=== PATIENT | male | born 1945 | race Caucasian/White ===

== ENCOUNTER 2018-10-08 19:19 | Emergency (ER) | payer MEDICARE ==
--- NOTE | 2018-10-08 20:43 | EDM.PDOC ---
ED HPI GENERAL MEDICAL PROBLEM - General Chief Complaint: General Stated Complaint: SWELLING Time Seen by Provider: 10/08/18 19:25 Source of Information: Reports: Patient, Family - History of Present Illness INITIAL COMMENTS - FREE TEXT/NARRATIVE: c/o edema inc'd fluid x 4d, arms swell, dizzy, sob pt here with daughter h/o alcohol abuse, last alcohol 1w ago, has apt with Dr Ordaz tomorrow, Dr Ordaz did a recent EGD PMH: AAA, AR, CKD4, pacer, htn, renal mass PSH: jenni ledesma saw Alyse Roberts 09/25 and begun on furosemide 20 mg daily for 1w, then qod finishing 4w of prednisone, was 10 mg 4 tab/d x 1w and then taper 10 mg weekly, has 2-3 tabs left inc'd edema and mild inc'd BUN/creat c/w fluid retention from prednisone also with glu 199 today BUN/creat 52/2.27 on 08/26, 65/2.69 on 09/15, now 49/2.9 wt 183 in office on 09/29, today 186.5 trop inc'd on visit 2m ago, came to ED, sent to [facility], no AR per [facility] trop neg tonight, BNP 719 today, was 394 from 1m ago - Related Data Allergies Allergy/AdvReac Type Severity Reaction Status Date / Time No Known Allergies Allergy Verified 10/08/18 19:31 Home Meds: Home Meds Carvedilol 12.5 mg PO BID 08/02/18 [History] Allopurinol [Zyloprim] 100 mg PO DAILY #90 tablet 08/11/18 [Rx] Aspirin [Halfprin] 81 mg PO DAILY tab.ec 08/11/18 [Rx] Acetaminophen [Tylenol Extra Strength] 500 mg PO Q4H PRN 10/08/18 [History] Fluticasone Propionate 1 spray NS ASDIRECTED 10/08/18 [History] Furosemide 20 mg PO DAILY #30 tablet 10/08/18 [Rx] Furosemide [Lasix] 20 mg PO Q48H 10/08/18 [History] Thiamine [Vitamin B-1] 100 mg PO DAILY 10/08/18 [History] amLODIPine Besylate [Amlodipine Besylate] 5 mg PO BID 10/08/18 [History] traZODone 50 mg PO DAILY 10/08/18 [History] Past Medical History HEENT History: Reports: Cataract Other HEENT History: cataract both eyes and got sick before it was taken care of Cardiovascular History: Reports: Hypertension, AR, Pacemaker Respiratory History: Reports: COPD Gastrointestinal History: Reports: Other (See Below) Other Gastrointestinal History: hernia-- inguinal hernia X3 right and left Genitourinary History: Reports: Other (See Below) Other Genitourinary History: stage 4 renal failure. Musculoskeletal History: Reports: Other (See Below) Other Musculoskeletal History: right arm weakness from 2 years ago. States that he does not know what happened. Admits to shoulder weakness on right. 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 Psychiatric History: Reports: Other (See Below) Other Psychiatric History: patient is an alcoholic. Denies 08/08, a "beer or two a day" Oncologic (Cancer) History: Reports: Renal - Past Surgical History Cardiovascular Surgical History: Reports: Percutaneous Transluminal Angioplasty , Other (See Below) Other Cardiovascular Surgeries/Procedures: pacemaker. Respiratory Surgical History: Reports: None GI Surgical History: Reports: Appendectomy, Cholecystectomy, Other (See Below) Other GI Surgeries/Procedures: lap nelsy Male Surgical History: Reports: None Other Male Surgeries/Procedures: cyst on right kidney--bx appt scheduled for in 10/11 Musculoskeletal Surgical History: Reports: None Social & Family History - Family History Family Medical History: Noncontributory - Tobacco Use Smoking Status *Q: Former Smoker Used Tobacco, but Quit: Yes Month/Year Tobacco Last Used: 1 - Caffeine Use Caffeine Use: Reports: Coffee - Alcohol Use Days Per Week of Alcohol Use: 7 Number of Drinks Per Day: 3 Total Drinks Per Week: 21 - Recreational Drug Use Recreational Drug Use: No ED ROS GENERAL - Review of Systems Review Of Systems: See Below Constitutional: Reports: No Symptoms HEENT: Reports: No Symptoms Respiratory: Reports: No Symptoms Cardiovascular: Reports: Edema Endocrine: Reports: No Symptoms GI/Abdominal: Reports: No Symptoms : Reports: No Symptoms Musculoskeletal: Reports: No Symptoms Skin: Reports: No Symptoms Neurological: Reports: Dizziness Psychiatric: Reports: No Symptoms Hematologic/Lymphatic: Reports: No Symptoms Immunologic: Reports: No Symptoms ED EXAM, GENERAL - Physical Exam Exam: See Below Exam Limited By: No Limitations General Appearance: Alert, WD/WN, No Apparent Distress, Other (cooperative, good eye contact, normal speech pattern) Nose: Normal Inspection, Normal Mucosa Throat/Mouth: Normal Inspection, Normal Lips, Normal Teeth Head: Atraumatic, Normocephalic Neck: Normal Inspection, Supple, Non-Tender, Full Range of Motion Respiratory/Chest: No Respiratory Distress, Lungs Clear, Normal Breath Sounds, No Accessory Muscle Use Cardiovascular: Regular Rate, Rhythm, No JVD, Other (2/6 DEBBIE at LSB, no S3/S4, 3 + edema knees, 2+ edema groin b/l, 1+ presacral edema, no dull at flanks, no rales at bases). No: Gallop/S3 GI/Abdominal: Normal Bowel Sounds, Soft, Non-Tender, No Distention Back Exam: Normal Inspection, Full Range of Motion. No: CVA Tenderness (R), CVA Tenderness (L) Extremities: Normal Range of Motion, Non-Tender, Zabrina's Sign Neurological: Alert, Oriented, CN II-XII Intact, Normal Cognition, Normal Reflexes, No Motor/Sensory Deficits Psychiatric: Normal Affect, Normal Mood Skin Exam: Warm, Dry, Intact, Normal Color, No Rash Lymphatic: No Adenopathy Course - Vital Signs Last Recorded V/S: Last Vital Signs Temp 36.5 C 10/08/18 19:19 Pulse 76 10/08/18 19:19 Resp 18 10/08/18 19:19 BP 181/67 H 10/08/18 19:19 Pulse Ox 96 10/08/18 19:19 - Orders/Labs/Meds Orders: Active Orders 24 hr Category Date Time Status CBC WITH AUTO DIFF [HEME] Stat Lab 10/08/18 19:55 Results Labs: Laboratory Tests 10/08/18 10/08/18 10/08/18 Range/Units 19:55 19:55 19:55 WBC 11.7 (4.5-12.0) X10-3/uL RBC 3.44 L (4.30-5.75) x10(6)uL Hgb 12.4 (11.5-15.5) g/dL Hct 35.5 (30.0-51.3) % MCV 103.0 H (80-96) fL MCH 36.1 H (27.7-33.6) pg MCHC 35.0 (32.2-35.4) g/dL RDW 14.4 (11.5-15.5) % Plt Count 280 (125-369) X10(3)uL MPV 7.9 (7.4-10.4) fL Add Manual Diff Yes Sodium 137 (135-145) mmol/L Potassium 5.4 H D (3.5-5.3) mmol/L Chloride 103 D (100-110) mmol/L Carbon Dioxide 22 (21-32) mmol/L BUN 49 H (7-18) mg/dL Creatinine 2.9 H* (0.70-1.30) mg/dL Est Cr Clr Drug Dosing 21.95 mL/min Estimated GFR (MDRD) 21 L (>60) BUN/Creatinine Ratio 16.9 (9-20) Glucose 199 H D (80-116) mg/dL Calcium 8.8 (8.6-10.2) mg/dL Total Bilirubin 0.5 (0.1-1.3) mg/dL AST 20 D (5-25) IU/L ALT 29 (12-36) U/L Alkaline Phosphatase 68 (56-112) IU/L Troponin I < 0.017 L (<0.017-0.056) ng/mL NT-Pro-B Natriuret Pep 719 H (<=125) pg/mL Total Protein 7.3 (6.0-8.0) g/dL Albumin 3.5 (3.2-4.6) g/dL Globulin 3.8 g/dL Albumin/Globulin Ratio 0.9 Departure - Departure Time of Disposition: 20:46 Disposition: Home, Self-Care 01 Condition: Good Clinical Impression: Anasarca, Fluid retention, Elevated BUN, Acute on chronic renal failure - Discharge Information *PRESCRIPTION DRUG MONITORING PROGRAM REVIEWED*: No *COPY OF PRESCRIPTION DRUG MONITORING REPORT IN PATIENT SOTERO: No Prescriptions: Furosemide 20 mg PO DAILY #30 tablet Instructions: Edema Referrals: Trish Roberts NP [Primary Care Provider] - Additional Instructions: Increase the furosemide to 20 mg 2 tabs daily for 3 days, then 1 tab daily. Discuss your blood pressure and blood sugar with your doctor. See your doctor in 5 days. Call your Physician or Return to Emergency Department if: * Your condition worsens in any way. * You develop fever greater than 100.4. * You have vomitting that does not stop with medications. * You have pain that is not controlled with medications. - My Orders Last 24 Hours: My Active Orders 10/08/18 19:55 CBC WITH AUTO DIFF [HEME] Stat - Assessment/Plan Last 24 Hours: My Active Orders 10/08/18 19:55 CBC WITH AUTO DIFF [HEME] Stat
== END 2018-10-08 20:55 | disposition home or self-care (01) ==
LOC: FB.ED 19:19
DX: I12.9 Hypertensive chronic kidney disease with stage 1 through stage 4 chronic kidney disease, or unspecified chronic kidney disease (principal); N17.9 Acute kidney failure, unspecified; N18.9 Chronic kidney disease, unspecified; R60.1 Generalized edema; R79.89 Other specified abnormal findings of blood chemistry; I25.2 Old myocardial infarction; Z79.82 Long term (current) use of aspirin; Z79.899 Other long term (current) drug therapy; Z87.891 Personal history of nicotine dependence
CPT/HCPCS: 36415; 80053; 83880; 84484; 85025; 99284

== ENCOUNTER 2019-02-12 13:55 | Inpatient (IN) | payer MEDICARE ==
[2019-02-12] MEDS ORDERED: Acetaminophen 325 MG Tab PO PRN (14:11)
[2019-02-12] MEDS ORDERED: Thiamine 200 MG in Sodium Chloride 0.9% 100 ML IV ONE (14:17)
[2019-02-12] MEDS: LORazepam 1 MG Tab PO PRN (15:27)
[2019-02-12] MEDS: Acetaminophen 500 MG Tab PO PRN (15:27)
[2019-02-12] MEDS: Sodium Chloride 0.9% 10 ML Syringe FLUSH PRN ×2 (15:30→17:18)
[2019-02-12] MEDS: Carvedilol 12.5 MG Tab PO SCH (20:15)
[2019-02-12] MEDS: Gabapentin 100 MG Cap PO SCH (20:15)
[2019-02-12] MEDS ORDERED: traZODone 50 MG Tab PO SCH (21:00)
--- NOTE | 2019-02-13 08:05 | HP ---
ADMISSION DATE: 02/12/2019 CHIEF COMPLAINT: Tremor and weakness. HISTORY OF PRESENT ILLNESS: Mr. Kim is a 73-year-old man with many years of chronic alcoholism, history of coronary artery disease with 2 prior stent placements and a permanent pacemaker, history of iliac artery stent left to right, and osteoarthritis. The patient presented to the clinic to see Dr. Solano today because of weakness and tremor. This has been going on for the prior few days. He states he drinks 4 beers and one hard drink per day on the average and has kept this pattern up without stopping. He states he has had an episode of shaking like this at least once before, resulting in hospitalization. His ex-, who accompanies him today, states that they told him it was due to alcohol. Paul has not had any fever, chills, sweats, or symptoms of recent infection. He does report intermittent headaches and neck pain ever since he fell and sustained a relatively severe facial and forehead contusion and abrasion and strain of his neck. He did not have any x-rays of the neck done, but he has had neck pain ever since that. PAST MEDICAL HISTORY: Includes: 1. Appendectomy at age 40. 2. Cholecystectomy. 3. Head contusion with a neck strain approximately 2 months ago. 4. Chronic renal failure, stage 4. Paul is not sure what the cause of that is. 5. He had right knee surgery approximately 40 years ago, and he has been having pain in the right knee now for the past 1-2 years with walking. He has had tremor. 6. He has a history of bilateral inguinal hernias. 7. Diverticulosis. 8. Chronic anemia. 9. COPD. 10.Hypertension. 11.Right solid renal mass. 12.Abdominal aortic aneurysm, last measured at 4 cm in 2017. 13.Paul underwent CT of the abdomen and pelvis in October of 2018 for right upper abdominal pain, this showed emphysematous changes at the lungs, basilar infiltrates, and absent gallbladder. A solid 39 x 41 mm mass unchanged over a period of a year. 14.Degenerative disk disease and osteoarthritis of lumbar spine. 15.A 36-mm infrarenal aortic aneurysm and unremarkable gallbladder, spleen, liver, and adrenals. Inguinal hernias were noted as well. MEDICATIONS: 1. Trazodone 75 mg at bedtime. 2. Amlodipine 5 mg b.i.d. 3. Gabapentin 200 mg b.i.d. 4. Carvedilol 12.5 mg b.i.d. 5. Tylenol p.r.n. ALLERGIES: None known. HABITS: Long history of smoking, but he says he does not smoke at this time. Long heavy and continued use of alcohol. One cup of coffee per day. FAMILY HISTORY: The patient's parents, he reports, in their 80s of old age. One brother at age 33 of cirrhosis. Other siblings, he reports, are healthy. SOCIAL HISTORY: The patient is for 40 years. He lived in [facility] for many years and moved up here 2 years ago, and he is accompanied by his ex- , who remains good friends. He has had 2 children, one daughter who looks after his affairs. Paul [facility]. REVIEW OF SYSTEMS: GENERAL: No seizure, syncope, or recent significant weight change. SKIN: Negative for rash. HEENT: No recent changes in hearing or vision. He states that he needs cataracts fixed. No sore throat or URI. No cough or purulent sputum. No chest pain or palpitations. No abdominal pain, nausea, diarrhea. No joint inflammation. He does have chronic pain in the right knee. No swelling or skin rash. PHYSICAL EXAMINATION: GENERAL: He is alert and comfortable. He is a good historian. VITAL SIGNS: Blood pressure 94/56, pulse 60 and regular, respirations normal, temp 97.8, weight 178 pounds 12 ounces. SKIN: Anicteric. Warm and dry without sign of rash or trauma. HEENT: Cerumen impactions in both ears. Pupils are equal and reactive. Oropharynx is clear. He has no upper teeth and lower teeth are in poor condition. NECK: A slight kyphotic deviation with decreased range of motion. Thyroid is palpably normal. LUNGS: Clear to the bases. HEART: Regular without murmur or gallop. ABDOMEN: Normal bowel sounds. Soft. There is mild tenderness in the left lower quadrant. No guarding or rebound. There are inguinal hernias present bilaterally. EXTREMITIES: Warm and well perfused. He has palpable pedal pulses in both feet. No edema. Reflexes are present at the knee jerks and ankle jerks. He has a rather coarse tremor. NEUROLOGIC: Asterixis to be present in the upper extremities. LABORATORY DATA: Done at the office today, white count 9,100, hemoglobin 13.4, MCV 97. Glucose 67, sodium 141, potassium 5.5, BUN 42, creatinine 3.04. AST and ALT normal. An estimated clear glomerular filtration rate of 20. ASSESSMENT: 1. Tremor and weakness, likely alcohol related with asterixis present. 2. Headaches and neck pain post fall, resulting in significant forehead contusion and neck injury, neck strain. 3. Oxoze-db-tddukza alcoholism. 4. Coronary artery disease with history of myocardial infarction and two stents. 5. Peripheral vascular disease with left to right iliac artery stent. 6. Chronic kidney disease, stage 4. 7. Osteoarthritis, right knee. 8. Permanent pacemaker. 9. A 4 cm abdominal aortic aneurysm. 10.A 20 x 30 mm right upper pole renal mass, stable in size over 1 year's time. PLAN: Paul is admitted to the hospital. We will pursue further investigation. Watch closely for signs of acute alcohol withdrawal and medicate appropriately. We will also x-ray his neck because of the continued neck pain and headaches since his injury. /[id number] LUIZA/DAVID
[2019-02-13] MEDS: Thiamine 100 MG Tab PO SCH (08:48)
[2019-02-13] MEDS: Gabapentin 100 MG Cap PO SCH (08:48)
[2019-02-13] MEDS: amLODIPine 5 MG Tab PO SCH (08:48)
[2019-02-13] MEDS: Carvedilol 12.5 MG Tab PO SCH ×2 (08:48→20:20)
[2019-02-13] MEDS ORDERED: Furosemide 20 MG Tab PO SCH (09:00)
[2019-02-13] MEDS ORDERED: traZODone 100 MG Tab PO SCH (09:00)
[2019-02-13] MEDS ORDERED: Allopurinol 100 MG Tab PO SCH (09:00)
--- NOTE | 2019-02-13 10:14 | PCM.PN ---
- General Info Date of Service: 02/13/19 Subjective Update: Paul complains of tremors on movement. The tenderness so severe that is unable to hold a cup or drink anything. His complains of neck pain from a previous trauma and fall. Is not adequate for at least 2-3 days. According to physical therapy is very poor and judgment and movement even with a walker he still needs 1 or 2 people assisting and is a very high risk for a fall. He does not seem to remember many of the events that happened recently since disoriented at times. - Review of Systems HEENT: Reports: No Symptoms Cardiovascular: Reports: Dyspnea on Exertion Gastrointestinal: Reports: No Symptoms Genitourinary: Reports: No Symptoms Musculoskeletal: Reports: Neck Pain - Patient Data Vitals - Most Recent: Last Vital Signs Temp 98.1 F 02/13/19 00:00 Pulse 56 L 02/13/19 08:48 Resp 17 02/13/19 00:00 BP 113/64 02/13/19 08:48 Pulse Ox 95 02/13/19 00:00 Weight - Most Recent: 79.407 kg Lab Results Last 24 Hours: Laboratory Results - last 24 hr 02/13/19 02/13/19 02/13/19 Range/Units 07:55 07:55 07:55 WBC 7.8 (4.5-12.0) X10-3/uL RBC 3.61 L (4.30-5.75) x10(6)uL Hgb 12.3 L (13.5-17.8) g/dL Hct 35.2 (30.0-51.3) % MCV 97.4 H (80-96) fL MCH 34.0 H (27.7-33.6) pg MCHC 34.9 (32.2-35.4) g/dL RDW 14.0 (11.5-15.5) % Plt Count 211 (125-369) X10(3)uL MPV 7.7 (7.4-10.4) fL Neut % (Auto) 54.5 (46-82) % Lymph % (Auto) 26.3 (13-37) % [place] % (Auto) 13.1 H (4-12) % Eos % (Auto) 5 (1.0-5.0) % Baso % (Auto) 1 (0-2) % Neut # (Auto) 4.2 (1.6-8.3) # Lymph # (Auto) 2.1 (0.6-5.0) # [place] # (Auto) 1.0 (0.0-1.3) # Eos # (Auto) 0.4 (0.0-0.8) # Baso # (Auto) 0.1 (0.0-0.2) # PT 9.9 (8.7-11.1) INR 1.02 (0.89-1.13) Sodium 141 (135-145) mmol/L Potassium 5.3 (3.5-5.3) mmol/L Chloride 108 D (100-110) mmol/L Carbon Dioxide 24 (21-32) mmol/L BUN 42 H (7-18) mg/dL Creatinine 3.0 H* (0.70-1.30) mg/dL Est Cr Clr Drug Dosing 21.22 mL/min Estimated GFR (MDRD) 21 L (>60) BUN/Creatinine Ratio 14.0 (9-20) Glucose 86 D (80-116) mg/dL Uric Acid (2.6-6.0) mg/dL Calcium 8.1 L (8.6-10.2) mg/dL Magnesium 1.9 (1.8-2.5) mg/dL Total Bilirubin 0.3 (0.1-1.3) mg/dL AST 10 D (5-25) IU/L ALT 14 D (12-36) U/L Alkaline Phosphatase 69 (56-112) IU/L Total Protein 6.0 (6.0-8.0) g/dL Albumin 2.7 L (3.2-4.6) g/dL Globulin 3.3 g/dL Albumin/Globulin Ratio 0.8 02/13/19 Range/Units 07:55 WBC (4.5-12.0) X10-3/uL RBC (4.30-5.75) x10(6)uL Hgb (13.5-17.8) g/dL Hct (30.0-51.3) % MCV (80-96) fL MCH (27.7-33.6) pg MCHC (32.2-35.4) g/dL RDW (11.5-15.5) % Plt Count (125-369) X10(3)uL MPV (7.4-10.4) fL Neut % (Auto) (46-82) % Lymph % (Auto) (13-37) % [place] % (Auto) (4-12) % Eos % (Auto) (1.0-5.0) % Baso % (Auto) (0-2) % Neut # (Auto) (1.6-8.3) # Lymph # (Auto) (0.6-5.0) # [place] # (Auto) (0.0-1.3) # Eos # (Auto) (0.0-0.8) # Baso # (Auto) (0.0-0.2) # PT (8.7-11.1) INR (0.89-1.13) Sodium (135-145) mmol/L Potassium (3.5-5.3) mmol/L Chloride (100-110) mmol/L Carbon Dioxide (21-32) mmol/L BUN (7-18) mg/dL Creatinine (0.70-1.30) mg/dL Est Cr Clr Drug Dosing mL/min Estimated GFR (MDRD) (>60) BUN/Creatinine Ratio (9-20) Glucose (80-116) mg/dL Uric Acid 8.3 H (2.6-6.0) mg/dL Calcium (8.6-10.2) mg/dL Magnesium (1.8-2.5) mg/dL Total Bilirubin (0.1-1.3) mg/dL AST (5-25) IU/L ALT (12-36) U/L Alkaline Phosphatase (56-112) IU/L Total Protein (6.0-8.0) g/dL Albumin (3.2-4.6) g/dL Globulin g/dL Albumin/Globulin Ratio Med Orders - Current: Current Medications Acetaminophen (Tylenol Extra Strength) 500 mg PO Q4H PRN PRN Reason: Pain Last Admin: 02/12/19 15:27 Dose: 500 mg Amlodipine Besylate (Norvasc) 5 mg PO DAILY [facility] Last Admin: 02/13/19 08:48 Dose: 5 mg Carvedilol (Coreg) 12.5 mg PO BID [facility] Last Admin: 02/13/19 08:48 Dose: 12.5 mg Lactulose (Chronulac) 10 gm PO BID [facility] Lorazepam (Ativan) 1 mg PO Q6H PRN PRN Reason: tremulousness Last Admin: 02/12/19 15:27 Dose: 1 mg Sodium Chloride (Saline Flush) 10 ml FLUSH ASDIRECTED PRN PRN Reason: Keep Vein Open Last Admin: 02/12/19 17:18 Dose: 10 ml Thiamine HCl (Vitamin B-1) 100 mg PO DAILY [facility] Last Admin: 02/13/19 08:48 Dose: 100 mg Tramadol HCl (Ultram) 50 mg PO Q6H PRN PRN Reason: Pain Discontinued Medications Acetaminophen (Tylenol) 650 mg PO Q4H PRN PRN Reason: Pain (Mild 1-3)/fever Furosemide (Lasix) 20 mg PO DAILY [facility] Gabapentin (Neurontin) 200 mg PO BID [facility] Last Admin: 02/13/19 08:48 Dose: 200 mg Thiamine HCl 200 mg/ Sodium (Chloride) 102 mls @ 204 mls/hr IV ONETIME ONE Stop: 02/12/19 14:18 Last Admin: 02/12/19 15:30 Dose: 204 mls/hr Trazodone HCl (Trazodone) 50 mg PO DAILY [facility] Trazodone HCl (Trazodone) 75 mg PO BEDTIME [facility] Last Admin: 02/12/19 20:15 Dose: 75 mg - Exam General: Alert, Cooperative, Mild Distress. No: Oriented HEENT: Pupils Equal Neck: Supple Lungs: Clear to Auscultation Cardiovascular: Regular Rate GI/Abdominal Exam: Normal Bowel Sounds Back Exam: Normal Inspection, Vertebral Tenderness (nck) Extremities: Normal Inspection Skin: Warm Neurological: Normal Speech, Strength Equal Bilateral, Other (Pronator drift, asterexis noted) Psy/Mental Status: Alert - Problem List & Annotations (1) Encephalopathy SNOMED Code(s): 49877065 Code(s): G93.40 - ENCEPHALOPATHY, UNSPECIFIED Status: Acute Current Visit : Yes (2) CAD (coronary artery disease) SNOMED Code(s): 27865247 Code(s): I25.10 - ATHSCL HEART DISEASE OF [place] CORONARY ARTERY W/O ANG PCTRS Status: Acute Current Visit: Yes Qualifiers: Coronary Disease-Associated Artery/Lesion type: [place] artery (3) Pacemaker SNOMED Code(s): 601435643 Code(s): Z95.0 - PRESENCE OF CARDIAC PACEMAKER Status: Acute Current Visit: Yes (4) Neck pain SNOMED Code(s): 20468123 Code(s): M54.2 - CERVICALGIA Status: Acute Current Visit: Yes (5) Acute on chronic renal failure SNOMED Code(s): 000075887 Code(s): N17.9 - ACUTE KIDNEY FAILURE, UNSPECIFIED; N18.9 - CHRONIC KIDNEY DISEASE, UNSPECIFIED Status: Acute Current Visit: No Qualifiers: Chronic kidney disease stage: stage 4 (severe) (6) Alcohol intoxication SNOMED Code(s): 13008216 Code(s): F10.929 - ALCOHOL USE, UNSPECIFIED WITH INTOXICATION, UNSPECIFIED Status: Acute Current Visit: No Qualifiers: Complication of substance-induced condition: with unspecified complication Qualified Code(s): F10.929 - Alcohol use, unspecified with intoxication, unspecified (7) Tremor of both hands SNOMED Code(s): 460697930, 803595922 Code(s): R25.1 - TREMOR, UNSPECIFIED Status: Acute Current Visit: Yes - Problem List Review Problem List Initiated/Reviewed/Updated: Yes - My Orders Last 24 Hours: My Active Orders 02/13/19 10:04 Brain wo Cont [MR] Routine AMMONIA, PLASMA Stat MAGNESIUM [CHEM] Stat TROPONIN I [CHEM] Stat 02/13/19 10:06 traMADol [Ultram] 50 mg PO Q6H PRN 02/13/19 10:15 PRO B-TYPE NATRIUR PEPT,BNPPRO [CHEM] DAILY 02/13/19 11:00 Lactulose [Chronulac] 10 gm PO BID 02/14/19 05:11 CBC WITH AUTO DIFF [HEME] AM COMPREHENSIVE METABOLIC PN,CMP [CHEM] AM 02/14/19 10:15 PRO B-TYPE NATRIUR PEPT,BNPPRO [CHEM] DAILY - Plan Plan:: Paul is a very high risk for fall,especially sicne he lives alone. I would stop his gabapentin, place him on CIWA protocol, obtain repeat CT of the brain. Ammonia level BNP also ordered,and will continue with physical therapy. I'll start him on lactulose( as we await ammonia level) and continue thiamine.
[2019-02-13] MEDS: traMADol 50 MG Tab PO PRN ×2 (11:44→20:22)
--- NOTE | 2019-02-13 12:40 | CT ---
INDICATION: Falls, altered mental status. CT HEAD WITHOUT CONTRAST: Spiral examination of the brain axially was obtained 02/13/19 with sagittal and coronal reconstructions and compared with 08/02/18. Total exam DLP = 1,270.76 mGy-cm. There is mild thickening of the lining of the left maxillary antrum now visualized with some thickening of linings of multiple ethmoidal air cells also now seen. The mastoid air cells appear to be fairly well-aerated. No definite cranial fracture site was identified. There is suggestion of soft tissue injury in the right frontal bone area - minimal scalp contusion suggested. Calcification is noted in the right vertebral artery and at internal cerebral arteries. What appear to be lacunar infarcts are noted at the left thalamus, one previously visualized, one more inferiorly and anteriorly appearing new. There also appears to be a large lacunar infarct at the basal ganglia on the left, which was present previously. No shift of midline structures or ventricular abnormalities were seen. There is some periventricular white matter abnormality on the left, mostly in the parietal area, which may represent microvascular disease, although other cause of leukoencephalopathy cannot be excluded. There also appears to be some minimal decreased density in the posterior limb of the left internal capsule, raising question of tiny lacunar infarcts there. No evidence of a bleeding site or hematoma was identified. The orbits appear to be intact. IMPRESSION: 1. No definite acute intracranial abnormality. 2. Mild microvascular disease type changes suggested asymmetrically more prominent in left parietal area. Other cause of leukoencephalopathy cannot be excluded. 3. Cerebrovascular disease. 4. Multiple lacunar infarcts. 5. Thickening of linings of left maxillary antrum and ethmoidal air cells. [facility]
[2019-02-13] MEDS: Lactulose Soln 10 GM/15 ML 15 ML UD Cup PO SCH ×2 (12:41→20:18)
--- NOTE | 2019-02-13 12:50 | CR ---
INDICATION: Neck injury. CERVICAL SPINE: Three views of the cervical spine were obtained in lateral projection, also utilizing swimmers type view, including neutral flexion/ extension views, as well as an odontoid view. The odontoid appeared to be intact. Hypertrophic degenerative changes are noted at the atlas - axis, lateral masses to a mild degree, more prominently on the left, and to a more severe degree in the lateral masses throughout the more caudal cervical spine. Hypertrophic degenerative changes and disk disease is most notable at the C5-6, C6-7 levels but also present at C3-4 and C4-5 to a lesser degree. Reversal of the normal cervical lordosis is noted centered at the C5 level. Prevertebral space appeared to be normal. A definite acute fracture or dislocation was not identified. IMPRESSION: 1. No definite acute fracture or dislocation - correlate clinically - additional examination may be warranted, such as CT, depending upon clinical correlation. 2. Degenerative changes and disk disease, most severe at C5-6, C6-7. MTDD
--- NOTE | 2019-02-13 12:58 | CR ---
INDICATION: COPD. CHEST: AP and lateral views of the chest were obtained 02/12/19 and compared with 08/02/18. Allowing for the AP positioning, no significant interval change or definite acute process was seen. It is difficult to exclude some minimal patchy pneumonia and pleuritis at the left costophrenic angle, due to somewhat heavy markings in that area. The possibility of COPD is also suggested by somewhat flattened diaphragm leaves , prominent AP diameter, and hyperaeration. The heart did not appear enlarged, allowing for poor inspiration and AP positioning with bipolar pacemaker leads appearing unchanged in position. The aorta is tortuous to a moderate degree with calcifications in the arch. Compression fracture anteriorly of indeterminate age is noted at the midthoracic level. IMPRESSION: 1. No definite acute process. 2. Difficult to exclude minimal patchy bronchopneumonia and pleuritis at the left costophrenic angle. 3. Probable COPD - correlate clinically. 4. Degenerative changes midthoracic spine with a minimal compression fracture anteriorly at a midthoracic level of questionable age. MTDD
[2019-02-14] MEDS: traMADol 50 MG Tab PO PRN (06:39)
--- NOTE | 2019-02-14 09:25 | PCM.PN ---
- General Info Date of Service: 02/14/19 Subjective Update: Feels better.Tremors are better. Still has neck pain - Review of Systems General: Reports: No Symptoms HEENT: Reports: No Symptoms Pulmonary: Reports: No Symptoms Cardiovascular: Reports: No Symptoms Gastrointestinal: Reports: No Symptoms - Patient Data Vitals - Most Recent: Last Vital Signs Temp 98.5 F 02/14/19 00:00 Pulse 56 L 02/14/19 00:00 Resp 17 02/14/19 00:00 BP 115/54 L 02/14/19 00:00 Pulse Ox 93 L 02/14/19 00:00 Weight - Most Recent: 79.061 kg I&O - Last 24 Hours: Intake & Output 02/13/19 02/14/19 02/14/19 22:59 06:59 14:59 Intake Total 500 Output Total 900 Balance -400 Lab Results Last 24 Hours: Laboratory Results - last 24 hr 02/13/19 02/13/19 02/13/19 Range/Units 07:55 10:35 10:35 WBC (4.5-12.0) X10-3/uL RBC (4.30-5.75) x10(6)uL Hgb (13.5-17.8) g/dL Hct (30.0-51.3) % MCV (80-96) fL MCH (27.7-33.6) pg MCHC (32.2-35.4) g/dL RDW (11.5-15.5) % Plt Count (125-369) X10(3)uL MPV (7.4-10.4) fL Neut % (Auto) (46-82) % Lymph % (Auto) (13-37) % [place] % (Auto) (4-12) % Eos % (Auto) (1.0-5.0) % Baso % (Auto) (0-2) % Neut # (Auto) (1.6-8.3) # Lymph # (Auto) (0.6-5.0) # [place] # (Auto) (0.0-1.3) # Eos # (Auto) (0.0-0.8) # Baso # (Auto) (0.0-0.2) # Sodium (135-145) mmol/L Potassium (3.5-5.3) mmol/L Chloride (100-110) mmol/L Carbon Dioxide (21-32) mmol/L BUN (7-18) mg/dL Creatinine (0.70-1.30) mg/dL Est Cr Clr Drug Dosing mL/min Estimated GFR (MDRD) (>60) BUN/Creatinine Ratio (9-20) Glucose (80-116) mg/dL Calcium (8.6-10.2) mg/dL Magnesium 1.9 (1.8-2.5) mg/dL Total Bilirubin (0.1-1.3) mg/dL AST (5-25) IU/L ALT (12-36) U/L Alkaline Phosphatase (56-112) IU/L Troponin I < 0.017 L (<0.017-0.056) ng/mL NT-Pro-B Natriuret Pep (<=125) pg/mL Total Protein (6.0-8.0) g/dL Albumin (3.2-4.6) g/dL Globulin g/dL Albumin/Globulin Ratio Vitamin D 25-Hydroxy 25.4 L (30.0-100.0) ng/mL 02/13/19 02/14/19 02/14/19 Range/Units 10:35 06:35 06:35 WBC 7.7 (4.5-12.0) X10-3/uL RBC 3.58 L (4.30-5.75) x10(6)uL Hgb 12.2 L (13.5-17.8) g/dL Hct 35.0 (30.0-51.3) % MCV 97.7 H (80-96) fL MCH 34.1 H (27.7-33.6) pg MCHC 34.9 (32.2-35.4) g/dL RDW 14.0 (11.5-15.5) % Plt Count 212 (125-369) X10(3)uL MPV 7.9 (7.4-10.4) fL Neut % (Auto) 50.4 (46-82) % Lymph % (Auto) 29.2 (13-37) % [place] % (Auto) 13.2 H (4-12) % Eos % (Auto) 6 H (1.0-5.0) % Baso % (Auto) 2 (0-2) % Neut # (Auto) 4.0 (1.6-8.3) # Lymph # (Auto) 2.2 (0.6-5.0) # [place] # (Auto) 1.0 (0.0-1.3) # Eos # (Auto) 0.4 (0.0-0.8) # Baso # (Auto) 0.1 (0.0-0.2) # Sodium 142 (135-145) mmol/L Potassium 5.2 (3.5-5.3) mmol/L Chloride 108 (100-110) mmol/L Carbon Dioxide 26 (21-32) mmol/L BUN 36 H (7-18) mg/dL Creatinine 2.9 H* (0.70-1.30) mg/dL Est Cr Clr Drug Dosing 21.95 mL/min Estimated GFR (MDRD) 21 L (>60) BUN/Creatinine Ratio 12.4 (9-20) Glucose 84 (80-116) mg/dL Calcium 8.4 L (8.6-10.2) mg/dL Magnesium (1.8-2.5) mg/dL Total Bilirubin 0.4 (0.1-1.3) mg/dL AST 10 (5-25) IU/L ALT 14 (12-36) U/L Alkaline Phosphatase 64 (56-112) IU/L Troponin I (<0.017-0.056) ng/mL NT-Pro-B Natriuret Pep 852 H (<=125) pg/mL Total Protein 6.1 (6.0-8.0) g/dL Albumin 2.6 L (3.2-4.6) g/dL Globulin 3.5 g/dL Albumin/Globulin Ratio 0.7 Vitamin D 25-Hydroxy (30.0-100.0) ng/mL 02/14/19 Range/Units 06:35 WBC (4.5-12.0) X10-3/uL RBC (4.30-5.75) x10(6)uL Hgb (13.5-17.8) g/dL Hct (30.0-51.3) % MCV (80-96) fL MCH (27.7-33.6) pg MCHC (32.2-35.4) g/dL RDW (11.5-15.5) % Plt Count (125-369) X10(3)uL MPV (7.4-10.4) fL Neut % (Auto) (46-82) % Lymph % (Auto) (13-37) % [place] % (Auto) (4-12) % Eos % (Auto) (1.0-5.0) % Baso % (Auto) (0-2) % Neut # (Auto) (1.6-8.3) # Lymph # (Auto) (0.6-5.0) # [place] # (Auto) (0.0-1.3) # Eos # (Auto) (0.0-0.8) # Baso # (Auto) (0.0-0.2) # Sodium (135-145) mmol/L Potassium (3.5-5.3) mmol/L Chloride (100-110) mmol/L Carbon Dioxide (21-32) mmol/L BUN (7-18) mg/dL Creatinine (0.70-1.30) mg/dL Est Cr Clr Drug Dosing mL/min Estimated GFR (MDRD) (>60) BUN/Creatinine Ratio (9-20) Glucose (80-116) mg/dL Calcium (8.6-10.2) mg/dL Magnesium (1.8-2.5) mg/dL Total Bilirubin (0.1-1.3) mg/dL AST (5-25) IU/L ALT (12-36) U/L Alkaline Phosphatase (56-112) IU/L Troponin I (<0.017-0.056) ng/mL NT-Pro-B Natriuret Pep 946 H (<=125) pg/mL Total Protein (6.0-8.0) g/dL Albumin (3.2-4.6) g/dL Globulin g/dL Albumin/Globulin Ratio Vitamin D 25-Hydroxy (30.0-100.0) ng/mL Med Orders - Current: Current Medications Acetaminophen (Tylenol Extra Strength) 500 mg PO Q4H PRN PRN Reason: Pain Last Admin: 02/12/19 15:27 Dose: 500 mg Amlodipine Besylate (Norvasc) 5 mg PO DAILY [facility] Last Admin: 02/13/19 08:48 Dose: 5 mg Carvedilol (Coreg) 12.5 mg PO BID [facility] Last Admin: 02/13/19 20:20 Dose: 12.5 mg Lactulose (Chronulac) 10 gm PO BID [facility] Last Admin: 02/13/19 20:18 Dose: 10 gm Lorazepam (Ativan) 1 mg PO Q6H PRN PRN Reason: tremulousness Last Admin: 02/12/19 15:27 Dose: 1 mg Sodium Chloride (Saline Flush) 10 ml FLUSH ASDIRECTED PRN PRN Reason: Keep Vein Open Last Admin: 02/12/19 17:18 Dose: 10 ml Thiamine HCl (Vitamin B-1) 100 mg PO DAILY [facility] Last Admin: 02/13/19 08:48 Dose: 100 mg Tramadol HCl (Ultram) 50 mg PO Q6H PRN PRN Reason: Pain Last Admin: 02/14/19 06:39 Dose: 50 mg Discontinued Medications Acetaminophen (Tylenol) 650 mg PO Q4H PRN PRN Reason: Pain (Mild 1-3)/fever Furosemide (Lasix) 20 mg PO DAILY [facility] Gabapentin (Neurontin) 200 mg PO BID [facility] Last Admin: 02/13/19 08:48 Dose: 200 mg Thiamine HCl 200 mg/ Sodium (Chloride) 102 mls @ 204 mls/hr IV ONETIME ONE Stop: 02/12/19 14:18 Last Admin: 02/12/19 15:30 Dose: 204 mls/hr Trazodone HCl (Trazodone) 50 mg PO DAILY [facility] Trazodone HCl (Trazodone) 75 mg PO BEDTIME [facility] Last Admin: 02/12/19 20:15 Dose: 75 mg - Exam General: Alert, Oriented, Cooperative HEENT: Pupils Equal Neck: Supple Lungs: Clear to Auscultation Cardiovascular: Regular Rate GI/Abdominal Exam: Normal Bowel Sounds - Problem List & Annotations (1) Encephalopathy SNOMED Code(s): 30569439 Code(s): G93.40 - ENCEPHALOPATHY, UNSPECIFIED Status: Acute Current Visit : Yes (2) CAD (coronary artery disease) SNOMED Code(s): 98825176 Code(s): I25.10 - ATHSCL HEART DISEASE OF [place] CORONARY ARTERY W/O ANG PCTRS Status: Acute Current Visit: Yes Qualifiers: Coronary Disease-Associated Artery/Lesion type: [place] artery (3) Pacemaker SNOMED Code(s): 094310708 Code(s): Z95.0 - PRESENCE OF CARDIAC PACEMAKER Status: Acute Current Visit: Yes (4) Neck pain SNOMED Code(s): 75980032 Code(s): M54.2 - CERVICALGIA Status: Acute Current Visit: Yes (5) Acute on chronic renal failure SNOMED Code(s): 684167114 Code(s): N17.9 - ACUTE KIDNEY FAILURE, UNSPECIFIED; N18.9 - CHRONIC KIDNEY DISEASE, UNSPECIFIED Status: Acute Current Visit: No Qualifiers: Chronic kidney disease stage: stage 4 (severe) (6) Alcohol intoxication SNOMED Code(s): 23157034 Code(s): F10.929 - ALCOHOL USE, UNSPECIFIED WITH INTOXICATION, UNSPECIFIED Status: Acute Current Visit: No Qualifiers: Complication of substance-induced condition: with unspecified complication Qualified Code(s): F10.929 - Alcohol use, unspecified with intoxication, unspecified (7) Tremor of both hands SNOMED Code(s): 379902901, 916945946 Code(s): R25.1 - TREMOR, UNSPECIFIED Status: Acute Current Visit: Yes - Problem List Review Problem List Initiated/Reviewed/Updated: Yes - My Orders Last 24 Hours: My Active Orders 02/13/19 10:06 traMADol [Ultram] 50 mg PO Q6H PRN 02/13/19 10:35 AMMONIA, PLASMA Stat 02/13/19 11:00 Lactulose [Chronulac] 10 gm PO BID 02/13/19 12:36 CIWAA Assessment [RC] Q4H - Plan Plan:: CT head was normal.Lorazepam prn for tremors,shakes.Tramadol PRN for pain. Waiting for PT/OT input before DC
[2019-02-14] MEDS: Lactulose Soln 10 GM/15 ML 15 ML UD Cup PO SCH ×2 (09:41→21:05)
[2019-02-14] MEDS: Carvedilol 12.5 MG Tab PO SCH ×2 (09:41→21:05)
[2019-02-14] MEDS: Thiamine 100 MG Tab PO SCH (09:42)
[2019-02-14] MEDS: amLODIPine 5 MG Tab PO SCH (09:42)
[2019-02-14] MEDS: LORazepam 1 MG Tab PO PRN ×2 (13:36→21:05)
[2019-02-14] MEDS: Acetaminophen 500 MG Tab PO PRN (21:10)
[2019-02-14] MEDS: Sodium Chloride 0.9% 10 ML Syringe FLUSH PRN (21:10)
--- NOTE | 2019-02-15 10:27 | PCM.PN ---
- General Info Date of Service: 02/15/19 Subjective Update: Still has tremors,and can not hold anything. Worried about staying alone. Functional Status: Reports: Pain Controlled - Review of Systems HEENT: Reports: No Symptoms Pulmonary: Reports: No Symptoms Cardiovascular: Reports: No Symptoms Gastrointestinal: Reports: No Symptoms - Patient Data Vitals - Most Recent: Last Vital Signs Temp 99.1 F 02/14/19 19:15 Pulse 55 L 02/15/19 00:40 Resp 16 02/15/19 00:40 BP 108/57 L 02/15/19 00:40 Pulse Ox 94 L 02/15/19 00:40 Weight - Most Recent: 76.06 kg I&O - Last 24 Hours: Intake & Output 02/14/19 02/15/19 02/15/19 22:59 06:59 14:59 Output Total 200 Balance -200 Lab Results Last 24 Hours: Laboratory Results - last 24 hr 02/15/19 02/15/19 Range/Units 06:25 06:25 WBC 8.1 (4.5-12.0) X10-3/uL RBC 3.74 L (4.30-5.75) x10(6)uL Hgb 12.7 L (13.5-17.8) g/dL Hct 36.5 (30.0-51.3) % MCV 97.7 H (80-96) fL MCH 34.0 H (27.7-33.6) pg MCHC 34.8 (32.2-35.4) g/dL RDW 14.3 (11.5-15.5) % Plt Count 236 (125-369) X10(3)uL MPV 8.0 (7.4-10.4) fL Neut % (Auto) 58.9 (46-82) % Lymph % (Auto) 22.7 (13-37) % [place] % (Auto) 12.2 H (4-12) % Eos % (Auto) 6 H (1.0-5.0) % Baso % (Auto) 1 (0-2) % Neut # (Auto) 4.8 (1.6-8.3) # Lymph # (Auto) 1.8 (0.6-5.0) # [place] # (Auto) 1.0 (0.0-1.3) # Eos # (Auto) 0.5 (0.0-0.8) # Baso # (Auto) 0.0 (0.0-0.2) # Sodium 141 (135-145) mmol/L Potassium 5.0 (3.5-5.3) mmol/L Chloride 107 (100-110) mmol/L Carbon Dioxide 24 (21-32) mmol/L BUN 38 H (7-18) mg/dL Creatinine 3.1 H* (0.70-1.30) mg/dL Est Cr Clr Drug Dosing 20.53 mL/min Estimated GFR (MDRD) 20 L (>60) BUN/Creatinine Ratio 12.3 (9-20) Glucose 82 (80-116) mg/dL Calcium 8.8 (8.6-10.2) mg/dL Total Bilirubin 0.5 (0.1-1.3) mg/dL AST 13 D (5-25) IU/L ALT 16 D (12-36) U/L Alkaline Phosphatase 79 (56-112) IU/L Total Protein 6.6 (6.0-8.0) g/dL Albumin 3.0 L (3.2-4.6) g/dL Globulin 3.6 g/dL Albumin/Globulin Ratio 0.8 Med Orders - Current: Current Medications Acetaminophen (Tylenol Extra Strength) 500 mg PO Q4H PRN PRN Reason: Pain Last Admin: 02/14/19 21:10 Dose: 500 mg Amlodipine Besylate (Norvasc) 5 mg PO DAILY [facility] Last Admin: 02/14/19 09:42 Dose: 5 mg Carvedilol (Coreg) 12.5 mg PO BID [facility] Last Admin: 02/14/19 21:05 Dose: 12.5 mg Lactulose (Chronulac) 10 gm PO BID [facility] Last Admin: 02/14/19 21:05 Dose: 10 gm Lorazepam (Ativan) 1 mg PO Q6H PRN PRN Reason: tremulousness Last Admin: 02/14/19 21:05 Dose: 1 mg Sodium Chloride (Saline Flush) 10 ml FLUSH ASDIRECTED PRN PRN Reason: Keep Vein Open Last Admin: 02/14/19 21:10 Dose: 10 ml Thiamine HCl (Vitamin B-1) 100 mg PO DAILY [facility] Last Admin: 02/14/19 09:42 Dose: 100 mg Tramadol HCl (Ultram) 50 mg PO Q6H PRN PRN Reason: Pain Last Admin: 02/14/19 06:39 Dose: 50 mg Discontinued Medications Acetaminophen (Tylenol) 650 mg PO Q4H PRN PRN Reason: Pain (Mild 1-3)/fever Furosemide (Lasix) 20 mg PO DAILY [facility] Gabapentin (Neurontin) 200 mg PO BID [facility] Last Admin: 02/13/19 08:48 Dose: 200 mg Thiamine HCl 200 mg/ Sodium (Chloride) 102 mls @ 204 mls/hr IV ONETIME ONE Stop: 02/12/19 14:18 Last Admin: 02/12/19 15:30 Dose: 204 mls/hr Trazodone HCl (Trazodone) 50 mg PO DAILY [facility] Trazodone HCl (Trazodone) 75 mg PO BEDTIME [facility] Last Admin: 02/12/19 20:15 Dose: 75 mg - Exam General: Alert HEENT: Pupils Equal Lungs: Clear to Auscultation Cardiovascular: Regular Rate Psy/Mental Status: Alert, Normal Affect, Other (tremors) - Problem List & Annotations (1) Encephalopathy SNOMED Code(s): 50255482 Code(s): G93.40 - ENCEPHALOPATHY, UNSPECIFIED Status: Acute Current Visit : Yes (2) CAD (coronary artery disease) SNOMED Code(s): 30217095 Code(s): I25.10 - ATHSCL HEART DISEASE OF [place] CORONARY ARTERY W/O ANG PCTRS Status: Acute Current Visit: Yes Qualifiers: Coronary Disease-Associated Artery/Lesion type: [place] artery (3) Pacemaker SNOMED Code(s): 161635593 Code(s): Z95.0 - PRESENCE OF CARDIAC PACEMAKER Status: Acute Current Visit: Yes (4) Neck pain SNOMED Code(s): 18956425 Code(s): M54.2 - CERVICALGIA Status: Acute Current Visit: Yes (5) Acute on chronic renal failure SNOMED Code(s): 692771705 Code(s): N17.9 - ACUTE KIDNEY FAILURE, UNSPECIFIED; N18.9 - CHRONIC KIDNEY DISEASE, UNSPECIFIED Status: Acute Current Visit: No Qualifiers: Chronic kidney disease stage: stage 4 (severe) (6) Alcohol intoxication SNOMED Code(s): 43222330 Code(s): F10.929 - ALCOHOL USE, UNSPECIFIED WITH INTOXICATION, UNSPECIFIED Status: Acute Current Visit: No Qualifiers: Complication of substance-induced condition: with unspecified complication Qualified Code(s): F10.929 - Alcohol use, unspecified with intoxication, unspecified (7) Tremor of both hands SNOMED Code(s): 363275466, 106867914 Code(s): R25.1 - TREMOR, UNSPECIFIED Status: Acute Current Visit: Yes - Problem List Review Problem List Initiated/Reviewed/Updated: Yes - My Orders Last 24 Hours: My Active Orders 02/14/19 09:35 OT Evaluation and Treatment [CONS] Routine - Plan Plan:: I will keep him until tomorrow,discuss disposition eg assisted living
[2019-02-15] MEDS: Lactulose Soln 10 GM/15 ML 15 ML UD Cup PO SCH ×2 (13:11→20:46)
[2019-02-15] MEDS: Thiamine 100 MG Tab PO SCH (13:12)
[2019-02-15] MEDS: Carvedilol 12.5 MG Tab PO SCH ×2 (13:13→20:46)
[2019-02-15] MEDS: amLODIPine 5 MG Tab PO SCH (13:13)
[2019-02-15] MEDS: Acetaminophen 500 MG Tab PO PRN (19:44)
[2019-02-15] MEDS: LORazepam 1 MG Tab PO PRN (20:45)
--- NOTE | 2019-02-16 08:39 | PCM.PN ---
- General Info Date of Service: 02/16/19 Subjective Update: Paul feels ready to go home, he is walking better and is tremors have improved. He slept well. Functional Status: Reports: Pain Controlled - Review of Systems General: Reports: No Symptoms Pulmonary: Reports: No Symptoms Cardiovascular: Reports: No Symptoms Gastrointestinal: Reports: No Symptoms - Patient Data Vitals - Most Recent: Last Vital Signs Temp 98.8 F 02/15/19 20:00 Pulse 55 L 02/16/19 00:39 Resp 16 02/16/19 00:39 BP 98/56 L 02/16/19 00:39 Pulse Ox 94 L 02/16/19 00:39 Weight - Most Recent: 78.8 kg Med Orders - Current: Current Medications Acetaminophen (Tylenol Extra Strength) 500 mg PO Q4H PRN PRN Reason: Pain Last Admin: 02/15/19 19:44 Dose: 500 mg Amlodipine Besylate (Norvasc) 5 mg PO DAILY [facility] Last Admin: 02/15/19 13:13 Dose: 5 mg Carvedilol (Coreg) 12.5 mg PO BID [facility] Last Admin: 02/15/19 20:46 Dose: 12.5 mg Lactulose (Chronulac) 10 gm PO BID [facility] Last Admin: 02/15/19 20:46 Dose: 10 gm Lorazepam (Ativan) 1 mg PO Q6H PRN PRN Reason: tremulousness Last Admin: 02/15/19 20:45 Dose: 1 mg Sodium Chloride (Saline Flush) 10 ml FLUSH ASDIRECTED PRN PRN Reason: Keep Vein Open Last Admin: 02/14/19 21:10 Dose: 10 ml Thiamine HCl (Vitamin B-1) 100 mg PO DAILY [facility] Last Admin: 02/15/19 13:12 Dose: 100 mg Tramadol HCl (Ultram) 50 mg PO Q6H PRN PRN Reason: Pain Last Admin: 02/14/19 06:39 Dose: 50 mg Discontinued Medications Acetaminophen (Tylenol) 650 mg PO Q4H PRN PRN Reason: Pain (Mild 1-3)/fever Furosemide (Lasix) 20 mg PO DAILY [facility] Gabapentin (Neurontin) 200 mg PO BID [facility] Last Admin: 02/13/19 08:48 Dose: 200 mg Thiamine HCl 200 mg/ Sodium (Chloride) 102 mls @ 204 mls/hr IV ONETIME ONE Stop: 02/12/19 14:18 Last Admin: 02/12/19 15:30 Dose: 204 mls/hr Trazodone HCl (Trazodone) 50 mg PO DAILY [facility] Trazodone HCl (Trazodone) 75 mg PO BEDTIME [facility] Last Admin: 02/12/19 20:15 Dose: 75 mg - Exam General: Alert HEENT: Pupils Equal Neck: Supple Lungs: Clear to Auscultation Cardiovascular: Regular Rate Psy/Mental Status: Alert, Normal Affect - Problem List & Annotations (1) Encephalopathy SNOMED Code(s): 54602322 Code(s): G93.40 - ENCEPHALOPATHY, UNSPECIFIED Status: Acute Current Visit : Yes (2) CAD (coronary artery disease) SNOMED Code(s): 13335135 Code(s): I25.10 - ATHSCL HEART DISEASE OF [place] CORONARY ARTERY W/O ANG PCTRS Status: Acute Current Visit: Yes Qualifiers: Coronary Disease-Associated Artery/Lesion type: [place] artery (3) Pacemaker SNOMED Code(s): 462891249 Code(s): Z95.0 - PRESENCE OF CARDIAC PACEMAKER Status: Acute Current Visit: Yes (4) Neck pain SNOMED Code(s): 87153717 Code(s): M54.2 - CERVICALGIA Status: Acute Current Visit: Yes (5) Acute on chronic renal failure SNOMED Code(s): 927500677 Code(s): N17.9 - ACUTE KIDNEY FAILURE, UNSPECIFIED; N18.9 - CHRONIC KIDNEY DISEASE, UNSPECIFIED Status: Acute Current Visit: No Qualifiers: Chronic kidney disease stage: stage 4 (severe) (6) Alcohol intoxication SNOMED Code(s): 55734690 Code(s): F10.929 - ALCOHOL USE, UNSPECIFIED WITH INTOXICATION, UNSPECIFIED Status: Acute Current Visit: No Qualifiers: Complication of substance-induced condition: with unspecified complication Qualified Code(s): F10.929 - Alcohol use, unspecified with intoxication, unspecified (7) Tremor of both hands SNOMED Code(s): 249663089, 079325018 Code(s): R25.1 - TREMOR, UNSPECIFIED Status: Acute Current Visit: Yes - Problem List Review Problem List Initiated/Reviewed/Updated: Yes - Plan Plan:: DC home today. Out patient follow up.
[2019-02-16] MEDS: amLODIPine 5 MG Tab PO SCH (09:02)
[2019-02-16] MEDS: Thiamine 100 MG Tab PO SCH (09:03)
[2019-02-16] MEDS: Lactulose Soln 10 GM/15 ML 15 ML UD Cup PO SCH (09:03)
[2019-02-16] MEDS: Carvedilol 12.5 MG Tab PO SCH (09:03)
--- NOTE | 2019-02-16 13:24 | DISCH ---
DISCHARGE DATE: 02/16/2019 REASON FOR ADMISSION: 1. Tremors. 2. Chronic kidney disease. 3. Type 2 diabetes. 4. Alcohol abuse. 5. History of COPD. 6. Peripheral vascular disease. 7. History of coronary artery disease. 8. Pacemaker, permanent. 9. History of traumatic brain injury. CONSULTATIONS: Physical and Occupational Therapy. BRIEF HISTORY AND HOSPITAL COURSE: A 73-year-old male who was brought in with 2 days of flapping arms and tremors, weakness, unable to walk and was admitted for treatment. He had a fall in November, had head and neck injury, but no fracture. The family states that he drinks daily. He also has a history of chronic kidney disease, but his creatinine has been stable. Admission revealed he had asterixis and was slightly confused at times. He was having difficulty with ambulation. Over the next few days, his symptoms improved. I did discontinue his gabapentin because of his ataxia and we will send him home on tramadol p.r.n. for pain and thiamine and follow up with his PCP next week. OTHER HOME MEDICATIONS: 1. Carvedilol 12.5 mg b.i.d. 2. Amlodipine 5 mg a day. 3. Acetaminophen 5 mg p.o. p.r.n. DISCHARGE INSTRUCTIONS: He will go home on regular diet. I feel that because of his staying alone, he needs help with the Home Health Services to follow up with medications and physical and occupational therapy. Chemical dependency treatment can be discussed on an ambulatory basis. Please note that I spent more than 35 minutes in the discharge of the patient. /[id number] LILIANA/DAVID
== END 2019-02-16 12:50 | disposition home health service (06) | DRG 92 ==
LOC: FB.MS 13:55
PROVIDERS: ADMIT Family Medicine; ATTEND Family Medicine
DX: R25.1 Tremor, unspecified (principal); N18.4 Chronic kidney disease, stage 4 (severe); N17.9 Acute kidney failure, unspecified; R27.8 Other lack of coordination; I12.9 Hypertensive chronic kidney disease with stage 1 through stage 4 chronic kidney disease, or unspecified chronic kidney disease; Z87.891 Personal history of nicotine dependence; F10.10 Alcohol abuse, uncomplicated; M54.2 Cervicalgia; I25.10 Atherosclerotic heart disease of native coronary artery without angina pectoris; Z95.5 Presence of coronary angioplasty implant and graft; M17.11 Unilateral primary osteoarthritis, right knee; Z91.81 History of falling; Z95.0 Presence of cardiac pacemaker; K57.90 Diverticulosis of intestine, part unspecified, without perforation or abscess without bleeding; D64.89 Other specified anemias; I71.4 Abdominal aortic aneurysm, without rupture; M51.36 Other intervertebral disc degeneration, lumbar region; I73.9 Peripheral vascular disease, unspecified; N28.9 Disorder of kidney and ureter, unspecified; R51 Headache; R27.0 Ataxia, unspecified; W19.XXXD Unspecified fall, subsequent encounter; Z87.820 Personal history of traumatic brain injury
CPT/HCPCS: 36415; 70450; 71046; 72040; 80053; 82140; 82306; 83735; 83880; 84484; 84550; 85025; 85610; 93005; 97161-GP; 97166-GO; A9270-GY; J3411; J7030

== ENCOUNTER 2019-06-28 22:48 | Emergency (ER) | payer MEDICAID, MEDICARE ==
[2019-06-29] MEDS ORDERED: Acetaminophen 500 MG Tab PO ONE (00:04)
[2019-06-29] MEDS ORDERED: Acetaminophen/HYDROcodone 325-5 MG Tab PO ONE (00:48)
--- NOTE | 2019-06-29 00:51 | EDM.PDOC ---
ED HPI GENERAL MEDICAL PROBLEM - General Chief Complaint: Headache Stated Complaint: SICK Time Seen by Provider: 06/28/19 22:50 Source of Information: Reports: Patient History Limitations: Reports: No Limitations - History of Present Illness INITIAL COMMENTS - FREE TEXT/NARRATIVE: Patient is a 74 YO WM who presented to the ED because of headache over the frontal area,throbbing,03/02. He apparently tripped and fell and hit his head on the floor. There was no LOC after the fall. head Pain Score (Numeric/FACES): 8 - Related Data Allergies Allergy/AdvReac Type Severity Reaction Status Date / Time No Known Allergies Allergy Verified 10/08/18 19:31 Home Meds: Home Meds Carvedilol 12.5 mg PO BID 08/02/18 [History] Acetaminophen [Tylenol Extra Strength] 500 mg PO Q4H PRN 10/08/18 [History] amLODIPine Besylate [Amlodipine Besylate] 5 mg PO BID 10/08/18 [History] traZODone HCl [Trazodone HCl] 75 mg PO BEDTIME 02/12/19 [History] Thiamine [Vitamin B-1] 100 mg PO DAILY #30 tablet 02/16/19 [Rx] traMADol [Ultram] 50 mg PO Q6H PRN #30 tablet 02/16/19 [Rx] Acetaminophen/HYDROcodone [Surry 325-5 MG] 1 tab PO Q4H PRN #10 tab 06/29/19 [Rx ] Past Medical History HEENT History: Reports: Cataract Other HEENT History: cataract both eyes and got sick before it was taken care of Cardiovascular History: Reports: Hypertension, [place], Pacemaker Respiratory History: Reports: COPD Gastrointestinal History: Reports: Other (See Below) Other Gastrointestinal History: hernia-- inguinal hernia X3 right and left Genitourinary History: Reports: Other (See Below) Other Genitourinary History: stage 4 renal failure. Musculoskeletal History: Reports: Arthritis, Other (See Below) Other Musculoskeletal History: right arm weakness from 2 years ago. States that he does not know what happened. Admits to shoulder weakness on right. 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 states he fell in [place] one month ago and his neck is been out of wack since Psychiatric History: Reports: Other (See Below) Other Psychiatric History: patient is an alcoholic. Denies 08/08, a "beer or two a day" on 02/12/19 pt admits to one glass of rolan a day and 2 beers Oncologic (Cancer) History: Reports: Renal - Past Surgical History Cardiovascular Surgical History: Reports: Percutaneous Transluminal Angioplasty , Other (See Below) Other Cardiovascular Surgeries/Procedures: pacemaker. Respiratory Surgical History: Reports: None GI Surgical History: Reports: Appendectomy, Cholecystectomy, Other (See Below) Other GI Surgeries/Procedures: lap nelsy Male Surgical History: Reports: None Other Male Surgeries/Procedures: cyst on right kidney--bx appt scheduled for in 10/11 Neurological Surgical History: Reports: None Musculoskeletal Surgical History: Reports: None Social & Family History - Family History Family Medical History: Noncontributory - Caffeine Use Caffeine Use: Reports: Coffee ED ROS GENERAL - Review of Systems Review Of Systems: See Below Constitutional: Reports: No Symptoms HEENT: Reports: No Symptoms Respiratory: Reports: No Symptoms Cardiovascular: Reports: No Symptoms Endocrine: Reports: No Symptoms GI/Abdominal: Reports: No Symptoms : Reports: No Symptoms Musculoskeletal: Reports: No Symptoms Skin: Reports: No Symptoms Neurological: Reports: Headache Psychiatric: Reports: No Symptoms ED EXAM, HEAD INJURY - Physical Exam Exam: See Below Exam Limited By: No Limitations General Appearance: Alert, WD/WN, No Apparent Distress Head: Atraumatic, Normocephalic Nexus Criteria: Posterior, Midline Cervical Tenderness Ears: Normal External Exam, Normal Canal, Hearing Grossly Normal, Normal TMs Nose: Normal Inspection, Normal Mucousa, No Blood Throat/Mouth: Normal Inspection, Normal Lips, Normal Teeth Neck: Non-Tender, Full Range of Motion, Normal Alignment Respiratory: No Respiratory Distress, Lungs Clear, Normal Breath Sounds, No Accessory Muscle Use Cardiovascular: Normal Peripheral Pulses, Regular Rate, Rhythm, No Edema, No Gallop, No JVD, No Murmur GI/Abdominal Exam: Normal Bowel Sounds, Soft, Non-Tender, No Organomegaly Back Exam: Normal Inspection, Full Range of Motion Extremities: Normal Inspection, Normal Range of Motion Neurologic: internal recruiter II-XII nml As Tested, No Motor/Sensory Deficits, Alert, Normal Mood/Affect, Oriented x 3, Abnormal Cerebellar Tests, Abnormal internal recruiter II-XII. No: Abnormal Gait, Aphasia Skin: Normal Color, Warm/Dry Course - Vital Signs Text/Narrative:: Head CT-negative,see result tylenol 1000 mg po x1 without significant relief of his headache norco 5 mg po x1 Last Recorded V/S: Last Vital Signs Temp 36.7 C 06/29/19 00:50 Pulse 55 L 06/29/19 00:50 Resp 17 06/29/19 00:50 BP 104/59 L 06/29/19 00:50 Pulse Ox 100 06/29/19 00:50 - Orders/Labs/Meds Orders: Active Orders 24 hr Category Date Time Status Head wo Cont [CT] Stat Exams 06/28/19 22:51 Taken Meds: Medications Discontinued Medications Generic Name Dose Route Start Last Admin Trade Name Freq PRN Reason Stop Dose Admin Acetaminophen 1,000 mg 06/29/19 00:04 06/29/19 00:08 Tylenol Extra Strength PO 06/29/19 00:05 1,000 mg ONETIME ONE Administration Hydrocodone Bitart/Acetaminophen 1 tab 06/29/19 00:48 06/29/19 00:54 Surry 325-5 Mg PO 06/29/19 00:49 1 tab ONETIME ONE Administration Departure - Departure Time of Disposition: 00:50 Disposition: Home, Self-Care 01 Condition: Good Clinical Impression: Closed head injury - Discharge Information *PRESCRIPTION DRUG MONITORING PROGRAM REVIEWED*: No *COPY OF PRESCRIPTION DRUG MONITORING REPORT IN PATIENT SOTERO: No Prescriptions: Acetaminophen/HYDROcodone [Surry 325-5 MG] 1 tab PO Q4H PRN #10 tab PRN Reason: Pain Instructions: Head Injury, Adult Referrals: PCP,None [Primary Care Provider] - Forms: ED Department Discharge Additional Instructions: please read discharge instructions on closed head injury take ibuprofen 600 mg with tylenol 650 mg every 4-6 hours as needed for headache follow up as needed - My Orders Last 24 Hours: My Active Orders 06/28/19 22:51 Head wo Cont [CT] Stat - Assessment/Plan Last 24 Hours: My Active Orders 06/28/19 22:51 Head wo Cont [CT] Stat
== END 2019-06-29 01:05 | disposition home or self-care (01) ==
LOC: FB.ED 22:48
DX: S09.90XA Unspecified injury of head, initial encounter (principal); I10 Essential (primary) hypertension; J44.9 Chronic obstructive pulmonary disease, unspecified; I25.2 Old myocardial infarction; Z95.0 Presence of cardiac pacemaker; Z79.899 Other long term (current) drug therapy; W01.0XXA Fall on same level from slipping, tripping and stumbling without subsequent striking against object, initial encounter
CPT/HCPCS: 70450; 99284; A9270

== ENCOUNTER 2019-10-01 17:35 | Emergency (ER) | payer MEDICARE ==
[2019-10-01] MEDS ORDERED: Acetaminophen 500 MG Tab PO ONE (19:27)
[2019-10-01] MEDS ORDERED: Cyclobenzaprine 10 MG Tab PO ONE (19:27)
--- NOTE | 2019-10-01 19:32 | EDM.PDOC ---
ED HPI GENERAL MEDICAL PROBLEM - General Chief Complaint: General Stated Complaint: headache,right hip pain Time Seen by Provider: 10/01/19 17:50 Source of Information: Reports: Patient, Family History Limitations: Reports: No Limitations - History of Present Illness INITIAL COMMENTS - FREE TEXT/NARRATIVE: Patient presented to the ED because of a head and right hip injury. He was drinking this afternoon went home, tripped over and hit his head into the wooden cabinet. He c/o headache,5/10. There is no associated N/V. He also c/o right hip pain but is able to ambulate after falling. There was no LOC noted. Bilateral hip Pain Score (Numeric/FACES): 6 - Related Data Allergies Allergy/AdvReac Type Severity Reaction Status Date / Time No Known Allergies Allergy Verified 10/01/19 17:40 Home Meds: Home Meds traZODone HCl [Trazodone HCl] 75 mg PO 02/12/19 [History] Albuterol Sulfate [Albuterol Sulfate Hfa] 2 puff INH Q4H PRN 10/01/19 [History] Albuterol/Ipratropium [DuoNeb 3.0-0.5 MG/3 ML] 3 ml INH Q4H PRN 10/01/19 [ History] Aspirin [Halfprin] 81 mg PO 10/01/19 [History] Cyclobenzaprine [Flexeril] 10 mg PO Q8H PRN 10/01/19 [History] Cyclobenzaprine [Flexeril] 10 mg PO Q8H PRN #15 tab 10/01/19 [Rx] Gabapentin [Neurontin] 100 mg PO 08,,20 10/01/19 [History] Lisinopril [Zestril] 10 mg PO 08 10/01/19 [History] Past Medical History HEENT History: Reports: Cataract Other HEENT History: cataract both eyes and got sick before it was taken care of Cardiovascular History: Reports: Hypertension, [place], Pacemaker Respiratory History: Reports: COPD Gastrointestinal History: Reports: Other (See Below) Other Gastrointestinal History: hernia-- inguinal hernia X3 right and left Genitourinary History: Reports: Other (See Below) Other Genitourinary History: stage 4 renal failure. Musculoskeletal History: Reports: Arthritis, Other (See Below) Other Musculoskeletal History: right arm weakness from 2 years ago. States that he does not know what happened. Admits to shoulder weakness on right. 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 states he fell in [place] one month ago and his neck is been out of wack since Psychiatric History: Reports: Other (See Below) Other Psychiatric History: patient is an alcoholic. Denies 08/08, a "beer or two a day" on 02/12/19 pt admits to one glass of rolan a day and 2 beers Oncologic (Cancer) History: Reports: Renal - Past Surgical History Cardiovascular Surgical History: Reports: Percutaneous Transluminal Angioplasty , Other (See Below) Other Cardiovascular Surgeries/Procedures: pacemaker. Respiratory Surgical History: Reports: None GI Surgical History: Reports: Appendectomy, Cholecystectomy, Other (See Below) Other GI Surgeries/Procedures: lap nelsy Male Surgical History: Reports: None Other Male Surgeries/Procedures: cyst on right kidney--bx appt scheduled for in 10/11 Neurological Surgical History: Reports: None Musculoskeletal Surgical History: Reports: None Social & Family History - Family History Family Medical History: Noncontributory - Tobacco Use Smoking Status *Q: Former Smoker Used Tobacco, but Quit: Yes Month/Year Tobacco Last Used: 2017 - Caffeine Use Caffeine Use: Reports: Coffee - Recreational Drug Use Recreational Drug Use: No ED ROS GENERAL - Review of Systems Review Of Systems: See Below Constitutional: Reports: No Symptoms HEENT: Reports: No Symptoms Respiratory: Reports: No Symptoms Cardiovascular: Reports: No Symptoms Endocrine: Reports: No Symptoms GI/Abdominal: Reports: No Symptoms : Reports: No Symptoms Musculoskeletal: Reports: No Symptoms Skin: Reports: No Symptoms Neurological: Reports: No Symptoms, Headache. Denies: Dizziness Psychiatric: Reports: No Symptoms Hematologic/Lymphatic: Reports: No Symptoms Immunologic: Reports: No Symptoms ED EXAM, GENERAL - Physical Exam Exam: See Below Exam Limited By: No Limitations General Appearance: Alert, No Apparent Distress Eye Exam: Bilateral Eye: PERRL Ears: Normal External Exam, Normal Canal Nose: Normal Inspection, Normal Mucosa, No Blood Throat/Mouth: Normal Inspection, Normal Lips, Normal Teeth, Normal Gums, Normal Oropharynx, Normal Voice Head: Atraumatic, Normocephalic Neck: Normal Inspection, Supple, Non-Tender, Full Range of Motion Respiratory/Chest: No Respiratory Distress, Lungs Clear, Normal Breath Sounds Cardiovascular: Normal Peripheral Pulses, Regular Rate, Rhythm, No Edema, No Gallop, No JVD, No Murmur, No Rub GI/Abdominal: Normal Bowel Sounds, Soft, Non-Tender, No Organomegaly, No Distention, No Abnormal Bruit, No Mass, Pelvis Stable Back Exam: Normal Inspection, Full Range of Motion, CVA Tenderness (R) Extremities: Normal Inspection, Normal Range of Motion, Non-Tender, No Pedal Edema, Normal Capillary Refill, Other (tenderness right hip) Neurological: Alert Psychiatric: Normal Affect Course - Vital Signs Text/Narrative:: labs/EKG/Head CT,right hip xray result was discussed with patient and his daughter and verbalized full understanding ETOH-0.[address]-neg Rt hip/pelvis xray-neg Last Recorded V/S: Last Vital Signs Temp 36.4 C 10/01/19 17:45 Pulse 56 L 10/01/19 17:45 Resp 16 10/01/19 17:45 BP 156/61 H 10/01/19 17:45 Pulse Ox 98 10/01/19 17:45 - Orders/Labs/Meds Labs: Laboratory Tests 10/01/19 10/01/19 10/01/19 Range/Units 18:25 18:25 18:25 WBC 8.2 (4.5-12.0) X10-3/uL RBC 3.89 L (4.30-5.75) x10(6)uL Hgb 13.0 L (13.5-17.8) g/dL Hct 38.6 (30.0-51.3) % MCV 99.3 H (80-96) fL MCH 33.5 (27.7-33.6) pg MCHC 33.8 (32.2-35.4) g/dL RDW 13.7 (11.5-15.5) % Plt Count 306 (125-369) X10(3)uL MPV 6.8 L (7.4-10.4) fL Neut % (Auto) 54.1 (46-82) % Lymph % (Auto) 27.7 (13-37) % Lyman % (Auto) 11.4 (4-12) % Eos % (Auto) 6 H (1.0-5.0) % Baso % (Auto) 1 (0-2) % Neut # (Auto) 4.4 (1.6-8.3) # Lymph # (Auto) 2.3 (0.6-5.0) # Lyman # (Auto) 0.9 (0.0-1.3) # Eos # (Auto) 0.5 (0.0-0.8) # Baso # (Auto) 0.1 (0.0-0.2) # Sodium 138 (135-145) mmol/L Potassium 4.8 (3.5-5.3) mmol/L Chloride 106 (100-110) mmol/L Carbon Dioxide 19 L (21-32) mmol/L BUN 35 H (7-18) mg/dL Creatinine 2.7 H* (0.70-1.30) mg/dL Est Cr Clr Drug Dosing 23.22 mL/min Estimated GFR (MDRD) 23 L (>60) BUN/Creatinine Ratio 13.0 (9-20) Glucose 89 (80-116) mg/dL Calcium 8.2 L (8.6-10.2) mg/dL Total Bilirubin 0.4 (0.1-1.3) mg/dL AST 26 H D (5-25) IU/L ALT 19 D (12-36) U/L Alkaline Phosphatase 71 (56-112) IU/L Troponin I < 0.017 L (<0.017-0.056) ng/mL Total Protein 6.8 (6.0-8.0) g/dL Albumin 3.3 (3.2-4.6) g/dL Globulin 3.5 g/dL Albumin/Globulin Ratio 0.9 Amylase 54 (25-115) U/L Lipase 132 (73-393) U/L Ethyl Alcohol (<0.03) % 10/01/19 Range/Units 18:25 WBC (4.5-12.0) X10-3/uL RBC (4.30-5.75) x10(6)uL Hgb (13.5-17.8) g/dL Hct (30.0-51.3) % MCV (80-96) fL MCH (27.7-33.6) pg MCHC (32.2-35.4) g/dL RDW (11.5-15.5) % Plt Count (125-369) X10(3)uL MPV (7.4-10.4) fL Neut % (Auto) (46-82) % Lymph % (Auto) (13-37) % Lyman % (Auto) (4-12) % Eos % (Auto) (1.0-5.0) % Baso % (Auto) (0-2) % Neut # (Auto) (1.6-8.3) # Lymph # (Auto) (0.6-5.0) # Lyman # (Auto) (0.0-1.3) # Eos # (Auto) (0.0-0.8) # Baso # (Auto) (0.0-0.2) # Sodium (135-145) mmol/L Potassium (3.5-5.3) mmol/L Chloride (100-110) mmol/L Carbon Dioxide (21-32) mmol/L BUN (7-18) mg/dL Creatinine (0.70-1.30) mg/dL Est Cr Clr Drug Dosing mL/min Estimated GFR (MDRD) (>60) BUN/Creatinine Ratio (9-20) Glucose (80-116) mg/dL Calcium (8.6-10.2) mg/dL Total Bilirubin (0.1-1.3) mg/dL AST (5-25) IU/L ALT (12-36) U/L Alkaline Phosphatase (56-112) IU/L Troponin I (<0.017-0.056) ng/mL Total Protein (6.0-8.0) g/dL Albumin (3.2-4.6) g/dL Globulin g/dL Albumin/Globulin Ratio Amylase (25-115) U/L Lipase (73-393) U/L Ethyl Alcohol 0.17 H* (<0.03) % Meds: Medications Discontinued Medications Generic Name Dose Route Start Last Admin Trade Name Freq PRN Reason Stop Dose Admin Acetaminophen 1,000 mg 10/01/19 19:27 10/01/19 19:44 Tylenol Extra Strength PO 10/01/19 19:28 1,000 mg ONETIME ONE Administration Cyclobenzaprine HCl 10 mg 10/01/19 19:27 10/01/19 19:44 Flexeril PO 10/01/19 19:28 10 mg ONETIME ONE Administration Departure - Departure Time of Disposition: 19:30 Disposition: Home, Self-Care 01 Condition: Good Clinical Impression: Alcohol intoxication, Musculoskeletal pain - Discharge Information Prescriptions: Cyclobenzaprine [Flexeril] 10 mg PO Q8H PRN #15 tab PRN Reason: Spasms Instructions: Muscle Strain, [id number], Alcohol Intoxication, [id number] Referrals: Trish Roberts [employer]IST[employer] MANAGER [Primary Care Provider] - Forms: ED Department Discharge Additional Instructions: please read discharge instructions on alcohol intoxication and musculoskeletal pain related to fall drink in moderation take tylenol 1000 mg with flexeril 10 mg every 8 hours as needed for pain and muscle spasm keep your appointment to see your doctor tomorrow Sepsis Event Note - Evaluation Sepsis Screening Result: No Definite Risk - Focused Exam Vital Signs: Vital Signs Temp Pulse Resp BP Pulse Ox 10/01/19 17:45 36.4 C 56 L 16 156/61 H 98 Date Exam was Performed: 10/01/19 Time Exam was Performed: 21:18
--- NOTE | 2019-10-01 19:59 | CT ---
INDICATION: Fall. Pain on top of head. Hit on TV stand. CT HEAD WITHOUT CONTRAST: Spiral 3.75 mm axial sections were obtained through the brain with sagittal and coronal reconstructions 10/01/19 and compared with 06/28/19. Total exam DLP was 1425.39 mGy-cm. Calcifications are noted in the left vertebral artery and the internal carotid arteries as previously. The orbits appear to be intact. Lacunar infarct is again noted at the left basal ganglia posteriorly. No shift of midline structures or ventricular abnormalities were identified. There is again noted periventricular white matter disease which may be on the basis of mild microvascular disease, especially in the posterior parietal area on the left, but also on the right in the parietal area. No bleeding site or hematoma was identified. The odontoatlantian joints with evidence of mild degenerative change. The mastoid air cells appear to be similarly aerated to the previous examination with a few of the air cells appearing fluid-filled inferiorly on the right, which could be on the basis of mastoiditis or chronic change. The paranasal sinuses were unremarkable. No evidence of a cranial fracture site was identified. An incidental lipoma of tiny size is noted sagittally, unchanged from the previous examination of 06/28/19 and also an additional CT from 08/02/18 as well as 02/13/19. A lacunar infarct is again noted in the left thalamus. IMPRESSION: 1. No acute intracranial abnormality. 2. Evidence of mild microvascular disease is noted. 3. Cerebrovascular disease with arterial calcifications are noted. 4. 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 5. Moderate cortical atrophy is noted in the parietal area for the most part, but also extending into the occipital and frontal areas. Report was called to Dr. Laurent at 1918 hours. [facility]
--- NOTE | 2019-10-01 20:02 | CR ---
INDICATION: Cough. CHEST: AP upright view of the chest was obtained on a stretcher 10/01/19 and compared with 02/12/19 revealing the heart to be most likely normal in size with this AP positioning. Bipolar pacemaker leads are unchanged in position from the right subclavian. Healed clavicular fracture on the right is again noted. Aorta is tortuous with calcification in the arch. Somewhat increased density is noted at the left costophrenic angle, raising question of a minimal infiltrate in that area possibly with pleuritis. No gross consolidating pneumonia was clearly delineated. IMPRESSION: 1. Possible minimal pneumonia and pleuritis at the left costophrenic angle. 2. ASHD with bipolar pacemaker leads. 3. Degenerative changes at the left and to much lesser extent, right glenohumeral joints. Report was called to Dr. Laurent at 1918 hours. [facility]
--- NOTE | 2019-10-01 20:06 | CR ---
INDICATION: Fall. Right hip pain. RIGHT HIP AND PELVIS: Two frontal views of the pelvis with frontal and lateral views of the right hip were obtained 10/01/19 - no comparisons. Minimal degenerative changes are noted at the hip joints with the joint spaces well-maintained. An iliofemoral stent is noted in place on the right. Arterial calcifications are noted in the iliofemoral arteries. Bone density may be slightly diminished raising question of osteomalacia or osteoporosis and should be correlated clinically. An acute fracture or dislocation was not identified. Sacroiliac joints appear to be grossly intact. IMPRESSION: 1. No acute fracture or dislocation. 2. Suggestion of demineralization - correlate clinically. 3. ASD. Report was called to Dr. Laurent at 1918 hours. [facility]
== END 2019-10-01 19:50 | disposition home or self-care (01) ==
LOC: FB.ED 17:35
DX: F10.120 Alcohol abuse with intoxication, uncomplicated (principal); M25.551 Pain in right hip; I25.2 Old myocardial infarction; J44.9 Chronic obstructive pulmonary disease, unspecified; I12.9 Hypertensive chronic kidney disease with stage 1 through stage 4 chronic kidney disease, or unspecified chronic kidney disease; N18.4 Chronic kidney disease, stage 4 (severe); Z87.891 Personal history of nicotine dependence; Z79.82 Long term (current) use of aspirin; Z79.899 Other long term (current) drug therapy
CPT/HCPCS: 36415; 70450; 71045; 73502; 80053; 82150; 83690; 84484; 85025; 99283; 99284; A9270; G0480

== ENCOUNTER 2020-01-26 17:37 | Inpatient (IN) | payer MEDICARE ==
[2020-01-26] MEDS ORDERED: Morphine 2 MG/ML Syringe IVPUSH ONE ×2 (18:04→20:08)
[2020-01-26] MEDS ORDERED: Lidocaine 2% HCl 6 ML JEL.PF.APP ONE ×2 (18:45→19:00)
[2020-01-26] MEDS: Sodium Chloride 0.9% 10 ML Syringe FLUSH PRN ×2 (18:57→22:00)
[2020-01-26] MEDS ORDERED: Tamsulosin 0.4 MG Cap.ER PO ONE (19:40)
--- NOTE | 2020-01-26 20:06 | EDM.PDOC ---
ED HPI GENERAL MEDICAL PROBLEM - General Chief Complaint: Abdominal Pain Stated Complaint: ABD PAIN Time Seen by Provider: 01/26/20 20:00 Source of Information: Reports: Patient, Family History Limitations: Reports: No Limitations - History of Present Illness INITIAL COMMENTS - FREE TEXT/NARRATIVE: Patient presented to the ED because of abdominal pain which started this morning at about 0700 and gradually got worse throughout the day. The pain is mostly on the LLQ/RLQ and suprapubic area. It's sharp,10/10 with associated nausea but no vomiting. There is no associated fever or chills, but had difficulty in voiding since yesterday. His last BM was a couple of days ago which was normal. Right Lower Anterior Groin Pain Score (Numeric/FACES): 10 - Related Data Allergies Allergy/AdvReac Type Severity Reaction Status Date / Time No Known Allergies Allergy Verified 10/01/19 17:40 Home Meds: Home Meds traZODone HCl [Trazodone HCl] 75 mg PO 02/12/19 [History] Albuterol Sulfate [Albuterol Sulfate Hfa] 2 puff INH Q4H PRN 10/01/19 [History] Albuterol/Ipratropium [DuoNeb 3.0-0.5 MG/3 ML] 3 ml INH Q4H PRN 10/01/19 [ History] Aspirin [Halfprin] 81 mg PO 10/01/19 [History] Cyclobenzaprine [Flexeril] 10 mg PO Q8H PRN #15 tab 10/01/19 [Rx] Gabapentin [Neurontin] 100 mg PO 08,14,20 10/01/19 [History] lisinopriL [Zestril] 10 mg PO 10/01/19 [History] amLODIPine [Norvasc] 5 mg PO DAILY 01/26/20 [History] Past Medical History HEENT History: Reports: Cataract Other HEENT History: cataract both eyes and got sick before it was taken care of Cardiovascular History: Reports: Hypertension, [place], Pacemaker Respiratory History: Reports: COPD Gastrointestinal History: Reports: Other (See Below) Other Gastrointestinal History: hernia-- inguinal hernia X3 right and left Genitourinary History: Reports: Other (See Below) Other Genitourinary History: stage 4 renal failure. Musculoskeletal History: Reports: Arthritis, Other (See Below) Other Musculoskeletal History: right arm weakness from 2 years ago. States that he does not know what happened. Admits to shoulder weakness on right. 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 states he fell in [place] one month ago and his neck is been out of wack since Psychiatric History: Reports: Other (See Below) Other Psychiatric History: patient is an alcoholic. Denies 08/08, a "beer or two a day" on 02/12/19 pt admits to one glass of rolan a day and 2 beers Oncologic (Cancer) History: Reports: Renal - Past Surgical History Cardiovascular Surgical History: Reports: Percutaneous Transluminal Angioplasty , Other (See Below) Other Cardiovascular Surgeries/Procedures: pacemaker. Respiratory Surgical History: Reports: None GI Surgical History: Reports: Appendectomy, Cholecystectomy, Other (See Below) Other GI Surgeries/Procedures: lap nelsy Male Surgical History: Reports: None Other Male Surgeries/Procedures: cyst on right kidney--bx appt scheduled for in 10/11 Neurological Surgical History: Reports: None Musculoskeletal Surgical History: Reports: None Social & Family History - Family History Family Medical History: Noncontributory - Tobacco Use Smoking Status *Q: Current Every Day Smoker Years of Tobacco use: 0 Packs/Tins Daily: 0 - Caffeine Use Caffeine Use: Reports: Coffee ED ROS GENERAL - Review of Systems Review Of Systems: See Below Constitutional: Reports: No Symptoms HEENT: Reports: No Symptoms Respiratory: Reports: No Symptoms Cardiovascular: Reports: No Symptoms Endocrine: Reports: No Symptoms GI/Abdominal: Reports: Abdominal Pain, Nausea Musculoskeletal: Reports: No Symptoms, Neck Pain Skin: Reports: No Symptoms ED EXAM, GI/ABD - Physical Exam Exam: See Below Exam Limited By: Intoxication General Appearance: Alert, No Apparent Distress Ears: Normal External Exam, Normal Canal Nose: Normal Inspection, Normal Mucosa Throat/Mouth: Normal Inspection Head: Atraumatic Neck: Normal Inspection Respiratory/Chest: No Respiratory Distress, Lungs Clear, Normal Breath Sounds Cardiovascular: Normal Peripheral Pulses GI/Abdominal Exam: Normal Bowel Sounds, Soft, Non-Tender, Other (bladder distention) Back Exam: Normal Inspection, Full Range of Motion Extremities: Normal Inspection, Normal Range of Motion Course - Vital Signs Text/Narrative:: Labs/CT abd pelvis was discussed with patient and his daughter and verbalized full understanding straight cath which drained 900 ml of urine out NS @ 100 ml/hour Last Recorded V/S: Last Vital Signs Temp 35.8 C L 01/26/20 17:43 Pulse 99 01/26/20 17:43 Resp 20 01/26/20 17:43 BP 176/84 H 01/26/20 17:43 Pulse Ox 97 01/26/20 17:43 - Orders/Labs/Meds Orders: Active Orders 24 hr Category Date Time Status Bladder Scan [RC] ASDIRECTED Care 01/26/20 19:54 Active Jones Catheter Insertion [Insert Urinary Catheter] [OM. Care 01/26/20 18:15 Ordered PC] Q24H Urinary Catheter Assessment [RC] QSHIFT Care 01/26/20 18:15 Active Abdomen Pelvis wo Cont [CT] Stat Exams 01/26/20 19:15 Taken Sodium Chloride 0.9% [Saline Flush] Med 01/26/20 17:58 Active 10 ml FLUSH ASDIRECTED PRN Saline Lock Insert [OM.PC] Routine Oth 01/26/20 17:58 Ordered Medication Orders Sodium Chloride (Saline Flush) 10 ml FLUSH ASDIRECTED PRN PRN Reason: Keep Vein Open Last Admin: 01/26/20 18:57 Dose: 10 ml Labs: Laboratory Tests 01/26/20 01/26/20 01/26/20 Range/Units 18:11 18:11 18:11 WBC 11.2 (4.5-12.0) X10-3/uL RBC 4.49 (4.30-5.75) x10(6)uL Hgb 15.1 (13.5-17.8) g/dL Hct 44.5 (30.0-51.3) % MCV 99.1 H (80-96) fL MCH 33.7 H (27.7-33.6) pg MCHC 34.0 (32.2-35.4) g/dL RDW 13.0 (11.5-15.5) % Plt Count 350 (125-369) X10(3)uL MPV 7.6 (7.4-10.4) fL Neut % (Auto) 78.2 (46-82) % Lymph % (Auto) 13.2 (13-37) % Parker % (Auto) 5.9 (4-12) % Eos % (Auto) 2 (1.0-5.0) % Baso % (Auto) 1 (0-2) % Neut # (Auto) 8.7 H (1.6-8.3) # Lymph # (Auto) 1.5 (0.6-5.0) # Parker # (Auto) 0.7 (0.0-1.3) # Eos # (Auto) 0.2 (0.0-0.8) # Baso # (Auto) 0.1 (0.0-0.2) # Sodium 137 (135-145) mmol/L Potassium 5.7 H (3.5-5.3) mmol/L Chloride 105 (100-110) mmol/L Carbon Dioxide 20 L (21-32) mmol/L BUN 58 H D (7-18) mg/dL Creatinine 3.6 H* (0.70-1.30) mg/dL Est Cr Clr Drug Dosing TNP Estimated GFR (MDRD) 17 L (>60) BUN/Creatinine Ratio 16.1 (9-20) Glucose 102 (80-116) mg/dL Calcium 8.9 (8.6-10.2) mg/dL Total Bilirubin 0.4 (0.1-1.3) mg/dL AST 13 D (5-25) IU/L ALT 22 D (12-36) U/L Alkaline Phosphatase 82 (56-112) IU/L Total Protein 8.3 H (6.0-8.0) g/dL Albumin 3.8 (3.2-4.6) g/dL Globulin 4.5 g/dL Albumin/Globulin Ratio 0.8 Amylase 67 (25-115) U/L Lipase 168 (73-393) U/L Urine Color (YELLOW) Urine Appearance (CLEAR) Urine pH (5.0-6.5) Ur Specific [place] (1.010-1.025) Urine Protein (NEGATIVE) mg/dL Urine Glucose (UA) (NORMAL) mg/dL Urine Ketones (NEGATIVE) mg/dL Urine Occult Blood (NEGATIVE) Urine Nitrite (NEGATIVE) Urine Bilirubin (NEGATIVE) Urine Urobilinogen (NEGATIVE) mg/dL Ur Leukocyte Esterase (NEGATIVE) Urine RBC (0-5) Urine WBC (0-5) Ur Squamous Epith Cells (NS,R,O) Urine Bacteria (NS) Ethyl Alcohol (<0.03) % 05/05/20 05/05/20 Range/Units 18:11 19:18 WBC (4.5-12.0) X10-3/uL RBC (4.30-5.75) x10(6)uL Hgb (13.5-17.8) g/dL Hct (30.0-51.3) % MCV (80-96) fL MCH (27.7-33.6) pg MCHC (32.2-35.4) g/dL RDW (11.5-15.5) % Plt Count (125-369) X10(3)uL MPV (7.4-10.4) fL Neut % (Auto) (46-82) % Lymph % (Auto) (13-37) % Parker % (Auto) (4-12) % Eos % (Auto) (1.0-5.0) % Baso % (Auto) (0-2) % Neut # (Auto) (1.6-8.3) # Lymph # (Auto) (0.6-5.0) # Parker # (Auto) (0.0-1.3) # Eos # (Auto) (0.0-0.8) # Baso # (Auto) (0.0-0.2) # Sodium (135-145) mmol/L Potassium (3.5-5.3) mmol/L Chloride (100-110) mmol/L Carbon Dioxide (21-32) mmol/L BUN (7-18) mg/dL Creatinine (0.70-1.30) mg/dL Est Cr Clr Drug Dosing Estimated GFR (MDRD) (>60) BUN/Creatinine Ratio (9-20) Glucose (80-116) mg/dL Calcium (8.6-10.2) mg/dL Total Bilirubin (0.1-1.3) mg/dL AST (5-25) IU/L ALT (12-36) U/L Alkaline Phosphatase (56-112) IU/L Total Protein (6.0-8.0) g/dL Albumin (3.2-4.6) g/dL Globulin g/dL Albumin/Globulin Ratio Amylase (25-115) U/L Lipase (73-393) U/L Urine Color Yellow (YELLOW) Urine Appearance Clear (CLEAR) Urine pH 5.0 (5.0-6.5) Ur Specific [place] 1.015 (1.010-1.025) Urine Protein 30 H (NEGATIVE) mg/dL Urine Glucose (UA) Normal (NORMAL) mg/dL Urine Ketones Negative (NEGATIVE) mg/dL Urine Occult Blood Negative (NEGATIVE) Urine Nitrite Negative (NEGATIVE) Urine Bilirubin Negative (NEGATIVE) Urine Urobilinogen Normal (NEGATIVE) mg/dL Ur Leukocyte Esterase Negative (NEGATIVE) Urine RBC 0-5 (0-5) Urine WBC 0-5 (0-5) Ur Squamous Epith Cells Few H (NS,R,O) Urine Bacteria Few H (NS) Ethyl Alcohol < 0.03 (<0.03) % Meds: Medications Generic Name Dose Route Start Last Admin Trade Name Freq PRN Reason Stop Dose Admin Sodium Chloride 10 ml 01/26/20 17:58 01/26/20 18:57 Saline Flush FLUSH 10 ml ASDIRECTED PRN Administration Keep Vein Open Discontinued Medications Generic Name Dose Route Start Last Admin Trade Name Freq PRN Reason Stop Dose Admin Lidocaine HCl Confirm 01/26/20 18:45 01/26/20 19:00 Glydo Administered 01/26/20 18:46 6 ml Dose Administration 6 ml .ROUTE .STK-MED ONE Morphine Sulfate 2 mg 01/26/20 18:04 01/26/20 18:30 Morphine IVPUSH 01/26/20 18:05 2 mg ONETIME ONE Administration Tamsulosin HCl 0.4 mg 01/26/20 19:40 Flomax PO 01/26/20 19:41 ONETIME ONE Departure - Departure Time of Disposition: 20:10 Disposition: Refer to Observation Condition: Good Clinical Impression: Dehydration, KENDRA (acute kidney injury), Urinary retention, Obstructive uropathy - Discharge Information Referrals: Trish Roberts NP [Primary Care Provider] - Sepsis Event Note - Evaluation Sepsis Screening Result: No Definite Risk - Focused Exam Vital Signs: Vital Signs Temp Pulse Resp BP Pulse Ox 01/26/20 17:43 35.8 C L 99 20 176/84 H 97 Date Exam was Performed: 01/26/20 Time Exam was Performed: 20:01 - My Orders Last 24 Hours: My Active Orders 01/26/20 17:58 Sodium Chloride 0.9% [Saline Flush] 10 ml FLUSH ASDIRECTED PRN Saline Lock Insert [OM.PC] Routine 01/26/20 18:15 Jones Catheter Insertion [Insert Urinary Catheter] [OM.PC] Q24H Urinary Catheter Assessment [RC] QSHIFT 01/26/20 19:15 Abdomen Pelvis wo Cont [CT] Stat 01/26/20 19:54 Bladder Scan [RC] ASDIRECTED - Assessment/Plan Last 24 Hours: My Active Orders 01/26/20 17:58 Sodium Chloride 0.9% [Saline Flush] 10 ml FLUSH ASDIRECTED PRN Saline Lock Insert [OM.PC] Routine 01/26/20 18:15 Jones Catheter Insertion [Insert Urinary Catheter] [OM.PC] Q24H Urinary Catheter Assessment [RC] QSHIFT 01/26/20 19:15 Abdomen Pelvis wo Cont [CT] Stat 01/26/20 19:54 Bladder Scan [RC] ASDIRECTED
[2020-01-26] MEDS ORDERED: Ondansetron 4 MG/2 ML SDV IV PRN (20:14)
[2020-01-26] MEDS ORDERED: Albuterol 8 GM Inhaler INH PRN (20:23)
[2020-01-26] MEDS ORDERED: Albuterol/Ipratropium 3.0-0.5 MG/3 ML Neb Soln INH PRN (20:23)
[2020-01-26] MEDS ORDERED: traZODone 50 MG Tab *PTOM PO SCH (21:00)
[2020-01-26] MEDS ORDERED: traZODone 50 MG Tab PO ONE ×2 (21:15)
[2020-01-26] MEDS ORDERED: amLODIPine 5 MG Tab PO ONE (21:15)
[2020-01-26] MEDS ORDERED: Gabapentin 100 MG Cap PO ONE (21:15)
[2020-01-26] MEDS: Enoxaparin 30 MG/0.3 ML Syringe SUBCUT SCH (21:48)
[2020-01-26] MEDS: Bisacodyl 5 MG Tab PO PRN (21:49)
[2020-01-26] MEDS: Docusate Sodium 100 MG Cap PO SCH (21:50)
[2020-01-26] MEDS: Sodium Chloride 0.9% 1,000 ML IV SCH (21:51)
[2020-01-26] MEDS: Morphine 2 MG/ML Syringe IVPUSH PRN (22:13)
[2020-01-27] MEDS: Sodium Chloride 0.9% 1,000 ML IV SCH (07:32)
[2020-01-27] MEDS: Morphine 2 MG/ML Syringe IVPUSH PRN ×3 (08:43→17:29)
--- NOTE | 2020-01-27 09:21 | PCM.HP.2 ---
H&P History of Present Illness - General Date of Service: 01/27/20 Admit Problem/Dx: Admission Diagnosis/Problem Admission Diagnosis/Problem Acute kidney injury Source of Information: Patient History Limitations: Reports: No Limitations - History of Present Illness Initial Comments - Free Text/Narative: Bertram is a 74-year-old male from [facility]. He came into the ER yesterday with abdominal pain,duration 12 hours or so. Located on the right lower quadrant ,right flank and around the suprapubic area as well. He was found to have urinary retention and more than 1000 mL of urine was drained. He also was found to have a stool burden. He was given some stool softners and passed stool. This morning,he still endorses pain on the right flank, with no vomiting fever or chills. He denies any chest pain or cough. He has a history of chronic kidney disease, renal mass, and a 4 cm aneurysm abdominal ,which have all been stable the last 2 years. Right Lower Anterior Groin Pain Score (Numeric/FACES): 10 - Related Data Allergies/Adverse Reactions: Allergies Allergy/AdvReac Type Severity Reaction Status Date / Time No Known Allergies Allergy Verified 10/01/19 17:40 Home Medications: Home Meds traZODone HCl [Trazodone HCl] 75 mg PO 02/12/19 [History] Albuterol Sulfate [Albuterol Sulfate Hfa] 2 puff INH Q4H PRN 10/01/19 [History] Albuterol/Ipratropium [DuoNeb 3.0-0.5 MG/3 ML] 3 ml INH Q4H PRN 10/01/19 [ History] Aspirin [Halfprin] 81 mg PO 10/01/19 [History] Cyclobenzaprine [Flexeril] 10 mg PO Q8H PRN #15 tab 10/01/19 [Rx] Gabapentin [Neurontin] 100 mg PO 08,,10/01/19 [History] lisinopriL [Zestril] 10 mg PO 10/01/19 [History] amLODIPine [Norvasc] 5 mg PO BEDTIME 01/26/20 [History] Past Medical History HEENT History: Reports: Cataract Other HEENT History: cataract both eyes and got sick before it was taken care of Cardiovascular History: Reports: Hypertension, [place], Pacemaker Respiratory History: Reports: COPD Gastrointestinal History: Reports: Other (See Below) Other Gastrointestinal History: hernia-- inguinal hernia X3 right and left Genitourinary History: Reports: Other (See Below) Other Genitourinary History: stage 4 renal failure. Musculoskeletal History: Reports: Arthritis, Other (See Below) Other Musculoskeletal History: right arm weakness from 2 years ago. States that he does not know what happened. Admits to shoulder weakness on right. 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 states he fell in [place] one month ago and his neck is been out of wack since Psychiatric History: Reports: Other (See Below) Other Psychiatric History: patient is an alcoholic. Denies 08/08, a "beer or two a day" on 02/12/19 pt admits to one glass of rolan a day and 2 beers Oncologic (Cancer) History: Reports: Renal - Past Surgical History Cardiovascular Surgical History: Reports: Percutaneous Transluminal Angioplasty , Other (See Below) Other Cardiovascular Surgeries/Procedures: pacemaker. Respiratory Surgical History: Reports: None GI Surgical History: Reports: Appendectomy, Cholecystectomy, Other (See Below) Other GI Surgeries/Procedures: lap nelsy Male Surgical History: Reports: None Other Male Surgeries/Procedures: cyst on right kidney--bx appt scheduled for in 10/11 Neurological Surgical History: Reports: None Musculoskeletal Surgical History: Reports: None Social & Family History - Family History Family Medical History: Noncontributory - Tobacco Use Smoking Status *Q: Former Smoker Years of Tobacco use: 0 Packs/Tins Daily: 0 Used Tobacco, but Quit: Yes Month/Year Tobacco Last Used: 2017 Second Hand Smoke Exposure: No - Caffeine Use Caffeine Use: Reports: Coffee Other Caffeine Use: 3 cups coffee/day - Alcohol Use Days Per Week of Alcohol Use: 7 Number of Drinks Per Day: 2 Total Drinks Per Week: 14 Date of Last Drink: 01/26/20 Time of Last Drink: 12:00 - Recreational Drug Use Recreational Drug Use: No H&P Review of Systems - Review of Systems: Review Of Systems: Comprehensive ROS is negative, except as noted in HPI. Exam - Exam Exam: See Below - Vital Signs Vital Signs: Last Vital Signs Temp 97.5 F 01/27/20 07:38 Pulse 56 L 01/27/20 07:38 Resp 2 L 01/27/20 07:38 BP 112/50 L 01/27/20 07:38 Pulse Ox 93 L 01/27/20 07:38 Weight: 84.453 kg - Exam General: Alert, Oriented, 4 HEENT: PERRLA, Hearing Intact, Mucosa Moist & [place], Nares Patent, Normal Nasal Septum, Posterior Pharynx Clear, Conjunctiva Clear, EOMI, EACs Clear, TMs Clear Neck: Supple, Trachea Midline, 2 Lungs: Clear to Auscultation, Normal Respiratory Effort Cardiovascular: Regular Rate, Regular Rhythm GI/Abdominal Exam: Normal Bowel Sounds, No Mass, Distended, Tender (RLQ) (Male) Exam: Deferred Rectal (Males) Exam: Deferred Back Exam: Normal Inspection, Full Range of Motion, NT Extremities: Normal Inspection, Normal Range of Motion, Non-Tender, No Pedal Edema, Normal Capillary Refill Skin: Warm, Dry, Intact Neurological: Cranial Nerves Intact, Reflexes Equal Bilateral Neuro Extensive - Mental Status: Alert, Oriented x3, Normal Mood/Affect, Normal Cognition Neuro Extensive - Motor, Sensory, Reflexes: CN II-XII Intact, Normal Gait, Normal Reflexes Psychiatric: Alert, Normal Affect, Normal Mood - Patient Data Lab Results Last 24 hrs: Laboratory Results - last 24 hr 01/26/20 01/26/20 01/26/20 Range/Units 18:11 18:11 18:11 WBC 11.2 (4.5-12.0) X10-3/uL RBC 4.49 (4.30-5.75) x10(6)uL Hgb 15.1 (13.5-17.8) g/dL Hct 44.5 (30.0-51.3) % MCV 99.1 H (80-96) fL MCH 33.7 H (27.7-33.6) pg MCHC 34.0 (32.2-35.4) g/dL RDW 13.0 (11.5-15.5) % Plt Count 350 (125-369) X10(3)uL MPV 7.6 (7.4-10.4) fL Neut % (Auto) 78.2 (46-82) % Lymph % (Auto) 13.2 (13-37) % Clark % (Auto) 5.9 (4-12) % Eos % (Auto) 2 (1.0-5.0) % Baso % (Auto) 1 (0-2) % Neut # (Auto) 8.7 H (1.6-8.3) # Lymph # (Auto) 1.5 (0.6-5.0) # Clark # (Auto) 0.7 (0.0-1.3) # Eos # (Auto) 0.2 (0.0-0.8) # Baso # (Auto) 0.1 (0.0-0.2) # Sodium 137 (135-145) mmol/L Potassium 5.7 H (3.5-5.3) mmol/L Chloride 105 (100-110) mmol/L Carbon Dioxide 20 L (21-32) mmol/L BUN 58 H D (7-18) mg/dL Creatinine 3.6 H* (0.70-1.30) mg/dL Est Cr Clr Drug Dosing TNP Estimated GFR (MDRD) 17 L (>60) BUN/Creatinine Ratio 16.1 (9-20) Glucose 102 (80-116) mg/dL Calcium 8.9 (8.6-10.2) mg/dL Total Bilirubin 0.4 (0.1-1.3) mg/dL AST 13 D (5-25) IU/L ALT 22 D (12-36) U/L Alkaline Phosphatase 82 (56-112) IU/L Total Protein 8.3 H (6.0-8.0) g/dL Albumin 3.8 (3.2-4.6) g/dL Globulin 4.5 g/dL Albumin/Globulin Ratio 0.8 Amylase 67 (25-115) U/L Lipase 168 (73-393) U/L Urine Color (YELLOW) Urine Appearance (CLEAR) Urine pH (5.0-6.5) Ur Specific [place] (1.010-1.025) Urine Protein (NEGATIVE) mg/dL Urine Glucose (UA) (NORMAL) mg/dL Urine Ketones (NEGATIVE) mg/dL Urine Occult Blood (NEGATIVE) Urine Nitrite (NEGATIVE) Urine Bilirubin (NEGATIVE) Urine Urobilinogen (NEGATIVE) mg/dL Ur Leukocyte Esterase (NEGATIVE) Urine RBC (0-5) Urine WBC (0-5) Ur Squamous Epith Cells (NS,R,O) Urine Bacteria (NS) Ethyl Alcohol (<0.03) % 01/26/20 01/26/20 01/27/20 Range/Units 18:11 19:18 06:30 WBC 9.1 (4.5-12.0) X10-3/uL RBC 3.72 L (4.30-5.75) x10(6)uL Hgb 12.5 L (13.5-17.8) g/dL Hct 37.3 (30.0-51.3) % MCV 100.2 H (80-96) fL MCH 33.6 (27.7-33.6) pg MCHC 33.6 (32.2-35.4) g/dL RDW 13.1 (11.5-15.5) % Plt Count 280 (125-369) X10(3)uL MPV 7.7 (7.4-10.4) fL Neut % (Auto) 69.6 (46-82) % Lymph % (Auto) 15.5 (13-37) % Clark % (Auto) 11.7 (4-12) % Eos % (Auto) 2 (1.0-5.0) % Baso % (Auto) 1 (0-2) % Neut # (Auto) 6.3 (1.6-8.3) # Lymph # (Auto) 1.4 (0.6-5.0) # Clark # (Auto) 1.1 (0.0-1.3) # Eos # (Auto) 0.2 (0.0-0.8) # Baso # (Auto) 0.1 (0.0-0.2) # Sodium (135-145) mmol/L Potassium (3.5-5.3) mmol/L Chloride (100-110) mmol/L Carbon Dioxide (21-32) mmol/L BUN (7-18) mg/dL Creatinine (0.70-1.30) mg/dL Est Cr Clr Drug Dosing Estimated GFR (MDRD) (>60) BUN/Creatinine Ratio (9-20) Glucose (80-116) mg/dL Calcium (8.6-10.2) mg/dL Total Bilirubin (0.1-1.3) mg/dL AST (5-25) IU/L ALT (12-36) U/L Alkaline Phosphatase (56-112) IU/L Total Protein (6.0-8.0) g/dL Albumin (3.2-4.6) g/dL Globulin g/dL Albumin/Globulin Ratio Amylase (25-115) U/L Lipase (73-393) U/L Urine Color Yellow (YELLOW) Urine Appearance Clear (CLEAR) Urine pH 5.0 (5.0-6.5) Ur Specific [place] 1.015 (1.010-1.025) Urine Protein 30 H (NEGATIVE) mg/dL Urine Glucose (UA) Normal (NORMAL) mg/dL Urine Ketones Negative (NEGATIVE) mg/dL Urine Occult Blood Negative (NEGATIVE) Urine Nitrite Negative (NEGATIVE) Urine Bilirubin Negative (NEGATIVE) Urine Urobilinogen Normal (NEGATIVE) mg/dL Ur Leukocyte Esterase Negative (NEGATIVE) Urine RBC 0-5 (0-5) Urine WBC 0-5 (0-5) Ur Squamous Epith Cells Few H (NS,R,O) Urine Bacteria Few H (NS) Ethyl Alcohol < 0.03 (<0.03) % /03/12 Range/Units 06:30 WBC (4.5-12.0) X10-3/uL RBC (4.30-5.75) x10(6)uL Hgb (13.5-17.8) g/dL Hct (30.0-51.3) % MCV (80-96) fL MCH (27.7-33.6) pg MCHC (32.2-35.4) g/dL RDW (11.5-15.5) % Plt Count (125-369) X10(3)uL MPV (7.4-10.4) fL Neut % (Auto) (46-82) % Lymph % (Auto) (13-37) % Clark % (Auto) (4-12) % Eos % (Auto) (1.0-5.0) % Baso % (Auto) (0-2) % Neut # (Auto) (1.6-8.3) # Lymph # (Auto) (0.6-5.0) # Clark # (Auto) (0.0-1.3) # Eos # (Auto) (0.0-0.8) # Baso # (Auto) (0.0-0.2) # Sodium 137 (135-145) mmol/L Potassium 5.6 H (3.5-5.3) mmol/L Chloride 107 (100-110) mmol/L Carbon Dioxide 21 (21-32) mmol/L BUN 53 H (7-18) mg/dL Creatinine 3.5 H* (0.70-1.30) mg/dL Est Cr Clr Drug Dosing 17.91 Estimated GFR (MDRD) 17 L (>60) BUN/Creatinine Ratio 15.1 (9-20) Glucose 100 (80-116) mg/dL Calcium 8.0 L (8.6-10.2) mg/dL Total Bilirubin (0.1-1.3) mg/dL AST (5-25) IU/L ALT (12-36) U/L Alkaline Phosphatase (56-112) IU/L Total Protein (6.0-8.0) g/dL Albumin (3.2-4.6) g/dL Globulin g/dL Albumin/Globulin Ratio Amylase (25-115) U/L Lipase (73-393) U/L Urine Color (YELLOW) Urine Appearance (CLEAR) Urine pH (5.0-6.5) Ur Specific [place] (1.010-1.025) Urine Protein (NEGATIVE) mg/dL Urine Glucose (UA) (NORMAL) mg/dL Urine Ketones (NEGATIVE) mg/dL Urine Occult Blood (NEGATIVE) Urine Nitrite (NEGATIVE) Urine Bilirubin (NEGATIVE) Urine Urobilinogen (NEGATIVE) mg/dL Ur Leukocyte Esterase (NEGATIVE) Urine RBC (0-5) Urine WBC (0-5) Ur Squamous Epith Cells (NS,R,O) Urine Bacteria (NS) Ethyl Alcohol (<0.03) % Result Diagrams: 01/27/20 06:30 01/27/20 06:30 Sepsis Event Note - Evaluation Sepsis Screening Result: No Definite Risk - Focused Exam Vital Signs: Vital Signs Temp Temp Pulse Resp BP BP Pulse Ox 01/27/20 07:38 97.5 F 56 L 2 L 112/50 L 93 L 01/27/20 04:00 97.8 F 93 18 127/59 L 94 L 01/27/20 01:00 97.6 F 66 16 140/61 94 L 01/26/20 21:50 139/88 Date Exam was Performed: 01/27/20 Time Exam was Performed: 09:16 - Problem List (1) Abdominal pain SNOMED Code(s): 49084278 ICD Code: R10.9 - UNSPECIFIED ABDOMINAL PAIN Status: Acute Current Visit : Yes Qualifiers: Abdominal location: right lower quadrant Qualified Code(s): R10.31 - Right lower quadrant pain (2) AAA (abdominal aortic aneurysm) SNOMED Code(s): 611908353 ICD Code: I71.4 - ABDOMINAL AORTIC ANEURYSM, WITHOUT RUPTURE Status: Chronic Current Visit: Yes Qualifiers: Presence of rupture: without rupture Qualified Code(s): I71.4 - Abdominal aortic aneurysm, without rupture (3) Obstructive uropathy SNOMED Code(s): 9813681 ICD Code: N13.9 - OBSTRUCTIVE AND REFLUX UROPATHY, UNSPECIFIED Status: Acute Current Visit: Yes (4) Urinary retention SNOMED Code(s): 658091095 ICD Code: R33.9 - RETENTION OF URINE, UNSPECIFIED Status: Acute Current Visit: Yes (5) Acute on chronic renal failure SNOMED Code(s): 175992538 ICD Code: N17.9 - ACUTE KIDNEY FAILURE, UNSPECIFIED; N18.9 - CHRONIC KIDNEY DISEASE, UNSPECIFIED Status: Acute Current Visit: No Qualifiers: Chronic kidney disease stage: stage 4 (severe) (6) HTN (hypertension) SNOMED Code(s): 01907094 ICD Code: I10 - ESSENTIAL (PRIMARY) HYPERTENSION Status: Acute Current Visit: Yes Qualifiers: Hypertension type: essential hypertension Qualified Code(s): I10 - Essential (primary) hypertension (7) Cardiac pacemaker in situ SNOMED Code(s): 193931114 ICD Code: Z95.0 - PRESENCE OF CARDIAC PACEMAKER Status: Chronic Current Visit: Yes (8) Cervicalgia SNOMED Code(s): 09209228 ICD Code: M54.2 - CERVICALGIA Status: Acute Current Visit: Yes Problem List Initiated/Reviewed/Updated: Yes Orders Last 24hrs: Active Orders 24 hr Category Date Time Status Patient Status [ADT] Routine ADT 01/26/20 20:14 Active Bladder Scan [RC] ASDIRECTED Care 01/26/20 19:54 Active Jones Catheter Insertion [Insert Urinary Catheter] [OM. Care 01/26/20 18:15 Ordered PC] Q24H Intake and Output [RC] 06,14,22 Care 01/26/20 20:17 Active Oxygen Therapy [RC] PRN Care 01/26/20 20:14 Active Pulse Oximetry [RC] PRN Care 01/26/20 20:17 Active Up With Assistance [RC] ASDIRECTED Care 01/26/20 20:14 Active Urinary Catheter Assessment [RC] QSHIFT Care 01/26/20 18:15 Active VTE/DVT Education [RC] Per Unit Routine Care 01/26/20 20:14 Active Vital Signs [RC] 08,12,16,20,00,04 Care 01/26/20 20:14 Active Abdomen Pelvis wo Cont [CT] Stat Exams 01/26/20 19:15 Taken Albuterol [Ventolin HFA] Med 01/26/20 20:23 Active 0 gm INH Q4H PRN Albuterol/Ipratropium [DuoNeb 3.0-0.5 MG/3 ML] Med 01/26/20 20:23 Active 3 ml INH Q4H PRN Cyclobenzaprine [Flexeril] Med 01/26/20 20:23 Active 10 mg PO Q8H PRN Docusate Sodium [Colace] Med 01/26/20 21:00 Active 100 mg PO BID Enoxaparin [Lovenox] Med 01/26/20 20:15 Active 30 mg SUBCUT Q24H Gabapentin [Neurontin] Med 01/27/20 08:00 Pending 100 mg PO 08,14,20 Morphine Med 01/26/20 20:22 Active 2 mg IVPUSH Q4H PRN Ondansetron [Zofran] Med 01/26/20 20:14 Active 4 mg IV Q4H PRN Sodium Chloride 0.9% [Saline Flush] Med 01/26/20 17:58 Active 10 ml FLUSH ASDIRECTED PRN amLODIPine [Norvasc] Med 01/27/20 21:00 Active 5 mg PO BEDTIME bisacodyL [Dulcolax] Med 01/26/20 20:14 Active 10 mg PO DAILY PRN traZODone Med 01/27/20 21:00 Active 75 mg PO 21 Saline Lock Insert [OM.PC] Routine Oth 01/26/20 17:58 Ordered Resuscitation Status Routine Resus Stat 01/26/20 20:14 Ordered Medication Orders Albuterol (Ventolin Hfa) 0 gm INH Q4H PRN PRN Reason: Shortness of Breath Albuterol/Ipratropium (Duoneb 3.0-0.5 Mg/3 Ml) 3 ml INH Q4H PRN PRN Reason: Shortness of Breath Amlodipine Besylate (Norvasc) 5 mg PO BEDTIME [facility] Bisacodyl (Dulcolax) 10 mg PO DAILY PRN PRN Reason: Constipation Last Admin: 01/26/20 21:49 Dose: 10 mg Cyclobenzaprine HCl (Flexeril) 10 mg PO Q8H PRN PRN Reason: Spasms Docusate Sodium (Colace) 100 mg PO BID [facility] Last Admin: 01/26/20 21:50 Dose: 100 mg Enoxaparin Sodium (Lovenox) 30 mg SUBCUT Q24H [facility] Last Admin: 01/26/20 21:48 Dose: 30 mg Gabapentin (Neurontin) 100 mg PO 08,14,20 [facility] Morphine Sulfate (Morphine) 2 mg IVPUSH Q4H PRN PRN Reason: Pain Last Admin: 01/27/20 08:43 Dose: 2 mg Admin: 01/26/20 22:13 Dose: 2 mg Ondansetron HCl (Zofran) 4 mg IV Q4H PRN PRN Reason: Nausea/Vomiting Sodium Chloride (Saline Flush) 10 ml FLUSH ASDIRECTED PRN PRN Reason: Keep Vein Open Last Admin: 01/26/20 22:00 Dose: 10 ml Admin: 01/26/20 18:57 Dose: 10 ml Trazodone HCl (Trazodone) 75 mg PO 21 [facility] Assessment/Plan Comment:: I reviewed his labs, his creatinine was up to 3.6 now to 3.[address] showed obstructive uropathy. He has now a catheter in place.He's got some fluids this morning. I will give morphine for pain control. Repeat labs tomorrow but I expect he should go home tomorrow. Encourage ambulation and oral fluid intake.
[2020-01-27] MEDS: Gabapentin 100 MG Cap PO SCH ×3 (09:33→20:22)
[2020-01-27] MEDS: Docusate Sodium 100 MG Cap PO SCH (10:34)
[2020-01-27] MEDS: Sodium Chloride 0.9% 10 ML Syringe FLUSH PRN ×3 (10:35→17:32)
[2020-01-27] MEDS: Enoxaparin 30 MG/0.3 ML Syringe SUBCUT SCH (20:21)
[2020-01-27] MEDS: Tamsulosin 0.4 MG Cap.ER PO SCH (20:22)
[2020-01-27] MEDS: traZODone 50 MG Tab PO SCH (20:23)
[2020-01-27] MEDS: amLODIPine 5 MG Tab PO SCH (20:24)
[2020-01-27] MEDS: Cyclobenzaprine 10 MG Tab PO PRN (20:28)
[2020-01-28] MEDS: Morphine 2 MG/ML Syringe IVPUSH PRN ×2 (00:49→08:05)
[2020-01-28] MEDS: Sodium Chloride 0.9% 10 ML Syringe FLUSH PRN (00:50)
[2020-01-28] MEDS: Gabapentin 100 MG Cap PO SCH ×3 (07:56→20:05)
--- NOTE | 2020-01-28 08:43 | PCM.PN ---
- General Info Date of Service: 01/28/20 Subjective Update: Complains of right inguinal pain that moderate sharp with no improvement since yesterday. He has no more constipation and denies any symptoms. Functional Status: Reports: Tolerating Diet. Denies: Pain Controlled - Review of Systems General: Reports: No Symptoms HEENT: Reports: No Symptoms Pulmonary: Reports: No Symptoms Cardiovascular: Reports: No Symptoms - Patient Data Vitals - Most Recent: Last Vital Signs Temp 98.8 F 01/28/20 07:56 Pulse 57 L 01/28/20 07:56 Resp 14 01/28/20 07:56 BP 109/56 L 01/28/20 07:56 Pulse Ox 96 01/28/20 07:56 Weight - Most Recent: 84.453 kg I&O - Last 24 Hours: Intake & Output 01/27/20 01/28/20 01/28/20 22:59 06:59 14:59 Intake Total 540 Output Total 400 450 Balance 140 -450 Med Orders - Current: Current Medications Hydrocodone Bitart/Acetaminophen ([place] 325-5 Mg) 1 tab PO Q6H PRN PRN Reason: Breakthrough Pain Albuterol (Ventolin Hfa) 0 gm INH Q4H PRN PRN Reason: Shortness of Breath Albuterol/Ipratropium (Duoneb 3.0-0.5 Mg/3 Ml) 3 ml INH Q4H PRN PRN Reason: Shortness of Breath Amlodipine Besylate (Norvasc) 5 mg PO BEDTIME [facility] Last Admin: 01/27/20 20:24 Dose: 5 mg Bisacodyl (Dulcolax) 10 mg PO DAILY PRN PRN Reason: Constipation Last Admin: 01/26/20 21:49 Dose: 10 mg Cyclobenzaprine HCl (Flexeril) 10 mg PO Q8H PRN PRN Reason: Spasms Last Admin: 01/27/20 20:28 Dose: 10 mg Enoxaparin Sodium (Lovenox) 30 mg SUBCUT Q24H [facility] Last Admin: 01/27/20 20:21 Dose: 30 mg Gabapentin (Neurontin) 100 mg PO 08,14,20 [facility] Last Admin: 01/28/20 07:56 Dose: 100 mg Ondansetron HCl (Zofran) 4 mg IV Q4H PRN PRN Reason: Nausea/Vomiting Sodium Chloride (Saline Flush) 10 ml FLUSH ASDIRECTED PRN PRN Reason: Keep Vein Open Last Admin: 01/28/20 00:50 Dose: 10 ml Tamsulosin HCl (Flomax) 0.4 mg PO DAILY@2100 [facility] Last Admin: 01/27/20 20:22 Dose: 0.4 mg Trazodone HCl (Trazodone) 75 mg PO 21 [facility] Last Admin: 01/27/20 20:23 Dose: 75 mg Discontinued Medications Amlodipine Besylate (Norvasc) 5 mg PO NOW ONE Stop: 01/26/20 21:16 Last Admin: 01/26/20 21:50 Dose: 5 mg Docusate Sodium (Colace) 100 mg PO BID [facility] Last Admin: 01/27/20 10:34 Dose: 100 mg Gabapentin (Neurontin) 100 mg PO NOW ONE Stop: 01/26/20 21:16 Last Admin: 01/26/20 21:50 Dose: 100 mg Sodium Chloride (Normal Saline) 1,000 mls @ 100 mls/hr IV ASDIRECTED [facility] Last Admin: 01/27/20 07:32 Dose: 100 mls/hr Lidocaine HCl (Glydo) Confirm Administered Dose 6 ml .ROUTE .STK-MED ONE Stop: 01/26/20 18:46 Last Admin: 01/26/20 19:00 Dose: 6 ml Lidocaine HCl (Glydo) 6 ml .XX ONETIME ONE Stop: 01/26/20 19:01 Last Admin: 01/26/20 20:51 Dose: Not Given Morphine Sulfate (Morphine) 2 mg IVPUSH ONETIME ONE Stop: 01/26/20 18:05 Last Admin: 01/26/20 18:30 Dose: 2 mg Morphine Sulfate (Morphine) 2 mg IVPUSH ONETIME ONE Stop: 01/26/20 20:09 Last Admin: 01/26/20 20:16 Dose: 2 mg Morphine Sulfate (Morphine) 2 mg IVPUSH Q4H PRN PRN Reason: Pain Last Admin: 01/28/20 08:05 Dose: 2 mg Tamsulosin HCl (Flomax) 0.4 mg PO ONETIME ONE Stop: 01/26/20 19:41 Last Admin: 01/26/20 20:16 Dose: 0.4 mg Trazodone HCl (Trazodone) 50 mg PO NOW ONE Stop: 01/26/20 21:16 Trazodone HCl (Trazodone) 75 mg PO NOW ONE Stop: 01/26/20 21:16 Last Admin: 01/26/20 21:49 Dose: 75 mg - Exam General: Alert, Oriented HEENT: Pupils Equal Neck: Supple Lungs: Clear to Auscultation GI/Abdominal Exam: Soft, No Mass, Tender (Right ingunal area) (Male) Exam: Suprapubic Fullness. No: Circumcised, Testicular Mass Back Exam: Normal Inspection, CVA Tenderness (L) Sepsis Event Note - Evaluation Sepsis Screening Result: No Definite Risk - Focused Exam Vital Signs: Vital Signs Temp Pulse Resp BP BP Pulse Ox 01/28/20 07:56 98.8 F 57 L 14 109/56 L 96 01/28/20 04:30 58 L 18 123/54 L 01/28/20 00:45 56 L 20 98/44 L 93 L Date Exam was Performed: 01/28/20 Time Exam was Performed: 08:40 - Problem List & Annotations (1) Abdominal pain SNOMED Code(s): 02677294 Code(s): R10.9 - UNSPECIFIED ABDOMINAL PAIN Status: Acute Current Visit: Yes Qualifiers: Abdominal location: right lower quadrant Qualified Code(s): R10.31 - Right lower quadrant pain (2) AAA (abdominal aortic aneurysm) SNOMED Code(s): 506842870 Code(s): I71.4 - ABDOMINAL AORTIC ANEURYSM, WITHOUT RUPTURE Status: Chronic Current Visit: Yes Qualifiers: Presence of rupture: without rupture Qualified Code(s): I71.4 - Abdominal aortic aneurysm, without rupture (3) Obstructive uropathy SNOMED Code(s): 3111586 Code(s): N13.9 - OBSTRUCTIVE AND REFLUX UROPATHY, UNSPECIFIED Status: Acute Current Visit: Yes (4) Urinary retention SNOMED Code(s): 034339169 Code(s): R33.9 - RETENTION OF URINE, UNSPECIFIED Status: Acute Current Visit: Yes (5) Acute on chronic renal failure SNOMED Code(s): 308116111 Code(s): N17.9 - ACUTE KIDNEY FAILURE, UNSPECIFIED; N18.9 - CHRONIC KIDNEY DISEASE, UNSPECIFIED Status: Acute Current Visit: No Qualifiers: Chronic kidney disease stage: stage 4 (severe) (6) HTN (hypertension) SNOMED Code(s): 65372331 Code(s): I10 - ESSENTIAL (PRIMARY) HYPERTENSION Status: Acute Current Visit: Yes Qualifiers: Hypertension type: essential hypertension Qualified Code(s): I10 - Essential (primary) hypertension (7) Cardiac pacemaker in situ SNOMED Code(s): 776301683 Code(s): Z95.0 - PRESENCE OF CARDIAC PACEMAKER Status: Chronic Current Visit: Yes (8) Cervicalgia SNOMED Code(s): 30506018 Code(s): M54.2 - CERVICALGIA Status: Acute Current Visit: Yes - Problem List Review Problem List Initiated/Reviewed/Updated: Yes - My Orders Last 24 Hours: My Active Orders 01/27/20 21:00 Tamsulosin [Flomax] 0.4 mg PO DAILY@2100 01/28/20 08:38 Acetaminophen/HYDROcodone [[place] 325-5 MG] 1 tab PO Q6H PRN 01/28/20 08:39 Patient Status Manage Transfer [TRANSFER] Routine OT Evaluation and Treatment [CONS] Routine PT Evaluation and Treatment [CONS] Routine 01/28/20 Breakfast Regular Diet [DIET] 01/29/20 05:11 BASIC METABOLIC PANEL,BMP [CHEM] AM CBC WITH AUTO DIFF [HEME] AM - Plan Plan:: I will DC morphine in favor of oral narcotics. I will order consultation . Physical therapy for ambulation. Possible discharge tomorrow but I feel he needs to stay him 1 more day, as such I will make him an inpatient.
--- NOTE | 2020-01-28 11:07 | PCM.CONS ---
H&P History of Present Illness - General Date of Service: 01/28/20 Admit Problem/Dx: Admission Diagnosis/Problem Admission Diagnosis/Problem Acute kidney injury - History of Present Illness Initial Comments - Free Text/Narative: Pt was admitted several days ago with lower abd pain. Has had persistent pain in the right groin. No real exacerbating or relieving factors or fever. Has a hx of appendectomy as well as hernia repair. CT was essentially unremarkable in this area except for some stool. Did have some urinary retention noted and had a ferguson placed. No abd wall defect noted. Right Lower Anterior Groin Pain Score (Numeric/FACES): 7 - Related Data Allergies/Adverse Reactions: Allergies Allergy/AdvReac Type Severity Reaction Status Date / Time No Known Allergies Allergy Verified 10/01/19 17:40 Home Medications: Home Meds traZODone HCl [Trazodone HCl] 75 mg PO 02/12/19 [History] Albuterol Sulfate [Albuterol Sulfate Hfa] 2 puff INH Q4H PRN 10/01/19 [History] Albuterol/Ipratropium [DuoNeb 3.0-0.5 MG/3 ML] 3 ml INH Q4H PRN 10/01/19 [ History] Aspirin [Halfprin] 81 mg PO 08 10/01/19 [History] Cyclobenzaprine [Flexeril] 10 mg PO Q8H PRN #15 tab 10/01/19 [Rx] Gabapentin [Neurontin] 100 mg PO 08,14,20 10/01/19 [History] lisinopriL [Zestril] 10 mg PO 08 10/01/19 [History] amLODIPine [Norvasc] 5 mg PO BEDTIME 01/26/20 [History] Past Medical History HEENT History: Reports: Cataract Other HEENT History: cataract both eyes and got sick before it was taken care of Cardiovascular History: Reports: Hypertension, MD, Pacemaker Respiratory History: Reports: COPD Gastrointestinal History: Reports: Other (See Below) Other Gastrointestinal History: hernia-- inguinal hernia X3 right and left Genitourinary History: Reports: Other (See Below) Other Genitourinary History: stage 4 renal failure. Musculoskeletal History: Reports: Arthritis, Other (See Below) Other Musculoskeletal History: right arm weakness from 2 years ago. States that he does not know what happened. Admits to shoulder weakness on right. 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 states he fell in [place] one month ago and his neck is been out of wack since Psychiatric History: Reports: Other (See Below) Other Psychiatric History: patient is an alcoholic. Denies 08/08, a "beer or two a day" on 02/12/19 pt admits to one glass of rolan a day and 2 beers Oncologic (Cancer) History: Reports: Renal - Past Surgical History Cardiovascular Surgical History: Reports: Percutaneous Transluminal Angioplasty , Other (See Below) Other Cardiovascular Surgeries/Procedures: pacemaker. Respiratory Surgical History: Reports: None GI Surgical History: Reports: Appendectomy, Cholecystectomy, Other (See Below) Other GI Surgeries/Procedures: lap nelsy Male Surgical History: Reports: None Other Male Surgeries/Procedures: cyst on right kidney--bx appt scheduled for in 10/11 Neurological Surgical History: Reports: None Musculoskeletal Surgical History: Reports: None Social & Family History - Family History Family Medical History: Noncontributory - Tobacco Use Smoking Status *Q: Former Smoker Years of Tobacco use: 0 Packs/Tins Daily: 0 Used Tobacco, but Quit: Yes Month/Year Tobacco Last Used: 2017 Second Hand Smoke Exposure: No - Caffeine Use Caffeine Use: Reports: Coffee Other Caffeine Use: 3 cups coffee/day - Alcohol Use Days Per Week of Alcohol Use: 7 Number of Drinks Per Day: 2 Total Drinks Per Week: 14 Date of Last Drink: 01/26/20 Time of Last Drink: 12:00 - Recreational Drug Use Recreational Drug Use: No H&P Review of Systems - Review of Systems: Review Of Systems: See Below General: Reports: No Symptoms Pulmonary: Reports: No Symptoms Cardiovascular: Reports: No Symptoms Gastrointestinal: Reports: Abdominal Pain, Nausea Genitourinary: Reports: Flank Pain Exam - Exam Exam: See Below - Vital Signs Vital Signs: Last Vital Signs Temp 98.8 F 01/28/20 07:56 Pulse 57 L 01/28/20 07:56 Resp 14 01/28/20 07:56 BP 109/56 L 01/28/20 07:56 Pulse Ox 96 01/28/20 07:56 Weight: 84.453 kg - Exam General: Alert, Oriented Lungs: Clear to Auscultation, Normal Respiratory Effort Cardiovascular: Regular Rate, Regular Rhythm GI/Abdominal Exam: Normal Bowel Sounds, Soft, Non-Tender. No: Hernia (Male) Exam: Normal Inspection, Scrotum Tenderness (R) (along the spermatic cord from testes to external ring. ). No: Inguinal Lymphadenopathy, Penile Lesions, Testicular Mass - Patient Data Result Diagrams: 01/27/20 06:30 01/27/20 06:30 Sepsis Event Note - Evaluation Sepsis Screening Result: No Definite Risk - Focused Exam Vital Signs: Vital Signs Temp Pulse Resp BP BP Pulse Ox 01/28/20 07:56 98.8 F 57 L 14 109/56 L 96 01/28/20 04:30 58 L 18 123/54 L 01/28/20 00:45 56 L 20 98/44 L 93 L Date Exam was Performed: 01/28/20 Time Exam was Performed: 11:02 Consult PN Assessment/Plan Procedures: Procedures ASSAY OF AMMONIA (02/12/19) ASSAY OF AMYLASE (10/01/19) ASSAY OF BLOOD/URIC ACID (02/12/19) ASSAY OF CK (CPK) (08/02/18) ASSAY OF LIPASE (10/01/19) ASSAY OF MAGNESIUM (02/12/19) ASSAY OF NATRIURETIC PEPTIDE (02/12/19) ASSAY OF TROPONIN QUANT (10/01/19) ASSAY THYROID STIM HORMONE (08/02/18) COMPLETE CBC W/AUTO DIFF WBC (10/01/19) COMPREHEN METABOLIC PANEL (10/01/19) CT ABD & PELVIS W/O CONTRAST (11/04/18) CT HEAD/BRAIN W/O DYE (10/01/19) CT NECK SPINE W/O DYE (07/24/19) ELECTROCARDIOGRAM TRACING (02/12/19) EMERGENCY DEPT VISIT (10/01/19) EMERGENCY DEPT VISIT (10/01/19) EMERGENCY DEPT VISIT (08/02/18) OT EVAL MOD COMPLEX 45 MIN (02/12/19) PROTHROMBIN TIME (02/12/19) PT EVAL LOW COMPLEX 20 MIN (02/12/19) ROUTINE VENIPUNCTURE (10/01/19) THROMBOPLASTIN TIME PARTIAL (08/02/18) US EXAM ABDO BACK WALL COMP (05/01/19) VITAMIN D 25 HYDROXY (02/12/19) X-RAY EXAM CHEST 1 VIEW (10/01/19) X-RAY EXAM CHEST 2 VIEWS (02/12/19) X-RAY EXAM HIP UNI 2-3 VIEWS (10/01/19) X-RAY EXAM NECK SPINE 2-3 VW (02/12/19) X-RAY EXAM OF FOOT (01/05/19) X-RAY EXAM UNILAT RIBS/CHEST (08/02/18) X-RAY XM ESOPHAGUS 1CNTRST (10/06/18) (1) Epididymitis, right SNOMED Code(s): 17756799 Code(s): N45.1 - EPIDIDYMITIS Current Visit: Yes (2) Constipation SNOMED Code(s): 81626598 Code(s): K59.00 - CONSTIPATION, UNSPECIFIED Current Visit: Yes Qualifiers: Constipation type: unspecified constipation type Qualified Code(s): K59.00 - Constipation, unspecified Problem List Initiated/Reviewed/Updated: Yes Plan: Does not have a hernia on exam or via CT. clinically appears to have epididymitis. would recommend treatment. \\ consider Miralax for his constipation.
[2020-01-28] MEDS: Ciprofloxacin 250 MG Tab PO SCH ×2 (12:27→20:06)
[2020-01-28] MEDS: Acetaminophen/HYDROcodone 325-5 MG Tab PO PRN (15:28)
[2020-01-28] MEDS: traZODone 50 MG Tab PO SCH (20:05)
[2020-01-28] MEDS: amLODIPine 5 MG Tab PO SCH (20:06)
[2020-01-28] MEDS: Tamsulosin 0.4 MG Cap.ER PO SCH (20:06)
[2020-01-28] MEDS: Enoxaparin 30 MG/0.3 ML Syringe SUBCUT SCH (20:06)
[2020-01-29] MEDS: Acetaminophen/HYDROcodone 325-5 MG Tab PO PRN ×3 (05:04→19:50)
[2020-01-29] MEDS: Gabapentin 100 MG Cap PO SCH ×3 (07:43→19:51)
[2020-01-29] MEDS: Bisacodyl 5 MG Tab PO PRN (07:48)
[2020-01-29] MEDS: Ciprofloxacin 250 MG Tab PO SCH (09:46)
[2020-01-29] MEDS ORDERED: Ciprofloxacin in D5W 200 ML IV SCH (10:15)
[2020-01-29] MEDS: Sodium Polystyrene Sulfonate 15 GM/60 ML Susp 60 ML Bot PO SCH ×2 (11:36→19:02)
--- NOTE | 2020-01-29 12:16 | PCM.PN ---
- General Info Date of Service: 01/29/20 Admission Dx/Problem (Free Text): Paul is still having right scrotal & right inguinal pain with some redness of scrotum, Creatinine 3.7 today, up from admission of 3.5, baseline is 2.9. He has not seen nephrology since November 2018 or his oncology for right renal mass since Oct 2018. Nephrology had discussed dialysis at his last visit and patient refused at that time, oncology is following renal mass with CT, has refused treatment, they felt he would require dialysis if they did nephrectomy. He states he only drinks maybe 2-3 glasses of water a day. Nephrology advised him drink more water, eat renal diet. Nursing stated that they had a difficult time inserting the Jones, had obstructive uropathy on CT with atrophic kidneys, right renal mass is smaller. Was started on Flomax during this admission. Functional Status: Reports: Pain Controlled, Tolerating Diet - Patient Data Vitals - Most Recent: Last Vital Signs Temp 97.7 F 01/29/20 08:00 Pulse 55 L 01/29/20 08:00 Resp 14 01/29/20 08:00 BP 105/55 L 01/29/20 08:00 Pulse Ox 95 01/29/20 08:00 Weight - Most Recent: 186 lb 3 oz I&O - Last 24 Hours: Intake & Output 01/28/20 01/29/20 01/29/20 22:59 06:59 14:59 Intake Total 200 Output Total 550 500 Balance -350 -500 Lab Results Last 24 Hours: Laboratory Results - last 24 hr 01/29/20 01/29/20 Range/Units 06:30 06:30 WBC 7.8 (4.5-12.0) X10-3/uL RBC 3.69 L (4.30-5.75) x10(6)uL Hgb 11.7 L (13.5-17.8) g/dL Hct 36.8 (30.0-51.3) % MCV 99.9 H (80-96) fL MCH 31.7 (27.7-33.6) pg MCHC 31.8 L (32.2-35.4) g/dL RDW 12.7 (11.5-15.5) % Plt Count 274 (125-369) X10(3)uL MPV 7.5 (7.4-10.4) fL Neut % (Auto) 58.8 (46-82) % Lymph % (Auto) 22.4 (13-37) % Webb % (Auto) 11.5 (4-12) % Eos % (Auto) 6 H (1.0-5.0) % Baso % (Auto) 1 (0-2) % Neut # (Auto) 4.6 (1.6-8.3) # Lymph # (Auto) 1.7 (0.6-5.0) # Webb # (Auto) 0.9 (0.0-1.3) # Eos # (Auto) 0.5 (0.0-0.8) # Baso # (Auto) 0.1 (0.0-0.2) # Sodium 138 (135-145) mmol/L Potassium 5.6 H (3.5-5.3) mmol/L Chloride 109 (100-110) mmol/L Carbon Dioxide 20 L (21-32) mmol/L BUN 47 H (7-18) mg/dL Creatinine 3.7 H* (0.70-1.30) mg/dL Est Cr Clr Drug Dosing 16.95 mL/min Estimated GFR (MDRD) 16 L (>60) BUN/Creatinine Ratio 12.7 (9-20) Glucose 88 (80-116) mg/dL Calcium 8.0 L (8.6-10.2) mg/dL Med Orders - Current: Current Medications Hydrocodone Bitart/Acetaminophen ([place] 325-5 Mg) 1 tab PO Q6H PRN PRN Reason: Breakthrough Pain Last Admin: 01/29/20 11:36 Dose: 1 tab Albuterol (Ventolin Hfa) 0 gm INH Q4H PRN PRN Reason: Shortness of Breath Albuterol/Ipratropium (Duoneb 3.0-0.5 Mg/3 Ml) 3 ml INH Q4H PRN PRN Reason: Shortness of Breath Amlodipine Besylate (Norvasc) 5 mg PO BEDTIME [facility] Last Admin: 01/28/20 20:06 Dose: 5 mg Bisacodyl (Dulcolax) 10 mg PO DAILY PRN PRN Reason: Constipation Last Admin: 01/29/20 07:48 Dose: 10 mg Cyclobenzaprine HCl (Flexeril) 10 mg PO Q8H PRN PRN Reason: Spasms Last Admin: 01/27/20 20:28 Dose: 10 mg Enoxaparin Sodium (Lovenox) 30 mg SUBCUT Q24H [facility] Last Admin: 01/28/20 20:06 Dose: 30 mg Gabapentin (Neurontin) 100 mg PO 08,14,20 [facility] Last Admin: 01/29/20 07:43 Dose: 100 mg Ciprofloxacin/Dextrose (Cipro In D5w 400 Mg/200 Ml) 200 mls @ 200 mls/hr IV Q24H [facility] Sodium Chloride (Saline Flush) 10 ml FLUSH ASDIRECTED PRN PRN Reason: Keep Vein Open Last Admin: 01/28/20 00:50 Dose: 10 ml Sodium Polystyrene Sulfonate (Kayexalate) 15 gm PO Q8H [facility] Stop: 01/30/20 03:31 Last Admin: 01/29/20 11:36 Dose: 15 gm Tamsulosin HCl (Flomax) 0.4 mg PO DAILY@2100 [facility] Last Admin: 01/28/20 20:06 Dose: 0.4 mg Trazodone HCl (Trazodone) 75 mg PO 21 [facility] Last Admin: 01/28/20 20:05 Dose: 75 mg Discontinued Medications Amlodipine Besylate (Norvasc) 5 mg PO NOW ONE Stop: 01/26/20 21:16 Last Admin: 01/26/20 21:50 Dose: 5 mg Ciprofloxacin (Ciprofloxacin Hcl) 250 mg PO BID [facility] Last Admin: 01/29/20 09:46 Dose: 250 mg Docusate Sodium (Colace) 100 mg PO BID [facility] Last Admin: 01/27/20 10:34 Dose: 100 mg Gabapentin (Neurontin) 100 mg PO NOW ONE Stop: 01/26/20 21:16 Last Admin: 01/26/20 21:50 Dose: 100 mg Sodium Chloride (Normal Saline) 1,000 mls @ 100 mls/hr IV ASDIRECTED [facility] Last Admin: 01/27/20 07:32 Dose: 100 mls/hr Lidocaine HCl (Glydo) Confirm Administered Dose 6 ml .ROUTE .STK-MED ONE Stop: 01/26/20 18:46 Last Admin: 01/26/20 19:00 Dose: 6 ml Lidocaine HCl (Glydo) 6 ml .XX ONETIME ONE Stop: 01/26/20 19:01 Last Admin: 01/26/20 20:51 Dose: Not Given Morphine Sulfate (Morphine) 2 mg IVPUSH ONETIME ONE Stop: 01/26/20 18:05 Last Admin: 01/26/20 18:30 Dose: 2 mg Morphine Sulfate (Morphine) 2 mg IVPUSH ONETIME ONE Stop: 01/26/20 20:09 Last Admin: 01/26/20 20:16 Dose: 2 mg Morphine Sulfate (Morphine) 2 mg IVPUSH Q4H PRN PRN Reason: Pain Last Admin: 01/28/20 08:05 Dose: 2 mg Ondansetron HCl (Zofran) 4 mg IV Q4H PRN PRN Reason: Nausea/Vomiting Tamsulosin HCl (Flomax) 0.4 mg PO ONETIME ONE Stop: 01/26/20 19:41 Last Admin: 01/26/20 20:16 Dose: 0.4 mg Trazodone HCl (Trazodone) 50 mg PO NOW ONE Stop: 01/26/20 21:16 Trazodone HCl (Trazodone) 75 mg PO NOW ONE Stop: 01/26/20 21:16 Last Admin: 01/26/20 21:49 Dose: 75 mg - Exam Quality Assessment: Urine Catheter General: Alert, Oriented, Cooperative, No Acute Distress Lungs: Clear to Auscultation, Normal Respiratory Effort Cardiovascular: Regular Rate, Regular Rhythm GI/Abdominal Exam: Normal Bowel Sounds, Soft, Non-Tender, No Distention (Male) Exam: Circumcised, Scrotum Tenderness (R) (epididymis tender, right inguinal lymphadenopathy(LN) with tenderness. No left inguinal LN.) Extremities: No Pedal Edema Peripheral Pulses: 2+: Radial (L), Radial (R) Sepsis Event Note - Evaluation Sepsis Screening Result: No Definite Risk - Focused Exam Vital Signs: Vital Signs Temp Pulse Resp BP Pulse Ox 01/29/20 08:00 97.7 F 55 L 14 105/55 L 95 01/29/20 05:00 97.8 F 58 L 18 96/63 95 Date Exam was Performed: 01/29/20 Time Exam was Performed: 12:11 - Problem List & Annotations (1) Epididymitis, right SNOMED Code(s): 37819951 Code(s): N45.1 - EPIDIDYMITIS Status: Acute Current Visit: Yes (2) Obstructive uropathy SNOMED Code(s): 0009187 Code(s): N13.9 - OBSTRUCTIVE AND REFLUX UROPATHY, UNSPECIFIED Status: Acute Current Visit: Yes (3) Urinary retention SNOMED Code(s): 890469811 Code(s): R33.9 - RETENTION OF URINE, UNSPECIFIED Status: Acute Current Visit: Yes (4) Acute on chronic renal failure SNOMED Code(s): 845861619 Code(s): N17.9 - ACUTE KIDNEY FAILURE, UNSPECIFIED; N18.9 - CHRONIC KIDNEY DISEASE, UNSPECIFIED Status: Acute Current Visit: No Qualifiers: Chronic kidney disease stage: stage 4 (severe) Annotation/Comment:: Baseline 2.9, worsening. (5) CAD (coronary artery disease) SNOMED Code(s): 62564158 Code(s): I25.10 - ATHSCL HEART DISEASE OF [place] CORONARY ARTERY W/O ANG PCTRS Status: Chronic Current Visit: No Qualifiers: Coronary Disease-Associated Artery/Lesion type: [place] artery (6) HTN (hypertension) SNOMED Code(s): 80472095 Code(s): I10 - ESSENTIAL (PRIMARY) HYPERTENSION Status: Chronic Current Visit: Yes Qualifiers: Hypertension type: essential hypertension Qualified Code(s): I10 - Essential (primary) hypertension (7) Cardiac pacemaker in situ SNOMED Code(s): 156279686 Code(s): Z95.0 - PRESENCE OF CARDIAC PACEMAKER Status: Chronic Current Visit: Yes (8) AAA (abdominal aortic aneurysm) SNOMED Code(s): 567794087 Code(s): I71.4 - ABDOMINAL AORTIC ANEURYSM, WITHOUT RUPTURE Status: Chronic Current Visit: Yes Qualifiers: Presence of rupture: without rupture Qualified Code(s): I71.4 - Abdominal aortic aneurysm, without rupture - Problem List Review Problem List Initiated/Reviewed/Updated: Yes - My Orders Last 24 Hours: My Active Orders 01/29/20 11:30 Sodium Polystyrene Sulfonate [Kayexalate] 15 gm PO Q8H 01/29/20 12:15 polyethylene glycoL 3350 [MiraLAX] 17 gm PO DAILY 01/29/20 21:00 Ciprofloxacin in D5W [Cipro in D5W 400 MG/200 ML] 200 ml IV Q24H 01/29/20 Dinner Renal Non-Dialysis Diet [DIET] 01/30/20 05:11 BASIC METABOLIC PANEL,BMP [CHEM] Routine - Plan Plan:: 1. Ciprofloxacin 400 mg IV q24h, adjusted for renal function. Will discharge with Jones and has not followed up with Urology, Nephrology or Oncology for over a year. Would need to see Urology and Nephrology at discharge. 2. Encouraged patient to drink 1-2 liters today, baseline Cr 2.9, up to 3.7 recheck his labs tomorrow, if not improved, will restart IV fluids. 3. Kayexalate 15 gm q8h x 3 doses, recheck potassium tomorrow. 4. Anticipate discharge on Saturday back to [facility].
[2020-01-29] MEDS: Polyethylene Glycol 3350 Powder 17 GM Packet PO SCH (13:45)
[2020-01-29] MEDS: Enoxaparin 30 MG/0.3 ML Syringe SUBCUT SCH (19:52)
[2020-01-29] MEDS: amLODIPine 5 MG Tab PO SCH (20:04)
[2020-01-29] MEDS: Tamsulosin 0.4 MG Cap.ER PO SCH (20:04)
[2020-01-29] MEDS: traZODone 50 MG Tab PO SCH (20:04)
[2020-01-29] MEDS: Ciprofloxacin in D5W 200 ML IV SCH (20:13)
[2020-01-29] MEDS: Sodium Chloride 0.9% 10 ML Syringe FLUSH PRN (21:52)
[2020-01-30] MEDS: Sodium Polystyrene Sulfonate 15 GM/60 ML Susp 60 ML Bot PO SCH (03:21)
[2020-01-30] MEDS: Acetaminophen/HYDROcodone 325-5 MG Tab PO PRN ×3 (03:23→22:04)
[2020-01-30] MEDS: Cyclobenzaprine 10 MG Tab PO PRN (03:23)
[2020-01-30] MEDS: Gabapentin 100 MG Cap PO SCH ×3 (07:52→20:10)
[2020-01-30] MEDS ORDERED: Ofloxacin 0.3% Ophth Soln 5 ML Bottle EYEBOTH SCH (09:00)
--- NOTE | 2020-01-30 09:24 | PCM.PN ---
- General Info Date of Service: 01/30/20 Admission Dx/Problem (Free Text): Paul is complaining of mattery eyes this morning, states that he has yellow discharge from his eyes. Scrotal pain same as yesterday. No shortness of breath , cough, nausea or vomiting. Had stool this morning and passing gas. drank about 1 liter yesterday, Cr improved only slightly at 3.6. - Patient Data Vitals - Most Recent: Last Vital Signs Temp 97.6 F 01/30/20 08:00 Pulse 60 01/30/20 08:00 Resp 14 01/30/20 08:00 BP 107/71 01/30/20 08:00 Pulse Ox 92 L 01/30/20 08:00 Weight - Most Recent: 186 lb 3 oz I&O - Last 24 Hours: Intake & Output 01/29/20 01/30/20 01/30/20 22:59 06:59 14:59 Intake Total 200 Output Total 700 550 Balance -500 -550 Lab Results Last 24 Hours: Laboratory Results - last 24 hr 01/30/20 Range/Units 06:20 Sodium 139 (135-145) mmol/L Potassium 4.5 D (3.5-5.3) mmol/L Chloride 106 (100-110) mmol/L Carbon Dioxide 22 (21-32) mmol/L BUN 39 H (7-18) mg/dL Creatinine 3.6 H* (0.70-1.30) mg/dL Est Cr Clr Drug Dosing 17.42 mL/min Estimated GFR (MDRD) 17 L (>60) BUN/Creatinine Ratio 10.8 (9-20) Glucose 92 (80-116) mg/dL Calcium 8.4 L (8.6-10.2) mg/dL Med Orders - Current: Current Medications Acetaminophen (Tylenol Extra Strength) 500 mg PO Q6H [facility] Hydrocodone Bitart/Acetaminophen ([place] 325-5 Mg) 1 tab PO Q6H PRN PRN Reason: Breakthrough Pain Last Admin: 01/30/20 03:23 Dose: 1 tab Albuterol (Ventolin Hfa) 0 gm INH Q4H PRN PRN Reason: Shortness of Breath Albuterol/Ipratropium (Duoneb 3.0-0.5 Mg/3 Ml) 3 ml INH Q4H PRN PRN Reason: Shortness of Breath Amlodipine Besylate (Norvasc) 5 mg PO BEDTIME [facility] Last Admin: 01/29/20 20:04 Dose: 5 mg Bisacodyl (Dulcolax) 10 mg PO DAILY PRN PRN Reason: Constipation Last Admin: 01/29/20 07:48 Dose: 10 mg Cyclobenzaprine HCl (Flexeril) 10 mg PO Q8H PRN PRN Reason: Spasms Last Admin: 01/30/20 03:23 Dose: 10 mg Enoxaparin Sodium (Lovenox) 30 mg SUBCUT Q24H [facility] Last Admin: 01/29/20 19:52 Dose: 30 mg Gabapentin (Neurontin) 100 mg PO [facility] Last Admin: 01/30/20 07:52 Dose: 100 mg Ciprofloxacin/Dextrose (Cipro In D5w 400 Mg/200 Ml) 200 mls @ 200 mls/hr IV Q24H [facility] Last Admin: 01/29/20 20:13 Dose: 200 mls/hr Sodium Chloride (Normal Saline) 1,000 mls @ 100 mls/hr IV ASDIRECTED [facility] Ibuprofen (Motrin) 200 mg PO Q6H [facility] Stop: 02/01/20 09:31 Ofloxacin (Ocuflox 0.3% Ophth Soln) 0 ml EYEBOTH QID [facility] Polyethylene Glycol (Miralax) 17 gm PO DAILY [facility] Last Admin: 01/29/20 13:45 Dose: 17 gm Sodium Chloride (Saline Flush) 10 ml FLUSH ASDIRECTED PRN PRN Reason: Keep Vein Open Last Admin: 01/29/20 21:52 Dose: 10 ml Tamsulosin HCl (Flomax) 0.4 mg PO DAILY@2100 [facility] Last Admin: 01/29/20 20:04 Dose: 0.4 mg Trazodone HCl (Trazodone) 75 mg PO 21 [facility] Last Admin: 01/29/20 20:04 Dose: 75 mg Discontinued Medications Amlodipine Besylate (Norvasc) 5 mg PO NOW ONE Stop: 01/26/20 21:16 Last Admin: 01/26/20 21:50 Dose: 5 mg Ciprofloxacin (Ciprofloxacin Hcl) 250 mg PO BID [facility] Last Admin: 01/29/20 09:46 Dose: 250 mg Docusate Sodium (Colace) 100 mg PO BID [facility] Last Admin: 01/27/20 10:34 Dose: 100 mg Gabapentin (Neurontin) 100 mg PO NOW ONE Stop: 01/26/20 21:16 Last Admin: 01/26/20 21:50 Dose: 100 mg Sodium Chloride (Normal Saline) 1,000 mls @ 100 mls/hr IV ASDIRECTED [facility] Last Admin: 01/27/20 07:32 Dose: 100 mls/hr Lidocaine HCl (Glydo) Confirm Administered Dose 6 ml .ROUTE .STK-MED ONE Stop: 01/26/20 18:46 Last Admin: 01/26/20 19:00 Dose: 6 ml Lidocaine HCl (Glydo) 6 ml .XX ONETIME ONE Stop: 01/26/20 19:01 Last Admin: 01/26/20 20:51 Dose: Not Given Morphine Sulfate (Morphine) 2 mg IVPUSH ONETIME ONE Stop: 01/26/20 18:05 Last Admin: 01/26/20 18:30 Dose: 2 mg Morphine Sulfate (Morphine) 2 mg IVPUSH ONETIME ONE Stop: 01/26/20 20:09 Last Admin: 01/26/20 20:16 Dose: 2 mg Morphine Sulfate (Morphine) 2 mg IVPUSH Q4H PRN PRN Reason: Pain Last Admin: 01/28/20 08:05 Dose: 2 mg Ondansetron HCl (Zofran) 4 mg IV Q4H PRN PRN Reason: Nausea/Vomiting Sodium Polystyrene Sulfonate (Kayexalate) 15 gm PO Q8H [facility] Stop: 01/30/20 03:31 Last Admin: 01/30/20 03:21 Dose: 15 gm Tamsulosin HCl (Flomax) 0.4 mg PO ONETIME ONE Stop: 01/26/20 19:41 Last Admin: 01/26/20 20:16 Dose: 0.4 mg Trazodone HCl (Trazodone) 50 mg PO NOW ONE Stop: 01/26/20 21:16 Trazodone HCl (Trazodone) 75 mg PO NOW ONE Stop: 01/26/20 21:16 Last Admin: 01/26/20 21:49 Dose: 75 mg - Exam Quality Assessment: Urine Catheter General: Alert, Oriented, Cooperative, No Acute Distress HEENT: Pupils Equal, Pupils Reactive, Other (conjunctival erythema with yellow discharge, bilateral) Lungs: Clear to Auscultation, Normal Respiratory Effort Cardiovascular: Regular Rate, Regular Rhythm GI/Abdominal Exam: Normal Bowel Sounds, Soft, Non-Tender, No Distention Extremities: No Pedal Edema Peripheral Pulses: 2+: Radial (L), Radial (R) Sepsis Event Note - Evaluation Sepsis Screening Result: No Definite Risk - Focused Exam Vital Signs: Vital Signs Temp Pulse Resp BP Pulse Ox 01/30/20 08:00 97.6 F 60 14 107/71 92 L 01/30/20 00:00 97.5 F 61 18 128/67 95 Date Exam was Performed: 01/30/20 Time Exam was Performed: : - Problem List & Annotations (1) Epididymitis, right SNOMED Code(s): 42866255 Code(s): N45.1 - EPIDIDYMITIS Status: Acute Current Visit: Yes (2) Obstructive uropathy SNOMED Code(s): 5581168 Code(s): N13.9 - OBSTRUCTIVE AND REFLUX UROPATHY, UNSPECIFIED Status: Acute Current Visit: Yes (3) Urinary retention SNOMED Code(s): 514799293 Code(s): R33.9 - RETENTION OF URINE, UNSPECIFIED Status: Acute Current Visit: Yes (4) Acute on chronic renal failure SNOMED Code(s): 710739204 Code(s): N17.9 - ACUTE KIDNEY FAILURE, UNSPECIFIED; N18.9 - CHRONIC KIDNEY DISEASE, UNSPECIFIED Status: Acute Current Visit: No Qualifiers: Chronic kidney disease stage: stage 4 (severe) Annotation/Comment:: Baseline 2.9, today is 3.6, will restart IVF at 100 ml/hr and recheck renal panel tomorrow. (5) CAD (coronary artery disease) SNOMED Code(s): 66333973 Code(s): I25.10 - ATHSCL HEART DISEASE OF [place] CORONARY ARTERY W/O ANG PCTRS Status: Chronic Current Visit: No Qualifiers: Coronary Disease-Associated Artery/Lesion type: [place] artery (6) HTN (hypertension) SNOMED Code(s): 13419884 Code(s): I10 - ESSENTIAL (PRIMARY) HYPERTENSION Status: Chronic Current Visit: Yes Qualifiers: Hypertension type: essential hypertension Qualified Code(s): I10 - Essential (primary) hypertension (7) Cardiac pacemaker in situ SNOMED Code(s): 153269738 Code(s): Z95.0 - PRESENCE OF CARDIAC PACEMAKER Status: Chronic Current Visit: Yes (8) AAA (abdominal aortic aneurysm) SNOMED Code(s): 924705638 Code(s): I71.4 - ABDOMINAL AORTIC ANEURYSM, WITHOUT RUPTURE Status: Chronic Current Visit: Yes Qualifiers: Presence of rupture: without rupture Qualified Code(s): I71.4 - Abdominal aortic aneurysm, without rupture (9) Conjunctivitis SNOMED Code(s): 3449557 Code(s): H10.9 - UNSPECIFIED CONJUNCTIVITIS Status: Acute Current Visit: Yes Qualifiers: Conjunctivitis type: acute Acute conjunctivitis type: bacterial Laterality: bilateral Qualified Code(s): H10.33 - Unspecified acute conjunctivitis, bilateral - Problem List Review Problem List Initiated/Reviewed/Updated: Yes - My Orders Last 24 Hours: My Active Orders 01/29/20 12:15 polyethylene glycoL 3350 [MiraLAX] 17 gm PO DAILY 01/29/20 14:10 Vital Signs [RC] QSHIFT 01/29/20 21:00 Ciprofloxacin in D5W [Cipro in D5W 400 MG/200 ML] 200 ml IV Q24H 01/29/20 Dinner Renal Non-Dialysis Diet [DIET] 01/30/20 08:45 Sodium Chloride 0.9% [Normal Saline] 1,000 ml IV ASDIRECTED 01/30/20 09:00 Ofloxacin [Ocuflox 0.3% Ophth Soln] 0 ml EYEBOTH QID 01/30/20 09:30 Acetaminophen [Tylenol Extra Strength] 500 mg PO Q6H Ibuprofen [Motrin] 200 mg PO Q6H 01/31/20 06:00 RENAL FUNCTION PANEL,RFP [CHEM] Routine - Plan Plan:: 1. Ciprofloxacin 400 mg IV q24h, adjusted for renal function. Will discharge with [facility] and has not followed up with Urology, Nephrology or Oncology for over a year. Would need to see Urology and Nephrology at discharge. 2. Baseline Cr 2.9, today 3.6 recheck his labs tomorrow, will restart IV fluids at 100 ml/hr. 3. Ofloxacin 2 gtts in both eyes qid for 7 days. 4. Potassium corrected, will continue to monitor 5. Anticipate discharge on Saturday back to [facility].
[2020-01-30] MEDS: Ofloxacin 0.3% Ophth Soln 5 ML Bottle EYEBOTH SCH ×4 (10:26→20:19)
[2020-01-30] MEDS: Polyethylene Glycol 3350 Powder 17 GM Packet PO SCH (10:26)
[2020-01-30] MEDS: Acetaminophen 500 MG Tab PO SCH ×3 (10:30→20:30)
[2020-01-30] MEDS: Ibuprofen 200 MG Tab PO SCH ×3 (10:30→20:30)
[2020-01-30] MEDS: Sodium Chloride 0.9% 1,000 ML IV SCH ×2 (10:36→20:16)
[2020-01-30] MEDS: Tamsulosin 0.4 MG Cap.ER PO SCH (20:09)
[2020-01-30] MEDS: traZODone 50 MG Tab PO SCH (20:09)
[2020-01-30] MEDS: Enoxaparin 30 MG/0.3 ML Syringe SUBCUT SCH (20:10)
[2020-01-30] MEDS: amLODIPine 5 MG Tab PO SCH (20:10)
[2020-01-30] MEDS: Ciprofloxacin in D5W 200 ML IV SCH (20:14)
[2020-01-30] MEDS: Sodium Chloride 0.9% 10 ML Syringe FLUSH PRN (21:53)
[2020-01-31] MEDS: Ibuprofen 200 MG Tab PO SCH ×4 (03:06→20:49)
[2020-01-31] MEDS: Acetaminophen 500 MG Tab PO SCH ×4 (03:08→20:43)
[2020-01-31] MEDS: Acetaminophen/HYDROcodone 325-5 MG Tab PO PRN ×3 (07:40→23:00)
[2020-01-31] MEDS: Gabapentin 100 MG Cap PO SCH ×3 (07:41→20:29)
[2020-01-31] MEDS: Sodium Chloride 0.9% 1,000 ML IV SCH ×2 (08:33→18:40)
[2020-01-31] MEDS: Ofloxacin 0.3% Ophth Soln 5 ML Bottle EYEBOTH SCH ×4 (08:57→20:30)
[2020-01-31] MEDS: Polyethylene Glycol 3350 Powder 17 GM Packet PO SCH (08:59)
--- NOTE | 2020-01-31 10:14 | PCM.PN ---
- General Info Date of Service: 01/31/20 Admission Dx/Problem (Free Text): Paul states he had a sharp pain in right groin this morning but gone now. His eyes feel a little better with antibiotic drops but still mattery. Cr improved today, had about 1000 ml orally in addition to IV fluids. No shortness of breath or coughing. No diarrhea. - Patient Data Vitals - Most Recent: Last Vital Signs Temp 98.7 F 01/31/20 08:00 Pulse 55 L 01/31/20 08:00 Resp 14 01/31/20 08:00 BP 103/48 L 01/31/20 08:00 Pulse Ox 95 01/31/20 08:00 Weight - Most Recent: 186 lb 3 oz I&O - Last 24 Hours: Intake & Output 01/30/20 01/31/20 01/31/20 22:59 06:59 14:59 Intake Total 1014 793 Output Total 800 450 Balance 214 343 Lab Results Last 24 Hours: Laboratory Results - last 24 hr 01/30/20 01/31/20 Range/Units 13:49 06:20 Sodium 139 (135-145) mmol/L Potassium 4.5 (3.5-5.3) mmol/L Chloride 108 (100-110) mmol/L Carbon Dioxide 21 (21-32) mmol/L BUN 34 H (7-18) mg/dL Creatinine 3.2 H* (0.70-1.30) mg/dL Est Cr Clr Drug Dosing 19.59 mL/min Estimated GFR (MDRD) 19 L (>60) BUN/Creatinine Ratio 10.6 (9-20) Glucose 84 (80-116) mg/dL Calcium 7.3 L (8.6-10.2) mg/dL Phosphorus 4.3 (2.6-4.6) mg/dL Albumin 2.5 L (3.2-4.6) g/dL SARS Virus RNA (PCR) Negative (NEGATIVE) Med Orders - Current: Current Medications Acetaminophen (Tylenol Extra Strength) 500 mg PO Q6H [facility] Last Admin: 01/31/20 08:57 Dose: 500 mg Hydrocodone Bitart/Acetaminophen ([place] 325-5 Mg) 1 tab PO Q6H PRN PRN Reason: Breakthrough Pain Last Admin: 01/31/20 07:40 Dose: 1 tab Albuterol (Ventolin Hfa) 0 gm INH Q4H PRN PRN Reason: Shortness of Breath Albuterol/Ipratropium (Duoneb 3.0-0.5 Mg/3 Ml) 3 ml INH Q4H PRN PRN Reason: Shortness of Breath Amlodipine Besylate (Norvasc) 5 mg PO BEDTIME [facility] Last Admin: 01/30/20 20:10 Dose: 5 mg Bisacodyl (Dulcolax) 10 mg PO DAILY PRN PRN Reason: Constipation Last Admin: 01/29/20 07:48 Dose: 10 mg Cyclobenzaprine HCl (Flexeril) 10 mg PO Q8H PRN PRN Reason: Spasms Last Admin: 01/30/20 03:23 Dose: 10 mg Enoxaparin Sodium (Lovenox) 30 mg SUBCUT Q24H [facility] Last Admin: 01/30/20 20:10 Dose: 30 mg Gabapentin (Neurontin) 100 mg PO 08,,20 [facility] Last Admin: 01/31/20 07:41 Dose: 100 mg Ciprofloxacin/Dextrose (Cipro In D5w 400 Mg/200 Ml) 200 mls @ 200 mls/hr IV Q24H [facility] Last Admin: 01/30/20 20:14 Dose: 200 mls/hr Sodium Chloride (Normal Saline) 1,000 mls @ 75 mls/hr IV ASDIRECTED [facility] Last Admin: 01/31/20 08:33 Dose: 100 mls/hr Ibuprofen (Motrin) 200 mg PO Q6H [facility] Stop: 02/01/20 09:31 Last Admin: 01/31/20 08:57 Dose: 200 mg Ofloxacin (Ocuflox 0.3% Ophth Soln) 0 ml EYEBOTH QID [facility] Stop: 02/06/20 09:31 Last Admin: 01/31/20 08:57 Dose: 1 drop Polyethylene Glycol (Miralax) 17 gm PO DAILY [facility] Last Admin: 01/31/20 08:59 Dose: 17 gm Sodium Chloride (Saline Flush) 10 ml FLUSH ASDIRECTED PRN PRN Reason: Keep Vein Open Last Admin: 01/30/20 21:53 Dose: 10 ml Tamsulosin HCl (Flomax) 0.4 mg PO DAILY@2100 [facility] Last Admin: 01/30/20 20:09 Dose: 0.4 mg Trazodone HCl (Trazodone) 75 mg PO 21 [facility] Last Admin: 01/30/20 20:09 Dose: 75 mg Discontinued Medications Amlodipine Besylate (Norvasc) 5 mg PO NOW ONE Stop: 01/26/20 21:16 Last Admin: 01/26/20 21:50 Dose: 5 mg Ciprofloxacin (Ciprofloxacin Hcl) 250 mg PO BID [facility] Last Admin: 01/29/20 09:46 Dose: 250 mg Docusate Sodium (Colace) 100 mg PO BID [facility] Last Admin: 01/27/20 10:34 Dose: 100 mg Gabapentin (Neurontin) 100 mg PO NOW ONE Stop: 01/26/20 21:16 Last Admin: 01/26/20 21:50 Dose: 100 mg Sodium Chloride (Normal Saline) 1,000 mls @ 100 mls/hr IV ASDIRECTED [facility] Last Admin: 01/27/20 07:32 Dose: 100 mls/hr Lidocaine HCl (Glydo) Confirm Administered Dose 6 ml .ROUTE .STK-MED ONE Stop: 01/26/20 18:46 Last Admin: 01/26/20 19:00 Dose: 6 ml Lidocaine HCl (Glydo) 6 ml .XX ONETIME ONE Stop: 01/26/20 19:01 Last Admin: 01/26/20 20:51 Dose: Not Given Morphine Sulfate (Morphine) 2 mg IVPUSH ONETIME ONE Stop: 01/26/20 18:05 Last Admin: 01/26/20 18:30 Dose: 2 mg Morphine Sulfate (Morphine) 2 mg IVPUSH ONETIME ONE Stop: 01/26/20 20:09 Last Admin: 01/26/20 20:16 Dose: 2 mg Morphine Sulfate (Morphine) 2 mg IVPUSH Q4H PRN PRN Reason: Pain Last Admin: 01/28/20 08:05 Dose: 2 mg Ofloxacin (Ocuflox 0.3% Ophth Soln) 0 ml EYEBOTH QID [facility] Last Admin: 01/30/20 10:31 Dose: Not Given Ondansetron HCl (Zofran) 4 mg IV Q4H PRN PRN Reason: Nausea/Vomiting Sodium Polystyrene Sulfonate (Kayexalate) 15 gm PO Q8H [facility] Stop: 01/30/20 03:31 Last Admin: 01/30/20 03:21 Dose: 15 gm Tamsulosin HCl (Flomax) 0.4 mg PO ONETIME ONE Stop: 01/26/20 19:41 Last Admin: 01/26/20 20:16 Dose: 0.4 mg Trazodone HCl (Trazodone) 50 mg PO NOW ONE Stop: 01/26/20 21:16 Trazodone HCl (Trazodone) 75 mg PO NOW ONE Stop: 01/26/20 21:16 Last Admin: 01/26/20 21:49 Dose: 75 mg - Exam Quality Assessment: Urine Catheter General: Alert, Oriented, Cooperative, No Acute Distress Lungs: Clear to Auscultation, Normal Respiratory Effort Cardiovascular: Regular Rate, Regular Rhythm GI/Abdominal Exam: Normal Bowel Sounds, Soft, Non-Tender, No Distention Extremities: No Pedal Edema Sepsis Event Note - Evaluation Sepsis Screening Result: No Definite Risk - Focused Exam Vital Signs: Vital Signs Temp Temp Pulse Resp BP BP Pulse Ox 01/31/20 08:00 98.7 F 55 L 14 103/48 L 95 01/31/20 03:06 97.0 F 01/31/20 03:00 97.0 F 55 L 16 100/50 L 96 Date Exam was Performed: 01/31/20 Time Exam was Performed: 10:09 - Problem List & Annotations (1) Epididymitis, right SNOMED Code(s): 74849653 Code(s): N45.1 - EPIDIDYMITIS Status: Acute Current Visit: Yes (2) Conjunctivitis SNOMED Code(s): 1655540 Code(s): H10.9 - UNSPECIFIED CONJUNCTIVITIS Status: Acute Current Visit: Yes Qualifiers: Conjunctivitis type: acute Acute conjunctivitis type: bacterial Laterality: bilateral Qualified Code(s): H10.33 - Unspecified acute conjunctivitis, bilateral (3) Obstructive uropathy SNOMED Code(s): 2940612 Code(s): N13.9 - OBSTRUCTIVE AND REFLUX UROPATHY, UNSPECIFIED Status: Acute Current Visit: Yes (4) Urinary retention SNOMED Code(s): 387001739 Code(s): R33.9 - RETENTION OF URINE, UNSPECIFIED Status: Acute Current Visit: Yes (5) Acute on chronic renal failure SNOMED Code(s): 282920927 Code(s): N17.9 - ACUTE KIDNEY FAILURE, UNSPECIFIED; N18.9 - CHRONIC KIDNEY DISEASE, UNSPECIFIED Status: Acute Current Visit: No Qualifiers: Chronic kidney disease stage: stage 4 (severe) Annotation/Comment:: Baseline 2.9, today is 3.2, decrease IVF at 75 ml/hr and recheck renal panel tomorrow. (6) CAD (coronary artery disease) SNOMED Code(s): 62124851 Code(s): I25.10 - ATHSCL HEART DISEASE OF [place] CORONARY ARTERY W/O ANG PCTRS Status: Chronic Current Visit: No Qualifiers: Coronary Disease-Associated Artery/Lesion type: [place] artery (7) HTN (hypertension) SNOMED Code(s): 37663522 Code(s): I10 - ESSENTIAL (PRIMARY) HYPERTENSION Status: Chronic Current Visit: Yes Qualifiers: Hypertension type: essential hypertension Qualified Code(s): I10 - Essential (primary) hypertension (8) Cardiac pacemaker in situ SNOMED Code(s): 472288407 Code(s): Z95.0 - PRESENCE OF CARDIAC PACEMAKER Status: Chronic Current Visit: Yes (9) AAA (abdominal aortic aneurysm) SNOMED Code(s): 761872789 Code(s): I71.4 - ABDOMINAL AORTIC ANEURYSM, WITHOUT RUPTURE Status: Chronic Current Visit: Yes Qualifiers: Presence of rupture: without rupture Qualified Code(s): I71.4 - Abdominal aortic aneurysm, without rupture - Problem List Review Problem List Initiated/Reviewed/Updated: Yes - My Orders Last 24 Hours: My Active Orders 01/30/20 09:30 Acetaminophen [Tylenol Extra Strength] 500 mg PO Q6H Ibuprofen [Motrin] 200 mg PO Q6H Ofloxacin [Ocuflox 0.3% Ophth Soln] 0 ml EYEBOTH QID 02/01/20 06:00 RENAL FUNCTION PANEL,RFP [CHEM] Routine - Plan Plan:: 1. Ciprofloxacin 400 mg IV q24h day 3, adjusted for renal function. Will discharge with Jones, would need to see Urology and Nephrology at discharge. 2. Baseline Cr 2.9, today 3.2 recheck his labs tomorrow, decreased IV fluids at 75 ml/hr. 3. Ofloxacin 2 gtts in both eyes qid for 7 days. 4. Potassium stable. Covid negative. 5. Anticipate discharge on Saturday back to [facility].
[2020-01-31] MEDS: Enoxaparin 30 MG/0.3 ML Syringe SUBCUT SCH (20:29)
[2020-01-31] MEDS: amLODIPine 5 MG Tab PO SCH (20:30)
[2020-01-31] MEDS: Tamsulosin 0.4 MG Cap.ER PO SCH (20:30)
[2020-01-31] MEDS: traZODone 50 MG Tab PO SCH (20:30)
[2020-01-31] MEDS: Ciprofloxacin in D5W 200 ML IV SCH (20:32)
[2020-02-01] MEDS: Acetaminophen 500 MG Tab PO SCH ×2 (03:56→08:48)
[2020-02-01] MEDS: Ibuprofen 200 MG Tab PO SCH ×2 (03:56→08:48)
[2020-02-01] MEDS: Gabapentin 100 MG Cap PO SCH (08:48)
[2020-02-01] MEDS: Polyethylene Glycol 3350 Powder 17 GM Packet PO SCH (08:49)
[2020-02-01] MEDS: Ofloxacin 0.3% Ophth Soln 5 ML Bottle EYEBOTH SCH ×2 (08:51→12:49)
--- NOTE | 2020-02-01 11:42 | PCM.DCSUM1 ---
Discharge Summary - Hospital Course HPI Initial Comments: Bertram is a 74-year-old male from [facility]. He came into the ER yesterday with abdominal pain, duration about 12 hours. Located on the right lower quadrant, right flank and around the suprapubic area as well. He was found to have urinary retention and more than 1000 mL of urine was drained. They did have a hard time getting the Ferguson placed. He also was found to have a stool burden. He was given some stool softeners and passed stool. This morning, he still endorses pain on the right flank, with no vomiting fever or chills. He denies any chest pain or cough. He has a history of chronic kidney disease, renal mass, and a 4 cm aneurysm abdominal, which have all been stable the last 2 years. Diagnosis: Stroke: No - Discharge Data Discharge Date: 02/01/20 Discharge Disposition: Home, W Home Health Agency 06 Condition: Fair - Referral to Home Health Date of Face to Face Encounter: 02/01/20 Reason for Homebound Status: Assisted living Primary Care Physician: Trish Roberts NP Skilled Need: Ferguson catheter cares - Discharge Diagnosis/Problem(s) (1) Epididymitis, right SNOMED Code(s): 10603821 ICD Code: N45.1 - EPIDIDYMITIS Status: Acute Current Visit: Yes (2) Conjunctivitis SNOMED Code(s): 4488219 ICD Code: H10.9 - UNSPECIFIED CONJUNCTIVITIS Status: Acute Current Visit : Yes Qualifiers: Conjunctivitis type: acute Acute conjunctivitis type: bacterial Laterality: bilateral Qualified Code(s): H10.33 - Unspecified acute conjunctivitis, bilateral (3) Obstructive uropathy SNOMED Code(s): 0965329 ICD Code: N13.9 - OBSTRUCTIVE AND REFLUX UROPATHY, UNSPECIFIED Status: Acute Current Visit: Yes Problem Details: Ferguson placed January 25 (4) Urinary retention SNOMED Code(s): 028598858 ICD Code: R33.9 - RETENTION OF URINE, UNSPECIFIED Status: Acute Current Visit: Yes (5) Acute on chronic renal failure SNOMED Code(s): 584436385 ICD Code: N17.9 - ACUTE KIDNEY FAILURE, UNSPECIFIED; N18.9 - CHRONIC KIDNEY DISEASE, UNSPECIFIED Status: Acute Current Visit: No Problem Details: Baseline 2.9, today is 2.8. Qualifiers: Chronic kidney disease stage: stage 4 (severe) (6) CAD (coronary artery disease) SNOMED Code(s): 59738889 ICD Code: I25.10 - ATHSCL HEART DISEASE OF [place] CORONARY ARTERY W/O ANG PCTRS Status: Chronic Current Visit: No Qualifiers: Coronary Disease-Associated Artery/Lesion type: [place] artery (7) HTN (hypertension) SNOMED Code(s): 97755849 ICD Code: I10 - ESSENTIAL (PRIMARY) HYPERTENSION Status: Chronic Current Visit: Yes Qualifiers: Hypertension type: essential hypertension Qualified Code(s): I10 - Essential (primary) hypertension (8) Cardiac pacemaker in situ SNOMED Code(s): 198335488 ICD Code: Z95.0 - PRESENCE OF CARDIAC PACEMAKER Status: Chronic Current Visit: Yes (9) AAA (abdominal aortic aneurysm) SNOMED Code(s): 035559780 ICD Code: I71.4 - ABDOMINAL AORTIC ANEURYSM, WITHOUT RUPTURE Status: Chronic Current Visit: Yes Qualifiers: Presence of rupture: without rupture Qualified Code(s): I71.4 - Abdominal aortic aneurysm, without rupture - Patient Summary/Data Consults: Consultations 01/28/20 08:39 OT Evaluation and Treatment [CONS] Routine Please Evaluate and Treat. OT Reason for Consult: ADL's This query below is only for informational purposes and is not editable. Admission Diagnosis/Problem: Acute kidney injury PT Evaluation and Treatment [CONS] Routine Please Evaluate and Treat. PT Reason for Consult: Ambulation This query below is only for informational purposes and is not editable. Admission Diagnosis/Problem: Acute kidney injury Hospital Course: Paul was admitted for abdominal pain, acute urinary retention due to obstructive uropathy, difficult Ferguson placement, started on Flomax daily. Had CT abdomen/pelvis showed urinary retention, atrophic kidneys with right renal mass, decreased in size from previous CT. Has not seen Nephrology since Nov 2018 or Oncology since Oct 2018. He has not received treatment for renal mass per [facility] note from Oct 2018. His constipation resolved during hospital stay. Dr Ordaz was consulted for suspected inguinal hernia, none evident on CT, Dr Ordaz felt more Epididymitis. Started on Ciprofloxacin renal dosing and MiraLax daily. His Creatinine continued to climb with oral intake, baseline per [facility] chart was 2.9, started IV fluids at 100 ml/hr, then decreased to 75 ml/hr, Creatinine down to 2.8 today. Had bilateral conjunctivitis on Saturday, treated with Ofloxacin 2 gtts qid x 7 days, completed 2 day course, will continue as outpatient for 5 more days. Pain control with low dose Tylenol 500 mg and Ibuprofen 200 mg qid with Dixon for breakthrough pain, patient declined last few doses of Tylenol/Ibuprofen felt they weren't helping. Will be discharged with 7 day supply of Dixon electronically sent, [place] PDMP reviewed. - Patient Instructions Diet: Renal Diet Activity: As Tolerated Notify Provider of: Fever, Increased Pain, Swelling and Redness Other/Special Instructions: Follow up with Trish Roberts end of this week. Follow up with Urology tomorrow at [facility] at 950AM in regards to obstructive uropathy requiring indwelling ferguson catheter. Follow up with Nephrology in 1 week in regards to chronic renal failure, renal mass. - Discharge Plan *PRESCRIPTION DRUG MONITORING PROGRAM REVIEWED*: Yes *COPY OF PRESCRIPTION DRUG MONITORING REPORT IN PATIENT SOTERO: No Prescriptions/Med Rec: Acetaminophen/HYDROcodone [[place] 325-5 MG] 1 tab PO Q6H PRN 7 Days #28 tablet PRN Reason: Breakthrough Pain Ciprofloxacin HCl [Cipro] 500 mg PO DAILY 7 Days #7 tablet Tamsulosin [Flomax] 0.4 mg PO DAILY@2100 30 Days #30 cap.er Home Medications: Home Meds traZODone HCl [Trazodone HCl] 75 mg PO 02/12/19 [History] Albuterol Sulfate [Albuterol Sulfate Hfa] 2 puff INH Q4H PRN 10/01/19 [History] Albuterol/Ipratropium [DuoNeb 3.0-0.5 MG/3 ML] 3 ml INH Q4H PRN 10/01/19 [ History] Aspirin [Halfprin] 81 mg PO 10/01/19 [History] Cyclobenzaprine [Flexeril] 10 mg PO Q8H PRN #15 tab 10/01/19 [Rx] Gabapentin [Neurontin] 100 mg PO 08,14,20 10/01/19 [History] lisinopriL [Zestril] 10 mg PO 08 10/01/19 [History] amLODIPine [Norvasc] 5 mg PO BEDTIME 01/26/20 [History] Acetaminophen/HYDROcodone [[place] 325-5 MG] 1 tab PO Q6H PRN 7 Days #28 tablet [Rx] Ciprofloxacin HCl [Cipro] 500 mg PO DAILY 7 Days #7 tablet 02/01/20 [Rx] Ofloxacin [Ocuflox 0.3% Ophth Soln] 0 ml EYEBOTH QID 5 Days bottle 02/01/20 [Rx ] Tamsulosin [Flomax] 0.4 mg PO DAILY@2100 30 Days #30 cap.er 02/01/20 [Rx] polyethylene glycoL 3350 [MiraLAX] 17 gm PO DAILY packet 02/01/20 [Rx] Forms: ED Department Discharge Referrals: Trish Roberts NP [Primary Care Provider] - Henrique Abdul MD [Ordering Only Provider] - Jolanta Driscoll MD [Ordering Only Provider] - - Discharge Summary/Plan Comment DC Time >30 min.: Yes - General Info Date of Service: 02/01/20 Admission Dx/Problem (Free Text: aPul states his eyes are feeling better, IV infiltrated, left hand is a little puffy. No complaints of constipation or diarrhea. [place] his left groin was more swollen, pain is controlled. Functional Status: Reports: Pain Controlled, Tolerating Diet - Patient Data Vitals - Most Recent: Last Vital Signs Temp 97.4 F 02/01/20 08:00 Pulse 55 L 02/01/20 08:00 Resp 17 02/01/20 08:00 BP 150/76 H 02/01/20 08:00 Pulse Ox 97 02/01/20 08:00 Weight - Most Recent: 186 lb 3 oz I&O - Last 24 hours: Intake & Output 01/31/20 02/01/20 02/01/20 22:59 06:59 14:59 Intake Total 1006 794 Output Total 1700 750 Balance -694 44 Lab Results - Last 24 hrs: Laboratory Results - last 24 hr 02/01/20 Range/Units 06:30 Sodium 138 (135-145) mmol/L Potassium 4.8 (3.5-5.3) mmol/L Chloride 108 (100-110) mmol/L Carbon Dioxide 21 (21-32) mmol/L BUN 28 H (7-18) mg/dL Creatinine 2.8 H* (0.70-1.30) mg/dL Est Cr Clr Drug Dosing 22.39 mL/min Estimated GFR (MDRD) 22 L (>60) BUN/Creatinine Ratio 10.0 (9-20) Glucose 84 (80-116) mg/dL Calcium 7.3 L (8.6-10.2) mg/dL Phosphorus 3.4 (2.6-4.6) mg/dL Albumin 2.7 L (3.2-4.6) g/dL Med Orders - Current: Current Medications Acetaminophen (Tylenol Extra Strength) 500 mg PO Q6H [facility] Last Admin: 02/01/20 08:48 Dose: 500 mg Hydrocodone Bitart/Acetaminophen ([place] 325-5 Mg) 1 tab PO Q6H PRN PRN Reason: Breakthrough Pain Last Admin: 01/31/20 23:00 Dose: 1 tab Albuterol (Ventolin Hfa) 0 gm INH Q4H PRN PRN Reason: Shortness of Breath Albuterol/Ipratropium (Duoneb 3.0-0.5 Mg/3 Ml) 3 ml INH Q4H PRN PRN Reason: Shortness of Breath Amlodipine Besylate (Norvasc) 5 mg PO BEDTIME [facility] Last Admin: 01/31/20 20:30 Dose: 5 mg Bisacodyl (Dulcolax) 10 mg PO DAILY PRN PRN Reason: Constipation Last Admin: 01/29/20 07:48 Dose: 10 mg Cyclobenzaprine HCl (Flexeril) 10 mg PO Q8H PRN PRN Reason: Spasms Last Admin: 01/30/20 03:23 Dose: 10 mg Enoxaparin Sodium (Lovenox) 30 mg SUBCUT Q24H [facility] Last Admin: 01/31/20 20:29 Dose: 30 mg Gabapentin (Neurontin) 100 mg PO 08,14,20 [facility] Last Admin: 02/01/20 08:48 Dose: 100 mg Ciprofloxacin/Dextrose (Cipro In D5w 400 Mg/200 Ml) 200 mls @ 200 mls/hr IV Q24H [facility] Last Admin: 01/31/20 20:32 Dose: 200 mls/hr Ofloxacin (Ocuflox 0.3% Ophth Soln) 0 ml EYEBOTH QID [facility] Stop: 02/06/20 09:31 Last Admin: 02/01/20 08:51 Dose: 1 drop Polyethylene Glycol (Miralax) 17 gm PO DAILY [facility] Last Admin: 02/01/20 08:49 Dose: Not Given Sodium Chloride (Saline Flush) 10 ml FLUSH ASDIRECTED PRN PRN Reason: Keep Vein Open Last Admin: 01/30/20 21:53 Dose: 10 ml Tamsulosin HCl (Flomax) 0.4 mg PO DAILY@2100 [facility] Last Admin: 01/31/20 20:30 Dose: 0.4 mg Trazodone HCl (Trazodone) 75 mg PO 21 [facility] Last Admin: 01/31/20 20:30 Dose: 75 mg Discontinued Medications Amlodipine Besylate (Norvasc) 5 mg PO NOW ONE Stop: 01/26/20 21:16 Last Admin: 01/26/20 21:50 Dose: 5 mg Ciprofloxacin (Ciprofloxacin Hcl) 250 mg PO BID [facility] Last Admin: 01/29/20 09:46 Dose: 250 mg Docusate Sodium (Colace) 100 mg PO BID [facility] Last Admin: 01/27/20 10:34 Dose: 100 mg Gabapentin (Neurontin) 100 mg PO NOW ONE Stop: 01/26/20 21:16 Last Admin: 01/26/20 21:50 Dose: 100 mg Sodium Chloride (Normal Saline) 1,000 mls @ 100 mls/hr IV ASDIRECTED [facility] Last Admin: 01/27/20 07:32 Dose: 100 mls/hr Sodium Chloride (Normal Saline) 1,000 mls @ 75 mls/hr IV ASDIRECTED [facility] Last Admin: 01/31/20 18:40 Dose: 100 mls/hr Ibuprofen (Motrin) 200 mg PO Q6H [facility] Stop: 02/01/20 09:31 Last Admin: 02/01/20 08:48 Dose: 200 mg Lidocaine HCl (Glydo) Confirm Administered Dose 6 ml .ROUTE .STK-MED ONE Stop: 01/26/20 18:46 Last Admin: 01/26/20 19:00 Dose: 6 ml Lidocaine HCl (Glydo) 6 ml .XX ONETIME ONE Stop: 01/26/20 19:01 Last Admin: 01/26/20 20:51 Dose: Not Given Morphine Sulfate (Morphine) 2 mg IVPUSH ONETIME ONE Stop: 01/26/20 18:05 Last Admin: 01/26/20 18:30 Dose: 2 mg Morphine Sulfate (Morphine) 2 mg IVPUSH ONETIME ONE Stop: 01/26/20 20:09 Last Admin: 01/26/20 20:16 Dose: 2 mg Morphine Sulfate (Morphine) 2 mg IVPUSH Q4H PRN PRN Reason: Pain Last Admin: 01/28/20 08:05 Dose: 2 mg Ofloxacin (Ocuflox 0.3% Ophth Soln) 0 ml EYEBOTH QID [facility] Last Admin: 01/30/20 10:31 Dose: Not Given Ondansetron HCl (Zofran) 4 mg IV Q4H PRN PRN Reason: Nausea/Vomiting Sodium Polystyrene Sulfonate (Kayexalate) 15 gm PO Q8H [facility] Stop: 01/30/20 03:31 Last Admin: 01/30/20 03:21 Dose: 15 gm Tamsulosin HCl (Flomax) 0.4 mg PO ONETIME ONE Stop: 01/26/20 19:41 Last Admin: 01/26/20 20:16 Dose: 0.4 mg Trazodone HCl (Trazodone) 50 mg PO NOW ONE Stop: 01/26/20 21:16 Trazodone HCl (Trazodone) 75 mg PO NOW ONE Stop: 01/26/20 21:16 Last Admin: 01/26/20 21:49 Dose: 75 mg - Exam Quality Assessment: Reports: Urine Catheter General: Reports: Alert, Oriented, Cooperative, No Acute Distress Lungs: Reports: Clear to Auscultation, Normal Respiratory Effort Cardiovascular: Reports: Regular Rate, Regular Rhythm GI/Abdominal Exam: Normal Bowel Sounds, Soft, Non-Tender, No Distention (Male) Exam: Scrotum Tenderness (R), Other (No inguinal swelling bilateral. TTP along right spermatic cord, no overlying erythema.). No: Hernia, Inguinal Lymphadenopathy Extremities: No Pedal Edema
== END 2020-02-01 12:55 | disposition home health service (06) | DRG 728 ==
LOC: FB.ED 17:37 → FB.MS 20:25 → OBSVTOIN 01-28 08:39
PROVIDERS: ADMIT Emergency Medicine; ATTEND Family Medicine
DX: N45.1 Epididymitis (principal); E86.0 Dehydration; N17.9 Acute kidney failure, unspecified; N18.4 Chronic kidney disease, stage 4 (severe); I10 Essential (primary) hypertension; H10.33 Unspecified acute conjunctivitis, bilateral; N13.9 Obstructive and reflux uropathy, unspecified; R33.9 Retention of urine, unspecified; J44.9 Chronic obstructive pulmonary disease, unspecified; M19.90 Unspecified osteoarthritis, unspecified site; K40.20 Bilateral inguinal hernia, without obstruction or gangrene, not specified as recurrent; F10.20 Alcohol dependence, uncomplicated; Y90.9 Presence of alcohol in blood, level not specified; M54.2 Cervicalgia; I12.9 Hypertensive chronic kidney disease with stage 1 through stage 4 chronic kidney disease, or unspecified chronic kidney disease; Z98.61 Coronary angioplasty status; H26.9 Unspecified cataract; M10.9 Gout, unspecified; I25.10 Atherosclerotic heart disease of native coronary artery without angina pectoris; I71.4 Abdominal aortic aneurysm, without rupture; K59.00 Constipation, unspecified; Z79.899 Other long term (current) drug therapy; Z79.82 Long term (current) use of aspirin; I25.2 Old myocardial infarction; Z95.0 Presence of cardiac pacemaker; Z90.49 Acquired absence of other specified parts of digestive tract; Z87.891 Personal history of nicotine dependence; Z85.528 Personal history of other malignant neoplasm of kidney
CPT/HCPCS: 36415 ×2; 51702 ×2; 51798; 74176; 80048; 80053; 80307; 81001; 82150; 83690; 85025 ×2; 96374; 96376; 99285; A9270 ×19; J1650 ×2; J2270 ×8; J7030 ×2; 80069; 97116-GP; 97161-GP; 97165-GO; J0744; U0002

== ENCOUNTER 2020-03-24 19:57 | Observation (INO) | payer MEDICARE ==
[2020-03-24] MEDS: Sodium Chloride 0.9% 10 ML Syringe FLUSH PRN (20:50)
[2020-03-24] MEDS ORDERED: Sodium Bicarbonate 8.4% 50 MEQ/50 ML Syringe IVPUSH ONE (21:09)
[2020-03-24] MEDS ORDERED: Albuterol 8 GM Inhaler INH ONE (21:09)
[2020-03-24] MEDS ORDERED: Albuterol 0.083% 2.5 MG/3 ML Neb Soln NEB ONE (21:09)
[2020-03-24] MEDS ORDERED: Sodium Chloride 0.9% 1,000 ML IV SCH (21:15)
[2020-03-24] MEDS ORDERED: 50% Dextrose in Water 50 ML Syringe IVPUSH ONE (21:17)
[2020-03-24] MEDS ORDERED: Insulin Lispro 100 Unit/ML 3 ML KwikPen SUBCUT STA (21:17)
[2020-03-24] MEDS ORDERED: Insulin Lispro 100 Unit/ML 3 ML KwikPen SUBCUT ONE (21:28)
[2020-03-24] MEDS ORDERED: traMADol 50 MG Tab PO ONE (22:56)
[2020-03-24] MEDS ORDERED: Docusate Sodium 100 MG Cap PO PRN (23:08)
[2020-03-24] MEDS ORDERED: Ondansetron 4 MG/2 ML SDV IV PRN (23:08)
[2020-03-24] MEDS ORDERED: Albuterol/Ipratropium 3.0-0.5 MG/3 ML Neb Soln INH PRN (23:15)
[2020-03-24] MEDS ORDERED: Albuterol 8 GM Inhaler INH PRN (23:15)
[2020-03-24] MEDS ORDERED: Cyclobenzaprine 10 MG Tab PO PRN (23:15)
[2020-03-24] MEDS: Enoxaparin 30 MG/0.3 ML Syringe SUBCUT SCH (23:51)
[2020-03-25] MEDS: Sodium Chloride 0.9% 1,000 ML IV SCH ×2 (00:19→10:49)
[2020-03-25] MEDS: Acetaminophen/HYDROcodone 325-5 MG Tab PO PRN ×3 (00:53→18:49)
--- NOTE | 2020-03-25 01:22 | EDM.PDOC ---
ED HPI GENERAL MEDICAL PROBLEM - General Chief Complaint: General Time Seen by Provider: 03/24/20 20:00 Source of Information: Reports: Patient History Limitations: Reports: No Limitations - History of Present Illness INITIAL COMMENTS - FREE TEXT/NARRATIVE: Patient presented to the ED because of palpitations and weakness. He started feeling weak 1 week ago and is progressively getting worse and that's why he fell tonight and landed on his right hip and knee. He was able to get up but c/o of rt hip and knee pain. He also had some palpitations and according to him his heart is fluttering. There is no associated chest pain or dyspnea. No recent cough or cold, no N/V/D. right hip and right knee Pain Score (Numeric/FACES): 5 - Related Data Allergies Allergy/AdvReac Type Severity Reaction Status Date / Time No Known Allergies Allergy Verified 10/01/19 17:40 Home Meds: Home Meds traZODone HCl [Trazodone HCl] 50 mg PO 02/12/19 [History] Albuterol Sulfate [Albuterol Sulfate Hfa] 2 puff INH Q4H PRN 10/01/19 [History] Albuterol/Ipratropium [DuoNeb 3.0-0.5 MG/3 ML] 3 ml INH Q4H PRN 10/01/19 [History] Aspirin [Halfprin] 81 mg PO 10/01/19 [History] Cyclobenzaprine [Flexeril] 10 mg PO Q8H PRN #15 tab 10/01/19 [Rx] Gabapentin [Neurontin] 100 mg PO 08,14,20 10/01/19 [History] lisinopriL [Zestril] 10 mg PO 08 10/01/19 [History] amLODIPine [Norvasc] 5 mg PO BEDTIME 01/26/20 [History] Acetaminophen/HYDROcodone [Foreman 325-5 MG] 1 tab PO Q6H PRN 7 Days #28 tablet 02/01/20 [Rx] Tamsulosin [Flomax] 0.4 mg PO DAILY@2100 30 Days #30 cap.er 02/01/20 [Rx] polyethylene glycoL 3350 [MiraLAX] 17 gm PO DAILY packet 02/01/20 [Rx] Past Medical History HEENT History: Reports: Cataract Other HEENT History: cataract both eyes and got sick before it was taken care of Cardiovascular History: Reports: Hypertension, [place], Pacemaker Respiratory History: Reports: COPD Gastrointestinal History: Reports: Other (See Below) Other Gastrointestinal History: hernia-- inguinal hernia X3 right and left Genitourinary History: Reports: Other (See Below) Other Genitourinary History: stage 4 renal failure. Musculoskeletal History: Reports: Arthritis, Other (See Below) Other Musculoskeletal History: right arm weakness from 2 years ago. States that he does not know what happened. Admits to shoulder weakness on right. 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 states he fell in [place] one month ago and his neck is been out of wack since Psychiatric History: Reports: Other (See Below) Other Psychiatric History: patient is an alcoholic. Denies 08/08, a "beer or two a day" on 02/12/19 pt admits to one glass of rolan a day and 2 beers Oncologic (Cancer) History: Reports: Renal - Past Surgical History Cardiovascular Surgical History: Reports: Percutaneous Transluminal Angioplasty, Other (See Below) Other Cardiovascular Surgeries/Procedures: pacemaker. Respiratory Surgical History: Reports: None GI Surgical History: Reports: Appendectomy, Cholecystectomy, Other (See Below) Other GI Surgeries/Procedures: lap nelsy Male Surgical History: Reports: None Other Male Surgeries/Procedures: cyst on right kidney--bx appt scheduled for in 10/11 Neurological Surgical History: Reports: None Musculoskeletal Surgical History: Reports: None Social & Family History - Family History Family Medical History: Noncontributory - Tobacco Use Smoking Status *Q: Former Smoker Used Tobacco, but Quit: Yes Month/Year Tobacco Last Used: 2018 - Caffeine Use Caffeine Use: Reports: Coffee Other Caffeine Use: 3 cups coffee/day - Alcohol Use Days Per Week of Alcohol Use: 1 Number of Drinks Per Day: 4 Total Drinks Per Week: 4 - Recreational Drug Use Recreational Drug Use: No ED ROS GENERAL - Review of Systems Review Of Systems: See Below Constitutional: Reports: No Symptoms HEENT: Reports: No Symptoms Respiratory: Reports: No Symptoms Cardiovascular: Reports: Palpitations Endocrine: Reports: No Symptoms GI/Abdominal: Reports: No Symptoms : Reports: No Symptoms Musculoskeletal: Reports: Other (rt hip/knee pain) Skin: Reports: No Symptoms Neurological: Reports: No Symptoms Psychiatric: Reports: No Symptoms ED EXAM, GENERAL - Physical Exam Exam: See Below Exam Limited By: No Limitations General Appearance: Alert, No Apparent Distress Eye Exam: Bilateral Eye: PERRL Ears: Normal External Exam Nose: Normal Inspection, Normal Mucosa Throat/Mouth: Normal Inspection, Normal Lips, Normal Teeth Head: Atraumatic, Normocephalic Neck: Normal Inspection, Supple, Non-Tender, Full Range of Motion Respiratory/Chest: No Respiratory Distress, Lungs Clear, Normal Breath Sounds Cardiovascular: Normal Peripheral Pulses, Regular Rate, Rhythm, No Edema, No Gallop, No JVD, No Murmur GI/Abdominal: Normal Bowel Sounds, Soft, Non-Tender, No Organomegaly Extremities: Normal Inspection, Normal Range of Motion, Non-Tender, Other (tenderness over the rt hip/knee) Course - Vital Signs Text/Narrative:: Labs/EKG/ Xray Rt hip/knee was discussed with patient and verbalized full understanding NS 1 L in 2 hours Albuterol 2.5 mg neb x1 Sodium HCO3-8.4%-50ml D50 Humalog 20 U SC Last Recorded V/S: Last Vital Signs Temp 36.4 C 03/24/20 23:30 Pulse 93 03/24/20 23:30 Resp 14 03/24/20 23:30 BP 160/57 H 03/24/20 23:30 Pulse Ox 98 03/24/20 23:30 - Orders/Labs/Meds Orders: Active Orders 24 hr Category Date Time Status Patient Status [ADT] Routine ADT 03/24/20 23:08 Active Cardiac Monitoring [RC] CONTINUOUS Care 03/24/20 23:11 Active EKG Documentation Completion [RC] ASDIRECTED Care 03/24/20 20:16 Active Height and Weight [RC] DAILY Care 03/24/20 23:08 Active Intake and Output [RC] QSHIFT Care 03/24/20 23:11 Active Oxygen Therapy [RC] PRN Care 03/24/20 23:08 Active RT Aerosol Therapy [RC] ASDIRECTED Care 03/24/20 21:12 Active Up With Assistance [RC] ASDIRECTED Care 03/24/20 23:08 Active VTE/DVT Education [RC] Per Unit Routine Care 03/24/20 23:08 Active Vital Signs [RC] Q4H Care 03/24/20 23:08 Active Heart Healthy Diet [DIET] Diet 03/25/20 Breakfast Active Chest 1V Frontal [CR] Stat Exams 03/24/20 20:15 Taken Hip Min 2V or 3V w Pelvis Rt [CR] Stat Exams 03/24/20 20:59 Ordered Knee 3V Rt [CR] Stat Exams 03/24/20 20:59 Ordered CBC WITH AUTO DIFF [HEME] AM Lab 03/25/20 05:11 Ordered Docusate Sodium [Colace] Med 03/24/20 23:08 Active 100 mg PO BID PRN Enoxaparin [Lovenox] Med 03/24/20 23:15 Active 30 mg SUBCUT Q24H Ondansetron [Zofran] Med 03/24/20 23:08 Active 4 mg IV Q4H PRN Sodium Chloride 0.9% [Normal Saline] 1,000 ml Med 03/24/20 21:15 Active IV ASDIRECTED Sodium Chloride 0.9% [Saline Flush] Med 03/24/20 20:15 Active 10 ml FLUSH ASDIRECTED PRN Saline Lock Insert [OM.PC] Routine Oth 03/24/20 20:15 Ordered Sequential Compression Device [OM.PC] Per Unit Routine Oth 03/24/20 23:12 Ordered Resuscitation Status Routine Resus Stat 03/24/20 23:08 Ordered EKG 12 Lead [EK] Routine Ther 03/24/20 20:15 Ordered Medication Orders Hydrocodone Bitart/Acetaminophen (Foreman 325-5 Mg) 1 tab PO Q6H PRN PRN Reason: Breakthrough Pain Last Admin: 03/25/20 00:53 Dose: 1 tab Documented by: JUNIE Albuterol (Ventolin Hfa) gm INH Q4H PRN PRN Reason: Shortness of Breath Albuterol/Ipratropium (Duoneb 3.0-0.5 Mg/3 Ml) 3 ml INH Q4H PRN PRN Reason: Shortness of Breath Amlodipine Besylate (Norvasc) 5 mg PO BEDTIME GENO Cyclobenzaprine HCl (Flexeril) 10 mg PO Q8H PRN PRN Reason: Spasms Last Admin: 03/25/20 00:54 Dose: 10 mg Documented by: JUNIE Docusate Sodium (Colace) 100 mg PO BID PRN PRN Reason: Constipation Enoxaparin Sodium (Lovenox) 30 mg SUBCUT Q24H GENO Last Admin: 03/24/20 23:51 Dose: 30 mg Documented by: JUNIE Gabapentin (Neurontin) 100 mg PO 08,,20 [facility] Sodium Chloride (Normal Saline) 1,000 mls @ 500 mls/hr IV ASDIRECTED [facility] Last Admin: 03/24/20 21:32 Dose: 500 mls/hr Documented by: WALE Sodium Chloride (Normal Saline) 1,000 mls @ 100 mls/hr IV ASDIRECTED [facility] Last Admin: 03/25/20 00:19 Dose: 100 mls/hr Documented by: JUNIE Ondansetron HCl (Zofran) 4 mg IV Q4H PRN PRN Reason: Nausea/Vomiting Polyethylene Glycol (Miralax) 17 gm PO DAILY [facility] Sodium Chloride (Saline Flush) 10 ml FLUSH ASDIRECTED PRN PRN Reason: Keep Vein Open Last Admin: 03/24/20 20:50 Dose: 10 ml Documented by: WALE Tamsulosin HCl (Flomax) 0.4 mg PO DAILY@2100 [facility] Trazodone HCl (Trazodone) 50 mg PO 21 [facility] Labs: Laboratory Tests 03/24/20 03/24/20 03/24/20 Range/Units 20:25 20:25 20:25 WBC 6.4 (4.5-12.0) X10-3/uL RBC 3.93 L (4.30-5.75) x10(6)uL Hgb 12.2 L (13.5-17.8) g/dL Hct 38.3 (30.0-51.3) % MCV 97.2 H (80-96) fL MCH 31.1 (27.7-33.6) pg MCHC 32.0 L (32.2-35.4) g/dL RDW 13.3 (11.5-15.5) % Plt Count 289 (125-369) X10(3)uL MPV 7.3 L (7.4-10.4) fL Neut % (Auto) 55.2 (46-82) % Lymph % (Auto) 26.5 (13-37) % [place] % (Auto) 10.8 (4-12) % Eos % (Auto) 7 H (1.0-5.0) % Baso % (Auto) 1 (0-2) % Neut # (Auto) 3.5 (1.6-8.3) # Lymph # (Auto) 1.7 (0.6-5.0) # [place] # (Auto) 0.7 (0.0-1.3) # Eos # (Auto) 0.4 (0.0-0.8) # Baso # (Auto) 0.1 (0.0-0.2) # Sodium 138 (135-145) mmol/L Potassium 5.5 H (3.5-5.3) mmol/L Chloride 107 (100-110) mmol/L Carbon Dioxide 18 L (21-32) mmol/L BUN 56 H D (7-18) mg/dL Creatinine 3.8 H* (0.70-1.30) mg/dL Est Cr Clr Drug Dosing TNP Estimated GFR (MDRD) 16 L (>60) BUN/Creatinine Ratio 14.7 (9-20) Glucose 89 (80-116) mg/dL Calcium 8.6 (8.6-10.2) mg/dL Total Bilirubin 0.4 (0.1-1.3) mg/dL AST 22 D (5-25) IU/L ALT 17 D (12-36) U/L Alkaline Phosphatase 71 (56-112) IU/L Troponin I 16.8 (4.0-60.3) pg/mL NT-Pro-B Natriuret Pep 698 H (<=450) pg/mL Total Protein 7.2 (6.0-8.0) g/dL Albumin 3.4 (3.2-4.6) g/dL Globulin 3.8 g/dL Albumin/Globulin Ratio 0.9 //20 Range/Units 22:18 WBC (4.5-12.0) X10-3/uL RBC (4.30-5.75) x10(6)uL Hgb (13.5-17.8) g/dL Hct (30.0-51.3) % MCV (80-96) fL MCH (27.7-33.6) pg MCHC (32.2-35.4) g/dL RDW (11.5-15.5) % Plt Count (125-369) X10(3)uL MPV (7.4-10.4) fL Neut % (Auto) (46-82) % Lymph % (Auto) (13-37) % [place] % (Auto) (4-12) % Eos % (Auto) (1.0-5.0) % Baso % (Auto) (0-2) % Neut # (Auto) (1.6-8.3) # Lymph # (Auto) (0.6-5.0) # [place] # (Auto) (0.0-1.3) # Eos # (Auto) (0.0-0.8) # Baso # (Auto) (0.0-0.2) # Sodium 139 (135-145) mmol/L Potassium 4.9 (3.5-5.3) mmol/L Chloride 107 (100-110) mmol/L Carbon Dioxide 18 L (21-32) mmol/L BUN 56 H (7-18) mg/dL Creatinine 3.7 H* (0.70-1.30) mg/dL Est Cr Clr Drug Dosing 16.69 Estimated GFR (MDRD) 16 L (>60) BUN/Creatinine Ratio 15.1 (9-20) Glucose 214 H D (80-116) mg/dL Calcium 8.5 L (8.6-10.2) mg/dL Total Bilirubin (0.1-1.3) mg/dL AST (5-25) IU/L ALT (12-36) U/L Alkaline Phosphatase (56-112) IU/L Troponin I (4.0-60.3) pg/mL NT-Pro-B Natriuret Pep (<=450) pg/mL Total Protein (6.0-8.0) g/dL Albumin (3.2-4.6) g/dL Globulin g/dL Albumin/Globulin Ratio Meds: Medications Generic Name Dose Route Start Last Admin Trade Name Freq PRN Reason Stop Dose Admin Hydrocodone Bitart/Acetaminophen 1 tab 03/24/20 23:15 03/25/20 00:53 Foreman 325-5 Mg PO 1 tab Q6H PRN Administration Breakthrough Pain Albuterol gm 03/24/20 23:15 Ventolin Hfa INH Q4H PRN Shortness of Breath Albuterol/Ipratropium 3 ml 03/24/20 23:15 Duoneb 3.0-0.5 Mg/3 Ml INH Q4H PRN Shortness of Breath Amlodipine Besylate 5 mg 03/25/20 21:00 Norvasc PO BEDTIME GENO Cyclobenzaprine HCl 10 mg 03/24/20 23:15 03/25/20 00:54 Flexeril PO 10 mg Q8H PRN Administration Spasms Docusate Sodium 100 mg 03/24/20 23:08 Colace PO BID PRN Constipation Enoxaparin Sodium 30 mg 03/24/20 23:15 03/24/20 23:51 Lovenox SUBCUT 30 mg Q24H GENO Administration Gabapentin 100 mg 03/25/20 08:00 Neurontin PO 08,14,20 GENO Sodium Chloride 1,000 mls @ 500 mls/hr 03/24/20 21:15 03/24/20 21:32 Normal Saline IV 500 mls/hr ASDIRECTED GENO Administration Sodium Chloride 1,000 mls @ 100 mls/hr 03/24/20 23:30 03/25/20 00:19 Normal Saline IV 100 mls/hr ASDIRECTED GENO Administration Ondansetron HCl 4 mg 03/24/20 23:08 Zofran IV Q4H PRN Nausea/Vomiting Polyethylene Glycol 17 gm 03/25/20 09:00 Miralax PO DAILY [facility]ENO Sodium Chloride 10 ml 03/24/20 20:15 03/24/20 20:50 Saline Flush FLUSH 10 ml ASDIRECTED PRN Administration Keep Vein Open Tamsulosin HCl 0.4 mg 03/25/20 21:00 Flomax PO DAILY@2100 [facility] Trazodone HCl 50 mg 03/25/20 21:00 Trazodone PO 21 GENO Discontinued Medications Generic Name Dose Route Start Last Admin Trade Name Freq PRN Reason Stop Dose Admin Albuterol 2.5 mg 03/24/20 21:09 03/24/20 21:40 Proventil Neb Soln NEB 03/24/20 21:10 2.5 mg ONETIME ONE Administration Albuterol 2.5 gm 03/24/20 21:09 03/24/20 21:56 Ventolin Hfa INH 03/24/20 21:10 Not Given ONETIME ONE Dextrose/Water 50 ml 03/24/20 21:17 03/24/20 21:43 Dextrose 50% In Water IVPUSH 03/24/20 21:18 50 ml ONETIME ONE Administration Insulin Human Lispro 20 unit 03/24/20 21:17 03/24/20 21:48 Humalog SUBCUT 03/24/20 21:18 20 unit NOW STA Administration Sodium Bicarbonate 50 meq 03/24/20 21:09 03/24/20 21:33 Sodium Bicarbonate 8.4% IVPUSH 03/24/20 21:10 50 meq ONETIME ONE Administration Tramadol HCl 100 mg 03/24/20 22:56 03/24/20 23:26 Ultram PO 03/24/20 22:57 Not Given ONETIME ONE Departure - Departure Time of Disposition: 23:00 Disposition: Refer to Observation Condition: Good Clinical Impression: Dehydration, KENDRA (acute kidney injury), Hyperkalemia, Contusion - Discharge Information Sepsis Event Note (ED) - Evaluation Sepsis Screening Result: No Definite Risk - Focused Exam Vital Signs: Vital Signs Temp Pulse Resp BP Pulse Ox 03/24/20 19:57 36.4 C 86 15 116/59 L 95 - My Orders Last 24 Hours: My Active Orders 03/24/20 20:15 Chest 1V Frontal [CR] Stat Sodium Chloride 0.9% [Saline Flush] 10 ml FLUSH ASDIRECTED PRN Saline Lock Insert [OM.PC] Routine EKG 12 Lead [EK] Routine 03/24/20 20:16 EKG Documentation Completion [RC] ASDIRECTED 03/24/20 20:59 Hip Min 2V or 3V w Pelvis Rt [CR] Stat Knee 3V Rt [CR] Stat 03/24/20 21:12 RT Aerosol Therapy [RC] ASDIRECTED 03/24/20 21:15 Sodium Chloride 0.9% [Normal Saline] 1,000 ml IV ASDIRECTED 03/24/20 23:08 Patient Status [ADT] Routine Height and Weight [RC] DAILY Oxygen Therapy [RC] PRN Up With Assistance [RC] ASDIRECTED VTE/DVT Education [RC] Per Unit Routine Vital Signs [RC] Q4H Docusate Sodium [Colace] 100 mg PO BID PRN Ondansetron [Zofran] 4 mg IV Q4H PRN Resuscitation Status Routine 03/24/20 23:11 Cardiac Monitoring [RC] CONTINUOUS Intake and Output [RC] QSHIFT 03/24/20 23:12 Sequential Compression Device [OM.PC] Per Unit Routine 03/24/20 23:15 Enoxaparin [Lovenox] 30 mg SUBCUT Q24H 03/25/20 05:11 CBC WITH AUTO DIFF [HEME] AM 03/25/20 Breakfast Heart Healthy Diet [DIET] - Assessment/Plan Last 24 Hours: My Active Orders 03/24/20 20:15 Chest 1V Frontal [CR] Stat Sodium Chloride 0.9% [Saline Flush] 10 ml FLUSH ASDIRECTED PRN Saline Lock Insert [OM.PC] Routine EKG 12 Lead [EK] Routine 03/24/20 20:16 EKG Documentation Completion [RC] ASDIRECTED 03/24/20 20:59 Hip Min 2V or 3V w Pelvis Rt [CR] Stat Knee 3V Rt [CR] Stat 03/24/20 21:12 RT Aerosol Therapy [RC] ASDIRECTED 03/24/20 21:15 Sodium Chloride 0.9% [Normal Saline] 1,000 ml IV ASDIRECTED 03/24/20 23:08 Patient Status [ADT] Routine Height and Weight [RC] DAILY Oxygen Therapy [RC] PRN Up With Assistance [RC] ASDIRECTED VTE/DVT Education [RC] Per Unit Routine Vital Signs [RC] Q4H Docusate Sodium [Colace] 100 mg PO BID PRN Ondansetron [Zofran] 4 mg IV Q4H PRN Resuscitation Status Routine 03/24/20 23:11 Cardiac Monitoring [RC] CONTINUOUS Intake and Output [RC] QSHIFT 03/24/20 23:12 Sequential Compression Device [OM.PC] Per Unit Routine 03/24/20 23:15 Enoxaparin [Lovenox] 30 mg SUBCUT Q24H 03/25/20 05:11 CBC WITH AUTO DIFF [HEME] AM 03/25/20 Breakfast Heart Healthy Diet [DIET]
[2020-03-25] MEDS ORDERED: Sodium Bicarbonate 8.4% 50 MEQ/50 ML Syringe IVPUSH ONE (06:31)
[2020-03-25] MEDS ORDERED: 50% Dextrose in Water 50 ML Syringe IVPUSH ONE (06:33)
[2020-03-25] MEDS ORDERED: Insulin Lispro 100 Unit/ML 3 ML KwikPen SUBCUT STA (06:35)
[2020-03-25] MEDS ORDERED: Gabapentin 100 MG Cap PO SCH (08:00)
[2020-03-25] MEDS ORDERED: Insulin Regular, Human 100 Units/ML 3 ML Vial IV ONE (09:14)
[2020-03-25] MEDS ORDERED: Calcium Gluconate 10% 1 GM/10 ML SDV IVPUSH ONE (09:14)
[2020-03-25] MEDS ORDERED: Sodium Polystyrene Sulfonate 15 GM/60 ML Susp 60 ML Bot PO SCH (09:15)
--- NOTE | 2020-03-25 09:49 | PCM.HP.2 ---
H&P History of Present Illness - General Date of Service: 03/25/20 Admit Problem/Dx: Admission Diagnosis/Problem Admission Diagnosis/Problem Palpitations Source of Information: Patient History Limitations: Reports: No Limitations - History of Present Illness Initial Comments - Free Text/Narative: 75 yo male from [facility],who complains of a fall at the home.He bruised his knee.But upon arrival,he was found tpo have a high potassium. Mr Kim has a h/o CKD,for which he does not want dialysis. He did endorse palpitations that are on and off. No chest pain. right hip and right knee Pain Score (Numeric/FACES): 5 - Related Data Allergies/Adverse Reactions: Allergies Allergy/AdvReac Type Severity Reaction Status Date / Time No Known Allergies Allergy Verified 10/01/19 17:40 Home Medications: Home Meds traZODone HCl [Trazodone HCl] 75 mg PO 02/12/19 [History] Albuterol Sulfate [Albuterol Sulfate Hfa] 2 puff INH Q4H PRN 10/01/19 [History] Albuterol/Ipratropium [DuoNeb 3.0-0.5 MG/3 ML] 3 ml INH Q4H PRN 10/01/19 [History] Aspirin [Halfprin] 81 mg PO 10/01/19 [History] Cyclobenzaprine [Flexeril] 10 mg PO Q8H PRN #15 tab 10/01/19 [Rx] Gabapentin [Neurontin] 100 mg PO 08,14,20 10/01/19 [History] lisinopriL [Zestril] 10 mg PO 10/01/19 [History] amLODIPine [Norvasc] 5 mg PO DAILY@199901/26/20 [History] Acetaminophen/HYDROcodone [[place] 325-5 MG] 1 tab PO Q6H PRN 7 Days #28 tablet 02/01/20 [Rx] Tamsulosin HCl [Flomax] 0.4 mg PO DAILY@199903/25/20 [History] polyethylene glycoL 3350 [Miralax] 17 g PO Q48H 03/25/20 [History] Past Medical History HEENT History: Reports: Cataract Other HEENT History: cataract both eyes and got sick before it was taken care of Cardiovascular History: Reports: Hypertension, [place], Pacemaker Respiratory History: Reports: COPD Gastrointestinal History: Reports: Other (See Below) Other Gastrointestinal History: hernia-- inguinal hernia X3 right and left Genitourinary History: Reports: Other (See Below) Other Genitourinary History: stage 4 renal failure. Musculoskeletal History: Reports: Arthritis, Other (See Below) Other Musculoskeletal History: right arm weakness from 2 years ago. States that he does not know what happened. Admits to shoulder weakness on right. 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 states he fell in [place] one month ago and his neck is been out of wack since Psychiatric History: Reports: Other (See Below) Other Psychiatric History: patient is an alcoholic. Denies 08/08, a "beer or two a day" on 02/12/19 pt admits to one glass of rolan a day and 2 beers Oncologic (Cancer) History: Reports: Renal - Past Surgical History Cardiovascular Surgical History: Reports: Percutaneous Transluminal Angioplasty, Other (See Below) Other Cardiovascular Surgeries/Procedures: pacemaker. Respiratory Surgical History: Reports: None GI Surgical History: Reports: Appendectomy, Cholecystectomy, Other (See Below) Other GI Surgeries/Procedures: lap nelsy Male Surgical History: Reports: None Other Male Surgeries/Procedures: cyst on right kidney--bx appt scheduled for in 10/11 Neurological Surgical History: Reports: None Musculoskeletal Surgical History: Reports: None Social & Family History - Family History Family Medical History: Noncontributory - Tobacco Use Smoking Status *Q: Former Smoker Used Tobacco, but Quit: Yes Month/Year Tobacco Last Used: 2018 - Caffeine Use Caffeine Use: Reports: Coffee Other Caffeine Use: 3 cups coffee/day - Alcohol Use Days Per Week of Alcohol Use: 1 Number of Drinks Per Day: 4 Total Drinks Per Week: 4 - Recreational Drug Use Recreational Drug Use: No H&P Review of Systems - Review of Systems: Review Of Systems: Comprehensive ROS is negative, except as noted in HPI. Exam - Exam Exam: See Below - Vital Signs Vital Signs: Last Vital Signs Temp 97.9 F 03/25/20 06:51 Pulse 65 03/25/20 06:51 Resp 16 03/25/20 06:51 BP 120/51 L 03/25/20 06:51 Pulse Ox 93 L 03/25/20 06:51 Weight: 84.912 kg - Exam General: Alert, Oriented, 4 HEENT: PERRLA, Hearing Intact, Mucosa Moist & [place], Nares Patent, Normal Nasal Septum, Posterior Pharynx Clear, Conjunctiva Clear, EOMI, EACs Clear, TMs Clear Neck: Supple, Trachea Midline, 2 Lungs: Clear to Auscultation, Normal Respiratory Effort Cardiovascular: Regular Rate, Regular Rhythm GI/Abdominal Exam: Normal Bowel Sounds, Soft, Non-Tender, No Organomegaly, No Distention, No Abnormal Bruit, No Mass, Pelvis Stable (Male) Exam: Deferred Rectal (Males) Exam: Deferred Back Exam: Normal Inspection, Full Range of Motion, NT Extremities: Normal Inspection, Normal Range of Motion, Non-Tender, No Pedal Edema, Normal Capillary Refill Skin: Warm, Dry, Intact Neurological: Cranial Nerves Intact, Reflexes Equal Bilateral Neuro Extensive - Mental Status: Alert, Oriented x3, Normal Mood/Affect, Normal Cognition Neuro Extensive - Motor, Sensory, Reflexes: CN II-XII Intact, Normal Gait, Normal Reflexes Psychiatric: Alert, Normal Affect, Normal Mood - Patient Data Lab Results Last 24 hrs: Laboratory Results - last 24 hr 03/24/20 03/24/20 03/24/20 Range/Units 20:25 20:25 20:25 WBC 6.4 (4.5-12.0) X10-3/uL RBC 3.93 L (4.30-5.75) x10(6)uL Hgb 12.2 L (13.5-17.8) g/dL Hct 38.3 (30.0-51.3) % MCV 97.2 H (80-96) fL MCH 31.1 (27.7-33.6) pg MCHC 32.0 L (32.2-35.4) g/dL RDW 13.3 (11.5-15.5) % Plt Count 289 (125-369) X10(3)uL MPV 7.3 L (7.4-10.4) fL Neut % (Auto) 55.2 (46-82) % Lymph % (Auto) 26.5 (13-37) % [place] % (Auto) 10.8 (4-12) % Eos % (Auto) 7 H (1.0-5.0) % Baso % (Auto) 1 (0-2) % Neut # (Auto) 3.5 (1.6-8.3) # Lymph # (Auto) 1.7 (0.6-5.0) # [place] # (Auto) 0.7 (0.0-1.3) # Eos # (Auto) 0.4 (0.0-0.8) # Baso # (Auto) 0.1 (0.0-0.2) # Sodium 138 (135-145) mmol/L Potassium 5.5 H (3.5-5.3) mmol/L Chloride 107 (100-110) mmol/L Carbon Dioxide 18 L (21-32) mmol/L BUN 56 H D (7-18) mg/dL Creatinine 3.8 H* (0.70-1.30) mg/dL Est Cr Clr Drug Dosing TNP Estimated GFR (MDRD) 16 L (>60) BUN/Creatinine Ratio 14.7 (9-20) Glucose 89 (80-116) mg/dL Calcium 8.6 (8.6-10.2) mg/dL Total Bilirubin 0.4 (0.1-1.3) mg/dL AST 22 D (5-25) IU/L ALT 17 D (12-36) U/L Alkaline Phosphatase 71 (56-112) IU/L Troponin I 16.8 (4.0-60.3) pg/mL NT-Pro-B Natriuret Pep 698 H (<=450) pg/mL Total Protein 7.2 (6.0-8.0) g/dL Albumin 3.4 (3.2-4.6) g/dL Globulin 3.8 g/dL Albumin/Globulin Ratio 0.9 03/24/20 03/25/20 03/25/20 Range/Units 22:18 06:05 06:05 WBC 9.8 (4.5-12.0) X10-3/uL RBC 3.38 L (4.30-5.75) x10(6)uL Hgb 10.9 L (13.5-17.8) g/dL Hct 32.8 (30.0-51.3) % MCV 97.2 H (80-96) fL MCH 32.2 (27.7-33.6) pg MCHC 33.1 (32.2-35.4) g/dL RDW 13.6 (11.5-15.5) % Plt Count 231 (125-369) X10(3)uL MPV 7.3 L (7.4-10.4) fL Neut % (Auto) 86.9 H (46-82) % Lymph % (Auto) 5.6 L (13-37) % [place] % (Auto) 6.7 (4-12) % Eos % (Auto) 0 L (1.0-5.0) % Baso % (Auto) 1 (0-2) % Neut # (Auto) 8.5 H (1.6-8.3) # Lymph # (Auto) 0.5 L (0.6-5.0) # [place] # (Auto) 0.7 (0.0-1.3) # Eos # (Auto) 0.0 (0.0-0.8) # Baso # (Auto) 0.1 (0.0-0.2) # Sodium 139 139 (135-145) mmol/L Potassium 4.9 6.7 H* D (3.5-5.3) mmol/L Chloride 107 110 (100-110) mmol/L Carbon Dioxide 18 L 21 (21-32) mmol/L BUN 56 H 55 H (7-18) mg/dL Creatinine 3.7 H* 3.5 H* (0.70-1.30) mg/dL Est Cr Clr Drug Dosing 16.69 18.24 Estimated GFR (MDRD) 16 L 17 L (>60) BUN/Creatinine Ratio 15.1 15.7 (9-20) Glucose 214 H D 76 L D (80-116) mg/dL Calcium 8.5 L 7.8 L (8.6-10.2) mg/dL Total Bilirubin (0.1-1.3) mg/dL AST (5-25) IU/L ALT (12-36) U/L Alkaline Phosphatase (56-112) IU/L Troponin I (4.0-60.3) pg/mL NT-Pro-B Natriuret Pep (<=450) pg/mL Total Protein (6.0-8.0) g/dL Albumin (3.2-4.6) g/dL Globulin g/dL Albumin/Globulin Ratio 03/25/20 Range/Units 07:45 WBC (4.5-12.0) X10-3/uL RBC (4.30-5.75) x10(6)uL Hgb (13.5-17.8) g/dL Hct (30.0-51.3) % MCV (80-96) fL MCH (27.7-33.6) pg MCHC (32.2-35.4) g/dL RDW (11.5-15.5) % Plt Count (125-369) X10(3)uL MPV (7.4-10.4) fL Neut % (Auto) (46-82) % Lymph % (Auto) (13-37) % [place] % (Auto) (4-12) % Eos % (Auto) (1.0-5.0) % Baso % (Auto) (0-2) % Neut # (Auto) (1.6-8.3) # Lymph # (Auto) (0.6-5.0) # [place] # (Auto) (0.0-1.3) # Eos # (Auto) (0.0-0.8) # Baso # (Auto) (0.0-0.2) # Sodium (135-145) mmol/L Potassium 6.0 H (3.5-5.3) mmol/L Chloride (100-110) mmol/L Carbon Dioxide (21-32) mmol/L BUN (7-18) mg/dL Creatinine (0.70-1.30) mg/dL Est Cr Clr Drug Dosing Estimated GFR (MDRD) (>60) BUN/Creatinine Ratio (9-20) Glucose (80-116) mg/dL Calcium (8.6-10.2) mg/dL Total Bilirubin (0.1-1.3) mg/dL AST (5-25) IU/L ALT (12-36) U/L Alkaline Phosphatase (56-112) IU/L Troponin I (4.0-60.3) pg/mL NT-Pro-B Natriuret Pep (<=450) pg/mL Total Protein (6.0-8.0) g/dL Albumin (3.2-4.6) g/dL Globulin g/dL Albumin/Globulin Ratio Result Diagrams: 03/25/20 13:05 03/25/20 13:05 EKG INTERPRETATION Rhythm: NSR Sepsis Event Note - Evaluation Sepsis Screening Result: No Definite Risk - Focused Exam Vital Signs: Vital Signs Temp Pulse Resp BP Pulse Ox 03/25/20 06:51 97.9 F 65 16 120/51 L 93 L 03/25/20 04:16 97.2 F 88 16 119/72 99 03/24/20 23:40 97.4 F 89 16 146/72 H 99 03/24/20 23:30 97.5 F 93 14 160/57 H 98 Date Exam was Performed: 03/25/20 Time Exam was Performed: 18:09 - Problem List (1) Hyperkalemia SNOMED Code(s): 40759887 ICD Code: E87.5 - HYPERKALEMIA Status: Acute Current Visit: Yes (2) Acute on chronic renal failure SNOMED Code(s): 330600188 ICD Code: N17.9 - ACUTE KIDNEY FAILURE, UNSPECIFIED; N18.9 - CHRONIC KIDNEY DISEASE, UNSPECIFIED Status: Acute Current Visit: No Problem Details: Baseline 2.9, today is 2.8. Qualifiers: Chronic kidney disease stage: stage 4 (severe) (3) Alcohol abuse SNOMED Code(s): 55843693 ICD Code: F10.10 - ALCOHOL ABUSE, UNCOMPLICATED Status: Acute Current Visit: No (4) Musculoskeletal pain SNOMED Code(s): 292245962 ICD Code: M79.18 - MYALGIA, OTHER SITE Status: Acute Current Visit: No (5) Cardiac pacemaker in situ SNOMED Code(s): 016116111 ICD Code: Z95.0 - PRESENCE OF CARDIAC PACEMAKER Status: Chronic Current Visit: No (6) HTN (hypertension) SNOMED Code(s): 74619636 ICD Code: I10 - ESSENTIAL (PRIMARY) HYPERTENSION Status: Chronic Current Visit: No Qualifiers: Hypertension type: essential hypertension Qualified Code(s): I10 - Essential (primary) hypertension Problem List Initiated/Reviewed/Updated: Yes Orders Last 24hrs: Active Orders 24 hr Category Date Time Status Patient Status [ADT] Routine ADT 03/24/20 23:08 Active Cardiac Monitoring [RC] CONTINUOUS Care 03/24/20 23:11 Active EKG Documentation Completion [RC] ASDIRECTED Care 03/24/20 20:16 Active Height and Weight [RC] DAILY Care 03/24/20 23:08 Active Intake and Output [RC] QSHIFT Care 03/24/20 23:11 Active Oxygen Therapy [RC] PRN Care 03/24/20 23:08 Active RT Aerosol Therapy [RC] ASDIRECTED Care 03/24/20 21:12 Active Up With Assistance [RC] ASDIRECTED Care 03/24/20 23:08 Active VTE/DVT Education [RC] Per Unit Routine Care 03/24/20 23:08 Active Vital Signs [RC] Q4H Care 03/24/20 23:08 Active Heart Healthy Diet [DIET] Diet 03/25/20 Breakfast Active Chest 1V Frontal [CR] Stat Exams 03/24/20 20:15 Taken Hip Min 2V or 3V w Pelvis Rt [CR] Stat Exams 03/24/20 20:59 Taken Knee 3V Rt [CR] Stat Exams 03/24/20 20:59 Taken BASIC METABOLIC PANEL,BMP [CHEM] AM Lab 03/26/20 05:11 Ordered BASIC METABOLIC PANEL,BMP [CHEM] Urgent Lab 03/25/20 13:00 Ordered CBC WITH AUTO DIFF [HEME] Routine Lab 03/25/20 13:00 Ordered Acetaminophen/HYDROcodone [[place] 325-5 MG] Med 03/24/20 23:15 Active 1 tab PO Q6H PRN Albuterol [Ventolin HFA] Med 03/24/20 23:15 Active 0 gm INH Q4H PRN Albuterol/Ipratropium [DuoNeb 3.0-0.5 MG/3 ML] Med 03/24/20 23:15 Active 3 ml INH Q4H PRN Calcium Gluconate Med 03/25/20 09:14 Once 1 gm IVPUSH ONETIME ONE Cyclobenzaprine [Flexeril] Med 03/24/20 23:15 Active 10 mg PO Q8H PRN Docusate Sodium [Colace] Med 03/24/20 23:08 Active 100 mg PO BID PRN Enoxaparin [Lovenox] Med 03/24/20 23:15 Active 30 mg SUBCUT Q24H Gabapentin [Neurontin] Med 03/25/20 08:00 Active 100 mg PO 08,14,20 Insulin Regular, Human [HumuLIN R] Med 03/25/20 09:14 Once 10 unit IV ONETIME ONE Ondansetron [Zofran] Med 03/24/20 23:08 Active 4 mg IV Q4H PRN Sodium Chloride 0.9% [Normal Saline] 1,000 ml Med 03/24/20 21:15 Active IV ASDIRECTED Sodium Chloride 0.9% [Normal Saline] 1,000 ml Med 03/24/20 23:30 Active IV ASDIRECTED Sodium Chloride 0.9% [Saline Flush] Med 03/24/20 20:15 Active 10 ml FLUSH ASDIRECTED PRN Sodium Polystyrene Sulfonate [Kayexalate] Med 03/25/20 09:15 Ordered 15 gm PO Q8H Tamsulosin [Flomax] Med 03/25/20 21:00 Active 0.4 mg PO DAILY@2100 amLODIPine [Norvasc] Med 03/25/20 21:00 Active 5 mg PO BEDTIME polyethylene glycoL 3350 [MiraLAX] Med 03/25/20 09:00 Active 17 gm PO DAILY traZODone Med 03/25/20 21:00 Active 50 mg PO BEDTIME Saline Lock Insert [OM.PC] Routine Oth 03/24/20 20:15 Ordered Sequential Compression Device [OM.PC] Per Unit Routine Oth 03/24/20 23:12 Ordered Resuscitation Status Routine Resus Stat 03/24/20 23:08 Ordered EKG 12 Lead [EK] Routine Ther 03/24/20 20:15 Ordered Medication Orders Hydrocodone Bitart/Acetaminophen ([place] 325-5 Mg) 1 tab PO Q6H PRN PRN Reason: Breakthrough Pain Last Admin: 03/25/20 00:53 Dose: 1 tab Documented by: JUNIE Albuterol (Ventolin Hfa) 0 gm INH Q4H PRN PRN Reason: Shortness of Breath Albuterol/Ipratropium (Duoneb 3.0-0.5 Mg/3 Ml) 3 ml INH Q4H PRN PRN Reason: Shortness of Breath Amlodipine Besylate (Norvasc) 5 mg PO BEDTIME [facility] Calcium Gluconate (Calcium Gluconate) 1 gm IVPUSH ONETIME ONE Stop: 03/25/20 09:15 Cyclobenzaprine HCl (Flexeril) 10 mg PO Q8H PRN PRN Reason: Spasms Last Admin: 03/25/20 00:54 Dose: 10 mg Documented by: JUNIE Docusate Sodium (Colace) 100 mg PO BID PRN PRN Reason: Constipation Enoxaparin Sodium (Lovenox) 30 mg SUBCUT Q24H [facility] Last Admin: 03/24/20 23:51 Dose: 30 mg Documented by: JUNIE Gabapentin (Neurontin) 100 mg PO 08,,20 [facility] Last Admin: 03/25/20 09:29 Dose: 100 mg Documented by: DANAE Sodium Chloride (Normal Saline) 1,000 mls @ 500 mls/hr IV ASDIRECTED [facility] Last Admin: 03/24/20 21:32 Dose: 500 mls/hr Documented by: WALE Sodium Chloride (Normal Saline) 1,000 mls @ 100 mls/hr IV ASDIRECTED [facility] Last Admin: 03/25/20 00:19 Dose: 100 mls/hr Documented by: JUNIE Insulin Human Regular (Humulin R) 10 unit IV ONETIME ONE Stop: 03/25/20 09:15 Ondansetron HCl (Zofran) 4 mg IV Q4H PRN PRN Reason: Nausea/Vomiting Polyethylene Glycol (Miralax) 17 gm PO DAILY [facility] Sodium Chloride (Saline Flush) 10 ml FLUSH ASDIRECTED PRN PRN Reason: Keep Vein Open Last Admin: 03/24/20 20:50 Dose: 10 ml Documented by: WALE Sodium Polystyrene Sulfonate (Kayexalate) 15 gm PO Q8H [facility] Tamsulosin HCl (Flomax) 0.4 mg PO DAILY@2100 [facility] Trazodone HCl (Trazodone) 50 mg PO BEDTIME [facility] Assessment/Plan Comment:: Will correct Potassium,and keep him on fluids. Possible DC tomorrow
[2020-03-25] MEDS ORDERED: 50% Dextrose in Water 50 ML Syringe IV ONE (10:00)
[2020-03-25] MEDS: Polyethylene Glycol 3350 Powder 17 GM Packet PO SCH (10:14)
[2020-03-25] MEDS ORDERED: Gabapentin 100 MG Cap PO ONE (14:34)
[2020-03-25] MEDS: Gabapentin 100 MG Cap *PTOM PO SCH ×2 (14:37→20:55)
[2020-03-25] MEDS: Sodium Chloride 0.9% 10 ML Syringe FLUSH PRN (18:46)
[2020-03-25] MEDS: traZODone 50 MG Tab *PTOM PO SCH (20:52)
[2020-03-25] MEDS: amLODIPine 5 MG Tab *PTOM PO SCH (20:52)
[2020-03-25] MEDS: Tamsulosin 0.4 MG Cap.ER *PTOM PO SCH (20:55)
[2020-03-25] MEDS: Enoxaparin 30 MG/0.3 ML Syringe SUBCUT SCH (22:24)
[2020-03-26] MEDS: Acetaminophen/HYDROcodone 325-5 MG Tab PO PRN ×3 (01:01→20:59)
--- NOTE | 2020-03-26 07:02 | PCM.PN ---
- General Info Date of Service: 03/26/20 Subjective Update: Plan still complains of pain in the right knee. He denies any chest pain or shortness of breath.Slept well. Functional Status: Reports: Pain Controlled - Review of Systems General: Reports: No Symptoms HEENT: Reports: No Symptoms Pulmonary: Reports: No Symptoms Cardiovascular: Reports: No Symptoms Gastrointestinal: Reports: No Symptoms Genitourinary: Reports: No Symptoms Musculoskeletal: Reports: No Symptoms - Patient Data Vitals - Most Recent: Last Vital Signs Temp 97.5 F 03/26/20 04:00 Pulse 55 L 03/26/20 04:00 Resp 16 03/26/20 04:00 BP 110/46 L 03/26/20 04:00 Pulse Ox 96 03/26/20 04:00 Weight - Most Recent: 81.737 kg I&O - Last 24 Hours: Intake & Output 03/25/20 03/25/20 03/26/20 14:59 22:59 06:59 Intake Total 2234 1340 240 Output Total 800 225 350 Balance 1434 1115 -110 Lab Results Last 24 Hours: Laboratory Results - last 24 hr 03/25/20 03/25/20 03/25/20 Range/Units 07:45 13:05 13:05 WBC 8.1 (4.5-12.0) X10-3/uL RBC 3.46 L (4.30-5.75) x10(6)uL Hgb 10.9 L (13.5-17.8) g/dL Hct 33.9 (30.0-51.3) % MCV 98.0 H (80-96) fL MCH 31.4 (27.7-33.6) pg MCHC 32.0 L (32.2-35.4) g/dL RDW 13.4 (11.5-15.5) % Plt Count 232 (125-369) X10(3)uL MPV 7.2 L (7.4-10.4) fL Neut % (Auto) 69.3 (46-82) % Lymph % (Auto) 16.2 (13-37) % [place] % (Auto) 12.5 H (4-12) % Eos % (Auto) 1 (1.0-5.0) % Baso % (Auto) 1 (0-2) % Neut # (Auto) 5.6 (1.6-8.3) # Lymph # (Auto) 1.3 (0.6-5.0) # [place] # (Auto) 1.0 (0.0-1.3) # Eos # (Auto) 0.1 (0.0-0.8) # Baso # (Auto) 0.1 (0.0-0.2) # Sodium 142 (135-145) mmol/L Potassium 6.0 H 4.9 D (3.5-5.3) mmol/L Chloride 110 (100-110) mmol/L Carbon Dioxide 22 (21-32) mmol/L BUN 52 H (7-18) mg/dL Creatinine 3.3 H* (0.70-1.30) mg/dL Est Cr Clr Drug Dosing 19.34 mL/min Estimated GFR (MDRD) 18 L (>60) BUN/Creatinine Ratio 15.8 (9-20) Glucose 92 (80-116) mg/dL Calcium 8.2 L (8.6-10.2) mg/dL Med Orders - Current: Current Medications Hydrocodone Bitart/Acetaminophen ([place] 325-5 Mg) 1 tab PO Q6H PRN PRN Reason: Breakthrough Pain Last Admin: 03/26/20 01:01 Dose: 1 tab Documented by: Albuterol (Ventolin Hfa) 0 gm INH Q4H PRN PRN Reason: Shortness of Breath Albuterol/Ipratropium (Duoneb 3.0-0.5 Mg/3 Ml) 3 ml INH Q4H PRN PRN Reason: Shortness of Breath Amlodipine Besylate (Norvasc) 5 mg PO BEDTIME [facility] Last Admin: 03/25/20 20:52 Dose: 5 mg Documented by: Cyclobenzaprine HCl (Flexeril) 10 mg PO Q8H PRN PRN Reason: Spasms Last Admin: 03/25/20 00:54 Dose: 10 mg Documented by: Docusate Sodium (Colace) 100 mg PO BID PRN PRN Reason: Constipation Enoxaparin Sodium (Lovenox) 30 mg SUBCUT Q24H [facility] Last Admin: 03/25/20 22:24 Dose: 30 mg Documented by: Gabapentin (Neurontin) 100 mg PO 08,14,20 [facility] Last Admin: 03/25/20 20:55 Dose: 100 mg Documented by: Ondansetron HCl (Zofran) 4 mg IV Q4H PRN PRN Reason: Nausea/Vomiting Polyethylene Glycol (Miralax) 17 gm PO DAILY [facility] Last Admin: 03/25/20 10:14 Dose: Not Given Documented by: Sodium Chloride (Saline Flush) 10 ml FLUSH ASDIRECTED PRN PRN Reason: Keep Vein Open Last Admin: 03/25/20 18:46 Dose: 10 ml Documented by: Tamsulosin HCl (Flomax) 0.4 mg PO DAILY@2100 [facility] Last Admin: 03/25/20 20:55 Dose: 0.4 mg Documented by: Trazodone HCl (Trazodone) 75 mg PO BEDTIME [facility] Last Admin: 03/25/20 20:52 Dose: 75 mg Documented by: Discontinued Medications Albuterol (Proventil Neb Soln) 2.5 mg NEB ONETIME ONE Stop: 03/24/20 21:10 Last Admin: 03/24/20 21:40 Dose: 2.5 mg Documented by: Albuterol (Ventolin Hfa) 2.5 gm INH ONETIME ONE Stop: 03/24/20 21:10 Last Admin: 03/24/20 21:56 Dose: Not Given Documented by: Calcium Gluconate (Calcium Gluconate) 1 gm IVPUSH ONETIME ONE Stop: 03/25/20 09:15 Last Admin: 03/25/20 10:14 Dose: 1 gm Documented by: Dextrose/Water (Dextrose 50% In Water) 50 ml IVPUSH ONETIME ONE Stop: 03/24/20 21:18 Last Admin: 03/24/20 21:43 Dose: 50 ml Documented by: Dextrose/Water (Dextrose 50% In Water) 50 ml IVPUSH ONETIME ONE Stop: 03/25/20 06:34 Last Admin: 03/25/20 06:45 Dose: 50 ml Documented by: Dextrose/Water (Dextrose 50% In Water) 50 ml IV ONETIME ONE Stop: 03/25/20 10:01 Last Admin: 03/25/20 10:44 Dose: 50 ml Documented by: Gabapentin (Neurontin) 100 mg PO 08,14,20 [facility] Last Admin: 03/25/20 09:29 Dose: 100 mg Documented by: Sodium Chloride (Normal Saline) 1,000 mls @ 500 mls/hr IV ASDIRECTED [facility] Last Admin: 03/24/20 21:32 Dose: 500 mls/hr Documented by: Sodium Chloride (Normal Saline) 1,000 mls @ 100 mls/hr IV ASDIRECTED [facility] Last Admin: 03/25/20 10:49 Dose: 100 mls/hr Documented by: Insulin Human Lispro (Humalog) 20 unit SUBCUT NOW STA Stop: 03/24/20 21:18 Last Admin: 03/24/20 21:48 Dose: 20 unit Documented by: Insulin Human Lispro (Humalog) 20 unit SUBCUT STAT STA Stop: 03/25/20 06:36 Last Admin: 03/25/20 06:55 Dose: 20 units Documented by: Insulin Human Regular (Humulin R) 10 unit IV ONETIME ONE Stop: 03/25/20 09:15 Last Admin: 03/25/20 10:38 Dose: 10 units Documented by: Sodium Bicarbonate (Sodium Bicarbonate 8.4%) 50 meq IVPUSH ONETIME ONE Stop: 03/24/20 21:10 Last Admin: 03/24/20 21:33 Dose: 50 meq Documented by: Sodium Bicarbonate (Sodium Bicarbonate 8.4%) 50 meq IVPUSH ONETIME ONE Stop: 03/25/20 06:32 Last Admin: 03/25/20 06:45 Dose: 50 meq Documented by: Sodium Polystyrene Sulfonate (Kayexalate) 15 gm PO Q8H [facility] Last Admin: 03/25/20 10:12 Dose: 15 gm Documented by: Tramadol HCl (Ultram) 100 mg PO ONETIME ONE Stop: 03/24/20 22:57 Last Admin: 03/24/20 23:26 Dose: Not Given Documented by: - Exam General: Alert HEENT: Pupils Equal Neck: Supple Lungs: Clear to Auscultation Extremities: Normal Inspection, Joint Swelling, Leg Pain Skin: Warm Wound/Incisions: Healing Well Sepsis Event Note - Evaluation Sepsis Screening Result: No Definite Risk - Focused Exam Vital Signs: Vital Signs Temp Pulse Resp BP BP Pulse Ox 03/26/20 04:00 97.5 F 55 L 16 110/46 L 96 03/26/20 00:00 98.2 F 62 16 128/68 96 03/25/20 20:52 128/66 03/25/20 20:00 98.0 F 61 16 128/66 96 Date Exam was Performed: 03/26/20 Time Exam was Performed: 06:59 - Problem List & Annotations (1) Hyperkalemia SNOMED Code(s): 38738149 Code(s): E87.5 - HYPERKALEMIA Status: Acute Current Visit: Yes (2) Acute on chronic renal failure SNOMED Code(s): 339574558 Code(s): N17.9 - ACUTE KIDNEY FAILURE, UNSPECIFIED; N18.9 - CHRONIC KIDNEY DISEASE, UNSPECIFIED Status: Acute Current Visit: No Qualifiers: Chronic kidney disease stage: stage 4 (severe) Annotation/Comment:: Baseline 2.9, today is 2.8. (3) Alcohol abuse SNOMED Code(s): 87106735 Code(s): F10.10 - ALCOHOL ABUSE, UNCOMPLICATED Status: Acute Current Visit: No (4) Musculoskeletal pain SNOMED Code(s): 141348934 Code(s): M79.18 - MYALGIA, OTHER SITE Status: Acute Current Visit: No (5) Cardiac pacemaker in situ SNOMED Code(s): 541917596 Code(s): Z95.0 - PRESENCE OF CARDIAC PACEMAKER Status: Chronic Current Visit: No (6) HTN (hypertension) SNOMED Code(s): 28868246 Code(s): I10 - ESSENTIAL (PRIMARY) HYPERTENSION Status: Chronic Current Visit: No Qualifiers: Hypertension type: essential hypertension Qualified Code(s): I10 - Essential (primary) hypertension (7) Chronic knee pain SNOMED Code(s): 51409994 Code(s): M25.569 - PAIN IN UNSPECIFIED KNEE; G89.29 - OTHER CHRONIC PAIN Status: Acute Current Visit: Yes Qualifiers: Laterality: right Qualified Code(s): M25.561 - Pain in right knee; G89.29 - Other chronic pain - Problem List Review Problem List Initiated/Reviewed/Updated: Yes - My Orders Last 24 Hours: My Active Orders 03/26/20 06:57 Cardiac Monitoring Discontinue [RC] Click to Edit - Plan Plan:: Potassium is improved. Will treat his knee pain with anti-inflammatories and narcotics. A left physical therapy see him today. We discharge him back to [facility] tomorrow
[2020-03-26] MEDS: Polyethylene Glycol 3350 Powder 17 GM Packet PO SCH (09:00)
[2020-03-26] MEDS ORDERED: Gabapentin 100 MG Cap PO ONE ×2 (09:06→15:21)
[2020-03-26] MEDS: Gabapentin 100 MG Cap *PTOM PO SCH ×3 (09:07→20:55)
[2020-03-26] MEDS: Sodium Chloride 0.9% 10 ML Syringe FLUSH PRN (09:10)
[2020-03-26] MEDS ORDERED: Tamsulosin 0.4 MG Cap.ER PO SCH (20:00)
[2020-03-26] MEDS: amLODIPine 5 MG Tab *PTOM PO SCH (20:55)
[2020-03-26] MEDS: Tamsulosin 0.4 MG Cap.ER *PTOM PO SCH (20:55)
[2020-03-26] MEDS: traZODone 50 MG Tab *PTOM PO SCH (20:58)
[2020-03-26] MEDS: Enoxaparin 30 MG/0.3 ML Syringe SUBCUT SCH (23:14)
[2020-03-27] MEDS: Polyethylene Glycol 3350 Powder 17 GM Packet PO SCH (08:53)
[2020-03-27] MEDS: Gabapentin 100 MG Cap *PTOM PO SCH (08:59)
--- NOTE | 2020-03-27 09:35 | DISCH ---
DISCHARGE DATE: 03/27/2020 REASON FOR ADMISSION: 1. Fall number. 2. Hyperkalemia. 3. Chronic kidney disease. DISCHARGE DIAGNOSES: 1. Fall number. 2. Hyperkalemia. 3. Chronic kidney disease. 4. Right knee pain. 5. History of alcohol abuse. BRIEF HISTORY AND HOSPITAL COURSE: A 75-year-old who was admitted with weakness and a fall. Also complained of chronic pain in the right knee. His potassium was 6.7 initially. This has normalized with insulin and D50. He is ready to go home today. He will go home on his regular medications with no changes, and follow up with PCP next week. He does have home health. Will continue to follow up with physical therapy, medication, and nursing care. /[id number] LILIANA/DAVID
== END 2020-03-27 12:30 | disposition home health service (06) ==
LOC: FB.ED 19:57 → FB.MS 23:13
PROVIDERS: ADMIT Emergency Medicine; ATTEND Family Medicine
DX: E87.5 Hyperkalemia (principal); I12.9 Hypertensive chronic kidney disease with stage 1 through stage 4 chronic kidney disease, or unspecified chronic kidney disease; N17.9 Acute kidney failure, unspecified; N18.4 Chronic kidney disease, stage 4 (severe); I25.2 Old myocardial infarction; F10.10 Alcohol abuse, uncomplicated; E86.0 Dehydration; S80.01XA Contusion of right knee, initial encounter; M79.10 Myalgia, unspecified site; M25.561 Pain in right knee; G89.29 Other chronic pain; J44.9 Chronic obstructive pulmonary disease, unspecified; M19.90 Unspecified osteoarthritis, unspecified site; Z90.89 Acquired absence of other organs; Z90.49 Acquired absence of other specified parts of digestive tract; Z79.899 Other long term (current) drug therapy; Z79.51 Long term (current) use of inhaled steroids; Z87.891 Personal history of nicotine dependence; Z79.82 Long term (current) use of aspirin; Z95.0 Presence of cardiac pacemaker; W19.XXXA Unspecified fall, initial encounter; Y92.009 Unspecified place in unspecified non-institutional (private) residence as the place of occurrence of the external cause
CPT/HCPCS: 36415; 71045; 73502-RT; 73562-RT; 80048; 80053; 83880; 84132; 84484; 85025; 93005; 93010; 94640; 96361; 96372; 96374; 96375; 96376; 99284; 99285-25; A9270-GY; G0378; J0610; J1650; J1815; J1815-GY; J7030

== ENCOUNTER 2020-10-06 11:27 | Emergency (ER) | payer MEDICARE, MEDICAID ==
[2020-10-06] MEDS ORDERED: traMADol 50 MG Tab PO ONE (11:47)
[2020-10-06] MEDS ORDERED: Lidocaine 4% 1 each Patch TOP PRN (13:05)
[2020-10-06] MEDS ORDERED: Azithromycin 500 MG Tab PO ONE (13:06)
[2020-10-06] MEDS ORDERED: Aspirin 325 MG Tab.EC PO ONE (13:06)
--- NOTE | 2020-10-06 14:08 | EDM.PDOC ---
ED HPI GENERAL MEDICAL PROBLEM - General Chief Complaint: Chest Pain Stated Complaint: chest wall pain Time Seen by Provider: 10/06/20 11:55 Source of Information: Reports: Patient History Limitations: Reports: No Limitations - History of Present Illness INITIAL COMMENTS - FREE TEXT/NARRATIVE: came in from home complaining of waking up with pain in the right side of the chest wall States he had no trauma , no fall , no cough , no fever or chills Localized pain in the chest wall on the right that keeps moving all over Was sen in the clinic by PCP yesterday for same complaints so I discussed same with his provider Onset: Gradual Duration: Day(s): (2), Intermittent Location: Reports: Chest Quality: Reports: Ache, Dull Severity: Moderate Improves with: Reports: Rest Worsens with: Reports: Movement (states pain moves around the right side of the chest wall) Context: Reports: Activity Associated Symptoms: Denies: Cough, Headaches, Shortness of Breath, Weakness Treatments SERVICE LEARNING COORDINATOR: Denies: Acetaminophen RIGHT CHEST Pain Score (Numeric/FACES): 8 - Related Data Allergies Allergy/AdvReac Type Severity Reaction Status Date / Time No Known Allergies Allergy Verified 10/06/20 12:35 Home Meds: Home Meds traZODone HCl [Trazodone HCl] 50 mg PO 02/12/19 [History] Albuterol Sulfate [Albuterol Sulfate Hfa] 2 puff INH Q4H PRN 10/01/19 [History] Albuterol/Ipratropium [DuoNeb 3.0-0.5 MG/3 ML] 3 ml INH Q4H PRN 10/01/19 [History] Aspirin [Halfprin] 81 mg PO 10/01/19 [History] Cyclobenzaprine [Flexeril] 10 mg PO Q8H PRN #15 tab 10/01/19 [Rx] Gabapentin [Neurontin] 100 mg PO ,,10/01/19 [History] lisinopriL [Zestril] 10 mg PO 10/01/19 [History] amLODIPine [Norvasc] 5 mg PO DAILY@199901/26/20 [History] Tamsulosin HCl [Flomax] 0.4 mg PO DAILY@199903/25/20 [History] polyethylene glycoL 3350 [Miralax] 17 g PO Q48H 03/25/20 [History] Acetaminophen 1,000 mg PO TID 10/06/20 [History] Furosemide [Lasix] 20 mg PO DAILY 10/06/20 [History] Omeprazole 10 mg PO DAILY 10/06/20 [History] Past Medical History HEENT History: Reports: Cataract Other HEENT History: cataract both eyes and got sick before it was taken care of Cardiovascular History: Reports: Hypertension, [place], Pacemaker Respiratory History: Reports: COPD Gastrointestinal History: Reports: Other (See Below) Other Gastrointestinal History: hernia-- inguinal hernia X3 right and left Genitourinary History: Reports: Other (See Below) Other Genitourinary History: stage 4 renal failure. Musculoskeletal History: Reports: Arthritis, Other (See Below) Other Musculoskeletal History: right arm weakness from 2 years ago. States that he does not know what happened. Admits to shoulder weakness on right. 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 states he fell in [place] one month ago and his neck is been out of wack since Psychiatric History: Reports: Other (See Below) Other Psychiatric History: patient is an alcoholic. Denies 08/08, a "beer or two a day" on 02/12/19 pt admits to one glass of rolan a day and 2 beers Oncologic (Cancer) History: Reports: Renal - Past Surgical History Cardiovascular Surgical History: Reports: Percutaneous Transluminal Angioplasty, Other (See Below) Other Cardiovascular Surgeries/Procedures: pacemaker. Respiratory Surgical History: Reports: None GI Surgical History: Reports: Appendectomy, Cholecystectomy, Other (See Below) Other GI Surgeries/Procedures: lap nelsy Male Surgical History: Reports: None Other Male Surgeries/Procedures: cyst on right kidney--bx appt scheduled for in 10/11 Neurological Surgical History: Reports: None Musculoskeletal Surgical History: Reports: None Social & Family History - Family History Family Medical History: No Pertinent Family History - Tobacco Use Tobacco Use Status *Q: Former Tobacco User Used Tobacco, but Quit: Yes Month/Year Tobacco Last Used: 2017 - Caffeine Use Caffeine Use: Reports: Coffee Other Caffeine Use: 3 cups coffee/day - Alcohol Use Days Per Week of Alcohol Use: 7 Number of Drinks Per Day: 2 Total Drinks Per Week: 14 - Recreational Drug Use Recreational Drug Use: No ED ROS GENERAL - Review of Systems Review Of Systems: Comprehensive ROS is negative, except as noted in HPI. Constitutional: Reports: Weakness, Fatigue. Denies: Malaise, Decreased Appetite HEENT: Reports: No Symptoms Respiratory: Reports: No Symptoms. Denies: Shortness of Breath, Cough, Sputum Cardiovascular: Denies: Dyspnea on Exertion, Edema, Palpitations Endocrine: Reports: No Symptoms GI/Abdominal: Reports: Decreased Appetite Musculoskeletal: Reports: Muscle Pain Skin: Reports: No Symptoms Neurological: Reports: Difficulty Walking. Denies: Headache, Tingling, Tremors, Change in Speech Psychiatric: Reports: No Symptoms Hematologic/Lymphatic: Reports: No Symptoms Immunologic: Reports: No Symptoms ED EXAM, GENERAL - Physical Exam Exam: See Below Exam Limited By: No Limitations General Appearance: Alert, WD/WN, No Apparent Distress Eye Exam: Bilateral Eye: EOMI Ears: Normal External Exam Ear Exam: Bilateral Ear: Canal Normal Nose: Normal Inspection Throat/Mouth: Normal Oropharynx Head: Atraumatic, Normocephalic Neck: Supple, Non-Tender Respiratory/Chest: Lungs Clear, No Accessory Muscle Use Cardiovascular: Regular Rate, Rhythm Back Exam: Decreased Range of Motion. No: Paraspinal Tenderness, Vertebral Tenderness Extremities: Limited Range of Motion Neurological: Alert, Oriented, Normal Cognition Psychiatric: Normal Affect Skin Exam: Warm, Dry, Intact Course - Vital Signs Last Recorded V/S: Last Vital Signs Temp 36.6 C 10/06/20 11:30 Pulse 62 10/06/20 11:30 Resp 18 10/06/20 11:30 BP 117/78 10/06/20 11:30 Pulse Ox 97 10/06/20 11:30 - Orders/Labs/Meds Orders: Active Orders 24 hr Category Date Time Status EKG Documentation Completion [RC] ASDIRECTED Care 10/06/20 11:44 Active Oxygen Therapy Adult [Oxygen Therapy, ED] [RC] Care 10/06/20 11:30 Active ASDIRECTED CREATININE W/GFR [CHEM] Stat Lab 10/06/20 15:30 Ordered Lidocaine 4% [Aspercreme 4%] Med 10/06/20 13:05 Active 1 each TOP DAILY PRN Sodium Chloride 0.9% [Normal Saline] 1,000 ml Med 10/06/20 14:15 Active IV ASDIRECTED EKG 12 Lead [EK] Routine Ther 10/06/20 11:44 Ordered Medication Orders Sodium Chloride (Normal Saline) 1,000 mls @ 999 mls/hr IV ASDIRECTED GENO Last Admin: 10/06/20 14:15 Dose: 999 mls/hr Documented by: TAISHA Lidocaine (Aspercreme 4%) 1 each TOP DAILY PRN PRN Reason: Pain Last Admin: 10/06/20 13:10 Dose: 1 each Documented by: TAISHA Labs: Laboratory Tests 10/06/20 10/06/20 10/06/20 Range/Units 11:59 11:59 11:59 WBC 9.2 (3.2-10.1) x10-3/uL RBC 3.71 L (3.90-5.90) x10(6)uL Hgb 12.6 L (12.9-17.7) g/dL Hct 38.6 (38.3-50.1) % MCV 104.0 H (80.8-98.7) fL MCH 34.0 H (27.0-33.3) pg MCHC 32.7 (28.7-35.3) g/dL RDW 14.3 (12.4-15.0) % Plt Count 282 (117-477) x10(3)uL MPV 7.7 (6.7-11.0) fL Neut % (Auto) 68.6 (40.3-71.8) % Lymph % (Auto) 13.8 L (15.8-45.3) % [place] % (Auto) 12.6 (5.5-15.2) % Eos % (Auto) 4.2 (0.1-6.8) % Baso % (Auto) 0.8 (0.3-3.8) % Neut # (Auto) 6.3 (1.7-6.9) x10-3/uL Lymph # (Auto) 1.3 (0.5-4.5) x10-3/uL [place] # (Auto) 1.2 (0.0-1.2) x10-3/uL Eos # (Auto) 0.4 (0.0-0.6) x10-3/uL Baso # (Auto) 0.1 (0.0-0.3) x10-3/uL D-Dimer, Quantitative (0.0-0.59) mg/LFEU Sodium 137 (135-145) mmol/L Potassium 5.1 (3.5-5.3) mmol/L Chloride 103 D (100-110) mmol/L Carbon Dioxide 19 L (21-32) mmol/L BUN 72 H D (7-18) mg/dL Creatinine 4.0 H* (0.70-1.30) mg/dL Est Cr Clr Drug Dosing TNP Estimated GFR (MDRD) 15 L (>60) BUN/Creatinine Ratio 18.0 (9-20) Glucose 80 (80-116) mg/dL Calcium 8.7 (8.6-10.2) mg/dL Total Bilirubin 0.5 (0.1-1.3) mg/dL AST 14 D (5-25) IU/L ALT 16 (12-36) U/L Alkaline Phosphatase 72 (56-112) IU/L Troponin I 11.7 (4.0-60.3) pg/mL NT-Pro-B Natriuret Pep 603 H (<=450) pg/mL Total Protein 7.9 (6.0-8.0) g/dL Albumin 3.9 (3.2-4.6) g/dL Globulin 4.0 g/dL Albumin/Globulin Ratio 1.0 SARS-CoV-2 RNA (DARA) (NEGATIVE) 10/06/20 10/06/20 Range/Units 11:59 13:40 WBC (3.2-10.1) x10-3/uL RBC (3.90-5.90) x10(6)uL Hgb (12.9-17.7) g/dL Hct (38.3-50.1) % MCV (80.8-98.7) fL MCH (27.0-33.3) pg MCHC (28.7-35.3) g/dL RDW (12.4-15.0) % Plt Count (117-477) x10(3)uL MPV (6.7-11.0) fL Neut % (Auto) (40.3-71.8) % Lymph % (Auto) (15.8-45.3) % [place] % (Auto) (5.5-15.2) % Eos % (Auto) (0.1-6.8) % Baso % (Auto) (0.3-3.8) % Neut # (Auto) (1.7-6.9) x10-3/uL Lymph # (Auto) (0.5-4.5) x10-3/uL [place] # (Auto) (0.0-1.2) x10-3/uL Eos # (Auto) (0.0-0.6) x10-3/uL Baso # (Auto) (0.0-0.3) x10-3/uL D-Dimer, Quantitative 19.92 H (0.0-0.59) mg/LFEU Sodium (135-145) mmol/L Potassium (3.5-5.3) mmol/L Chloride (100-110) mmol/L Carbon Dioxide (21-32) mmol/L BUN (7-18) mg/dL Creatinine (0.70-1.30) mg/dL Est Cr Clr Drug Dosing Estimated GFR (MDRD) (>60) BUN/Creatinine Ratio (9-20) Glucose (80-116) mg/dL Calcium (8.6-10.2) mg/dL Total Bilirubin (0.1-1.3) mg/dL AST (5-25) IU/L ALT (12-36) U/L Alkaline Phosphatase (56-112) IU/L Troponin I (4.0-60.3) pg/mL NT-Pro-B Natriuret Pep (<=450) pg/mL Total Protein (6.0-8.0) g/dL Albumin (3.2-4.6) g/dL Globulin g/dL Albumin/Globulin Ratio SARS-CoV-2 RNA (DARA) Negative (NEGATIVE) Meds: Medications Generic Name Dose Route Start Last Admin Trade Name Freq PRN Reason Stop Dose Admin Sodium Chloride 1,000 mls @ 999 mls/hr 10/06/20 14:15 10/06/20 14:15 Normal Saline IV 999 mls/hr ASDIRECTED GENO Administration Lidocaine 1 each 10/06/20 13:05 10/06/20 13:10 Aspercreme 4% TOP 1 each DAILY PRN Administration Pain Discontinued Medications Generic Name Dose Route Start Last Admin Trade Name Freq PRN Reason Stop Dose Admin Aspirin 325 mg 10/06/20 13:06 10/06/20 13:37 Ecotrin PO 10/06/20 13:07 325 mg ONETIME ONE Administration Azithromycin 500 mg 10/06/20 13:06 10/06/20 13:37 Zithromax PO 10/06/20 13:07 500 mg ONETIME ONE Administration Cyclobenzaprine HCl 10 mg 10/06/20 15:11 10/06/20 15:46 Flexeril PO 10/06/20 15:12 10 mg ONETIME ONE Administration Tramadol HCl 50 mg 10/06/20 11:47 10/06/20 11:50 Ultram PO 10/06/20 11:48 50 mg ONETIME ONE Administration - Re-Assessments/Exams Free Text/Narrative Re-Assessment/Exam: 10/06/20 16:00 had labs and chest Ct done : negative for PE?? : not able to get with contrast since pt has renal failure has was not sob or have any desaturation was given tramodol and then flexeril CT not suggestive of rib fracture Departure - Departure Time of Disposition: 16:15 Disposition: Home, Self-Care 01 Condition: Fair Clinical Impression: Contusion of rib on right side, Right-sided chest wall pain, Costochondritis, acute Instructions: Costochondritis, [id number], Nonspecific Chest Pain, Adult, Contusion, [id number] Referrals: Trish Roberts NP [Primary Care Provider] - Forms: ED Department Discharge Additional Instructions: 1) WARM COMPRESS TO THE AFFECTED AREA OF THE RIB RECOMMENDED 2) Continue with Flexeril ( muscle relaxant ) as prescribed by your doctor 3) If pain persists you will need to see your doctor Sepsis Event Note (ED) - Evaluation Sepsis Screening Result: No Definite Risk - Focused Exam Vital Signs: Vital Signs Temp Pulse Resp BP Pulse Ox Pulse Ox 10/06/20 11:30 36.6 C 62 18 117/78 88 L 97 - My Orders Last 24 Hours: My Active Orders 10/06/20 11:30 Oxygen Therapy Adult [Oxygen Therapy, ED] [RC] ASDIRECTED 10/06/20 11:44 EKG Documentation Completion [RC] ASDIRECTED EKG 12 Lead [EK] Routine 10/06/20 13:05 Lidocaine 4% [Aspercreme 4%] 1 each TOP DAILY PRN 10/06/20 14:15 Sodium Chloride 0.9% [Normal Saline] 1,000 ml IV ASDIRECTED 10/06/20 15:30 CREATININE W/GFR [CHEM] Stat - Assessment/Plan Last 24 Hours: My Active Orders 10/06/20 11:30 Oxygen Therapy Adult [Oxygen Therapy, ED] [RC] ASDIRECTED 10/06/20 11:44 EKG Documentation Completion [RC] ASDIRECTED EKG 12 Lead [EK] Routine 10/06/20 13:05 Lidocaine 4% [Aspercreme 4%] 1 each TOP DAILY PRN 10/06/20 14:15 Sodium Chloride 0.9% [Normal Saline] 1,000 ml IV ASDIRECTED 10/06/20 15:30 CREATININE W/GFR [CHEM] Stat
[2020-10-06] MEDS ORDERED: Sodium Chloride 0.9% 1,000 ML IV SCH (14:15)
[2020-10-06] MEDS ORDERED: Cyclobenzaprine 10 MG Tab PO ONE (15:11)
--- NOTE | 2020-10-06 15:53 | CT ---
INDICATION: Left chest wall pain, no history of trauma, pain when coughing. CT CHEST WITHOUT CONTRAST: Spiral 3.75 mm axial sections were obtained through the chest without contrast with sagittal, coronal and axial reconstructions and 3-D volume rendering. Total exam DLP was 666.96.mGy-cm. Calcifications are noted in the brachiocephalic vessels and the arch of the aorta, minimally in the descending thoracic aorta and in coronary arteries. The heart did not appear enlarged. No pericardial effusion was seen. Bipolar pacemaker leads are noted in place. There are some calcifications noted in the spleen along the surface which may be on the basis of previous trauma or infection. The gallbladder is absent compatible with history of its removal. Stable renal mass is noted at the upper pole of the right kidney which measures approximately 34 mm currently and measured approximately 42 mm on the previous study of 11/04/18, compatible with renal cyst that is perhaps slightly involuting. Renal cortical scarring is also noted bilaterally. Superior mesenteric artery and splenic artery, as well as renal artery calcifications are noted. Fibrotic appearing changes are noted in the lungs with a small area of spiculation centered around an abnormal airspace which could represent an abscess or possibly previous site of granulomatous disease with necrosis. No old studies were available for comparison. Multiple subpleural ground-glass areas of infiltrate are noted scattered about the lungs and compared with a previous CT of the abdomen including the lower lung dan, these appear to be significantly increased or completely new compared with that previous study suggesting either progressive pulmonary fibrosis and chronic inflammatory disease or possibly pneumonia superimposed on fibrosis. Additional abnormal airspaces are noted at the left lung base - laterally - at the diaphragm and also at both posterior lower lungs - lower lobes bilaterally. Centrilobular emphysematous changes are suggested. No gross consolidating pneumonia or effusion was seen. IMPRESSION: 1. Areas of parenchymal change which likely are on the basis of combination of fibrosis and possibly active areas of inflammatory disease - pneumonia with abnormal airspaces and peripheral appearance for the most part raising question of process such as COVID-19 - correlate clinically. 2. ASHD with bipolar pacemaker leads. 3. ASD. 4. Post cholecystectomy. 5. Probable involuting right upper pole renal cyst. 6. Renal cortical scarring bilaterally. 7. Without IV contrast, it is impossible to exclude pulmonary emboli. 8. Centrilobular emphysema. Report was called to Dr. Howard at approximately 1300 hours, 10/06/20 [facility]
== END 2020-10-06 16:45 | disposition home or self-care (01) ==
LOC: FB.ED 11:27
DX: S20.211A Contusion of right front wall of thorax, initial encounter (principal); M94.0 Chondrocostal junction syndrome [Tietze]; I10 Essential (primary) hypertension; I25.2 Old myocardial infarction; J44.9 Chronic obstructive pulmonary disease, unspecified; M19.90 Unspecified osteoarthritis, unspecified site; Z79.82 Long term (current) use of aspirin; Z79.899 Other long term (current) drug therapy; Z87.891 Personal history of nicotine dependence; Z20.822 Contact with and (suspected) exposure to COVID-19; X58.XXXA Exposure to other specified factors, initial encounter
CPT/HCPCS: 36415; 71250; 80053; 82565; 83880; 84484; 85025; 85379; 93005; 99285-25; A9270-GY; J7030; U0002

== ENCOUNTER 2021-01-24 20:02 | Inpatient (IN) | payer MEDICARE ==
[2021-01-24] MEDS ORDERED: Thiamine 100 MG in Sodium Chloride 0.9% 100 ML IV STA (20:39)
[2021-01-24] MEDS ORDERED: Ondansetron 4 MG/2 ML SDV IVPUSH STA (20:39)
[2021-01-24] MEDS ORDERED: Morphine 2 MG/ML SYRINGE IVPUSH STA (20:39)
[2021-01-24] MEDS ORDERED: Sodium Chloride 0.9% 1,000 ML IV SCH (20:45)
--- NOTE | 2021-01-24 21:27 | EDM.PDOC ---
ED HPI GENERAL MEDICAL PROBLEM - General Stated Complaint: ABD PAIN,frequent falls Time Seen by Provider: 01/24/21 21:35 Source of Information: Reports: Patient, Family History Limitations: Reports: No Limitations - History of Present Illness INITIAL COMMENTS - FREE TEXT/NARRATIVE: Patient is a 75 YO WM who presented to the ED because of weakness which started 2 weeks ago and is progressively getting worse. He fell 4 times today because his legs gave out. He c/o bilateral hip pain, and low back pain. There is no LOC after the fall and is able to ambulate. Today he went to the bar and had 4 tap beers, he c/o RLQ pain and nausea but no vomiting. He has a history of CKD stage 4 but he refused to have dialysis. - Related Data Allergies Allergy/AdvReac Type Severity Reaction Status Date / Time No Known Allergies Allergy Verified 10/06/20 12:35 Home Meds: Home Meds traZODone HCl [Trazodone HCl] 50 mg PO 02/12/19 [History] Albuterol Sulfate [Albuterol Sulfate Hfa] 2 puff INH Q4H PRN 10/01/19 [History] Albuterol/Ipratropium [DuoNeb 3.0-0.5 MG/3 ML] 3 ml INH Q4H PRN 10/01/19 [History] Aspirin [Halfprin] 81 mg PO 10/01/19 [History] Cyclobenzaprine [Flexeril] 10 mg PO Q8H PRN #15 tab 10/01/19 [Rx] Gabapentin [Neurontin] 100 mg PO ,,10/01/19 [History] lisinopriL [Zestril] 10 mg PO 10/01/19 [History] amLODIPine [Norvasc] 5 mg PO DAILY@199901/26/20 [History] Tamsulosin HCl [Flomax] 0.4 mg PO DAILY@199903/25/20 [History] polyethylene glycoL 3350 [Miralax] 17 g PO Q48H 03/25/20 [History] Acetaminophen 1,000 mg PO TID 10/06/20 [History] Furosemide [Lasix] 20 mg PO DAILY 10/06/20 [History] Omeprazole 10 mg PO DAILY 10/06/20 [History] Past Medical History HEENT History: Reports: Cataract Other HEENT History: cataract both eyes and got sick before it was taken care of Cardiovascular History: Reports: Hypertension, [place], Pacemaker Respiratory History: Reports: COPD Gastrointestinal History: Reports: Other (See Below) Other Gastrointestinal History: hernia-- inguinal hernia X3 right and left Genitourinary History: Reports: Other (See Below) Other Genitourinary History: stage 4 renal failure. Musculoskeletal History: Reports: Arthritis, Other (See Below) Other Musculoskeletal History: right arm weakness from 2 years ago. States that he does not know what happened. Admits to shoulder weakness on right. 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 states he fell in [place] one month ago and his neck is been out of wack since Psychiatric History: Reports: Other (See Below) Other Psychiatric History: patient is an alcoholic. Denies 08/08, a "beer or two a day" on 02/12/19 pt admits to one glass of rolan a day and 2 beers Oncologic (Cancer) History: Reports: Renal - Past Surgical History Cardiovascular Surgical History: Reports: Percutaneous Transluminal Angioplasty, Other (See Below) Other Cardiovascular Surgeries/Procedures: pacemaker. Respiratory Surgical History: Reports: None GI Surgical History: Reports: Appendectomy, Cholecystectomy, Other (See Below) Other GI Surgeries/Procedures: lap nelsy Male Surgical History: Reports: None Other Male Surgeries/Procedures: cyst on right kidney--bx appt scheduled for in 10/11 Neurological Surgical History: Reports: None Musculoskeletal Surgical History: Reports: None Social & Family History - Family History Family Medical History: No Pertinent Family History - Caffeine Use Caffeine Use: Reports: Coffee Other Caffeine Use: 3 cups coffee/day ED ROS GENERAL - Review of Systems Review Of Systems: See Below Constitutional: Reports: Weakness HEENT: Reports: No Symptoms Respiratory: Reports: No Symptoms Cardiovascular: Reports: No Symptoms Endocrine: Reports: No Symptoms GI/Abdominal: Reports: Abdominal Pain, Nausea : Reports: No Symptoms Musculoskeletal: Reports: Back Pain, Other (bilateral hip pain) Skin: Reports: No Symptoms Neurological: Reports: No Symptoms Psychiatric: Reports: No Symptoms Hematologic/Lymphatic: Reports: No Symptoms Immunologic: Reports: No Symptoms ED EXAM, GENERAL - Physical Exam Exam: See Below Exam Limited By: No Limitations General Appearance: Alert, No Apparent Distress Eye Exam: Bilateral Eye: PERRL Ears: Normal External Exam, Normal Canal Nose: Normal Inspection, Normal Mucosa, No Blood Throat/Mouth: Normal Inspection, Normal Lips Head: Atraumatic, Normocephalic Neck: Normal Inspection, Supple, Non-Tender, Full Range of Motion Respiratory/Chest: No Respiratory Distress, Lungs Clear, Normal Breath Sounds, No Accessory Muscle Use Cardiovascular: Normal Peripheral Pulses, Regular Rate, Rhythm, No Edema, No Gallop, No JVD, No Murmur, No Rub GI/Abdominal: Normal Bowel Sounds, Soft, No Organomegaly, No Distention, No Abnormal Bruit, No Mass, Other (tenderness over the RLQ) Back Exam: Normal Inspection, Muscle Spasm Extremities: Normal Inspection, Other (tenderness over the hips bilateral) Neurological: Alert, Oriented, CN II-XII Intact, Normal Cognition Psychiatric: Normal Affect Skin Exam: Warm #1 Interpretation EKG Date: 01/24/21 Time: 20:48 Rhythm: NSR Rate (Beats/Min): 67 [place]: Normal P-Wave: Present QRS: RBBB ST-T: Depressed QT: Normal Comparison: No Change EKG Interpretation Comments: NSR RBBB Old Infarct Course - Vital Signs Text/Narrative:: Lab/ekg/cxr/ CT abd-pelvis result was reviewed with patient and his daughter NS@ 125 ml/hr Thiamine 100 mg IV x1 Morphine 2 mg IV x1 Zofran 4 mg IV x1 Covid test-negative Code Status:DNR/DNI - Orders/Labs/Meds Orders: Active Orders 24 hr Category Date Time Status EKG Documentation Completion [RC] ASDIRECTED Care 01/24/21 20:37 Active Abdomen Pelvis wo Cont [CT] Stat Exams 01/24/21 20:37 Taken Chest 1V Frontal [CR] Stat Exams 01/24/21 20:35 Taken Lumbar Spine wo Cont [CT] Stat Exams 01/24/21 20:37 Taken UA W/MICROSCOPIC [URIN] Stat Lab 01/24/21 20:35 Ordered Sodium Chloride 0.9% [Normal Saline] 1,000 ml Med 01/24/21 20:45 Active IV ASDIRECTED Sodium Chloride 0.9% [Saline Flush] Med 01/24/21 20:35 Active 10 ml FLUSH ASDIRECTED PRN Saline Lock Insert [OM.PC] Routine Oth 01/24/21 20:35 Ordered EKG 12 Lead [EK] Routine Ther 01/24/21 20:35 Ordered Medication Orders Sodium Chloride (Normal Saline) 1,000 mls @ 125 mls/hr IV ASDIRECTED GENO Last Admin: 01/24/21 21:35 Dose: 125 mls/hr Documented by: TESSA Sodium Chloride (Sodium Chloride 0.9% 10 Ml Syringe) 10 ml FLUSH ASDIRECTED PRN PRN Reason: Keep Vein Open Labs: Laboratory Tests 01/24/21 01/24/21 01/24/21 Range/Units 20:40 20:40 20:40 WBC 7.3 (3.2-10.1) x10-3/uL RBC 3.43 L (3.90-5.90) x10(6)uL Hgb 12.1 L (12.9-17.7) g/dL Hct 36.9 L (38.3-50.1) % MCV 107.6 H (80.8-98.7) fL MCH 35.2 H (27.0-33.3) pg MCHC 32.7 (28.7-35.3) g/dL RDW 14.9 (12.4-15.0) % Plt Count 228 (117-477) x10(3)uL MPV 7.6 (6.7-11.0) fL Neut % (Auto) 75.0 H (40.3-71.8) % Lymph % (Auto) 11.7 L (15.8-45.3) % [place] % (Auto) 11.2 (5.5-15.2) % Eos % (Auto) 1.3 (0.1-6.8) % Baso % (Auto) 0.8 (0.3-3.8) % Neut # (Auto) 5.5 (1.7-6.9) x10-3/uL Lymph # (Auto) 0.9 (0.5-4.5) x10-3/uL [place]ade # (Auto) 0.8 (0.0-1.2) x10-3/uL Eos # (Auto) 0.1 (0.0-0.6) x10-3/uL Baso # (Auto) 0.1 (0.0-0.3) x10-3/uL PT 10.8 (9.0-11.1) sec INR 1.00 (1.00-1.24) Sodium 130 L (135-145) mmol/L Potassium 5.0 (3.5-5.3) mmol/L Chloride 97 L D (100-110) mmol/L Carbon Dioxide 15 L (21-32) mmol/L BUN 66 H (7-18) mg/dL Creatinine 4.6 H* (0.70-1.30) mg/dL Est Cr Clr Drug Dosing TNP Estimated GFR (MDRD) 13 L (>60) BUN/Creatinine Ratio 14.3 (9-20) Glucose 107 (80-116) mg/dL Calcium 7.8 L (8.6-10.2) mg/dL Total Bilirubin 0.3 (0.1-1.3) mg/dL AST 34 H D (5-25) IU/L ALT 26 D (12-36) U/L Alkaline Phosphatase 64 (56-112) IU/L Total Protein 7.1 (6.0-8.0) g/dL Albumin 3.3 (3.2-4.6) g/dL Globulin 3.8 g/dL Albumin/Globulin Ratio 0.9 Amylase 74 (25-115) U/L Lipase (73-393) U/L Ethyl Alcohol (<0.03) % SARS-CoV-2 RNA (DARA) (NEGATIVE) 01/24/21 01/24/21 Range/Units 20:40 21:55 WBC (3.2-10.1) x10-3/uL RBC (3.90-5.90) x10(6)uL Hgb (12.9-17.7) g/dL Hct (38.3-50.1) % MCV (80.8-98.7) fL MCH (27.0-33.3) pg MCHC (28.7-35.3) g/dL RDW (12.4-15.0) % Plt Count (117-477) x10(3)uL MPV (6.7-11.0) fL Neut % (Auto) (40.3-71.8) % Lymph % (Auto) (15.8-45.3) % [place] % (Auto) (5.5-15.2) % Eos % (Auto) (0.1-6.8) % Baso % (Auto) (0.3-3.8) % Neut # (Auto) (1.7-6.9) x10-3/uL Lymph # (Auto) (0.5-4.5) x10-3/uL [place] # (Auto) (0.0-1.2) x10-3/uL Eos # (Auto) (0.0-0.6) x10-3/uL Baso # (Auto) (0.0-0.3) x10-3/uL PT (9.0-11.1) sec INR (1.00-1.24) Sodium (135-145) mmol/L Potassium (3.5-5.3) mmol/L Chloride (100-110) mmol/L Carbon Dioxide (21-32) mmol/L BUN (7-18) mg/dL Creatinine (0.70-1.30) mg/dL Est Cr Clr Drug Dosing Estimated GFR (MDRD) (>60) BUN/Creatinine Ratio (9-20) Glucose (80-116) mg/dL Calcium (8.6-10.2) mg/dL Total Bilirubin (0.1-1.3) mg/dL AST (5-25) IU/L ALT (12-36) U/L Alkaline Phosphatase (56-112) IU/L Total Protein (6.0-8.0) g/dL Albumin (3.2-4.6) g/dL Globulin g/dL Albumin/Globulin Ratio Amylase (25-115) U/L Lipase 467 H (73-393) U/L Ethyl Alcohol 0.15 H* (<0.03) % SARS-CoV-2 RNA (DARA) Negative (NEGATIVE) Meds: Medications Generic Name Dose Route Start Last Admin Trade Name Freq PRN Reason Stop Dose Admin Sodium Chloride 1,000 mls @ 125 mls/hr 01/24/21 20:45 01/24/21 21:35 Normal Saline IV 125 mls/hr ASDIRECTED GENO Administration Sodium Chloride 10 ml 01/24/21 20:35 Sodium Chloride 0.9% 10 Ml Syringe FLUSH ASDIRECTED PRN Keep Vein Open Discontinued Medications Generic Name Dose Route Start Last Admin Trade Name Freq PRN Reason Stop Dose Admin Thiamine HCl 100 mg/ Sodium 101 mls @ 202 mls/hr 01/24/21 20:39 01/24/21 21:46 Chloride IV 01/24/21 20:40 202 mls/hr NOW STA Administration Morphine Sulfate 2 mg 01/24/21 20:39 01/24/21 21:41 Morphine 2 Mg/Ml Syringe IVPUSH 01/24/21 20:40 2 mg NOW STA Administration Ondansetron HCl 4 mg 01/24/21 20:39 01/24/21 21:39 Ondansetron 4 Mg/2 Ml Sdv IVPUSH 01/24/21 20:40 4 mg NOW STA Administration Departure - Departure Time of Disposition: 23:00 Disposition: Admitted As Inpatient 66 Condition: Good Clinical Impression: Alcohol intoxication, Dehydration, CKD (chronic kidney disease) stage 5, GFR less than 15 ml/min, Frequent falls, Contusion Abdominal pain Qualifiers: Abdominal location: right lower quadrant Qualified Code(s): R10.31 - Right lower quadrant pain - Discharge Information Referrals: Trish Roberts NP [Primary Care Provider] - - My Orders Last 24 Hours: My Active Orders 01/24/21 20:35 Chest 1V Frontal [CR] Stat UA W/MICROSCOPIC [URIN] Stat Sodium Chloride 0.9% [Saline Flush] 10 ml FLUSH ASDIRECTED PRN Saline Lock Insert [OM.PC] Routine EKG 12 Lead [EK] Routine 01/24/21 20:37 EKG Documentation Completion [RC] ASDIRECTED Abdomen Pelvis wo Cont [CT] Stat Lumbar Spine wo Cont [CT] Stat 01/24/21 20:45 Sodium Chloride 0.9% [Normal Saline] 1,000 ml IV ASDIRECTED - Assessment/Plan Last 24 Hours: My Active Orders 01/24/21 20:35 Chest 1V Frontal [CR] Stat UA W/MICROSCOPIC [URIN] Stat Sodium Chloride 0.9% [Saline Flush] 10 ml FLUSH ASDIRECTED PRN Saline Lock Insert [OM.PC] Routine EKG 12 Lead [EK] Routine 01/24/21 20:37 EKG Documentation Completion [RC] ASDIRECTED Abdomen Pelvis wo Cont [CT] Stat Lumbar Spine wo Cont [CT] Stat 01/24/21 20:45 Sodium Chloride 0.9% [Normal Saline] 1,000 ml IV ASDIRECTED
[2021-01-24] MEDS ORDERED: Ondansetron 4 MG/2 ML SDV IV PRN (23:02)
[2021-01-24] MEDS ORDERED: Enoxaparin 30 MG/0.3 ML Syringe SUBCUT ONE (23:30)
[2021-01-25] MEDS: Acetaminophen/HYDROcodone 325-5 MG Tab PO PRN ×3 (00:13→18:32)
[2021-01-25] MEDS: Sodium Chloride 0.9% 1,000 ML IV SCH ×2 (04:51→11:30)
[2021-01-25] MEDS: Sodium Chloride 0.9% 10 ML Syringe FLUSH PRN ×2 (08:20→21:34)
--- NOTE | 2021-01-25 11:12 | CR ---
INDICATION: Cough, weakness. CHEST ONE VIEW: Portable AP upright view of the chest was obtained 01/24/2021 and compared with 03/24/2020 and 10/01/2019. Bipolar pacemaker leads are unchanged in position. The heart did not appear grossly enlarged allowing for poor inspiration and AP positioning. The aorta is tortuous with calcification of the arch. The poor inspiration emphasizes markings which are somewhat heavy making it difficult to exclude areas of patchy bronchopneumonia. With the poor inspiration and the portable technique, it is difficult to entirely exclude minimal areas of pleural fluid. However, no gross consolidating pneumonia or definite effusion was identified. There is again a healed fracture of the mid shaft of the right clavicle. IMPRESSION: 1. No definite acute process, but difficult to exclude areas of patchy bronchopneumonia due to the poor inspiration and portable technique. 2. 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 MTDD
--- NOTE | 2021-01-25 12:57 | HP ---
ADMISSION DATE: 01/24/2021 REASON FOR ADMISSION: Recurrent fall, weakness, disability, elevated blood alcohol. HISTORY OF PRESENT ILLNESS: Paul Kim is a 75-year-old male, lives at [facility] in [place], [place], was seen and evaluated by the ER physician. He presented with repetitive weakness, complicated falls, progressive decline, fell 4 days. On the day of admission, 01/24/2021, complained of bilateral hip pain and low back pain. No loss of consciousness. Has had consumed a moderate amount of beer, some mild nausea and vomiting, and an elevated blood alcohol. Blood alcohol returned 0.15, normal 0 to 0.03. When seen in the emergency room, laboratory studies were performed, CBC was unremarkable. Hemoglobin slightly low at 12.1, mildly macrocytic indices, mild neutrophilia. Sodium was 130, chloride 97, creatinine 4.6, GFR of 13. CT lumbar spine, CT abdomen performed appears nondiagnostic, results are pending. Admitted to hospital for treatment and care. MEDICATIONS: Daily medications include: 1. Albuterol 2 puffs q.4 hours p.r.n. breathing. 2. DuoNeb q.i.d. dose p.r.n. breathing. 3. Amlodipine 5 mg 1 p.o. at bedtime, blood pressure. 4. Baby aspirin 81 mg 1 p.o. daily, CAD prevention. 5. Flexeril 10 mg p.o. q.8 hours, muscle relaxant. 6. Neurontin 100 mg t.i.d. 7. Lisinopril 10 mg 1 p.o. daily, blood pressure. 8. Omeprazole 10 mg 1 p.o. daily, GERD. 9. P.r.n. loratadine. 10.MiraLAX 17 g one daily. 11.Tamsulosin 0.4 mg at bedtime, BPH. 12.Trazodone 75 mg at bedtime, sleep enhancement. 13.Furosemide 20 mg daily. ALLERGIES: No allergies. PAST MEDICAL HISTORY: Significant for previous appendectomy, cholecystectomy, angioplasty, and pacemaker. Chronic illnesses include hypertension, hyperlipidemia, BPH, and complicated back pain. No other operative procedures, hospitalizations, unusual childhood diseases, major injuries, or fractures. SOCIAL HISTORY: Lives at [facility]. . Retired. Had worked in [email or web address] in [place]. Two children, son and daughter, 6 grandchildren. Quit smoking 2 years ago, 4-[id number]-day. Alcohol moderate daily use. No illicit drug use. FAMILY HISTORY: Negative for early heart disease, diabetes mellitus, or inheritable cancer. REVIEW OF SYSTEMS: CONSTITUTIONAL: Feeling generally poorly. EYES: Sees well. EARS: Decreased hearing. OROPHARYNX: Poor dentition. GI: Regular predictable stools. MiraLAX on board. : Nocturia x1, decreased stream. CV: Denies chest pain, palpitations, syncope. RESPIRATORY: Mild chronic cough, COPD. SKIN: No lesions, eruptions, or moles. ENDOCRINE: No excessive thirst or urination, allergies noted. PHYSICAL EXAMINATION: VITAL SIGNS: 1.73 m, 81.36 kg, 36.8, 84, 100/53, 18, 100% room air. GENERAL: Appears comfortable, soft spoken, a bit disheveled. HEENT: Funduscopic benign. Conjunctivae clear. Decreased hearing. Bright tympanic membranes. Mouth and oropharynx clear. Poor dentition. NECK: Benign. Thyroid small. CHEST: On auscultation, clear in all lung dan. HEART: Distant heart sounds. Occasional ectopy. Soft murmur. It should be noted pacemaker in right upper chest wall. ABDOMEN: Benign. Surgical scar is present in right upper quadrant. : Normal male genitalia. Hernias absent. RECTAL: Declined, deferred. EXTREMITIES: Well perfused. Mild venous stasis changes. Good peripheral pulses. LABORATORY STUDIES: Performed today; hemoglobin 11.0, white count 7600, sodium increased from 130 to 133, BUN 66 to 67, creatinine 4.6 to 4.2, GFR from 13 to 14. 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 PLAN: Medications, care, and treatment appropriate. IV fluids, PT/OT consultation. Medications reviewed and appropriate. /[id number] /DAVID
[2021-01-25] MEDS: Albuterol/Ipratropium 3.0-0.5 MG/3 ML Neb Soln INH SCH ×2 (13:44→21:14)
[2021-01-25] MEDS: Gabapentin 100 MG Cap PO SCH ×2 (13:49→21:14)
--- NOTE | 2021-01-25 19:19 | US ---
INDICATION: Elevated liver enzymes. ULTRASOUND OF THE ABDOMEN, COMPLETE: Multiple ultrasonic images were obtained with 2-D realtime and color flow imaging. They were extremely limited due to patient body habitus and intestinal gas. At the upper pole of the right kidney, there appears to be a solid mass measuring 3.07 x 3.20 cm in longitudinal projection. The possibility of a neoplasm cannot be excluded with this appearance. There may be some renal cortical scarring of mild degree with some thinning of the cortex. The left kidney also had some irregularity and thinning of the cortex. It was not well seen. It appears to be smaller than the right kidney to a significant degree measuring 8.6 x 6.4 x 5.3 cm for the left kidney versus 13.3 x 6.3 x 6.4 cm for the right kidney. The remainder of the abdominal organs were poorly visualized. Very minimal visualization of the liver suggests somewhat echogenic appearance and coarseness which could be due to fatty liver. This should be correlated clinically. CT examination may be warranted depending upon clinical correlation without and with IV contrast to evaluate the right kidney upper pole mass as well as the liver and the remainder of the abdominal organs not well seen. IMPRESSION: 1. Limited study - right upper pole renal mass is solid and could represent neoplasia. 2. Somewhat fatty liver, but poorly visualized with the remainder of the abdominal organs poorly seen. Depending upon clinical necessity, CT examination possibly without and with IV contrast may be helpful for further evaluation. MTDD
[2021-01-25] MEDS ORDERED: amLODIPine 5 MG Tab PO SCH (21:00)
[2021-01-25] MEDS ORDERED: OMEPRAZOLE 10 MG PO SCH (21:00)
[2021-01-25] MEDS: traZODone 50 MG Tab PO SCH (21:15)
[2021-01-25] MEDS: Enoxaparin 30 MG/0.3 ML Syringe SUBCUT SCH (21:15)
[2021-01-25] MEDS: Tamsulosin 0.4 MG Cap.ER PO SCH (21:15)
[2021-01-26] MEDS: Pantoprazole 40 MG Tab.CR PO SCH (05:27)
[2021-01-26] MEDS: Lisinopril 10 MG Tab PO SCH (09:09)
[2021-01-26] MEDS: Aspirin 81 MG Tab.EC PO SCH (09:09)
[2021-01-26] MEDS: Albuterol/Ipratropium 3.0-0.5 MG/3 ML Neb Soln INH SCH ×3 (09:10→21:12)
[2021-01-26] MEDS: Gabapentin 100 MG Cap PO SCH ×3 (09:14→21:11)
[2021-01-26] MEDS: Sodium Chloride 0.9% 10 ML Syringe FLUSH PRN (09:23)
--- NOTE | 2021-01-26 11:57 | PN ---
DATE SEEN: 01/26/2021 SUBJECTIVE: Paul Kim is a 75-year-old male, lives at [facility], was admitted with recurrent fall. Radiographs revealed no abnormal findings of consequence. Abdomen and pelvis CT, plain films, x-ray, and EKG were stable. Of great concern was blood alcohol of 0.15. Speaking with daughter, alcohol is a major issue. Inability to stop the alcohol. Ultrasound performed yesterday due to some vague abdominal pain revealed right renal mass. Speaking with daughter, this has been stable, has been seen by his previous providers, felt not to be of surgical importance. LABORATORY STUDIES: CBC stable, 01/25/2021; white count 7600, hemoglobin 11.0, slightly macrocytic indices. Creatinine 4.6 and 4.2, GFR 13 and 14 longstanding. PT, OT involved. Saline lock in place. OBJECTIVE: VITAL SIGNS: 36.6, 68, 100/51, 67, O2 saturation 92% on 2 L. GENERAL: Appears comfortable. Soft spoken. Bit disheveled. HEENT: Mouth and oropharynx clear. CHEST: Decreased breath sounds. HEART: Regular. Pacemaker in place, upper chest wall. ABDOMEN: Benign. SKIN: Without rash. ASSESSMENT: Weakness and fall recurrent, likely alcohol-induced issues, implication, concerns. PLAN: Medications, care, and treatment appropriate. PT, OT involved. Short- term stay expected. /[id number] AUDREY/DAVID
[2021-01-26] MEDS: Acetaminophen/HYDROcodone 325-5 MG Tab PO PRN (18:37)
[2021-01-26] MEDS: traZODone 50 MG Tab PO SCH (21:11)
[2021-01-26] MEDS: Enoxaparin 30 MG/0.3 ML Syringe SUBCUT SCH (21:12)
[2021-01-26] MEDS: Tamsulosin 0.4 MG Cap.ER PO SCH (21:12)
[2021-01-27] MEDS: Acetaminophen/HYDROcodone 325-5 MG Tab PO PRN ×2 (03:04→23:22)
[2021-01-27] MEDS: Pantoprazole 40 MG Tab.CR PO SCH (05:04)
[2021-01-27] MEDS: Aspirin 81 MG Tab.EC PO SCH (08:07)
[2021-01-27] MEDS: Albuterol/Ipratropium 3.0-0.5 MG/3 ML Neb Soln INH SCH ×3 (08:07→21:07)
[2021-01-27] MEDS: Lisinopril 10 MG Tab PO SCH (08:07)
[2021-01-27] MEDS: Gabapentin 100 MG Cap PO SCH ×3 (08:11→21:00)
--- NOTE | 2021-01-27 08:35 | PCM.PN ---
- General Info Date of Service: 01/27/21 Subjective Update: Paul is still confused somewhat,has tremors,and unsteady gait. Has RUQ painn chronic knee pain. Functional Status: Reports: Pain Controlled, Tolerating Diet, Incentive Spirometry. Denies: Ambulating - Review of Systems Cardiovascular: Reports: No Symptoms Gastrointestinal: Reports: No Symptoms - Patient Data Vitals - Most Recent: Last Vital Signs Temp 97.0 F 01/27/21 08:00 Pulse 55 L 01/27/21 08:00 Resp 20 01/27/21 08:00 BP 121/67 01/27/21 08:07 Pulse Ox 97 01/27/21 08:00 Weight - Most Recent: 82.554 kg I&O - Last 24 Hours: Intake & Output 01/26/21 01/27/21 01/27/21 22:59 06:59 14:59 Intake Total 100 200 Output Total 280 550 Balance -180 -350 Med Orders - Current: Current Medications Hydrocodone Bitart/Acetaminophen (Acetaminophen/Hydrocodone 325-5 Mg Tab) 1 tab PO Q4H PRN PRN Reason: Pain Last Admin: 01/27/21 03:04 Dose: 1 tab Documented by: Albuterol/Ipratropium (Albuterol/Ipratropium 3.0-0.5 Mg/3 Ml Neb Soln) 3 ml INH TID [facility] Last Admin: 01/27/21 08:07 Dose: 3 ml Documented by: Aspirin (Aspirin 81 Mg Tab.Ec) 81 mg PO DAILY [facility] Last Admin: 01/27/21 08:07 Dose: 81 mg Documented by: Enoxaparin Sodium (Enoxaparin 30 Mg/0.3 Ml Syringe) 30 mg SUBCUT BEDTIME [facility] Last Admin: 01/26/21 21:12 Dose: 30 mg Documented by: Gabapentin (Gabapentin 100 Mg Cap) 100 mg PO ,,20 [facility] Last Admin: 01/27/21 08:11 Dose: 100 mg Documented by: Lisinopril (Lisinopril 10 Mg Tab) 10 mg PO DAILY [facility] Last Admin: 01/27/21 08:07 Dose: 10 mg Documented by: Ondansetron HCl (Ondansetron 4 Mg/2 Ml Sdv) 4 mg IV Q4H PRN PRN Reason: Nausea/Vomiting Pantoprazole Sodium (Pantoprazole 40 Mg Tab.Cr) 40 mg PO 0600 [facility] Last Admin: 01/27/21 05:04 Dose: 40 mg Documented by: Senna/Docusate Sodium (Docusate Sodium/Sennosides 50-8.6 Mg Tab) 1 tab PO BID PRN PRN Reason: Constipation Sodium Chloride (Sodium Chloride 0.9% 10 Ml Syringe) 10 ml FLUSH ASDIRECTED PRN PRN Reason: Keep Vein Open Last Admin: 01/26/21 09:23 Dose: 10 ml Documented by: Tamsulosin HCl (Tamsulosin 0.4 Mg Cap.Er) 0.4 mg PO BEDTIME [facility] Last Admin: 01/26/21 21:12 Dose: 0.4 mg Documented by: Trazodone HCl (Trazodone 50 Mg Tab) 75 mg PO BEDTIME [facility] Last Admin: 01/26/21 21:11 Dose: 75 mg Documented by: Discontinued Medications Amlodipine Besylate (Amlodipine 5 Mg Tab) 5 mg PO BEDTIME [facility] Enoxaparin Sodium (Enoxaparin 30 Mg/0.3 Ml Syringe) 30 mg SUBCUT ONETIME ONE Stop: 01/24/21 23:31 Last Admin: 01/25/21 00:13 Dose: 30 mg Documented by: Sodium Chloride (Normal Saline) 1,000 mls @ 125 mls/hr IV ASDIRECTED [facility] Last Admin: 01/24/21 21:35 Dose: 125 mls/hr Documented by: Thiamine HCl 100 mg/ Sodium (Chloride) 101 mls @ 202 mls/hr IV NOW STA Stop: 01/24/21 20:40 Last Admin: 01/24/21 21:46 Dose: 202 mls/hr Documented by: Sodium Chloride (Normal Saline) 1,000 mls @ 125 mls/hr IV ASDIRECTED [facility] Last Admin: 01/25/21 11:30 Dose: 125 mls/hr Documented by: Morphine Sulfate (Morphine 2 Mg/Ml Syringe) 2 mg IVPUSH NOW STA Stop: 01/24/21 20:40 Last Admin: 01/24/21 21:41 Dose: 2 mg Documented by: Non-Formulary Medication (Omeprazole [Omeprazole]) 10 mg PO BEDTIME [facility] Ondansetron HCl (Ondansetron 4 Mg/2 Ml Sdv) 4 mg IVPUSH NOW STA Stop: 01/24/21 20:40 Last Admin: 01/24/21 21:39 Dose: 4 mg Documented by: - Exam Quality Assessment: Supplemental Oxygen General: Alert, Cooperative. No: Oriented Neck: Supple Lungs: Rales, Wheezing Cardiovascular: Regular Rate GI/Abdominal Exam: Normal Bowel Sounds, Soft, Tender (RUQ) - Patient Data Result Diagrams: 01/25/21 06:12 01/25/21 06:12 Sepsis Event Note - Evaluation Sepsis Screening Result: No Definite Risk - Focused Exam Vital Signs: Vital Signs Temp Temp Pulse Resp BP BP Pulse Ox 01/27/21 08:07 121/67 01/27/21 08:00 97.0 F 55 L 20 121/67 97 01/27/21 03:05 97.7 F 59 L 18 127/72 99 01/27/21 01:00 01/27/21 00:00 97.8 F 55 L 18 126/55 L 98 01/26/21 21:00 56 L Pulse Ox 01/27/21 08:07 01/27/21 08:00 01/27/21 03:05 01/27/21 01:00 98 01/27/21 00:00 01/26/21 21:00 93 L - Problem List & Annotations (1) COPD (chronic obstructive pulmonary disease) SNOMED Code(s): 40912947 Code(s): J44.9 - CHRONIC OBSTRUCTIVE PULMONARY DISEASE, UNSPECIFIED Status: Acute Current Visit: Yes (2) Abdominal pain SNOMED Code(s): 96390896 Code(s): R10.9 - UNSPECIFIED ABDOMINAL PAIN Status: Acute Current Visit: Yes Qualifiers: Abdominal location: right lower quadrant Qualified Code(s): R10.31 - Right lower quadrant pain (3) CKD (chronic kidney disease) stage 5, GFR less than 15 ml/min SNOMED Code(s): 734058851 Code(s): N18.5 - CHRONIC KIDNEY DISEASE, STAGE 5 Status: Acute Current Visit: Yes (4) Frequent falls SNOMED Code(s): 043467969 Code(s): R29.6 - REPEATED FALLS Status: Acute Current Visit: Yes (5) Alcohol abuse SNOMED Code(s): 86757758 Code(s): F10.10 - ALCOHOL ABUSE, UNCOMPLICATED Status: Acute Current Visit: No (6) Chronic knee pain SNOMED Code(s): 2840638671 Code(s): M25.569 - PAIN IN UNSPECIFIED KNEE; G89.29 - OTHER CHRONIC PAIN Status: Acute Current Visit: No Qualifiers: Laterality: right Qualified Code(s): M25.561 - Pain in right knee; G89.29 - Other chronic pain (7) Encephalopathy SNOMED Code(s): 84918302 Code(s): G93.40 - ENCEPHALOPATHY, UNSPECIFIED Status: Acute Current Visit: No (8) HTN (hypertension) SNOMED Code(s): 46050105 Code(s): I10 - ESSENTIAL (PRIMARY) HYPERTENSION Status: Chronic Current Visit: No Qualifiers: Hypertension type: essential hypertension Qualified Code(s): I10 - Essen tial (primary) hypertension (9) 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 Repeat labs in AM. DC Saturday
[2021-01-27] MEDS: Sodium Chloride 0.9% 10 ML Syringe FLUSH PRN (14:22)
[2021-01-27] MEDS: Enoxaparin 30 MG/0.3 ML Syringe SUBCUT SCH (21:06)
[2021-01-27] MEDS: Tamsulosin 0.4 MG Cap.ER PO SCH (21:06)
[2021-01-27] MEDS: traZODone 50 MG Tab PO SCH (21:06)
[2021-01-28] MEDS: Pantoprazole 40 MG Tab.CR PO SCH (06:53)
[2021-01-28] MEDS: Gabapentin 100 MG Cap PO SCH ×3 (07:57→20:13)
[2021-01-28] MEDS: Albuterol/Ipratropium 3.0-0.5 MG/3 ML Neb Soln INH SCH ×3 (08:00→20:14)
[2021-01-28] MEDS: Aspirin 81 MG Tab.EC PO SCH (08:00)
[2021-01-28] MEDS: Lisinopril 10 MG Tab PO SCH (08:00)
--- NOTE | 2021-01-28 08:39 | PCM.PN ---
- General Info Date of Service: 01/28/21 Subjective Update: Paul is still confused somewhat,has tremors,and unsteady gait. Has RUQ pain chronic knee pain,but overall improved today.. Functional Status: Reports: Pain Controlled - Review of Systems General: Reports: No Symptoms HEENT: Reports: No Symptoms Pulmonary: Reports: No Symptoms Cardiovascular: Reports: No Symptoms Gastrointestinal: Reports: No Symptoms Genitourinary: Reports: No Symptoms - Patient Data Vitals - Most Recent: Last Vital Signs Temp 97.1 F 01/28/21 08:00 Pulse 54 L 01/28/21 08:00 Resp 18 01/28/21 08:00 BP 116/65 01/28/21 08:00 Pulse Ox 97 01/28/21 08:00 Weight - Most Recent: 81.306 kg I&O - Last 24 Hours: Intake & Output 01/27/21 01/28/21 01/28/21 22:59 06:59 14:59 Intake Total 50 100 Output Total 200 500 Balance -150 -400 Lab Results Last 24 Hours: Laboratory Results - last 24 hr 01/27/21 01/28/21 01/28/21 Range/Units 09:00 06:35 06:35 WBC 5.6 (3.2-10.1) x10-3/uL RBC 2.94 L (3.90-5.90) x10(6)uL Hgb 10.4 L (12.9-17.7) g/dL Hct 32.7 L (38.3-50.1) % MCV 110.9 H (80.8-98.7) fL MCH 35.3 H (27.0-33.3) pg MCHC 31.8 (28.7-35.3) g/dL RDW 15.4 H (12.4-15.0) % Plt Count 200 (117-477) x10(3)uL MPV 8.1 (6.7-11.0) fL Neut % (Auto) 50.8 (40.3-71.8) % Lymph % (Auto) 20.4 (15.8-45.3) % Jerome % (Auto) 17.7 H (5.5-15.2) % Eos % (Auto) 10.0 H (0.1-6.8) % Baso % (Auto) 1.1 (0.3-3.8) % Neut # (Auto) 2.9 (1.7-6.9) x10-3/uL Lymph # (Auto) 1.1 (0.5-4.5) x10-3/uL Jerome # (Auto) 1.0 (0.0-1.2) x10-3/uL Eos # (Auto) 0.6 (0.0-0.6) x10-3/uL Baso # (Auto) 0.1 (0.0-0.3) x10-3/uL Sodium 139 (135-145) mmol/L Potassium 5.7 H (3.5-5.3) mmol/L Chloride 110 D (100-110) mmol/L Carbon Dioxide 17 L (21-32) mmol/L BUN 53 H D (7-18) mg/dL Creatinine 3.0 H* (0.70-1.30) mg/dL Est Cr Clr Drug Dosing 20.58 mL/min Estimated GFR (MDRD) 21 L (>60) BUN/Creatinine Ratio 17.7 (9-20) Glucose 92 (80-116) mg/dL Calcium 7.8 L (8.6-10.2) mg/dL Total Bilirubin 0.4 (0.1-1.3) mg/dL AST 22 D (5-25) IU/L ALT 18 D (12-36) U/L Alkaline Phosphatase 66 (56-112) IU/L Ammonia <9 NT-Pro-B Natriuret Pep (<=450) pg/mL Total Protein 6.2 (6.0-8.0) g/dL Albumin 2.7 L (3.2-4.6) g/dL Globulin 3.5 g/dL Albumin/Globulin Ratio 0.8 Lipase (73-393) U/L 01/28/21 Range/Units 06:35 WBC (3.2-10.1) x10-3/uL RBC (3.90-5.90) x10(6)uL Hgb (12.9-17.7) g/dL Hct (38.3-50.1) % MCV (80.8-98.7) fL MCH (27.0-33.3) pg MCHC (28.7-35.3) g/dL RDW (12.4-15.0) % Plt Count (117-477) x10(3)uL MPV (6.7-11.0) fL Neut % (Auto) (40.3-71.8) % Lymph % (Auto) (15.8-45.3) % Jerome % (Auto) (5.5-15.2) % Eos % (Auto) (0.1-6.8) % Baso % (Auto) (0.3-3.8) % Neut # (Auto) (1.7-6.9) x10-3/uL Lymph # (Auto) (0.5-4.5) x10-3/uL Jerome # (Auto) (0.0-1.2) x10-3/uL Eos # (Auto) (0.0-0.6) x10-3/uL Baso # (Auto) (0.0-0.3) x10-3/uL Sodium (135-145) mmol/L Potassium (3.5-5.3) mmol/L Chloride (100-110) mmol/L Carbon Dioxide (21-32) mmol/L BUN (7-18) mg/dL Creatinine (0.70-1.30) mg/dL Est Cr Clr Drug Dosing mL/min Estimated GFR (MDRD) (>60) BUN/Creatinine Ratio (9-20) Glucose (80-116) mg/dL Calcium (8.6-10.2) mg/dL Total Bilirubin (0.1-1.3) mg/dL AST (5-25) IU/L ALT (12-36) U/L Alkaline Phosphatase (56-112) IU/L Ammonia NT-Pro-B Natriuret Pep 4757 H* (<=450) pg/mL Total Protein (6.0-8.0) g/dL Albumin (3.2-4.6) g/dL Globulin g/dL Albumin/Globulin Ratio Lipase 217 (73-393) U/L Med Orders - Current: Current Medications Hydrocodone Bitart/Acetaminophen (Acetaminophen/Hydrocodone 325-5 Mg Tab) 1 tab PO Q4H PRN PRN Reason: Pain Last Admin: 01/27/21 23:22 Dose: 1 tab Documented by: Albuterol/Ipratropium (Albuterol/Ipratropium 3.0-0.5 Mg/3 Ml Neb Soln) [address] [facility] Last Admin: 01/28/21 08:00 Dose: 3 ml Documented by: Aspirin (Aspirin 81 Mg Tab.Ec) [address] [facility] Last Admin: 01/28/21 08:00 Dose: 81 mg Documented by: Enoxaparin Sodium (Enoxaparin 30 Mg/0.3 Ml Syringe) [address] [facility] Last Admin: 01/27/21 21:06 Dose: 30 mg Documented by: Gabapentin (Gabapentin 100 Mg Cap) 100 mg PO 08,14,20 [facility] Last Admin: 01/28/21 07:57 Dose: 100 mg Documented by: Lisinopril (Lisinopril 10 Mg Tab) [address] [facility] Last Admin: 01/28/21 08:00 Dose: 10 mg Documented by: Ondansetron HCl (Ondansetron 4 Mg/2 Ml Sdv) 4 mg IV Q4H PRN PRN Reason: Nausea/Vomiting Pantoprazole Sodium (Pantoprazole 40 Mg Tab.Cr) [address] [facility] Last Admin: 01/28/21 06:53 Dose: 40 mg Documented by: Senna/Docusate Sodium (Docusate Sodium/Sennosides 50-8.6 Mg Tab) 1 tab PO BID PRN PRN Reason: Constipation Sodium Chloride (Sodium Chloride 0.9% 10 Ml Syringe) 10 ml FLUSH ASDIRECTED PRN PRN Reason: Keep Vein Open Last Admin: 01/27/21 14:22 Dose: 10 ml Documented by: Tamsulosin HCl (Tamsulosin 0.4 Mg Cap.Er) 0.[address] [facility] Last Admin: 01/27/21 21:06 Dose: 0.4 mg Documented by: Trazodone HCl (Trazodone 50 Mg Tab) [address] [facility] Last Admin: 01/27/21 21:06 Dose: 75 mg Documented by: Discontinued Medications Amlodipine Besylate (Amlodipine 5 Mg Tab) [address] [facility] Enoxaparin Sodium (Enoxaparin 30 Mg/0.3 Ml Syringe) 30 mg SUBCUT ONETIME ONE Stop: 01/24/21 23:31 Last Admin: 01/25/21 00:13 Dose: 30 mg Documented by: Sodium Chloride (Normal Saline) 1,000 mls @ 125 mls/hr IV ASDIRECTED [facility] Last Admin: 01/24/21 21:35 Dose: 125 mls/hr Documented by: Thiamine HCl 100 mg/ Sodium (Chloride) 101 mls @ 202 mls/hr IV NOW STA Stop: 01/24/21 20:40 Last Admin: 01/24/21 21:46 Dose: 202 mls/hr Documented by: Sodium Chloride (Normal Saline) 1,000 mls @ 125 mls/hr IV ASDIRECTED [facility] Last Admin: 01/25/21 11:30 Dose: 125 mls/hr Documented by: Morphine Sulfate (Morphine 2 Mg/Ml Syringe) 2 mg IVPUSH NOW STA Stop: 01/24/21 20:40 Last Admin: 01/24/21 21:41 Dose: 2 mg Documented by: Non-Formulary Medication (Omeprazole [Omeprazole]) 10 mg PO BEDTIME [facility] Ondansetron HCl (Ondansetron 4 Mg/2 Ml Sdv) 4 mg IVPUSH NOW STA Stop: 01/24/21 20:40 Last Admin: 01/24/21 21:39 Dose: 4 mg Documented by: - Exam General: Alert, Oriented HEENT: Pupils Equal Neck: Supple Lungs: Clear to Auscultation, Crackles - Patient Data Lab Results Last 24 hrs: Laboratory Results - last 24 hr 01/27/21 01/28/21 01/28/21 Range/Units 09:00 06:35 06:35 WBC 5.6 (3.2-10.1) x10-3/uL RBC 2.94 L (3.90-5.90) x10(6)uL Hgb 10.4 L (12.9-17.7) g/dL Hct 32.7 L (38.3-50.1) % MCV 110.9 H (80.8-98.7) fL MCH 35.3 H (27.0-33.3) pg MCHC 31.8 (28.7-35.3) g/dL RDW 15.4 H (12.4-15.0) % Plt Count 200 (117-477) x10(3)uL MPV 8.1 (6.7-11.0) fL Neut % (Auto) 50.8 (40.3-71.8) % Lymph % (Auto) 20.4 (15.8-45.3) % Jerome % (Auto) 17.7 H (5.5-15.2) % Eos % (Auto) 10.0 H (0.1-6.8) % Baso % (Auto) 1.1 (0.3-3.8) % Neut # (Auto) 2.9 (1.7-6.9) x10-3/uL Lymph # (Auto) 1.1 (0.5-4.5) x10-3/uL Jerome # (Auto) 1.0 (0.0-1.2) x10-3/uL Eos # (Auto) 0.6 (0.0-0.6) x10-3/uL Baso # (Auto) 0.1 (0.0-0.3) x10-3/uL Sodium 139 (135-145) mmol/L Potassium 5.7 H (3.5-5.3) mmol/L Chloride 110 D (100-110) mmol/L Carbon Dioxide 17 L (21-32) mmol/L BUN 53 H D (7-18) mg/dL Creatinine 3.0 H* (0.70-1.30) mg/dL Est Cr Clr Drug Dosing 20.58 mL/min Estimated GFR (MDRD) 21 L (>60) BUN/Creatinine Ratio 17.7 (9-20) Glucose 92 (80-116) mg/dL Calcium 7.8 L (8.6-10.2) mg/dL Total Bilirubin 0.4 (0.1-1.3) mg/dL AST 22 D (5-25) IU/L ALT 18 D (12-36) U/L Alkaline Phosphatase 66 (56-112) IU/L Ammonia <9 NT-Pro-B Natriuret Pep (<=450) pg/mL Total Protein 6.2 (6.0-8.0) g/dL Albumin 2.7 L (3.2-4.6) g/dL Globulin 3.5 g/dL Albumin/Globulin Ratio 0.8 Lipase (73-393) U/L 01/28/21 Range/Units 06:35 WBC (3.2-10.1) x10-3/uL RBC (3.90-5.90) x10(6)uL Hgb (12.9-17.7) g/dL Hct (38.3-50.1) % MCV (80.8-98.7) fL MCH (27.0-33.3) pg MCHC (28.7-35.3) g/dL RDW (12.4-15.0) % Plt Count (117-477) x10(3)uL MPV (6.7-11.0) fL Neut % (Auto) (40.3-71.8) % Lymph % (Auto) (15.8-45.3) % Jerome % (Auto) (5.5-15.2) % Eos % (Auto) (0.1-6.8) % Baso % (Auto) (0.3-3.8) % Neut # (Auto) (1.7-6.9) x10-3/uL Lymph # (Auto) (0.5-4.5) x10-3/uL Jerome # (Auto) (0.0-1.2) x10-3/uL Eos # (Auto) (0.0-0.6) x10-3/uL Baso # (Auto) (0.0-0.3) x10-3/uL Sodium (135-145) mmol/L Potassium (3.5-5.3) mmol/L Chloride (100-110) mmol/L Carbon Dioxide (21-32) mmol/L BUN (7-18) mg/dL Creatinine (0.70-1.30) mg/dL Est Cr Clr Drug Dosing mL/min Estimated GFR (MDRD) (>60) BUN/Creatinine Ratio (9-20) Glucose (80-116) mg/dL Calcium (8.6-10.2) mg/dL Total Bilirubin (0.1-1.3) mg/dL AST (5-25) IU/L ALT (12-36) U/L Alkaline Phosphatase (56-112) IU/L Ammonia NT-Pro-B Natriuret Pep 4757 H* (<=450) pg/mL Total Protein (6.0-8.0) g/dL Albumin (3.2-4.6) g/dL Globulin g/dL Albumin/Globulin Ratio Lipase 217 (73-393) U/L Result Diagrams: 01/28/21 06:35 01/28/21 06:35 Sepsis Event Note - Evaluation Sepsis Screening Result: No Definite Risk - Focused Exam Vital Signs: Vital Signs Temp Pulse Resp BP BP Pulse Ox Pulse Ox 01/28/21 08:00 97.1 F 54 L 18 116/65 116/65 97 01/28/21 02:00 97 F 55 L 18 130/45 L 99 01/28/21 01:00 99 01/28/21 00:00 18 01/27/21 21:07 55 L 97 - Problem List & Annotations (1) Alcohol abuse SNOMED Code(s): 47463470 Code(s): F10.10 - ALCOHOL ABUSE, UNCOMPLICATED Status: Acute Current Visit: No (2) Frequent falls SNOMED Code(s): 682713723 Code(s): R29.6 - REPEATED FALLS Status: Acute Current Visit: Yes (3) COPD (chronic obstructive pulmonary disease) SNOMED Code(s): 60247911 Code(s): J44.9 - CHRONIC OBSTRUCTIVE PULMONARY DISEASE, UNSPECIFIED Status: Acute Current Visit: Yes Qualifiers: COPD type: chronic bronchitis (4) Abdominal pain SNOMED Code(s): 40011557 Code(s): R10.9 - UNSPECIFIED ABDOMINAL PAIN Status: Acute Current Visit: Yes Qualifiers: Abdominal location: upper abdomen, unspecified Qualified Code(s): R10.10 - Upper abdominal pain, unspecified (5) CKD (chronic kidney disease) stage 5, GFR less than 15 ml/min SNOMED Code(s): 848654691 Code(s): N18.5 - CHRONIC KIDNEY DISEASE, STAGE 5 Status: Acute Current Visit: Yes (6) Chronic knee pain SNOMED Code(s): 6275772378 Code(s): M25.569 - PAIN IN UNSPECIFIED KNEE; G89.29 - OTHER CHRONIC PAIN Status: Acute Current Visit: No Qualifiers: Laterality: right Qualified Code(s): M25.561 - Pain in right knee; G89.29 - Other chronic pain (7) Encephalopathy SNOMED Code(s): 52667551 Code(s): G93.40 - ENCEPHALOPATHY, UNSPECIFIED Status: Acute Current Visit: No (8) HTN (hypertension) SNOMED Code(s): 62162501 Code(s): I10 - ESSENTIAL (PRIMARY) HYPERTENSION Status: Chronic Current Visit: No Qualifiers: Hypertension type: essential hypertension Qualified Code(s): I10 - Essential (primary) hypertension (9) 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 Repeat labs in AM. DC Saturday
[2021-01-28] MEDS: traZODone 50 MG Tab PO SCH (20:13)
[2021-01-28] MEDS: Tamsulosin 0.4 MG Cap.ER PO SCH (20:13)
[2021-01-28] MEDS: Enoxaparin 30 MG/0.3 ML Syringe SUBCUT SCH (20:14)
[2021-01-29] MEDS: Pantoprazole 40 MG Tab.CR PO SCH (06:30)
[2021-01-29] MEDS: Gabapentin 100 MG Cap PO SCH ×3 (08:36→20:18)
[2021-01-29] MEDS: Albuterol/Ipratropium 3.0-0.5 MG/3 ML Neb Soln INH SCH ×3 (08:36→20:18)
[2021-01-29] MEDS: Lisinopril 10 MG Tab PO SCH (08:37)
[2021-01-29] MEDS: Aspirin 81 MG Tab.EC PO SCH (08:37)
[2021-01-29] MEDS ORDERED: Thiamine 100 MG in Sodium Chloride 0.9% 100 ML IV SCH (12:00)
--- NOTE | 2021-01-29 12:01 | PCM.PN ---
- General Info Date of Service: 01/29/21 Admission Dx/Problem (Free Text): Alcohol intoxication with falls Subjective Update: Patient states that he is feeling better today. He does complain of pain in his right second DIP Functional Status: Reports: Pain Controlled, Tolerating Diet, Ambulating, Urinating - Review of Systems General: Reports: Weakness HEENT: Reports: No Symptoms Pulmonary: Reports: No Symptoms Cardiovascular: Reports: No Symptoms Gastrointestinal: Reports: No Symptoms Genitourinary: Reports: No Symptoms Musculoskeletal: Reports: Hand Pain, Leg Pain Skin: Reports: Other (Drainage from right hand second DIP) Neurological: Reports: Weakness Psychiatric: Reports: No Symptoms - Patient Data Vitals - Most Recent: Last Vital Signs Temp 36.1 C 01/29/21 08:00 Pulse 90 01/29/21 08:00 Resp 18 01/29/21 08:00 BP 125/75 01/29/21 08:37 Pulse Ox 95 01/29/21 08:00 Weight - Most Recent: 80.824 kg I&O - Last 24 Hours: Intake & Output 01/28/21 01/29/21 01/29/21 22:59 06:59 14:59 Output Total 1000 Balance -1000 Med Orders - Current: Current Medications Hydrocodone Bitart/Acetaminophen (Acetaminophen/Hydrocodone 325-5 Mg Tab) 1 tab PO Q4H PRN PRN Reason: Pain Last Admin: 01/27/21 23:22 Dose: 1 tab Documented by: Albuterol/Ipratropium (Albuterol/Ipratropium 3.0-0.5 Mg/3 Ml Neb Soln) 3 ml INH TID [facility] Last Admin: 01/29/21 08:36 Dose: 3 ml Documented by: Aspirin (Aspirin 81 Mg Tab.Ec) 81 mg PO DAILY [facility] Last Admin: 01/29/21 08:37 Dose: 81 mg Documented by: Enoxaparin Sodium (Enoxaparin 30 Mg/0.3 Ml Syringe) 30 mg SUBCUT BEDTIME [facility] Last Admin: 01/28/21 20:14 Dose: 30 mg Documented by: Febuxostat (Febuxostat 40 Mg Tab) 20 mg PO DAILY [facility] Gabapentin (Gabapentin 100 Mg Cap) 100 mg PO 08,,20 [facility] Last Admin: 01/29/21 08:36 Dose: 100 mg Documented by: Thiamine HCl 100 mg/ Sodium (Chloride) 101 mls @ 202 mls/hr IV DAILY [facility] Lisinopril (Lisinopril 10 Mg Tab) 10 mg PO DAILY [facility] Last Admin: 01/29/21 08:37 Dose: 10 mg Documented by: Multivit/Ca Carb/B Cmplx/FA/Prenat (Folic Acid/Vitamin B Complex With C Cap) 1 cap PO DAILY [facility] Ondansetron HCl (Ondansetron 4 Mg/2 Ml Sdv) 4 mg IV Q4H PRN PRN Reason: Nausea/Vomiting Pantoprazole Sodium (Pantoprazole 40 Mg Tab.Cr) 40 mg PO 0600 [facility] Last Admin: 01/29/21 06:30 Dose: 40 mg Documented by: Prednisone (Prednisone 20 Mg Tab) 20 mg PO WITHBREAKFAST [facility] Stop: 02/02/21 23:00 Senna/Docusate Sodium (Docusate Sodium/Sennosides 50-8.6 Mg Tab) 1 tab PO BID PRN PRN Reason: Constipation Sodium Chloride (Sodium Chloride 0.9% 10 Ml Syringe) 10 ml FLUSH ASDIRECTED PRN PRN Reason: Keep Vein Open Last Admin: 01/27/21 14:22 Dose: 10 ml Documented by: Tamsulosin HCl (Tamsulosin 0.4 Mg Cap.Er) 0.4 mg PO BEDTIME [facility] Last Admin: 01/28/21 20:13 Dose: 0.4 mg Documented by: Trazodone HCl (Trazodone 50 Mg Tab) 75 mg PO BEDTIME [facility] Last Admin: 01/28/21 20:13 Dose: 75 mg Documented by: Discontinued Medications Amlodipine Besylate (Amlodipine 5 Mg Tab) 5 mg PO BEDTIME [facility] Enoxaparin Sodium (Enoxaparin 30 Mg/0.3 Ml Syringe) 30 mg SUBCUT ONETIME ONE Stop: 01/24/21 23:31 Last Admin: 01/25/21 00:13 Dose: 30 mg Documented by: Sodium Chloride (Normal Saline) 1,000 mls @ 125 mls/hr IV ASDIRECTED [facility] Last Admin: 01/24/21 21:35 Dose: 125 mls/hr Documented by: Thiamine HCl 100 mg/ Sodium (Chloride) 101 mls @ 202 mls/hr IV NOW STA Stop: 01/24/21 20:40 Last Admin: 01/24/21 21:46 Dose: 202 mls/hr Documented by: Sodium Chloride (Normal Saline) 1,000 mls @ 125 mls/hr IV ASDIRECTED [facility] Last Admin: 01/25/21 11:30 Dose: 125 mls/hr Documented by: Morphine Sulfate (Morphine 2 Mg/Ml Syringe) 2 mg IVPUSH NOW STA Stop: 01/24/21 20:40 Last Admin: 01/24/21 21:41 Dose: 2 mg Documented by: Non-Formulary Medication (Omeprazole [Omeprazole]) 10 mg PO BEDTIME [facility] Ondansetron HCl (Ondansetron 4 Mg/2 Ml Sdv) 4 mg IVPUSH NOW STA Stop: 01/24/21 20:40 Last Admin: 01/24/21 21:39 Dose: 4 mg Documented by: - Exam Quality Assessment: Supplemental Oxygen, DVT Prophylaxis, Skin Breakdown General: Alert, Oriented, Cooperative, No Acute Distress HEENT: EOMI Lungs: Decreased Breath Sounds, Crackles, Rales Cardiovascular: Regular Rate, Regular Rhythm Extremities: Other (Arthritis bilateral hands, 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) Peripheral Pulses: 2+: Radial (L), Radial (R) Skin: Warm, Dry Neurological: No New Focal Deficit Psy/Mental Status: Alert, Normal Affect, Normal Mood - Patient Data Result Diagrams: 01/28/21 06:35 01/28/21 06:35 Sepsis Event Note - Evaluation Sepsis Screening Result: No Definite Risk - Focused Exam Vital Signs: Vital Signs Temp Pulse Resp BP BP Pulse Ox 01/29/21 08:37 125/75 01/29/21 08:00 36.1 C 90 18 125/75 95 01/29/21 00:00 36.9 C 56 L 18 146/61 H 98 - Problem List & Annotations (1) Alcohol intoxication SNOMED Code(s): 09800843 Code(s): F10.929 - ALCOHOL USE, UNSPECIFIED WITH INTOXICATION, UNSPECIFIED Status: Acute Current Visit: Yes Qualifiers: (2) CKD (chronic kidney disease) stage 5, GFR less than 15 ml/min SNOMED Code(s): 220962746 Code(s): N18.5 - CHRONIC KIDNEY DISEASE, STAGE 5 Status: Chronic Current Visit: Yes (3) COPD (chronic obstructive pulmonary disease) SNOMED Code(s): 38186201 Code(s): J44.9 - CHRONIC OBSTRUCTIVE PULMONARY DISEASE, UNSPECIFIED Status: Chronic Current Visit: Yes Qualifiers: COPD type: chronic bronchitis (4) 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 (7) Alcohol abuse SNOMED Code(s): 78174956 Code(s): F10.10 - ALCOHOL ABUSE, UNCOMPLICATED Status: Acute Current Visit: No (8) Chronic knee pain SNOMED Code(s): 3512342991 Code(s): M25.569 - PAIN IN UNSPECIFIED KNEE; G89.29 - OTHER CHRONIC PAIN Status: Chronic Current Visit: No Qualifiers: Laterality: right Qualified Code(s): M25.561 - Pain in right knee; G89.29 - Other chronic pain (9) Elevated BUN SNOMED Code(s): 359789817 Code(s): R79.9 - ABNORMAL FINDING OF BLOOD CHEMISTRY, UNSPECIFIED Status: Acute Current Visit: No (10) Encephalopathy SNOMED Code(s): 72274015 Code(s): G93.40 - ENCEPHALOPATHY, UNSPECIFIED Status: Acute Current Visit: No (11) Hyperkalemia SNOMED Code(s): 90387791 Code(s): E87.5 - HYPERKALEMIA Status: Acute Current Visit: No (12) Musculoskeletal pain SNOMED Code(s): 930350954 Code(s): M79.18 - MYALGIA, OTHER SITE Status: Acute Current Visit: No (13) HTN (hypertension) SNOMED Code(s): 85227422 Code(s): I10 - ESSENTIAL (PRIMARY) HYPERTENSION Status: Chronic Current Visit: No Qualifiers: Hypertension type: essential hypertension Qualified Code(s): I10 - Essential (primary) hypertension (14) Gout SNOMED Code(s): 33387777 Code(s): M10.9 - GOUT, UNSPECIFIED Status: Chronic Current Visit: Yes (15) Gout attack SNOMED Code(s): 637017792 Code(s): M10.9 - GOUT, UNSPECIFIED Status: Acute Current Visit: Yes - Problem List Review Problem List Initiated/Reviewed/Updated: Yes - My Orders Last 24 Hours: My Active Orders 01/29/21 10:48 OCCULT BLOOD SCREEN [OP] Routine 01/29/21 11:09 Consult to Physician [CONS] Routine 01/29/21 11:12 Notify Provider Consults [RC] ASDIRECTED 01/29/21 11:21 Hand Comp Min 3V Rt [CR] Routine 01/29/21 12:00 Febuxostat [Uloric] 20 mg PO DAILY Folic Acid/Vitamin B Comp W-C [Renal Caps Softgel] 1 cap PO DAILY Thiamine [Vitamin B-1] 100 mg Sodium Chloride 0.9% [Normal Saline] 100 ml IV DAILY predniSONE 20 mg PO WITHBREAKFAST 01/30/21 BASIC METABOLIC PANEL,BMP [CHEM] Routine CBC WITH AUTO DIFF [HEME] Routine - Plan Plan:: Continue PT/OT. Creatinine improved. 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 Start febuxostat at 20 mg daily due to renal failure. Uric acid today was 11.3. Appreciate consultation from Dr. Reyez. DVT prophylaxis with enoxaparin at renal dosing, 30 mg daily subcu Start daily vitamins including thiamine, folic acid, B vitamins Stool occult blood due to decreasing hemoglobin, monitor labs
--- NOTE | 2021-01-29 12:03 | CONS ---
DATE OF CONSULTATION: 01/29/2021 HISTORY: This 75-year-old gentleman was seen in consultation from Dr. Chu Clayton for evaluation of right index finger DIP joint pain, swelling, and recent drainage. He was admitted to the hospital through the emergency room on 01/24 because of weakness and falling. Yesterday, the nurse noted that his right index finger distal joint was very swollen and did have some whitish drainage. He is also complaining of pain and tenderness. He has not had any fever, sweats, or chills. Exam today reveals a slightly swollen right index finger DIP joint with a healed dry skin on the surface without any evidence of infection. All of his joints in his hands, especially the distal joints have evidence of osteoarthritis. The right index finger, however, is slightly more swollen and has some nodules that would be suspicious for gout. In reviewing his records in [facility], he does have a history of gout and was hospitalized in 2019 with right ankle gout. His uric acid level was elevated at that time. ASSESSMENT: Right index finger pain and swelling. PLAN: Findings reviewed with Dr. Clayton and his exam is not suspicious for infection, but more consistent with gout. X-ray will be obtained. Uric acid level will be checked. Dr. Clayton will check for medical treatment given his chronic kidney disease and likely give him some prednisone. No antibiotics are indicated at this time. /[id number] BINH/DAVID
[2021-01-29] MEDS: predniSONE 20 MG Tab PO SCH (13:54)
[2021-01-29] MEDS: Folic Acid/Vitamin B Complex With C Cap PO SCH (14:30)
[2021-01-29] MEDS: Febuxostat 40 MG Tab PO SCH (14:30)
[2021-01-29] MEDS: traZODone 50 MG Tab PO SCH (20:18)
[2021-01-29] MEDS: Enoxaparin 30 MG/0.3 ML Syringe SUBCUT SCH (20:18)
[2021-01-29] MEDS: Tamsulosin 0.4 MG Cap.ER PO SCH (20:18)
[2021-01-30] MEDS: Acetaminophen/HYDROcodone 325-5 MG Tab PO PRN ×2 (02:10→20:38)
[2021-01-30] MEDS: Pantoprazole 40 MG Tab.CR PO SCH (06:30)
[2021-01-30] MEDS: Aspirin 81 MG Tab.EC PO SCH (08:20)
[2021-01-30] MEDS: Albuterol/Ipratropium 3.0-0.5 MG/3 ML Neb Soln INH SCH ×3 (08:20→20:36)
[2021-01-30] MEDS: Gabapentin 100 MG Cap PO SCH ×3 (08:20→20:37)
[2021-01-30] MEDS: predniSONE 20 MG Tab PO SCH (08:24)
[2021-01-30] MEDS: Thiamine 100 MG Tab PO SCH (08:45)
[2021-01-30] MEDS: Folic Acid/Vitamin B Complex With C Cap PO SCH (08:45)
[2021-01-30] MEDS: Febuxostat 40 MG Tab PO SCH (08:45)
--- NOTE | 2021-01-30 11:03 | PCM.PN ---
- General Info Date of Service: 01/30/21 Admission Dx/Problem (Free Text): Alcohol intoxication with falls Subjective Update: Patient states that he is feeling better today but still weak Functional Status: Reports: Pain Controlled, Tolerating Diet, Ambulating, Urinating - Review of Systems General: Reports: Weakness, Fatigue HEENT: Reports: No Symptoms Pulmonary: Reports: No Symptoms Cardiovascular: Reports: No Symptoms Gastrointestinal: Reports: No Symptoms Genitourinary: Reports: No Symptoms Musculoskeletal: Reports: No Symptoms Skin: Reports: No Symptoms Neurological: Reports: Weakness Psychiatric: Reports: No Symptoms - Patient Data Vitals - Most Recent: Last Vital Signs Temp 36.4 C 01/30/21 08:00 Pulse 83 01/30/21 09:00 Resp 18 01/30/21 08:00 BP 94/59 L 01/30/21 08:00 Pulse Ox 97 01/30/21 08:00 Weight - Most Recent: 80.796 kg I&O - Last 24 Hours: Intake & Output 01/29/21 01/30/21 01/30/21 22:59 06:59 14:59 Intake Total 240 Output Total 400 Balance 240 -400 Lab Results Last 24 Hours: Laboratory Results - last 24 hr 01/28/21 01/30/21 01/30/21 Range/Units 06:10 06:45 06:45 WBC 8.4 (3.2-10.1) x10-3/uL RBC 3.18 L (3.90-5.90) x10(6)uL Hgb 11.3 L (12.9-17.7) g/dL Hct 34.4 L (38.3-50.1) % MCV 108.3 H (80.8-98.7) fL MCH 35.7 H (27.0-33.3) pg MCHC 33.0 (28.7-35.3) g/dL RDW 15.6 H (12.4-15.0) % Plt Count 284 (117-477) x10(3)uL MPV 7.6 (6.7-11.0) fL Neut % (Auto) 76.3 H (40.3-71.8) % Lymph % (Auto) 10.8 L (15.8-45.3) % Preston % (Auto) 12.0 (5.5-15.2) % Eos % (Auto) 0.1 (0.1-6.8) % Baso % (Auto) 0.8 (0.3-3.8) % Neut # (Auto) 6.4 (1.7-6.9) x10-3/uL Lymph # (Auto) 0.9 (0.5-4.5) x10-3/uL Preston # (Auto) 1.0 (0.0-1.2) x10-3/uL Eos # (Auto) 0.0 (0.0-0.6) x10-3/uL Baso # (Auto) 0.1 (0.0-0.3) x10-3/uL Sodium 139 (135-145) mmol/L Potassium 5.8 H (3.5-5.3) mmol/L Chloride 107 (100-110) mmol/L Carbon Dioxide 19 L (21-32) mmol/L BUN 41 H D (7-18) mg/dL Creatinine 3.2 H* (0.70-1.30) mg/dL Est Cr Clr Drug Dosing 19.30 mL/min Estimated GFR (MDRD) 19 L (>60) BUN/Creatinine Ratio 12.8 (9-20) Glucose 121 H (80-116) mg/dL Uric Acid 11.2 H* (2.6-6.0) mg/dL Calcium 8.0 L (8.6-10.2) mg/dL Ross Results Last 24 Hours: Microbiology 01/29/21 14:25 Occult Blood - Preliminary Stool / Feces Med Orders - Current: Current Medications Hydrocodone Bitart/Acetaminophen (Acetaminophen/Hydrocodone 325-5 Mg Tab) 1 tab PO Q4H PRN PRN Reason: Pain Last Admin: 01/30/21 02:10 Dose: 1 tab Documented by: Albuterol/Ipratropium (Albuterol/Ipratropium 3.0-0.5 Mg/3 Ml Neb Soln) 3 ml INH TID [facility] Last Admin: 01/30/21 08:20 Dose: 3 ml Documented by: Aspirin (Aspirin 81 Mg Tab.Ec) 81 mg PO DAILY [facility] Last Admin: 01/30/21 08:20 Dose: 81 mg Documented by: Enoxaparin Sodium (Enoxaparin 30 Mg/0.3 Ml Syringe) 30 mg SUBCUT BEDTIME [facility] Last Admin: 01/29/21 20:18 Dose: 30 mg Documented by: Febuxostat (Febuxostat 40 Mg Tab) 20 mg PO DAILY [facility] Last Admin: 01/30/21 08:45 Dose: 20 mg Documented by: Gabapentin (Gabapentin 100 Mg Cap) 100 mg PO 08,14,20 [facility] Last Admin: 01/30/21 08:20 Dose: 100 mg Documented by: Lisinopril (Lisinopril 10 Mg Tab) 10 mg PO DAILY [facility] Last Admin: 01/29/21 08:37 Dose: 10 mg Documented by: Multivit/Ca Carb/B Cmplx/FA/Prenat (Folic Acid/Vitamin B Complex With C Cap) 1 cap PO DAILY [facility] Last Admin: 01/30/21 08:45 Dose: 1 cap Documented by: Ondansetron HCl (Ondansetron 4 Mg/2 Ml Sdv) 4 mg IV Q4H PRN PRN Reason: Nausea/Vomiting Pantoprazole Sodium (Pantoprazole 40 Mg Tab.Cr) 40 mg PO 0600 [facility] Last Admin: 01/30/21 06:30 Dose: 40 mg Documented by: Prednisone (Prednisone 20 Mg Tab) 20 mg PO WITHBREAKFAST [facility] Stop: 02/02/21 23:00 Last Admin: 01/30/21 08:24 Dose: 20 mg Documented by: Senna/Docusate Sodium (Docusate Sodium/Sennosides 50-8.6 Mg Tab) 1 tab PO BID PRN PRN Reason: Constipation Sodium Chloride (Sodium Chloride 0.9% 10 Ml Syringe) 10 ml FLUSH ASDIRECTED PRN PRN Reason: Keep Vein Open Last Admin: 01/27/21 14:22 Dose: 10 ml Documented by: Tamsulosin HCl (Tamsulosin 0.4 Mg Cap.Er) 0.4 mg PO BEDTIME [facility] Last Admin: 01/29/21 20:18 Dose: 0.4 mg Documented by: Thiamine HCl (Thiamine 100 Mg Tab) 100 mg PO DAILY [facility] Last Admin: 01/30/21 08:45 Dose: 100 mg Documented by: Trazodone HCl (Trazodone 50 Mg Tab) 75 mg PO BEDTIME [facility] Last Admin: 01/29/21 20:18 Dose: 75 mg Documented by: Discontinued Medications Amlodipine Besylate (Amlodipine 5 Mg Tab) 5 mg PO BEDTIME [facility] Enoxaparin Sodium (Enoxaparin 30 Mg/0.3 Ml Syringe) 30 mg SUBCUT ONETIME ONE Stop: 01/24/21 23:31 Last Admin: 01/25/21 00:13 Dose: 30 mg Documented by: Sodium Chloride (Normal Saline) 1,000 mls @ 125 mls/hr IV ASDIRECTED [facility] Last Admin: 01/24/21 21:35 Dose: 125 mls/hr Documented by: Thiamine HCl 100 mg/ Sodium (Chloride) 101 mls @ 202 mls/hr IV NOW STA Stop: 01/24/21 20:40 Last Admin: 01/24/21 21:46 Dose: 202 mls/hr Documented by: Sodium Chloride (Normal Saline) 1,000 mls @ 125 mls/hr IV ASDIRECTED [facility] Last Admin: 01/25/21 11:30 Dose: 125 mls/hr Documented by: Thiamine HCl 100 mg/ Sodium (Chloride) 101 mls @ 202 mls/hr IV DAILY [facility] Last Admin: 01/29/21 13:55 Dose: 202 mls/hr Documented by: Morphine Sulfate (Morphine 2 Mg/Ml Syringe) 2 mg IVPUSH NOW STA Stop: 01/24/21 20:40 Last Admin: 01/24/21 21:41 Dose: 2 mg Documented by: Non-Formulary Medication (Omeprazole [Omeprazole]) 10 mg PO BEDTIME [facility] Ondansetron HCl (Ondansetron 4 Mg/2 Ml Sdv) 4 mg IVPUSH NOW STA Stop: 01/24/21 20:40 Last Admin: 01/24/21 21:39 Dose: 4 mg Documented by: Comments:: Patient was standing next to the bed with physical therapy attending to him and performing orthostatic blood pressure checks. Physical therapy reports that he was hypotensive while supine but while standing his blood pressure and heart rate both increased and that he was tachycardic. Blood pressure in the right [id number]/87 with pulse rate of 90, blood pressure in the left arm 124/90 with pulse rate of 55. - Exam Quality Assessment: Supplemental Oxygen, DVT Prophylaxis, Skin Breakdown General: Alert, Oriented, Cooperative, No Acute Distress Lungs: Clear to Auscultation Cardiovascular: Regular Rhythm, Tachycardia, Gallops Extremities: Normal Inspection Skin: Warm, Dry Neurological: No New Focal Deficit Psy/Mental Status: Alert, Normal Affect, Normal Mood - Patient Data Lab Results Last 24 hrs: Laboratory Results - last 24 hr 01/28/21 01/30/21 01/30/21 Range/Units 06:10 06:45 06:45 WBC 8.4 (3.2-10.1) x10-3/uL RBC 3.18 L (3.90-5.90) x10(6)uL Hgb 11.3 L (12.9-17.7) g/dL Hct 34.4 L (38.3-50.1) % MCV 108.3 H (80.8-98.7) fL MCH 35.7 H (27.0-33.3) pg MCHC 33.0 (28.7-35.3) g/dL RDW 15.6 H (12.4-15.0) % Plt Count 284 (117-477) x10(3)uL MPV 7.6 (6.7-11.0) fL Neut % (Auto) 76.3 H (40.3-71.8) % Lymph % (Auto) 10.8 L (15.8-45.3) % Preston % (Auto) 12.0 (5.5-15.2) % Eos % (Auto) 0.1 (0.1-6.8) % Baso % (Auto) 0.8 (0.3-3.8) % Neut # (Auto) 6.4 (1.7-6.9) x10-3/uL Lymph # (Auto) 0.9 (0.5-4.5) x10-3/uL Preston # (Auto) 1.0 (0.0-1.2) x10-3/uL Eos # (Auto) 0.0 (0.0-0.6) x10-3/uL Baso # (Auto) 0.1 (0.0-0.3) x10-3/uL Sodium 139 (135-145) mmol/L Potassium 5.8 H (3.5-5.3) mmol/L Chloride 107 (100-110) mmol/L Carbon Dioxide 19 L (21-32) mmol/L BUN 41 H D (7-18) mg/dL Creatinine 3.2 H* (0.70-1.30) mg/dL Est Cr Clr Drug Dosing 19.30 mL/min Estimated GFR (MDRD) 19 L (>60) BUN/Creatinine Ratio 12.8 (9-20) Glucose 121 H (80-116) mg/dL Uric Acid 11.2 H* (2.6-6.0) mg/dL Calcium 8.0 L (8.6-10.2) mg/dL Result Diagrams: 01/30/21 06:45 01/30/21 06:45 Ross Results Last 24 hrs: Microbiology 01/29/21 14:25 Occult Blood - Preliminary Stool / Feces Sepsis Event Note - Evaluation Sepsis Screening Result: No Definite Risk - Focused Exam Vital Signs: Vital Signs Temp Pulse Resp BP Pulse Ox 01/30/21 09:00 83 01/30/21 08:00 36.4 C 81 18 94/59 L 97 01/30/21 00:00 36.8 C 58 L 16 120/90 98 01/29/21 23:00 97 - Problem List & Annotations (1) Alcohol intoxication SNOMED Code(s): 13200298 Code(s): F10.929 - ALCOHOL USE, UNSPECIFIED WITH INTOXICATION, UNSPECIFIED Status: Acute Current Visit: Yes Qualifiers: (2) CKD (chronic kidney disease) stage 5, GFR less than 15 ml/min SNOMED Code(s): 404889553 Code(s): N18.5 - CHRONIC KIDNEY DISEASE, STAGE 5 Status: Chronic Current Visit: Yes (3) COPD (chronic obstructive pulmonary disease) SNOMED Code(s): 59707591 Code(s): J44.9 - CHRONIC OBSTRUCTIVE PULMONARY DISEASE, UNSPECIFIED Status: Chronic Current Visit: Yes Qualifiers: COPD type: chronic bronchitis (4) 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 (7) Alcohol abuse SNOMED Code(s): 36393889 Code(s): F10.10 - ALCOHOL ABUSE, UNCOMPLICATED Status: Acute Current Visit: No (8) Chronic knee pain SNOMED Code(s): 4132330857 Code(s): M25.569 - PAIN IN UNSPECIFIED KNEE; G89.29 - OTHER CHRONIC PAIN Status: Chronic Current Visit: No Qualifiers: Laterality: right Qualified Code(s): M25.561 - Pain in right knee; G89.29 - Other chronic pain (9) Elevated BUN SNOMED Code(s): 374605155 Code(s): R79.9 - ABNORMAL FINDING OF BLOOD CHEMISTRY, UNSPECIFIED Status: Acute Current Visit: No (10) Encephalopathy SNOMED Code(s): 82145690 Code(s): G93.40 - ENCEPHALOPATHY, UNSPECIFIED Status: Acute Current Visit: No (11) Hyperkalemia SNOMED Code(s): 24713224 Code(s): E87.5 - HYPERKALEMIA Status: Acute Current Visit: No (12) Musculoskeletal pain SNOMED Code(s): 272031205 Code(s): M79.18 - MYALGIA, OTHER SITE Status: Acute Current Visit: No (13) HTN (hypertension) SNOMED Code(s): 15146253 Code(s): I10 - ESSENTIAL (PRIMARY) HYPERTENSION Status: Chronic Current Visit: No Qualifiers: Hypertension type: essential hypertension Qualified Code(s): I10 - Essential (primary) hypertension (14) Gout SNOMED Code(s): 52807151 Code(s): M10.9 - GOUT, UNSPECIFIED Status: Chronic Current Visit: Yes (15) Gout attack SNOMED Code(s): 553272270 Code(s): M10.9 - GOUT, UNSPECIFIED Status: Acute Current Visit: Yes - Problem List Review Problem List Initiated/Reviewed/Updated: Yes - My Orders Last 24 Hours: My Active Orders 01/29/21 11:09 Consult to Physician [CONS] Routine 01/29/21 11:12 Notify Provider Consults [RC] ASDIRECTED 01/29/21 11:21 Hand Comp Min 3V Rt [CR] Routine 01/29/21 12:00 Febuxostat [Uloric] 20 mg PO DAILY Folic Acid/Vitamin B Comp W-C [Renal Caps Softgel] 1 cap PO DAILY predniSONE 20 mg PO WITHBREAKFAST 01/29/21 14:25 OCCULT BLOOD SCREEN [OP] Routine 01/30/21 09:00 Thiamine [Vitamin B-1] 100 mg PO DAILY - Plan Plan:: Continue PT/OT. Creatinine stable Patient has draining gouty tophi - febuxostat at 20 mg daily due to renal failure. Uric acid was 11.3. Appreciate consultation from Dr. Reyez. DVT prophylaxis with enoxaparin at renal dosing, 30 mg daily subcu Start daily vitamins including thiamine, folic acid, B vitamins Stool occult blood is negative and hemoglobin continues to improve Patient found to be hypotensive while supine. Orthostatic pressures show that the patient's blood pressure and heart rate improved and that he is actually tachycardic while sitting and standing after 3 minutes. However, blood pressure taken in both arms shows that the patient likely has peripheral vascular disease with blood pressure in the right arm 156/87, pulse rate 90 and blood pressure in the left arm 124/90, pulse rate 55. Patient will consider if he wants referral to vascular surgery. It is notable that the patient does not complain of any weakness. Disposition: Patient will likely be discharged back to his assisted living with proper support in place tomorrow
--- NOTE | 2021-01-30 12:19 | CR ---
INDICATION: Arthritis, painful right DIP. RIGHT HAND: Three views of the right hand were obtained 01/29/21 - no comparison. Severe osteoarthritic appearing changes are noted at the first metacarpocarpal joint, possibly on the basis of posttraumatic osteoarthritis with multiple tiny calcific or bony fragments noted adjacent to the joint medially especially. Mild degenerative changes are noted at the interphalangeal joint of the thumb and probably at the second and third metacarpophalangeal joints with minimal degenerative changes at the first metacarpophalangeal joint. Degenerative changes are also noted at the DIPJs of the second and third fingers and at the fifth. Degenerative changes of milder degree are noted at the PIPJs of the second, third and fourth fingers. Degenerative changes are also noted of mild degree at the naviculomultangular joints and at the radiocarpal joint to a minimal degree. A definite acute fracture or dislocation was not identified. IMPRESSION: Osteoarthritis. MTDD
[2021-01-30] MEDS: Lisinopril 10 MG Tab PO SCH (14:00)
[2021-01-30] MEDS: Enoxaparin 30 MG/0.3 ML Syringe SUBCUT SCH (20:37)
[2021-01-30] MEDS: Tamsulosin 0.4 MG Cap.ER PO SCH (20:37)
[2021-01-30] MEDS: traZODone 50 MG Tab PO SCH (20:38)
[2021-01-31] MEDS: Acetaminophen/HYDROcodone 325-5 MG Tab PO PRN ×2 (00:42→05:22)
[2021-01-31] MEDS: Pantoprazole 40 MG Tab.CR PO SCH (05:22)
[2021-01-31] MEDS: predniSONE 20 MG Tab PO SCH (08:58)
[2021-01-31] MEDS: Albuterol/Ipratropium 3.0-0.5 MG/3 ML Neb Soln INH SCH (08:59)
[2021-01-31] MEDS: Aspirin 81 MG Tab.EC PO SCH (08:59)
[2021-01-31] MEDS: Febuxostat 40 MG Tab PO SCH (08:59)
[2021-01-31] MEDS: Folic Acid/Vitamin B Complex With C Cap PO SCH (09:00)
[2021-01-31] MEDS: Thiamine 100 MG Tab PO SCH (09:00)
[2021-01-31] MEDS: Gabapentin 100 MG Cap PO SCH (09:03)
--- NOTE | 2021-01-31 10:22 | PCM.DCSUM1 ---
Discharge Summary - Hospital Course Free Text/Narrative:: 75-year-old gentleman was admitted through the emergency department after being evaluated with weakness, falls, and alcohol intoxication. Evaluation in the emergency department showed blood alcohol of 0.15 and acute on chronic kidney injury. He was admitted for treatment of alcohol withdrawal and for physical and Occupational Therapy. Patient's condition improved, acute kidney injury resolved, patient is stable for discharge to home with home PT/OT. During the patient's stay he had an acute discharge from the right second digit DIP. This was found to be a gouty tophi discharge. Patient was given prednisone 20 mg daily and will be discharged to finish a 5-day course. He was also started on febuxostat 20 mg daily for gout treatment. Patient's blood pressure has been labile during his stay with some blood pressure readings as low as the upper 80s systolic and some as high as upper 140s systolic. Due to chronic kidney failure and labile blood pressure lisinopril has been stopped. Patient will follow up with his primary care provider to address ongoing gout treatment and blood pressure control. HPI Initial Comments: See admission HPI. Recurrent falls, weakness, elevated blood alcohol Diagnosis: Stroke: No - Discharge Data Discharge Date: 01/31/21 Discharge Disposition: Home, W Home Health Agency 06 Condition: Fair - Referral to Home Health Date of Face to Face Encounter: 01/31/21 Reason for Homebound Status: weakness Primary Care Physician: Trish Roberts NP Skilled Need: FDC, occupational and physical therapy - Discharge Diagnosis/Problem(s) (1) Alcohol intoxication SNOMED Code(s): 32325078 ICD Code: F10.929 - ALCOHOL USE, UNSPECIFIED WITH INTOXICATION, UNSPECIFIED Status: Resolved Current Visit: Yes Qualifiers: (2) CKD (chronic kidney disease) stage 5, GFR less than 15 ml/min SNOMED Code(s): 526933210 ICD Code: N18.5 - CHRONIC KIDNEY DISEASE, STAGE 5 Status: Chronic Current Visit: Yes (3) COPD (chronic obstructive pulmonary disease) SNOMED Code(s): 54862123 ICD Code: J44.9 - CHRONIC OBSTRUCTIVE PULMONARY DISEASE, UNSPECIFIED Status: Chronic Current Visit: Yes Qualifiers: COPD type: chronic bronchitis (4) 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 Qualifiers: Chronic kidney disease stage: stage 4 (severe) (7) Alcohol abuse SNOMED Code(s): 25739729 ICD Code: F10.10 - ALCOHOL ABUSE, UNCOMPLICATED Status: Chronic Current Visit: No (8) Chronic knee pain SNOMED Code(s): 3301555678 ICD Code: M25.569 - PAIN IN UNSPECIFIED KNEE; G89.29 - OTHER CHRONIC PAIN Status: Chronic Current Visit: No Qualifiers: Laterality: right Qualified Code(s): M25.561 - Pain in right knee; G89.29 - Other chronic pain (9) Elevated BUN SNOMED Code(s): 047708506 ICD Code: R79.9 - ABNORMAL FINDING OF BLOOD CHEMISTRY, UNSPECIFIED Status: Acute Current Visit: No (10) Encephalopathy SNOMED Code(s): 01436250 ICD Code: G93.40 - ENCEPHALOPATHY, UNSPECIFIED Status: Resolved Current Visit: No (11) Hyperkalemia SNOMED Code(s): 40530067 ICD Code: E87.5 - HYPERKALEMIA Status: Resolved Current Visit: No (12) Musculoskeletal pain SNOMED Code(s): 629312801 ICD Code: M79.18 - MYALGIA, OTHER SITE Status: Chronic Current Visit: No (13) HTN (hypertension) SNOMED Code(s): 35058224 ICD Code: I10 - ESSENTIAL (PRIMARY) HYPERTENSION Status: Chronic Current Visit: No Qualifiers: Hypertension type: essential hypertension Qualified Code(s): I10 - Essential (primary) hypertension (14) Gout SNOMED Code(s): 97930507 ICD Code: M10.9 - GOUT, UNSPECIFIED Status: Chronic Current Visit: Yes (15) Gout attack SNOMED Code(s): 181966536 ICD Code: M10.9 - GOUT, UNSPECIFIED Status: Acute Current Visit: Yes - Patient Summary/Data Consults: Consultations 01/24/21 23:02 OT Evaluation and Treatment [CONS] Routine Please Evaluate and Treat. OT Reason for Consult: Discharge Planning This query below is only for informational purposes and is not editable. PT Evaluation and Treatment [CONS] Routine Please Evaluate and Treat. PT Reason for Consult: Strengthening,Balance This query below is only for informational purposes and is not editable. 01/29/21 11:09 Consult to Physician [CONS] Routine Consulting Provider: Roni Reyez Call Completed to Consulting Physician: Yes - Patient Instructions Diet: No Alcoholic Beverages, Renal Diet Activity: As Tolerated Showering/Bathing: May Shower - Discharge Plan *PRESCRIPTION DRUG MONITORING PROGRAM REVIEWED*: Not Applicable *COPY OF PRESCRIPTION DRUG MONITORING REPORT IN PATIENT SOTERO: Not Applicable Prescriptions/Med Rec: predniSONE 20 mg PO WITHBREAKFAST 3 Days #3 tablet Febuxostat [Uloric] 20 mg PO DAILY 30 Days #30 tablet Thiamine [Vitamin B-1] 100 mg PO DAILY 30 Days #30 tablet Home Medications: Home Meds traZODone HCl [Trazodone HCl] 75 mg PO BEDTIME 02/12/19 [History] Albuterol Sulfate [Albuterol Sulfate Hfa] 2 puff INH Q4H PRN 10/01/19 [History] Albuterol/Ipratropium [DuoNeb 3.0-0.5 MG/3 ML] 3 ml INH Q4H PRN 10/01/19 [Hi story] Aspirin [Halfprin] 81 mg PO DAILY 10/01/19 [History] Cyclobenzaprine [Flexeril] 10 mg PO Q8H PRN #15 tab 10/01/19 [Rx] Gabapentin [Neurontin] 100 mg PO ,,10/01/19 [History] Tamsulosin HCl [Flomax] 0.4 mg PO BEDTIME 03/25/20 [History] polyethylene glycoL 3350 [Miralax] 17 g PO Q48H 03/25/20 [History] Furosemide [Lasix] 20 mg PO DAILY 10/06/20 [History] Omeprazole 10 mg PO BEDTIME 10/06/20 [History] Loratadine [Claritin] 10 mg PO DAILY 01/25/21 [History] Febuxostat [Uloric] 20 mg PO DAILY 30 Days #30 tablet 01/31/21 [Rx] Thiamine [Vitamin B-1] 100 mg PO DAILY 30 Days #30 tablet 01/31/21 [Rx] predniSONE 20 mg PO WITHBREAKFAST 3 Days #3 tablet 01/31/21 [Rx] Patient Handouts: Fall Prevention in Hospitals, Adult, Venous Thromboembolism Prevention Forms: ED Department Discharge Referrals: Trish Roberts NP [Primary Care Provider] - - Discharge Summary/Plan Comment DC Time >30 min.: Yes - General Info Date of Service: 01/31/21 Admission Dx/Problem (Free Text: Alcohol intoxication with falls Subjective Update: Patient states that overall he is feeling much better and is ready to go home. He still has concerns over his blood pressure medication and the gouty discharge from his right second finger. - Review of Systems General: Reports: Weakness HEENT: Reports: No Symptoms Pulmonary: Reports: No Symptoms Cardiovascular: Reports: No Symptoms Gastrointestinal: Reports: No Symptoms Genitourinary: Reports: No Symptoms Musculoskeletal: Reports: Hand Pain Skin: Reports: No Symptoms Neurological: Reports: No Symptoms Psychiatric: Reports: No Symptoms - Patient Data Vitals - Most Recent: Last Vital Signs Temp 36.6 C 01/31/21 00:40 Pulse 64 01/31/21 00:40 Resp 20 01/31/21 00:40 BP 130/70 01/31/21 04:00 Pulse Ox 94 L 01/31/21 00:40 Orthostatic Blood Pressure [ 132/72 Standing] Orthostatic Blood Pressure [ 147/82 Sitting] Orthostatic Blood Pressure [ 87/57 Supine] Weight - Most Recent: 81.329 kg I&O - Last 24 hours: Intake & Output 01/30/21 01/31/21 01/31/21 22:59 06:59 14:59 Intake Total 480 Output Total 400 200 300 Balance -400 -200 180 Med Orders - Current: Current Medications Hydrocodone Bitart/Acetaminophen (Acetaminophen/Hydrocodone 325-5 Mg Tab) 1 tab PO Q4H PRN PRN Reason: Pain Last Admin: 01/31/21 05:22 Dose: 1 tab Documented by: Albuterol/Ipratropium (Albuterol/Ipratropium 3.0-0.5 Mg/3 Ml Neb Soln) 3 ml INH TID GENO Last Admin: 01/31/21 08:59 Dose: Not Given Documented by: Aspirin (Aspirin 81 Mg Tab.Ec) 81 mg PO DAILY [facility] Last Admin: 01/31/21 08:59 Dose: 81 mg Documented by: Enoxaparin Sodium (Enoxaparin 30 Mg/0.3 Ml Syringe) 30 mg SUBCUT BEDTIME [facility] Last Admin: 01/30/21 20:37 Dose: 30 mg Documented by: Febuxostat (Febuxostat 40 Mg Tab) 20 mg PO DAILY [facility] Last Admin: 01/31/21 08:59 Dose: 20 mg Documented by: Gabapentin (Gabapentin 100 Mg Cap) 100 mg PO 08,,20 [facility] Last Admin: 01/31/21 09:03 Dose: 100 mg Documented by: Multivit/Ca Carb/B Cmplx/FA/Prenat (Folic Acid/Vitamin B Complex With C Cap) 1 cap PO DAILY [facility] Last Admin: 01/31/21 09:00 Dose: 1 cap Documented by: Ondansetron HCl (Ondansetron 4 Mg/2 Ml Sdv) 4 mg IV Q4H PRN PRN Reason: Nausea/Vomiting Pantoprazole Sodium (Pantoprazole 40 Mg Tab.Cr) 40 mg PO 0600 [facility] Last Admin: 01/31/21 05:22 Dose: 40 mg Documented by: Prednisone (Prednisone 20 Mg Tab) 20 mg PO WITHBREAKFAST [facility] Stop: 02/02/21 23:00 Last Admin: 01/31/21 08:58 Dose: 20 mg Documented by: Senna/Docusate Sodium (Docusate Sodium/Sennosides 50-8.6 Mg Tab) 1 tab PO BID PRN PRN Reason: Constipation Sodium Chloride (Sodium Chloride 0.9% 10 Ml Syringe) 10 ml FLUSH ASDIRECTED PRN PRN Reason: Keep Vein Open Last Admin: 01/27/21 14:22 Dose: 10 ml Documented by: Tamsulosin HCl (Tamsulosin 0.4 Mg Cap.Er) 0.4 mg PO BEDTIME [facility] Last Admin: 01/30/21 20:37 Dose: 0.4 mg Documented by: Thiamine HCl (Thiamine 100 Mg Tab) 100 mg PO DAILY [facility] Last Admin: 01/31/21 09:00 Dose: 100 mg Documented by: Trazodone HCl (Trazodone 50 Mg Tab) 75 mg PO BEDTIME [facility] Last Admin: 01/30/21 20:38 Dose: 75 mg Documented by: Discontinued Medications Amlodipine Besylate (Amlodipine 5 Mg Tab) 5 mg PO BEDTIME [facility] Enoxaparin Sodium (Enoxaparin 30 Mg/0.3 Ml Syringe) 30 mg SUBCUT ONETIME ONE Stop: 01/24/21 23:31 Last Admin: 01/25/21 00:13 Dose: 30 mg Documented by: Sodium Chloride (Normal Saline) 1,000 mls @ 125 mls/hr IV ASDIRECTED [facility] Last Admin: 01/24/21 21:35 Dose: 125 mls/hr Documented by: Thiamine HCl 100 mg/ Sodium (Chloride) 101 mls @ 202 mls/hr IV NOW STA Stop: 01/24/21 20:40 Last Admin: 01/24/21 21:46 Dose: 202 mls/hr Documented by: Sodium Chloride (Normal Saline) 1,000 mls @ 125 mls/hr IV ASDIRECTED [facility] Last Admin: 01/25/21 11:30 Dose: 125 mls/hr Documented by: Thiamine HCl 100 mg/ Sodium (Chloride) 101 mls @ 202 mls/hr IV DAILY [facility] Last Admin: 01/29/21 13:55 Dose: 202 mls/hr Documented by: Lisinopril (Lisinopril 10 Mg Tab) 10 mg PO DAILY [facility] Last Admin: 01/30/21 14:00 Dose: Not Given Documented by: Morphine Sulfate (Morphine 2 Mg/Ml Syringe) 2 mg IVPUSH NOW STA Stop: 01/24/21 20:40 Last Admin: 01/24/21 21:41 Dose: 2 mg Documented by: Non-Formulary Medication (Omeprazole [Omeprazole]) 10 mg PO BEDTIME [facility] Ondansetron HCl (Ondansetron 4 Mg/2 Ml Sdv) 4 mg IVPUSH NOW STA Stop: 01/24/21 20:40 Last Admin: 01/24/21 21:39 Dose: 4 mg Documented by: Comments:: Patient was dressed and sitting on the side of the bed ready for physical therapy. Alert, interactive, pleasant - Exam Quality Assessment: Reports: Supplemental Oxygen, DVT Prophylaxis, Skin Breakdown General: Reports: Alert, Oriented, Cooperative, No Acute Distress HEENT: Reports: EOMI Lungs: Reports: Decreased Breath Sounds, Crackles Cardiovascular: Reports: Regular Rate, No Murmurs GI/Abdominal Exam: Normal Bowel Sounds Extremities: Normal Inspection Skin: Reports: Warm, Dry, Intact Wound/Incisions: Reports: Other (Gouty tophi several fingers on both hands, no active discharge at the time of exam from the right PIP second digit) Neurological: Reports: No New Focal Deficit Psy/Mental Status: Reports: Alert, Normal Affect, Normal Mood
== END 2021-01-31 11:11 | disposition home health service (06) | DRG 897 ==
LOC: FB.ED 20:02 → FB.MS 23:02
PROVIDERS: ADMIT Emergency Medicine; ATTEND Student in an Organized Health Care Education/Training Program
DX: R10.31 Right lower quadrant pain (principal); F10.129 Alcohol abuse with intoxication, unspecified; E86.0 Dehydration; F10.239 Alcohol dependence with withdrawal, unspecified; I12.0 Hypertensive chronic kidney disease with stage 5 chronic kidney disease or end stage renal disease; N17.9 Acute kidney failure, unspecified; N18.5 Chronic kidney disease, stage 5; K86.0 Alcohol-induced chronic pancreatitis; G93.40 Encephalopathy, unspecified; J44.9 Chronic obstructive pulmonary disease, unspecified; R29.6 Repeated falls; Z66 Do not resuscitate; G89.29 Other chronic pain; Y90.9 Presence of alcohol in blood, level not specified; M25.561 Pain in right knee; R79.9 Abnormal finding of blood chemistry, unspecified; E87.5 Hyperkalemia; M79.18 Myalgia, other site; M10.9 Gout, unspecified; M19.90 Unspecified osteoarthritis, unspecified site; I87.8 Other specified disorders of veins; E78.5 Hyperlipidemia, unspecified; N40.0 Benign prostatic hyperplasia without lower urinary tract symptoms; Z20.822 Contact with and (suspected) exposure to COVID-19; Y90.6 Blood alcohol level of 120-199 mg/100 ml; M54.9 Dorsalgia, unspecified; W19.XXXA Unspecified fall, initial encounter; Z79.52 Long term (current) use of systemic steroids; Z79.82 Long term (current) use of aspirin; Z79.899 Other long term (current) drug therapy; Z90.49 Acquired absence of other specified parts of digestive tract; Z95.0 Presence of cardiac pacemaker; I25.2 Old myocardial infarction
CPT/HCPCS: 36415; 71045; 72131; 74176; 80053; 80307; 82150; 83690; 85025; 85610; 93005; 96365; 96375; 99285; J2270; J2405; J3411; J7030; U0002; 73130-RT; 76700; 80048; 81001; 82140; 82270; 82550; 83735; 83880; 84100; 84550; 94640; 94760; 97110-GO; 97116-GP; 97161-GP; 97165-GO; 97530-GP; 97535-GO; A9270-GY; J1650; J7512; J7620-GY

== ENCOUNTER 2021-02-28 08:56 | Day surgery (SDC) | payer MEDICARE ==
[~2021-02-28 08:56] MED LIST: Lactated Ringers 1,000 ML IV PRN; Sodium Chloride 0.9% 10 ML Syringe FLUSH PRN
[2021-02-28] MEDS ORDERED: Sodium Chloride 0.9% 10 ML Syringe IV ONE (08:57)
[2021-02-28] MEDS ORDERED: fentaNYL 100 MCG/2 ML SDV IV ONE (08:57)
[2021-02-28] MEDS ORDERED: Midazolam 1 MG/ML 2 ML SDV IV ONE (08:57)
[2021-02-28] MEDS ORDERED: acetaZOLAMIDE 500 MG Cap.ER PO ONE (10:30)
--- NOTE | 2021-02-28 16:36 | OR ---
DATE OF OPERATION: 02/28/2021 SURGEON: Anastasiia Mendoza MD PREOPERATIVE DIAGNOSIS: 1. Visually significant cataract, right eye. 2. Floppy iris syndrome, right eye. . POSTOPERATIVE DIAGNOSIS: 1. Visually significant cataract, right eye. 2. Floppy iris syndrome, right eye. PROCEDURES PERFORMED: Complex phacoemulsification with intraocular lens placement, right eye; CPT 60378. ASSISTANTS: None. ANESTHESIA: Local with sedation. COMPLICATIONS: None. BLOOD LOSS: None. IMPLANTS: ACU0T0 19.5 diopter lens implanted. CDE: 2.56. DESCRIPTION OF PROCEDURE: After risks and benefits were reviewed with the patient, consent was obtained in the preoperative area, and the operative eye was marked with a surgical pen. In the preoperative area, a pledget was used to dilate the pupil consisting of a mixture of phenylephrine 10%, cyclopentolate 2%, moxifloxacin 0.5%, and bupivacaine 0.75%. The patient was taken to the operating room, where a time-out was performed, and the patient was placed under monitored anesthesia care. Topical tetracaine was used for anesthesia. The operative eye was prepped and draped for ophthalmic surgery, and the microscope was brought into position and focused. A paracentesis incision was made, followed by injection of preservative-free 1% lidocaine into the anterior chamber, followed by injection of Viscoat into the anterior chamber. Due to floppy iris syndrome and poor pupillary dilation, a Malyugin ring was used to track the pupil to 6.25 mm. A microkeratome blade was used to make a corneal limbal incision temporally. A cystotome was used to make the beginning of the capsulorrhexis, which was carried around 360 degrees in a curvilinear fashion using Utrata forceps. A Whitlock cannula with BSS was used to hydrodissect and hydrodelineate the nucleus. The nucleus was removed in a divide and conquer manner using phacoemulsification. Irrigation and aspiration were used to remove the remaining cortical material. Provisc was used to inflate the capsular bag, and a pre-loaded ACU0T0 19.5 diopter lens, serial number [id number] was injected into the capsular bag. A Sinskey hook was used to position and center the lens. The Malyugin ring was then removed from the anterior chamber and discarded. Next, irrigation and aspiration was used to remove any remaining viscoelastic and cortical material from the anterior chamber. BSS on a cannula was used to inflate the anterior chamber and hydrate the wound. The wound was checked and found to be watertight. 1 mg of Moxifloxacin was injected into the anterior chamber. Drapes were removed and the eye was cleaned. A drop of brimonidine 0.2% and a drop of TobraDex was placed. The eye was shielded, and the patient was taken to the recovery room in stable condition. /[id number] SULEIMAN/DAVID
== END 2021-02-28 11:37 | disposition home or self-care (01) ==
LOC: FB.SDS 08:56
PROVIDERS: ATTEND Ophthalmology
DX: H25.813 Combined forms of age-related cataract, bilateral (principal); H43.813 Vitreous degeneration, bilateral; H04.123 Dry eye syndrome of bilateral lacrimal glands; H11.151 Pinguecula, right eye; H35.033 Hypertensive retinopathy, bilateral; H21.81 Floppy iris syndrome; M10.20 Drug-induced gout, unspecified site; I25.2 Old myocardial infarction; N18.4 Chronic kidney disease, stage 4 (severe); I12.9 Hypertensive chronic kidney disease with stage 1 through stage 4 chronic kidney disease, or unspecified chronic kidney disease; I25.10 Atherosclerotic heart disease of native coronary artery without angina pectoris; J44.9 Chronic obstructive pulmonary disease, unspecified; F17.210 Nicotine dependence, cigarettes, uncomplicated; Z79.899 Other long term (current) drug therapy; Z95.0 Presence of cardiac pacemaker; Z90.49 Acquired absence of other specified parts of digestive tract
CPT/HCPCS: 00142-QZ; A9270-GY; J2250; J3010; V2632

== ENCOUNTER 2021-03-14 08:50 | Day surgery (SDC) | payer MEDICARE ==
[2021-03-14] MEDS ORDERED: Sodium Chloride 0.9% 10 ML Syringe IV ONE (08:51)
[2021-03-14] MEDS ORDERED: Midazolam 1 MG/ML 2 ML SDV IV ONE (08:51)
[2021-03-14] MEDS ORDERED: Labetalol 20 MG/4 ML Syringe IV ONE (08:51)
[2021-03-14] MEDS ORDERED: fentaNYL 100 MCG/2 ML SDV IV ONE (08:51)
[2021-03-14] MEDS ORDERED: Sodium Chloride 0.9% 10 ML Syringe FLUSH PRN (09:00)
[2021-03-14] MEDS ORDERED: Lactated Ringers 1,000 ML IV PRN (09:00)
[2021-03-14] MEDS ORDERED: acetaZOLAMIDE 500 MG Cap.ER PO ONE (10:30)
--- NOTE | 2021-03-14 19:01 | OR ---
DATE OF OPERATION: 03/14/2021 SURGEON: Anastasiia Mendoza MD PREOPERATIVE DIAGNOSES: 1. Visually significant cataract, left eye. 2. Floppy iris syndrome, left eye. POSTOPERATIVE DIAGNOSES: 1. Visually significant cataract, left eye. 2. Floppy iris syndrome, left eye. PROCEDURES PERFORMED: Complex phacoemulsification with intraocular lens placement, left eye; CPT 84932. ASSISTANTS: None. ANESTHESIA: Local with sedation. COMPLICATIONS: None. BLOOD LOSS: None. IMPLANTS: Hever ACU0T0, 19.5 diopter lens, serial number [id number] implanted. CDE: 2.46. DESCRIPTION OF PROCEDURE: After risks and benefits were reviewed with the patient, consent was obtained in the preoperative area, and the operative eye was marked with a surgical pen. In the preoperative area, a pledget was used to dilate the pupil consisting of a mixture of phenylephrine 10%, cyclopentolate 2%, moxifloxacin 0.5%, and bupivacaine 0.75%. The patient was taken to the operating room, where a time-out was performed, and the patient was placed under monitored anesthesia care. Topical tetracaine was used for anesthesia. The operative eye was prepped and draped for ophthalmic surgery, and the microscope was brought into position and focused. A paracentesis incision was made, followed by injection of preservative-free 1% lidocaine into the anterior chamber, followed by injection of Viscoat into the anterior chamber. Due to floppy iris syndrome and poor pupillary dilation, a Malyugin ring was used to retract the pupil to 6.25 mm. A microkeratome blade was used to make a corneal limbal incision temporally. A cystotome was used to make the beginning of the capsulorrhexis, which was carried around 360 degrees in a curvilinear fashion using Utrata forceps. A Whitlock cannula with BSS was used to hydrodissect and hydrodelineate the nucleus. The nucleus was removed in a divide and conquer manner using phacoemulsification. Irrigation and aspiration were used to remove the remaining cortical material. Provisc was used to inflate the capsular bag, and a pre-loaded Hever ACU0T0, 19.5 diopter lens, serial number [id number] was injected into the capsular bag. A Sinskey hook was used to position and center the lens. The Malyugin ring was then removed from the anterior chamber and discarded. Next, irrigation and aspiration was used to remove any remaining viscoelastic and cortical material from the anterior chamber. BSS on a cannula was used to inflate the anterior chamber and hydrate the wound. The wound was checked and found to be watertight. 1 mg of Moxifloxacin was injected into the anterior chamber. Drapes were removed and the eye was cleaned. A drop of brimonidine 0.2% and a drop of TobraDex was placed. The eye was shielded, and the patient was taken to the recovery room in stable condition. /[id number] SULEIMAN/DAVID
== END 2021-03-14 11:35 | disposition home or self-care (01) ==
LOC: FB.SDS 08:50
PROVIDERS: ATTEND Ophthalmology
DX: H25.813 Combined forms of age-related cataract, bilateral (principal); H43.813 Vitreous degeneration, bilateral; H04.123 Dry eye syndrome of bilateral lacrimal glands; H11.151 Pinguecula, right eye; H21.81 Floppy iris syndrome; H35.033 Hypertensive retinopathy, bilateral; M10.241 Drug-induced gout, right hand; I12.9 Hypertensive chronic kidney disease with stage 1 through stage 4 chronic kidney disease, or unspecified chronic kidney disease; N18.4 Chronic kidney disease, stage 4 (severe); I25.2 Old myocardial infarction; I25.10 Atherosclerotic heart disease of native coronary artery without angina pectoris; Z95.0 Presence of cardiac pacemaker; J44.9 Chronic obstructive pulmonary disease, unspecified; Z87.891 Personal history of nicotine dependence
CPT/HCPCS: 00142-QZ; A9270-GY; J2250; J3010; J3490; V2632

== ENCOUNTER 2021-07-11 12:26 | Observation (INO) | payer MEDICARE ==
[2021-07-11] MEDS ORDERED: Sodium Chloride 0.9% 10 ML Syringe FLUSH PRN (12:43)
[2021-07-11] MEDS ORDERED: Acetaminophen 325 MG Tab PO PRN (12:43)
[2021-07-11] MEDS ORDERED: Albuterol/Ipratropium 3.0-0.5 MG/3 ML Neb Soln INH PRN (13:40)
[2021-07-11] MEDS: Doxycycline 100 MG Tab PO SCH ×2 (14:08→20:08)
[2021-07-11 14:53] VITALS: PULSE 55
[2021-07-11] MEDS: Sodium Chloride 0.9% 1,000 ML IV SCH (15:09)
--- NOTE | 2021-07-11 17:06 | PCM.HP.2 ---
H&P History of Present Illness - General Date of Service: 07/11/21 Admit Problem/Dx: Admission Diagnosis/Problem Admission Diagnosis/Problem Pneumonia Source of Information: Patient, Provider - History of Present Illness Initial Comments - Free Text/Narative: Paul presented to [facility] for shortness of breath and dry cough for few days, bilateral lower leg edema. Had been on Azithromycin 06/19. Dr Ravi did chest x-ray and saw RLL pneumonia with pleural effusion. Unable to do rapid covid test there and stated his CURB65 score was 2 requested admission for failed outpatient treatment. He states he's had loose stools for 3-4 days, he is on stool softener twice a day scheduled and 2 tab at night as needed. Staff at [facility] state that he has been falling more since on Amlodipine and having lower leg edema. Denies any fevers, chills, sore throat, nausea, vomiting or abdominal pain. No dysuria, frequency or hematuria. He had stroke a month ago, more expressive aphasia, he is seeing Neurology and Rehab medicine tomorrow doesn't want to miss the appointment. - Related Data Allergies/Adverse Reactions: Allergies Allergy/AdvReac Type Severity Reaction Status Date / Time No Known Allergies Allergy Verified 03/13/21 11:07 Home Medications: Home Meds Aspirin [Halfprin] 81 mg PO DAILY 10/01/19 [History] Omeprazole 10 mg PO BEDTIME 10/06/20 [History] Loratadine [Claritin] 10 mg PO DAILY 01/25/21 [History] Albuterol/Ipratropium [DuoNeb 3.0-0.5 MG/3 ML] 1 ampule INH Q4H PRN 03/13/21 [History] Febuxostat [Uloric] 40 mg PO DAILY 03/13/21 [History] Acetaminophen [Tylenol Extra Strength] 1,000 mg PO TID 07/11/21 [History] Docusate Sodium 100 mg PO BID 07/11/21 [History] Docusate Sodium/Sennosides [Senna Plus] 2 tab PO BEDTIME PRN 07/11/21 [History] Doxycycline [Vibra-Tabs] 100 mg PO Q12HR #11 tab 07/11/21 [Rx] Gabapentin [Neurontin] 300 mg PO BID 07/11/21 [History] Metoprolol Succinate [Toprol Xl] 50 mg PO DAILY 07/11/21 [History] Multivitamin with Minerals [Multivitamins with Minerals] 1 tab PO DAILY 07/11/21 [History] Naloxone HCl [Narcan] 1 spray CINDY ONETIME PRN 07/11/21 [History] Triamcinolone Acetonide [Triamcinolone Acetonide 0.1% Crm] 1 applic TOP BID PRN 07/11/21 [History] amLODIPine [Norvasc] 5 mg PO DAILY 07/11/21 [History] atorvaSTATin [Lipitor] 80 mg PO BEDTIME 07/11/21 [History] tiZANidine [Zanaflex] 2 mg PO BID 07/11/21 [History] traZODone 100 mg PO BEDTIME 07/11/21 [History] Past Medical History HEENT History: Reports: Cataract, Impaired Vision Other HEENT History: cataract both eyes and got sick before it was taken care of Cardiovascular History: Reports: Hypertension, [place], Pacemaker Respiratory History: Reports: COPD Gastrointestinal History: Reports: Other (See Below) Other Gastrointestinal History: Inguinal hernia X3, right and left. Genitourinary History: Reports: Other (See Below) Other Genitourinary History: Stage IV renal failure. Musculoskeletal History: Reports: Arthritis, Other (See Below) Other Musculoskeletal History: Right arm and shoulder weakness from. 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 History of multiple falls. Psychiatric History: Reports: Addiction, Other (See Below) Other Psychiatric History: Patient is an alcoholic. Oncologic (Cancer) History: Reports: Renal - Infectious Disease History Infectious Disease History: Reports: Chicken Pox, Measles, Mumps - Past Surgical History HEENT Surgical History: Reports: Cataract Surgery Cardiovascular Surgical History: Reports: Percutaneous Transluminal Angioplasty, Other (See Below) Other Cardiovascular Surgeries/Procedures: pacemaker. Respiratory Surgical History: Reports: None GI Surgical History: Reports: Appendectomy, Cholecystectomy, Other (See Below) Other GI Surgeries/Procedures: lap nelsy Male Surgical History: Reports: None Other Male Surgeries/Procedures: cyst on right kidney--bx appt scheduled for in 10/11 Neurological Surgical History: Reports: None Musculoskeletal Surgical History: Reports: None Social & Family History - Family History Family Medical History: Unobtainable - Tobacco Use Tobacco Use Status *Q: Current Every Day Tobacco User Years of Tobacco use: 60 Packs/Tins Daily: 1 - Caffeine Use Caffeine Use: Reports: Coffee Other Caffeine Use: 3 cups coffee/day - Alcohol Use Date of Last Drink: 07/07/21 - Recreational Drug Use Recreational Drug Use: No H&P Review of Systems - Review of Systems: Review Of Systems: Comprehensive ROS is negative, except as noted in HPI. Exam - Exam Exam: See Below - Vital Signs Vital Signs: Last Vital Signs Temp 97.2 F 07/11/21 12:43 Pulse 55 L 07/11/21 12:43 Resp 20 07/11/21 12:43 BP 164/70 H 07/11/21 12:43 Pulse Ox 94 L 07/11/21 12:43 Weight: 182 lb 8 oz - Exam General: Alert, Oriented, Cooperative. No: Mild Distress HEENT: PERRLA, Conjunctiva Clear, EOMI, Hearing Intact, Normal Nasal Septum, Posterior Pharynx Clear. No: Mucosa Moist & [place] Neck: Trachea Midline Lungs: Clear to Auscultation, Normal Respiratory Effort, Decreased Breath Sounds (Bibasilar R>L), Crackles (RLL) Cardiovascular: Regular Rate, Regular Rhythm GI/Abdominal Exam: Normal Bowel Sounds, Soft, Non-Tender, No Distention (Male) Exam: Deferred Rectal (Males) Exam: Deferred Extremities: Pedal Edema (nonpitting BLE) Peripheral Pulses: 2+: Radial (L), Radial (R), Posterior Tibial (L), Posterior Tibial (R), Dorsalis Pedis (L), Dorsalis Pedis (R) Skin: Warm, Dry (very dry lower back), Intact - Patient Data Lab Results Last 24 hrs: Laboratory Results - last 24 hr 07/11/21 07/11/21 07/11/21 Range/Units 13:20 13:20 13:45 WBC 8.4 (3.2-10.1) x10-3/uL RBC 3.82 L (3.90-5.90) x10(6)uL Hgb 11.9 L (12.9-17.7) g/dL Hct 35.5 L (38.3-50.1) % MCV 93.1 (80.8-98.7) fL MCH 31.1 (27.0-33.3) pg MCHC 33.4 (28.7-35.3) g/dL RDW 15.6 H (12.4-15.0) % Plt Count 288 (117-477) x10(3)uL MPV 7.3 (6.7-11.0) fL Neut % (Auto) 61.8 (40.3-71.8) % Lymph % (Auto) 21.7 (15.8-45.3) % Carter % (Auto) 10.5 (5.5-15.2) % Eos % (Auto) 4.8 (0.1-6.8) % Baso % (Auto) 1.2 (0.3-3.8) % Neut # (Auto) 5.2 (1.7-6.9) x10-3/uL Lymph # (Auto) 1.8 (0.5-4.5) x10-3/uL Carter # (Auto) 0.9 (0.0-1.2) x10-3/uL Eos # (Auto) 0.4 (0.0-0.6) x10-3/uL Baso # (Auto) 0.1 (0.0-0.3) x10-3/uL Sodium 143 (135-145) mmol/L Potassium 5.3 (3.5-5.3) mmol/L Chloride 110 (100-110) mmol/L Carbon Dioxide 21 (21-32) mmol/L BUN 41 H (7-18) mg/dL Creatinine 3.1 H* (0.70-1.30) mg/dL Est Cr Clr Drug Dosing TNP Estimated GFR (MDRD) 20 L (>60) BUN/Creatinine Ratio 13.2 (9-20) Glucose 83 (80-116) mg/dL Calcium 8.7 (8.6-10.2) mg/dL Total Bilirubin 0.6 (0.1-1.3) mg/dL AST 28 H D (5-25) IU/L ALT 45 H D (12-36) U/L Alkaline Phosphatase 86 (56-112) IU/L Total Protein 6.9 (6.0-8.0) g/dL Albumin 3.5 (3.2-4.6) g/dL Globulin 3.4 g/dL Albumin/Globulin Ratio 1.0 SARS-CoV-2 RNA (DARA) Negative (NEGATIVE) Result Diagrams: 07/11/21 13:20 07/11/21 13:20 Ross Results Last 24 hrs: Microbiology 07/11/21 13:45 Influenza Type A Antigen Screen - Final Nasopharyngeal Swab NEGATIVE INFLUENZA A VIRUS AG REFERENCE RANGE: NEGATIVE Influenza Type B Antigen Screen - Final NEGATIVE INFLUENZA B VIRUS AG REFERENCE RANGE: NEGATIVE Sepsis Event Note - Evaluation Sepsis Screening Result: No Definite Risk - Focused Exam Vital Signs: Vital Signs Temp Pulse Resp BP Pulse Ox Pulse Ox 07/11/21 12:43 97.2 F 55 L 20 164/70 H 94 L 94 L *Q Meaningful Use (ADM) - VTE *Q VTE Mechanical Contraindications *Q: At Risk for Falls - VTE Risk Assess *Q Each Risk Factor Represents 1 Point: Swollen Legs, Current, Serious lung disease including pneumonia Total Score 1 Point Risk Factors: 2 Each Risk Factor Represents 2 Points: None Total Score 2 Point Risk Factors: 0 Each Risk Factor Represents 3 Points: Age 75 Years or Greater Total Score 3 Point Risk Factors: 3 Each Risk Factor Represents 5 Points: Stroke, Less than 1 Month Total Score 5 Point Risk Factors: 5 Venous Thromboembolism Risk Factor Score *Q: 10 - Problem List (1) Pneumonia SNOMED Code(s): 453802874 ICD Code: J18.9 - PNEUMONIA, UNSPECIFIED ORGANISM Status: Acute Current Visit: Yes Problem Details: on CXR at clinic with pleural effusion. (2) AAA (abdominal aortic aneurysm) SNOMED Code(s): 380825461 ICD Code: I71.4 - ABDOMINAL AORTIC ANEURYSM, WITHOUT RUPTURE Status: Chronic Current Visit: No Qualifiers: Presence of rupture: without rupture Qualified Code(s): I71.4 - Abdominal aortic aneurysm, without rupture (3) Alcohol abuse SNOMED Code(s): 58934249 ICD Code: F10.10 - ALCOHOL ABUSE, UNCOMPLICATED Status: Chronic Current Visit: No (4) CAD (coronary artery disease) SNOMED Code(s): 13451498 ICD Code: I25.10 - ATHSCL HEART DISEASE OF [place] CORONARY ARTERY W/O ANG PCTRS Status: Chronic Current Visit: No Qualifiers: Coronary Disease-Associated Artery/Lesion type: [place] artery (5) CKD (chronic kidney disease) stage 5, GFR less than 15 ml/min SNOMED Code(s): 804873694 ICD Code: N18.5 - CHRONIC KIDNEY DISEASE, STAGE 5 Status: Chronic Current Visit: No (6) COPD (chronic obstructive pulmonary disease) SNOMED Code(s): 88540321 ICD Code: J44.9 - CHRONIC OBSTRUCTIVE PULMONARY DISEASE, UNSPECIFIED Status: Chronic Current Visit: No Qualifiers: COPD type: chronic bronchitis (7) Cardiac pacemaker in situ SNOMED Code(s): 566266600 ICD Code: Z95.0 - PRESENCE OF CARDIAC PACEMAKER Status: Chronic Current Visit: No Problem List Initiated/Reviewed/Updated: Yes Orders Last 24hrs: Active Orders 24 hr Category Date Time Status Patient Status [ADT] Routine ADT 07/11/21 12:43 Active Oxygen Therapy [RC] 08 Care 07/11/21 12:43 Active RT Aerosol Therapy [RC] ASDIRECTED Care 07/11/21 13:41 Active Up ad Mari [RC] ASDIRECTED Care 07/11/21 12:43 Active Vaccine to be Administered/Admin Charge [RC] ASDIRECTED Care 07/11/21 14:45 Active Vital Signs [RC] QSHIFT Care 07/11/21 12:43 Active Regular Diet [DIET] Diet 07/11/21 Lunch Active CXR [Chest 2V] [CR] Routine Exams 07/12/21 09:00 Ordered CULTURE BLOOD [BC] Urgent Lab 07/11/21 13:10 Received CULTURE BLOOD [BC] Urgent Lab 07/11/21 13:20 Received Acetaminophen [Tylenol Extra Strength] Med 07/11/21 21:00 Active 1,000 mg PO TID Albuterol/Ipratropium [DuoNeb 3.0-0.5 MG/3 ML] Med 07/11/21 13:40 Active 3 ml INH Q4H PRN Aspirin [Halfprin] Med 07/12/21 09:00 Active 81 mg PO DAILY Docusate Sodium/Sennosides [Senna Plus] Med 07/11/21 13:41 Active 2 tab PO BEDTIME PRN Doxycycline [Vibra-Tabs] Med 07/11/21 13:00 Active 100 mg PO BID Febuxostat [Uloric] Med 07/12/21 09:00 Active 40 mg PO DAILY Gabapentin [Neurontin] Med 07/11/21 21:00 Active 300 mg PO BID Loratadine [Claritin] Med 07/12/21 09:00 Active 10 mg PO DAILY Metoprolol Succinate [Toprol XL] Med 07/12/21 09:00 Active 50 mg PO DAILY Multivitamins w-Iron/Ca/FA/Min [Thera M Plus] Med 07/12/21 14:00 Active 1 tab PO DAILY@1400 Omeprazole [Omeprazole] Med 07/11/21 21:00 Active 10 mg PO BEDTIME Saccharomyces Boulardii [Florastor] Med 07/11/21 21:00 Active 500 mg PO BID Sodium Chloride 0.9% [Normal Saline] 1,000 ml Med 07/11/21 14:15 Active IV ASDIRECTED Sodium Chloride 0.9% [Saline Flush] Med 07/11/21 12:43 Active 10 ml FLUSH ASDIRECTED PRN amLODIPine [Norvasc] Med 07/12/21 09:00 Active 5 mg PO DAILY atorvaSTATin [Lipitor] Med 07/11/21 21:00 Active 80 mg PO BEDTIME traZODone Med 07/11/21 21:00 Active 100 mg PO BEDTIME Antiembolic Hose [OM.PC] Per Unit Routine Oth 07/11/21 12:43 Ordered Blood Culture x2 Reflex Set [OM.PC] Urgent Oth 07/11/21 12:43 Ordered Isolation [COMM] Routine Oth 07/11/21 12:45 Ordered Saline Lock Insert [OM.PC] Routine Oth 07/11/21 12:43 Ordered Code Status [Resuscitation Status] Routine Resus Stat 07/11/21 14:04 Ordered Medication Orders Acetaminophen (Acetaminophen 500 Mg Tab *Ptom) 1,000 mg PO TID COUNTS INCLUDE 234 BEDS AT THE [facility] Albuterol/Ipratropium (Albuterol/Ipratropium 3.0-0.5 Mg/3 Ml Neb Soln) 3 ml INH Q4H PRN PRN Reason: Shortness of Breath Amlodipine Besylate (Amlodipine 5 Mg Tab *Ptom) 5 mg PO DAILY COUNTS INCLUDE 234 BEDS AT THE [facility] Aspirin (Aspirin 81 Mg Tab.Ec *Ptom) 81 mg PO DAILY COUNTS INCLUDE 234 BEDS AT THE [facility] Doxycycline Hyclate (Doxycycline 100 Mg Tab) 100 mg PO BID COUNTS INCLUDE 234 BEDS AT THE [facility] Last Admin: 07/11/21 14:08 Dose: 100 mg Documented by: [id number] Febuxostat (Febuxostat 40 Mg Tab *Ptom) 40 mg PO DAILY COUNTS INCLUDE 234 BEDS AT THE [facility] Gabapentin (Gabapentin 300 Mg Cap *Ptom) 300 mg PO BID COUNTS INCLUDE 234 BEDS AT THE [facility] Sodium Chloride (Normal Saline) 1,000 mls @ 100 mls/hr IV ASDIRECTED COUNTS INCLUDE 234 BEDS AT THE [facility] Last Admin: 07/11/21 15:09 Dose: 100 mls/hr Documented by: [id number] Loratadine (Loratadine 10 Mg Tab *Ptom) 10 mg PO DAILY GENO Metoprolol Succinate (Metoprolol Succinate 50 Mg Tab.Er *Ptom) 50 mg PO DAILY GENO Multivitamins/Minerals (Multivitamins With Iron/Calcium/Folic Acid/Minerals Tab *Ptom) 1 tab PO DAILY@1400 GENO (Atorvastatin [ Lipitor] 80 Mg Tablet) *Ptom 80 mg PO BEDTIME GENO (Omeprazole [ Omeprazole] 10 Mg Cap.Cr) *Ptom 10 mg PO BEDTIME GENO Saccharomyces Boulardii (Saccharomyces Boulardii (Probiotic) 250 Mg Cap) 500 mg PO BID GENO Senna/Docusate Sodium (Docusate Sodium/Sennosides 50-8.6 Mg Tab) 2 tab PO BEDTIME PRN PRN Reason: Constipation Sodium Chloride (Sodium Chloride 0.9% 10 Ml Syringe) 10 ml FLUSH ASDIRECTED PRN PRN Reason: Keep Vein Open Trazodone HCl (Trazodone 100 Mg Tab *Ptom) 100 mg PO BEDTIME GENO Assessment/Plan Comment:: 1. Direct admission for observation for pneumonia and further workup. 2. CAP, failed outpatient treatment: WBC 8.4, Covid & Influenza negative. Doxycycline 100 mg bid, Oxygen as needed. Had Azithromycin on 06/19 for 7 days. Pt requested to go home tomorrow as he has to go to [place] for Neurology and Rehab medicine follow up appts from his stroke, if he does well overnight, it would be appropriate to discharge tomorrow. 3. CKD, stage 5. Cr 3.1 which is around his baseline. On exam he is dry so will do gentle hydration with NS at 100 ml/hr. Repeat labs in am. 4. COPD: keep sats >88%, continue DuoNebs as needed. 5. HTN: falling/edema with amlodipine, discontinue and add Lisinopril 5 mg daily. Pulse 55, at max dose of Metoprolol. 6. Diet: Regular. 7. Activity: as tolerated. 8. CODE STATUS: DNR/DNI. 9. Discharge planning: anticipate 24h for antibiotics/IVF, if he is stable overnight discharge by 8am to make appts in [place]. - Mortality Measure Prognosis:: Good
[2021-07-11] MEDS: Acetaminophen 500 MG Tab *PTOM PO SCH (20:22)
[2021-07-11] MEDS: Gabapentin 300 MG Cap *PTOM PO SCH (20:24)
[2021-07-11] MEDS: Saccharomyces Boulardii (Probiotic) 250 MG Cap PO SCH (20:25)
[2021-07-11] MEDS ORDERED: OMEPRAZOLE 10 MG PO SCH (21:00)
[2021-07-11] MEDS ORDERED: traZODone 100 MG Tab *PTOM PO SCH (21:00)
[2021-07-11] MEDS ORDERED: Docusate Sodium 100 MG Cap PO SCH (21:00)
[2021-07-11] MEDS ORDERED: ATORVASTATIN 80 MG PO SCH (21:00)
[2021-07-12] MEDS: Sodium Chloride 0.9% 1,000 ML IV SCH (03:16)
[2021-07-12] MEDS: Lisinopril 5 MG Tab PO SCH ×2 (06:03→08:25)
[2021-07-12 08:14] VITALS: BP 166/78
[2021-07-12] MEDS: Saccharomyces Boulardii (Probiotic) 250 MG Cap PO SCH (08:15)
[2021-07-12] MEDS: Doxycycline 100 MG Tab PO SCH (08:16)
[2021-07-12] MEDS: Acetaminophen 500 MG Tab *PTOM PO SCH (08:17)
[2021-07-12] MEDS: Gabapentin 300 MG Cap *PTOM PO SCH (08:21)
[2021-07-12] MEDS ORDERED: Aspirin 81 MG Tab.EC *PTOM PO SCH (09:00)
[2021-07-12] MEDS ORDERED: FEBUXOSTAT 40 MG PO SCH (09:00)
[2021-07-12] MEDS ORDERED: LORATADINE 10 MG PO SCH (09:00)
[2021-07-12] MEDS ORDERED: Metoprolol Succinate 50 MG Tab.ER *PTOM PO SCH (09:00)
--- NOTE | 2021-07-12 11:54 | PCM.DCSUM1 ---
Discharge Summary - Hospital Course HPI Initial Comments: Paul presented to [facility] for shortness of breath and dry cough for few days, bilateral lower leg edema. Had been on Azithromycin 06/19. Dr Ravi did chest x-ray and saw RLL pneumonia with pleural effusion. Unable to do rapid covid test there and stated his CURB65 score was 2 requested admission for failed outpatient treatment. He states he's had loose stools for 3-4 days, he is on stool softener twice a day scheduled and 2 tab at night as needed. Staff at [facility] state that he has been falling more since on Amlodipine and having lower leg edema. Denies any fevers, chills, sore throat, nausea, vomiting or abdominal pain. No dysuria, frequency or hematuria. He had stroke a month ago, more expressive aphasia, he is seeing Neurology and Rehab medicine tomorrow doesn't want to miss the appointment. Diagnosis: Stroke: No - Discharge Data Discharge Date: 07/12/21 Discharge Disposition: Home, W Home Health Agency 06 Condition: Good - Referral to Home Health Date of Face to Face Encounter: 07/12/21 Reason for Homebound Status: [facility] resident Primary Care Physician: Trish Roberts NP Skilled Need: longterm, PT/OT - Discharge Diagnosis/Problem(s) (1) Pneumonia SNOMED Code(s): 567435389 ICD Code: J18.9 - PNEUMONIA, UNSPECIFIED ORGANISM Status: Acute Problem Details: on CXR at clinic with pleural effusion. (2) AAA (abdominal aortic aneurysm) SNOMED Code(s): 465527630 ICD Code: I71.4 - ABDOMINAL AORTIC ANEURYSM, WITHOUT RUPTURE Status: Chronic Qualifiers: Presence of rupture: without rupture Qualified Code(s): I71.4 - Abdominal aortic aneurysm, without rupture (3) Alcohol abuse SNOMED Code(s): 74958215 ICD Code: F10.10 - ALCOHOL ABUSE, UNCOMPLICATED Status: Chronic (4) CAD (coronary artery disease) SNOMED Code(s): 33495809 ICD Code: I25.10 - ATHSCL HEART DISEASE OF [place] CORONARY ARTERY W/O ANG PCTRS Status: Chronic Qualifiers: Coronary Disease-Associated Artery/Lesion type: telida artery (5) CKD (chronic kidney disease) stage 5, GFR less than 15 ml/min SNOMED Code(s): 462382968 ICD Code: N18.5 - CHRONIC KIDNEY DISEASE, STAGE 5 Status: Chronic (6) COPD (chronic obstructive pulmonary disease) SNOMED Code(s): 02808613 ICD Code: J44.9 - CHRONIC OBSTRUCTIVE PULMONARY DISEASE, UNSPECIFIED Status: Chronic Qualifiers: COPD type: chronic bronchitis (7) Cardiac pacemaker in situ SNOMED Code(s): 658189110 ICD Code: Z95.0 - PRESENCE OF CARDIAC PACEMAKER Status: Chronic - Patient Summary/Data Hospital Course: Paul's WBC was normal. Cr 3.1 which is his baseline. Covid & Influenza negative. Stopped Amlodipine and edema resolved. No calf pain. Doppler ultrasound was cancelled. Lisinopril 5 mg daily started. Doxycycline 100 mg x 3 doses in hospital. Did not require oxygen. Discharged today to go to [facility], will continue 7 day course of antibiotics as outpatient. - Patient Instructions Diet: Usual Diet as Tolerated Activity: As Tolerated Driving: Do Not Drive Showering/Bathing: May Shower Notify Provider of: Fever, Increased Pain, Nausea and/or Vomiting Other/Special Instructions: Follow up with Neurology & Rehab medicine today as previously scheduled. Follow up with Trish Roberts in 1 week. Use Flutter valve(blue) every 1 hour while awake to help cough out mucus. Finish Doxycycline twice a day until gone, you got a dose this morning so next dose is tonight. Stopped your amlodipine due to fall/edema. Started Lisinopril 5 mg daily for your blood pressure, Trish can adjust if needed next week. - Discharge Plan *PRESCRIPTION DRUG MONITORING PROGRAM REVIEWED*: Not Applicable *COPY OF PRESCRIPTION DRUG MONITORING REPORT IN PATIENT SOTERO: Not Applicable Prescriptions/Med Rec: lisinopriL [Prinivil] 5 mg PO DAILY #30 tablet Doxycycline [Vibra-Tabs] 100 mg PO Q12HR #11 tab Home Medications: Home Meds Aspirin [Halfprin] 81 mg PO DAILY 10/01/19 [History] Omeprazole 10 mg PO BEDTIME 10/06/20 [History] Loratadine [Claritin] 10 mg PO DAILY 01/25/21 [History] Albuterol/Ipratropium [DuoNeb 3.0-0.5 MG/3 ML] 1 ampule INH Q4H PRN 03/13/21 [History] Febuxostat [Uloric] 40 mg PO DAILY 03/13/21 [History] Acetaminophen [Tylenol Extra Strength] 1,000 mg PO TID 07/11/21 [History] Docusate Sodium/Sennosides [Senna Plus] 2 tab PO BEDTIME PRN 07/11/21 [History] Doxycycline [Vibra-Tabs] 100 mg PO Q12HR #11 tab 07/11/21 [Rx] Gabapentin [Neurontin] 300 mg PO BID 07/11/21 [History] Metoprolol Succinate [Toprol Xl] 50 mg PO DAILY 07/11/21 [History] Multivitamin with Minerals [Multivitamins with Minerals] 1 tab PO DAILY 07/11/21 [History] Naloxone HCl [Narcan] 1 spray CINDY ONETIME PRN 07/11/21 [History] Saccharomyces Boulardii [Florastor] 500 mg PO BID cap 07/11/21 [Rx] Triamcinolone Acetonide [Triamcinolone Acetonide 0.1% Crm] 1 applic TOP BID PRN 07/11/21 [History] atorvaSTATin [Lipitor] 80 mg PO BEDTIME 07/11/21 [History] lisinopriL [Prinivil] 5 mg PO DAILY #30 tablet 07/11/21 [Rx] tiZANidine [Zanaflex] 2 mg PO BID 07/11/21 [History] traZODone 100 mg PO BEDTIME 07/11/21 [History] Oxygen Therapy Mode: Room Air Referrals: Trish Roberts NP [Primary Care Provider] - - Discharge Summary/Plan Comment DC Time >30 min.: No Total # of Minutes for Discharge Time: 10 min - General Info Date of Service: 07/12/21 Subjective Update: states breathing improved. No edema in his legs today after stopping Amlodipine. No chest pain. Wants to go home. - Patient Data Vitals - Most Recent: Last Vital Signs Temp 97.6 F 07/12/21 08:00 Pulse 55 L 07/12/21 08:28 Resp 19 07/12/21 08:00 BP 166/78 H 07/12/21 08:28 Pulse Ox 96 07/12/21 08:00 Weight - Most Recent: 182 lb 8 oz I&O - Last 24 hours: Intake & Output 07/11/21 07/12/21 07/12/21 22:59 06:59 14:59 Intake Total 290 780 Balance 290 780 Lab Results - Last 24 hrs: Laboratory Results - last 24 hr 07/11/21 07/11/21 07/11/21 Range/Units 13:20 13:20 13:45 WBC 8.4 (3.2-10.1) x10-3/uL RBC 3.82 L (3.90-5.90) x10(6)uL Hgb 11.9 L (12.9-17.7) g/dL Hct 35.5 L (38.3-50.1) % MCV 93.1 (80.8-98.7) fL MCH 31.1 (27.0-33.3) pg MCHC 33.4 (28.7-35.3) g/dL RDW 15.6 H (12.4-15.0) % Plt Count 288 (117-477) x10(3)uL MPV 7.3 (6.7-11.0) fL Neut % (Auto) 61.8 (40.3-71.8) % Lymph % (Auto) 21.7 (15.8-45.3) % [place] % (Auto) 10.5 (5.5-15.2) % Eos % (Auto) 4.8 (0.1-6.8) % Baso % (Auto) 1.2 (0.3-3.8) % Neut # (Auto) 5.2 (1.7-6.9) x10-3/uL Lymph # (Auto) 1.8 (0.5-4.5) x10-3/uL [place] # (Auto) 0.9 (0.0-1.2) x10-3/uL Eos # (Auto) 0.4 (0.0-0.6) x10-3/uL Baso # (Auto) 0.1 (0.0-0.3) x10-3/uL Sodium 143 (135-145) mmol/L Potassium 5.3 (3.5-5.3) mmol/L Chloride 110 (100-110) mmol/L Carbon Dioxide 21 (21-32) mmol/L BUN 41 H (7-18) mg/dL Creatinine 3.1 H* (0.70-1.30) mg/dL Est Cr Clr Drug Dosing TNP Estimated GFR (MDRD) 20 L (>60) BUN/Creatinine Ratio 13.2 (9-20) Glucose 83 (80-116) mg/dL Calcium 8.7 (8.6-10.2) mg/dL Total Bilirubin 0.6 (0.1-1.3) mg/dL AST 28 H D (5-25) IU/L ALT 45 H D (12-36) U/L Alkaline Phosphatase 86 (56-112) IU/L Total Protein 6.9 (6.0-8.0) g/dL Albumin 3.5 (3.2-4.6) g/dL Globulin 3.4 g/dL Albumin/Globulin Ratio 1.0 SARS-CoV-2 RNA (DARA) Negative (NEGATIVE) ERICK Results - Last 24 hrs: Microbiology 07/11/21 13:45 Influenza Type A Antigen Screen - Final Nasopharyngeal Swab NEGATIVE INFLUENZA A VIRUS AG REFERENCE RANGE: NEGATIVE Influenza Type B Antigen Screen - Final NEGATIVE INFLUENZA B VIRUS AG REFERENCE RANGE: NEGATIVE Med Orders - Current: Current Medications Discontinued Medications Acetaminophen (Acetaminophen 325 Mg Tab) 650 mg PO Q4H PRN PRN Reason: Pain (Mild 1-3)/fever Acetaminophen (Acetaminophen 500 Mg Tab *Ptom) 1,000 mg PO TID [facility] Last Admin: 07/12/21 08:17 Dose: 1,000 mg Documented by: Albuterol/Ipratropium (Albuterol/Ipratropium 3.0-0.5 Mg/3 Ml Neb Soln) 3 ml INH Q4H PRN PRN Reason: Shortness of Breath Last Admin: 07/11/21 20:19 Dose: 3 ml Documented by: Amlodipine Besylate (Amlodipine 5 Mg Tab *Ptom) 5 mg PO DAILY [facility] Aspirin (Aspirin 81 Mg Tab.Ec *Ptom) 81 mg PO DAILY [facility] Last Admin: 07/12/21 08:25 Dose: 81 mg Documented by: Docusate Sodium (Docusate Sodium 100 Mg Cap) 100 mg PO BID [facility] Doxycycline Hyclate (Doxycycline 100 Mg Tab) 100 mg PO BID [facility] Last Admin: 07/12/21 08:16 Dose: 100 mg Documented by: Febuxostat (Febuxostat 40 Mg Tab *Ptom) 40 mg PO DAILY [facility] Last Admin: 07/12/21 08:14 Dose: 40 mg Documented by: Gabapentin (Gabapentin 300 Mg Cap *Ptom) 300 mg PO BID [facility] Last Admin: 07/12/21 08:21 Dose: 300 mg Documented by: Sodium Chloride (Normal Saline) 1,000 mls @ 100 mls/hr IV ASDIRECTED [facility] Last Admin: 07/12/21 03:16 Dose: 100 mls/hr Documented by: Influenza Virus Vaccine (Flu Vacc Cy7331-11(6mos Up)/Pf 60 Mcg/0.5 Ml Syringe) 60 mcg IM .ONCE ONE Stop: 07/11/21 15:01 Last Admin: 07/12/21 08:45 Dose: 60 mcg Documented by: Lisinopril (Lisinopril 5 Mg Tab) 5 mg PO DAILY [facility] Last Admin: 07/12/21 08:25 Dose: 5 mg Documented by: Loratadine (Loratadine 10 Mg Tab *Ptom) 10 mg PO DAILY [facility] Last Admin: 07/12/21 08:20 Dose: 10 mg Documented by: Metoprolol Succinate (Metoprolol Succinate 50 Mg Tab.Er *Ptom) 50 mg PO DAILY [facility] Last Admin: 07/12/21 08:28 Dose: Not Given Documented by: Multivitamins/Minerals (Multivitamins With Iron/Calcium/Folic Acid/Minerals Tab *Ptom) 1 tab PO DAILY@1400 [facility] (Atorvastatin [ Lipitor] 80 Mg Tablet) *Ptom 80 mg PO BEDTIME [facility] Last Admin: 07/11/21 20:20 Dose: 80 mg Documented by: (Omeprazole [ Omeprazole] 10 Mg Cap.Cr) *Ptom 10 mg PO BEDTIME [facility] Last Admin: 07/11/21 20:24 Dose: 10 mg Documented by: Saccharomyces Boulardii (Saccharomyces Boulardii (Probiotic) 250 Mg Cap) 500 mg PO BID [facility] Last Admin: 07/12/21 08:15 Dose: 500 mg Documented by: Senna/Docusate Sodium (Docusate Sodium/Sennosides 50-8.6 Mg Tab) 2 tab PO BEDTIME PRN PRN Reason: Constipation Sodium Chloride (Sodium Chloride 0.9% 10 Ml Syringe) 10 ml FLUSH ASDIRECTED PRN PRN Reason: Keep Vein Open Trazodone HCl (Trazodone 100 Mg Tab *Ptom) 100 mg PO BEDTIME [facility] Last Admin: 07/11/21 20:23 Dose: 100 mg Documented by: - Exam General: Reports: Alert, Oriented, Cooperative, No Acute Distress Lungs: Reports: Clear to Auscultation, Normal Respiratory Effort, Crackles (RLL) Cardiovascular: Reports: Regular Rate, Regular Rhythm GI/Abdominal Exam: Normal Bowel Sounds, Soft, Non-Tender, No Distention (Male) Exam: Deferred Rectal (Males) Exam: Deferred Extremities: No Pedal Edema, Normal Capillary Refill Skin: Reports: Warm, Dry, Intact *Q Meaningful Use (DIS) - VTE *Q VTE Mechanical Contraindications *Q: At Risk for Falls
[2021-07-12] MEDS ORDERED: Multivitamins with Iron/Calcium/Folic Acid/Minerals Tab *PTOM PO SCH (14:00)
== END 2021-07-12 08:50 | disposition home health service (06) ==
LOC: FB.MS 12:39
PROVIDERS: ADMIT Family Medicine; ATTEND Family Medicine
DX: J18.9 Pneumonia, unspecified organism (principal); J90 Pleural effusion, not elsewhere classified; I25.2 Old myocardial infarction; J44.9 Chronic obstructive pulmonary disease, unspecified; F17.210 Nicotine dependence, cigarettes, uncomplicated; I71.4 Abdominal aortic aneurysm, without rupture; F10.10 Alcohol abuse, uncomplicated; I25.10 Atherosclerotic heart disease of native coronary artery without angina pectoris; I12.0 Hypertensive chronic kidney disease with stage 5 chronic kidney disease or end stage renal disease; N18.5 Chronic kidney disease, stage 5; Z20.822 Contact with and (suspected) exposure to COVID-19; Z79.82 Long term (current) use of aspirin; Z79.899 Other long term (current) drug therapy; Z95.0 Presence of cardiac pacemaker; Z98.890 Other specified postprocedural states; Z90.49 Acquired absence of other specified parts of digestive tract
CPT/HCPCS: 36415; 80053; 85025; 87040; 87186; 87804; 87804-59; 90686; 94640; A9270-GY; G0378; G0379; J7030; J7620-GY; U0002

== ENCOUNTER 2021-10-31 13:00 | Inpatient (IN) | payer MEDICARE ==
[2021-10-31] MEDS ORDERED: Melatonin 3 MG Tab PO PRN (14:22)
[2021-10-31] MEDS ORDERED: Benzonatate 100 MG Cap PO PRN (14:22)
[2021-10-31] MEDS ORDERED: Albuterol/Ipratropium 3.0-0.5 MG/3 ML Neb Soln INH PRN (14:22)
[2021-10-31] MEDS: Menthol/Methyl Salicylate 85 GM Tube TOP PRN ×2 (15:24→21:24)
[2021-10-31] MEDS: hydrALAZINE 25 MG Tab PO SCH ×2 (15:26→20:21)
[2021-10-31] MEDS: Sodium Bicarbonate 650 MG Tab PO SCH ×2 (15:26→20:20)
[2021-10-31] MEDS ORDERED: Pneumococcal Polyvalent-23 Vaccine 0.5 ML SDV SUBCUT ONE (15:58)
[2021-10-31] MEDS: traMADol 50 MG Tab PO PRN (18:07)
[2021-10-31] MEDS: cloNIDine 0.1 MG Tab PO SCH (20:21)
[2021-10-31] MEDS: atorvaSTATin 40 MG Tab PO SCH (20:21)
[2021-10-31] MEDS: Gabapentin 300 MG Cap PO SCH (20:21)
[2021-10-31] MEDS: Acetaminophen 325 MG Tab PO PRN (20:22)
[2021-11-01] MEDS: traMADol 50 MG Tab PO PRN ×4 (00:15→19:33)
[2021-11-01] MEDS: Pantoprazole 40 MG Tab.CR PO SCH (05:29)
[2021-11-01] MEDS: Acetaminophen 325 MG Tab PO PRN ×3 (06:27→19:34)
[2021-11-01] MEDS: Magnesium Oxide 400 MG Tab PO SCH (09:26)
[2021-11-01] MEDS: Sodium Bicarbonate 650 MG Tab PO SCH ×3 (09:26→20:22)
[2021-11-01] MEDS: Cyanocobalamin (Vitamin B12) 500 MCG Tab PO SCH (09:26)
[2021-11-01] MEDS: Febuxostat 40 MG Tab PO SCH (09:27)
[2021-11-01] MEDS: Sertraline 50 MG Tab PO SCH (09:27)
[2021-11-01] MEDS: tiZANidine 4 MG Tab PO SCH (09:27)
[2021-11-01] MEDS: Folic Acid 1 MG Tab PO SCH (09:27)
[2021-11-01] MEDS: Aspirin 81 MG Tab.EC PO SCH (09:29)
[2021-11-01] MEDS: Thiamine 100 MG Tab PO SCH (09:29)
[2021-11-01] MEDS: Calcitriol 0.25 MCG Cap PO SCH (09:29)
[2021-11-01] MEDS: hydrALAZINE 25 MG Tab PO SCH ×3 (10:34→20:23)
[2021-11-01] MEDS: Metoprolol Succinate 25 MG Tab.ER PO SCH (10:35)
[2021-11-01] MEDS: cloNIDine 0.1 MG Tab PO SCH ×2 (10:36→20:23)
[2021-11-01] MEDS: Menthol/Methyl Salicylate 85 GM Tube TOP PRN ×2 (10:41→20:22)
[2021-11-01] MEDS: atorvaSTATin 40 MG Tab PO SCH (20:22)
[2021-11-01] MEDS: Gabapentin 300 MG Cap PO SCH (20:22)
[2021-11-01] MEDS: traZODone 100 MG Tab PO SCH (20:23)
[2021-11-02] MEDS: Pantoprazole 40 MG Tab.CR PO SCH (06:37)
[2021-11-02] MEDS: hydrALAZINE 25 MG Tab PO SCH ×3 (08:39→20:08)
[2021-11-02] MEDS: tiZANidine 4 MG Tab PO SCH (08:40)
[2021-11-02] MEDS: Thiamine 100 MG Tab PO SCH (08:40)
[2021-11-02] MEDS: Febuxostat 40 MG Tab PO SCH (08:40)
[2021-11-02] MEDS: Sertraline 50 MG Tab PO SCH (08:40)
[2021-11-02] MEDS: Magnesium Oxide 400 MG Tab PO SCH (08:42)
[2021-11-02] MEDS: Calcitriol 0.25 MCG Cap PO SCH (08:42)
[2021-11-02] MEDS: Cyanocobalamin (Vitamin B12) 500 MCG Tab PO SCH (08:42)
[2021-11-02] MEDS: Aspirin 81 MG Tab.EC PO SCH (08:42)
[2021-11-02] MEDS: Metoprolol Succinate 25 MG Tab.ER PO SCH ×2 (08:43→08:49)
[2021-11-02] MEDS: Sodium Bicarbonate 650 MG Tab PO SCH ×3 (08:43→20:11)
[2021-11-02] MEDS: Folic Acid 1 MG Tab PO SCH (08:46)
[2021-11-02] MEDS: cloNIDine 0.1 MG Tab PO SCH ×2 (08:49→20:09)
[2021-11-02] MEDS: traMADol 50 MG Tab PO PRN ×2 (09:34→16:33)
[2021-11-02] MEDS: Menthol/Methyl Salicylate 85 GM Tube TOP PRN (12:43)
[2021-11-02] MEDS: atorvaSTATin 40 MG Tab PO SCH (20:10)
[2021-11-02] MEDS: traZODone 100 MG Tab PO SCH (20:13)
[2021-11-02] MEDS: Gabapentin 300 MG Cap PO SCH (20:16)
[2021-11-02] MEDS: Acetaminophen 325 MG Tab PO SCH (20:17)
[2021-11-03] MEDS: traMADol 50 MG Tab PO PRN ×4 (01:31→20:22)
[2021-11-03] MEDS: traZODone 50 MG Tab PO PRN (01:32)
[2021-11-03] MEDS: Pantoprazole 40 MG Tab.CR PO SCH (06:16)
[2021-11-03] MEDS: hydrALAZINE 25 MG Tab PO SCH ×3 (09:41→20:28)
[2021-11-03] MEDS: Folic Acid 1 MG Tab PO SCH (09:43)
[2021-11-03] MEDS: cloNIDine 0.1 MG Tab PO SCH ×2 (09:43→20:27)
[2021-11-03] MEDS: Calcitriol 0.25 MCG Cap PO SCH (09:44)
[2021-11-03] MEDS: Magnesium Oxide 400 MG Tab PO SCH (09:44)
[2021-11-03] MEDS: Sodium Bicarbonate 650 MG Tab PO SCH ×3 (09:44→20:26)
[2021-11-03] MEDS: Metoprolol Succinate 25 MG Tab.ER PO SCH (09:44)
[2021-11-03] MEDS: Aspirin 81 MG Tab.EC PO SCH (09:44)
[2021-11-03] MEDS: Cyanocobalamin (Vitamin B12) 500 MCG Tab PO SCH (09:45)
[2021-11-03] MEDS: Febuxostat 40 MG Tab PO SCH (09:45)
[2021-11-03] MEDS: tiZANidine 4 MG Tab PO SCH (09:47)
[2021-11-03] MEDS: Sertraline 25 MG Tab PO SCH (09:47)
[2021-11-03] MEDS: Thiamine 100 MG Tab PO SCH (09:47)
[2021-11-03] MEDS: Acetaminophen 325 MG Tab PO SCH ×4 (09:49→20:29)
[2021-11-03] MEDS: Menthol/Methyl Salicylate 85 GM Tube TOP PRN (17:56)
[2021-11-03] MEDS: traZODone 100 MG Tab PO SCH (20:26)
[2021-11-03] MEDS: Gabapentin 300 MG Cap PO SCH (20:26)
[2021-11-03] MEDS: atorvaSTATin 40 MG Tab PO SCH (20:27)
[2021-11-04] MEDS: traZODone 50 MG Tab PO PRN (03:55)
[2021-11-04] MEDS: Pantoprazole 40 MG Tab.CR PO SCH (06:00)
[2021-11-04] MEDS: cloNIDine 0.1 MG Tab PO SCH ×2 (08:47→20:36)
[2021-11-04] MEDS: Folic Acid 1 MG Tab PO SCH (08:47)
[2021-11-04] MEDS: hydrALAZINE 25 MG Tab PO SCH ×3 (08:47→20:34)
[2021-11-04] MEDS: Sodium Bicarbonate 650 MG Tab PO SCH ×3 (08:48→20:34)
[2021-11-04] MEDS: Calcitriol 0.25 MCG Cap PO SCH (08:48)
[2021-11-04] MEDS: Aspirin 81 MG Tab.EC PO SCH (08:48)
[2021-11-04] MEDS: Magnesium Oxide 400 MG Tab PO SCH (08:48)
[2021-11-04] MEDS: Metoprolol Succinate 25 MG Tab.ER PO SCH (08:49)
[2021-11-04] MEDS: Acetaminophen 325 MG Tab PO SCH ×4 (08:50→20:32)
[2021-11-04] MEDS: Cyanocobalamin (Vitamin B12) 500 MCG Tab PO SCH (08:52)
[2021-11-04] MEDS: Thiamine 100 MG Tab PO SCH (08:52)
[2021-11-04] MEDS: Sertraline 25 MG Tab PO SCH (08:53)
[2021-11-04] MEDS: tiZANidine 4 MG Tab PO SCH (08:53)
[2021-11-04] MEDS: Febuxostat 40 MG Tab PO SCH (08:55)
[2021-11-04] MEDS: Menthol/Methyl Salicylate 85 GM Tube TOP PRN (08:57)
[2021-11-04] MEDS: traMADol 50 MG Tab PO PRN ×3 (09:12→21:39)
[2021-11-04] MEDS: Gabapentin 300 MG Cap PO SCH (20:32)
[2021-11-04] MEDS: atorvaSTATin 40 MG Tab PO SCH (20:36)
[2021-11-04] MEDS: traZODone 100 MG Tab PO SCH (20:37)
[2021-11-05] MEDS: Pantoprazole 40 MG Tab.CR PO SCH (06:26)
[2021-11-05] MEDS: traMADol 50 MG Tab PO PRN ×2 (08:46→20:30)
[2021-11-05] MEDS: Thiamine 100 MG Tab PO SCH (08:50)
[2021-11-05] MEDS: Cyanocobalamin (Vitamin B12) 500 MCG Tab PO SCH (08:50)
[2021-11-05] MEDS: Menthol/Methyl Salicylate 85 GM Tube TOP PRN (08:50)
[2021-11-05] MEDS: Aspirin 81 MG Tab.EC PO SCH (08:50)
[2021-11-05] MEDS: Calcitriol 0.25 MCG Cap PO SCH (08:50)
[2021-11-05] MEDS: Febuxostat 40 MG Tab PO SCH (08:51)
[2021-11-05] MEDS: cloNIDine 0.1 MG Tab PO SCH ×2 (08:51→20:14)
[2021-11-05] MEDS: Folic Acid 1 MG Tab PO SCH (08:51)
[2021-11-05] MEDS: hydrALAZINE 25 MG Tab PO SCH ×3 (08:52→20:15)
[2021-11-05] MEDS: Sodium Bicarbonate 650 MG Tab PO SCH ×3 (08:53→20:16)
[2021-11-05] MEDS: Magnesium Oxide 400 MG Tab PO SCH (08:53)
[2021-11-05] MEDS: Acetaminophen 325 MG Tab PO SCH ×4 (08:54→20:16)
[2021-11-05] MEDS: Metoprolol Succinate 25 MG Tab.ER PO SCH (08:55)
[2021-11-05] MEDS: tiZANidine 4 MG Tab PO SCH (08:55)
[2021-11-05] MEDS: Sertraline 25 MG Tab PO SCH (08:57)
[2021-11-05] MEDS: Gabapentin 300 MG Cap PO SCH (20:14)
[2021-11-05] MEDS: atorvaSTATin 40 MG Tab PO SCH (20:15)
[2021-11-05] MEDS: traZODone 100 MG Tab PO SCH (20:15)
[2021-11-06] MEDS: Pantoprazole 40 MG Tab.CR PO SCH (06:00)
[2021-11-06] MEDS: Cyanocobalamin (Vitamin B12) 500 MCG Tab PO SCH (09:05)
[2021-11-06] MEDS: cloNIDine 0.1 MG Tab PO SCH ×2 (09:05→09:15)
[2021-11-06] MEDS: Aspirin 81 MG Tab.EC PO SCH (09:05)
[2021-11-06] MEDS: Metoprolol Succinate 25 MG Tab.ER PO SCH (09:06)
[2021-11-06] MEDS: Acetaminophen 325 MG Tab PO SCH (09:07)
[2021-11-06] MEDS: Calcitriol 0.25 MCG Cap PO SCH (09:07)
[2021-11-06] MEDS: Sodium Bicarbonate 650 MG Tab PO SCH (09:07)
[2021-11-06] MEDS: Febuxostat 40 MG Tab PO SCH (09:07)
[2021-11-06] MEDS: Thiamine 100 MG Tab PO SCH (09:08)
[2021-11-06] MEDS: Magnesium Oxide 400 MG Tab PO SCH (09:08)
[2021-11-06] MEDS: hydrALAZINE 25 MG Tab PO SCH (09:08)
[2021-11-06] MEDS: Folic Acid 1 MG Tab PO SCH (09:08)
[2021-11-06] MEDS: Sertraline 25 MG Tab PO SCH (09:08)
[2021-11-06] MEDS: traMADol 50 MG Tab PO PRN (09:11)
[2021-11-06] MEDS: tiZANidine 4 MG Tab PO SCH (09:11)
== END 2021-11-06 11:15 | disposition home or self-care (01) | DRG 947 ==
LOC: FB.MS 13:00
PROVIDERS: ADMIT Family Medicine; ATTEND Student in an Organized Health Care Education/Training Program
DX: R53.1 Weakness (principal); I21.A1 Myocardial infarction type 2; I69.951 Hemiplegia and hemiparesis following unspecified cerebrovascular disease affecting right dominant side; I12.0 Hypertensive chronic kidney disease with stage 5 chronic kidney disease or end stage renal disease; N18.5 Chronic kidney disease, stage 5; K86.0 Alcohol-induced chronic pancreatitis; Z66 Do not resuscitate; G62.9 Polyneuropathy, unspecified; R29.6 Repeated falls; J44.9 Chronic obstructive pulmonary disease, unspecified; I71.4 Abdominal aortic aneurysm, without rupture; I25.10 Atherosclerotic heart disease of native coronary artery without angina pectoris; F10.929 Alcohol use, unspecified with intoxication, unspecified; M10.9 Gout, unspecified; Z98.49 Cataract extraction status, unspecified eye; Z95.0 Presence of cardiac pacemaker; Z90.49 Acquired absence of other specified parts of digestive tract; Z79.82 Long term (current) use of aspirin; Z79.899 Other long term (current) drug therapy; I27.20 Pulmonary hypertension, unspecified; H54.7 Unspecified visual loss; I25.2 Old myocardial infarction; R07.89 Other chest pain
CPT/HCPCS: 90732; 97110-GO; 97116-GP; 97161-GP; 97166-GO; 97530-GP; 97535-GO; A9270-GY

== ENCOUNTER 2022-02-17 23:12 | Inpatient (IN) | payer MEDICARE ==
[2022-02-18] MEDS ORDERED: Sodium Chloride 0.9% 1,000 ML IV ONE (00:05)
[2022-02-18] MEDS ORDERED: Thiamine 100 MG in Sodium Chloride 0.9% 50 ML IV ONE (00:17)
[2022-02-18] MEDS ORDERED: Folic Acid 50 MG/10 ML MDV IV STA (00:18)
[2022-02-18] MEDS ORDERED: Aspirin 81 MG Tab.Chew PO ONE (09:27)
[2022-02-18] MEDS ORDERED: hydrALAZINE 25 MG Tab PO STA (09:27)
[2022-02-18] MEDS ORDERED: Metoprolol Succinate 25 MG Tab.ER PO ONE (09:28)
[2022-02-18] MEDS ORDERED: Ondansetron 4 MG Tab.DIS PO PRN (10:15)
[2022-02-18] MEDS ORDERED: Acetaminophen 325 MG Tab PO PRN ×2 (10:15→10:45)
[2022-02-18] MEDS ORDERED: Sodium Chloride 0.9% 1,000 ML IV SCH (10:30)
[2022-02-18] MEDS ORDERED: Albuterol/Ipratropium 3.0-0.5 MG/3 ML Neb Soln INH PRN (10:45)
[2022-02-18] MEDS ORDERED: Melatonin 3 MG Tab PO PRN (10:45)
[2022-02-18] MEDS ORDERED: traZODone 50 MG Tab PO PRN (10:45)
[2022-02-18] MEDS ORDERED: Non-Formulary Medication 1 Each (Magnesium Oxide [Magnesium Oxide] 250 MG Tablet) PO SCH (11:00)
[2022-02-18] MEDS ORDERED: Non-Formulary Medication 1 Each (Omeprazole [Omeprazole] 20 MG Capsule.Dr) PO SCH (11:00)
[2022-02-18] MEDS ORDERED: Omeprazole 20 MG Cap.CR PO ONE (11:00)
[2022-02-18] MEDS: Sertraline 25 MG Tab PO SCH (12:16)
[2022-02-18] MEDS: Febuxostat 40 MG Tab PO SCH (12:16)
[2022-02-18] MEDS: Enoxaparin 30 MG/0.3 ML Syringe SUBCUT SCH (12:16)
[2022-02-18] MEDS: hydrALAZINE 25 MG Tab PO SCH ×2 (15:47→20:36)
[2022-02-18] MEDS: Sodium Bicarbonate 650 MG Tab PO SCH ×2 (15:48→20:06)
[2022-02-18] MEDS ORDERED: Gabapentin 300 MG Cap PO SCH (21:00)
[2022-02-18] MEDS ORDERED: Non-Formulary Medication 1 Each (Atorvastatin [Lipitor] 80 MG Tablet) PO SCH (21:00)
[2022-02-18] MEDS ORDERED: traZODone 100 MG Tab PO SCH (21:00)
[2022-02-18] MEDS ORDERED: atorvaSTATin 40 MG Tab PO SCH (22:15)
[2022-02-18] MEDS ORDERED: traZODone 50 MG Tab PO SCH (22:15)
[2022-02-19] MEDS ORDERED: Pantoprazole 40 MG Tab.CR PO SCH (07:30)
[2022-02-19] MEDS ORDERED: Magnesium Oxide 400 MG Tab PO SCH (09:00)
[2022-02-19] MEDS ORDERED: Metoprolol Succinate 25 MG Tab.ER PO SCH (09:00)
[2022-02-19] MEDS ORDERED: Thiamine 100 MG Tab PO SCH (09:00)
[2022-02-19] MEDS ORDERED: Folic Acid 1 MG Tab PO SCH (09:00)
[2022-02-19] MEDS ORDERED: tiZANidine 4 MG Tab PO SCH (09:00)
[2022-02-19] MEDS ORDERED: Calcitriol 0.25 MCG Cap PO SCH (09:00)
[2022-02-19] MEDS ORDERED: Aspirin 81 MG Tab.EC PO SCH (09:00)
[2022-02-19] MEDS ORDERED: Cyanocobalamin (Vitamin B12) 500 MCG Tab PO SCH (09:00)
[2022-02-19] MEDS: Enoxaparin 30 MG/0.3 ML Syringe SUBCUT SCH (10:50)
[2022-02-19] MEDS: Morphine 4 MG/ML VIAL IVPUSH PRN ×3 (11:27→23:57)
[2022-02-19] MEDS ORDERED: hydrALAZINE 20 MG/ML SDV IVPUSH ONE (11:30)
[2022-02-19] MEDS: hydrALAZINE 25 MG Tab PO SCH (11:52)
[2022-02-19] MEDS: Febuxostat 40 MG Tab PO SCH (11:53)
[2022-02-19] MEDS: Sodium Bicarbonate 650 MG Tab PO SCH (11:53)
[2022-02-19] MEDS: Sertraline 25 MG Tab PO SCH (11:54)
[2022-02-19] MEDS ORDERED: Metoprolol Tartrate 5 MG/5 ML SDV IVPUSH ONE (11:59)
[2022-02-19] MEDS ORDERED: Ondansetron 4 MG/2 ML SDV IVPUSH PRN (13:16)
[2022-02-19] MEDS ORDERED: Acetaminophen 650 MG Supp RECTAL PRN (13:16)
[2022-02-19] MEDS ORDERED: LORazepam 1 MG Tab PO SCH (16:15)
[2022-02-19] MEDS: Lactated Ringers 1,000 ML IV SCH (16:16)
[2022-02-19] MEDS: Metoprolol Tartrate 5 MG/5 ML SDV IVPUSH SCH ×2 (16:31→23:50)
[2022-02-19] MEDS ORDERED: LORazepam 1 MG Tab PO PRN (16:52)
[2022-02-19] MEDS: hydrALAZINE 20 MG/ML SDV IVPUSH PRN ×2 (18:04→22:04)
[2022-02-19] MEDS ORDERED: atorvaSTATin 40 MG Tab PO SCH (21:00)
[2022-02-19] MEDS ORDERED: Aspirin 300 MG Supp RECTAL SCH (21:00)
[2022-02-20] MEDS: Metoprolol Tartrate 5 MG/5 ML SDV IVPUSH SCH ×2 (06:06→10:46)
[2022-02-20] MEDS ORDERED: LORazepam 2 MG/ML SDV IVPUSH PRN ×4 (07:05→10:20)
[2022-02-20] MEDS ORDERED: Pantoprazole 40 MG Vial IVPUSH SCH (09:00)
[2022-02-20] MEDS: Enoxaparin 30 MG/0.3 ML Syringe SUBCUT SCH (09:48)
[2022-02-20] MEDS: Lactated Ringers 1,000 ML IV SCH (11:37)
[2022-02-20] MEDS ORDERED: cefTRIAXone 1 GM Vial IVPUSH SCH (13:15)
[2022-02-20] MEDS ORDERED: Sodium Chloride 0.9% 10 ML Syringe FLUSH PRN (13:15)
== END 2022-02-20 16:40 | DRG 92 ==
LOC: FB.ED 23:12 → FB.MS 02-18 10:16
PROVIDERS: ADMIT Student in an Organized Health Care Education/Training Program; ATTEND Student in an Organized Health Care Education/Training Program
DX: R26.81 Unsteadiness on feet (principal); N18.4 Chronic kidney disease, stage 4 (severe); E87.2 Acidosis; F10.129 Alcohol abuse with intoxication, unspecified; W19.XXXA Unspecified fall, initial encounter; Z91.81 History of falling; Z51.5 Encounter for palliative care; R13.10 Dysphagia, unspecified; I25.10 Atherosclerotic heart disease of native coronary artery without angina pectoris; J42 Unspecified chronic bronchitis; H54.7 Unspecified visual loss; I25.2 Old myocardial infarction; R13.11 Dysphagia, oral phase; J44.9 Chronic obstructive pulmonary disease, unspecified; I12.9 Hypertensive chronic kidney disease with stage 1 through stage 4 chronic kidney disease, or unspecified chronic kidney disease; M10.9 Gout, unspecified; M79.18 Myalgia, other site; H53.2 Diplopia; I71.4 Abdominal aortic aneurysm, without rupture; R29.6 Repeated falls; E83.51 Hypocalcemia; R53.1 Weakness; M19.90 Unspecified osteoarthritis, unspecified site; D64.9 Anemia, unspecified; E66.9 Obesity, unspecified; Z95.0 Presence of cardiac pacemaker; Z79.82 Long term (current) use of aspirin; Z79.899 Other long term (current) drug therapy; Z90.49 Acquired absence of other specified parts of digestive tract; Z98.49 Cataract extraction status, unspecified eye; Z87.891 Personal history of nicotine dependence; Z68.28 Body mass index [BMI] 28.0-28.9, adult
CPT/HCPCS: 36415 ×2; 70450; 80053; 80307; 85025; A9270 ×3; J3411; J3490; J7030; 80048; 81001; 87086; 87088; 87186; 99285; C9113; J0360; J0696; J1650; J2270; J2405; J7120

== ENCOUNTER 2022-03-27 17:03 | Emergency (ER) | payer MEDICARE ==
[2022-03-27] MEDS ORDERED: Sodium Chloride 0.9% 10 ML Syringe FLUSH PRN (17:05)
[2022-03-27] MEDS ORDERED: Pramipexole 0.25 MG Tab PO STA (17:23)
[2022-03-27] MEDS ORDERED: LORazepam 2 MG/ML SDV IVPUSH STA (17:23)
[2022-03-27 17:38] LABS: ESTIMATED GFR 18 mL/min (>60)
== END 2022-03-27 18:55 ==
LOC: FB.ED 17:03
DX: G25.81 Restless legs syndrome (principal); J44.9 Chronic obstructive pulmonary disease, unspecified; I12.9 Hypertensive chronic kidney disease with stage 1 through stage 4 chronic kidney disease, or unspecified chronic kidney disease; N18.5 Chronic kidney disease, stage 5; I25.2 Old myocardial infarction; Z86.73 Personal history of transient ischemic attack (TIA), and cerebral infarction without residual deficits; Z95.0 Presence of cardiac pacemaker
CPT/HCPCS: 36415; 70450; 71045; 80053; 84484; 85025; 85610; 85730; 93005; 96374; 99285; A9270; J2060

== ENCOUNTER 2022-04-03 04:12 | Inpatient (IN) | payer MEDICARE ==
[2022-04-03 04:50] LABS: ESTIMATED GFR 19 mL/min (>60)
[2022-04-03] MEDS ORDERED: Ondansetron 4 MG/2 ML SDV IV PRN (05:41)
[2022-04-03] MEDS ORDERED: Furosemide 40 MG/4 ML VIAL IVPUSH ONE (05:41)
[2022-04-03] MEDS ORDERED: Metolazone 2.5 MG Tab PO ONE (05:41)
[2022-04-03] MEDS ORDERED: Acetaminophen 325 MG Tab PO PRN (05:54)
[2022-04-03] MEDS ORDERED: Melatonin 3 MG Tab PO PRN (05:54)
[2022-04-03 06:12] LABS: BASE EXCESS VENOUS,POC 1 mmol/L (-2 - 3+); PCO2 VENOUS,POC 40 mmHg (41-51); PH VENOUS,POC 7.41 pH Units (7.32-7.43)
[2022-04-03] MEDS ORDERED: Potassium Chloride 20 MEQ Tab.ER PO STA (06:13)
[2022-04-03] MEDS ORDERED: SODIUM ZIRCONIUM CYCLOSILICATE PO SCH (09:00)
[2022-04-03] MEDS: Sodium Chloride 0.9% 10 ML Syringe FLUSH PRN ×4 (09:05→13:56)
[2022-04-03] MEDS: Potassium Chloride 20 MEQ Tab.ER PO SCH (09:06)
[2022-04-03] MEDS: Furosemide 40 MG/4 ML VIAL IVPUSH SCH ×2 (09:45→13:56)
[2022-04-03] MEDS: amLODIPine 10 MG Tab PO SCH (10:03)
[2022-04-03] MEDS: Sodium Bicarbonate 650 MG Tab PO SCH ×3 (10:03→20:53)
[2022-04-03] MEDS: Febuxostat 40 MG Tab PO SCH (10:04)
[2022-04-03] MEDS: Clopidogrel 75 MG Tab PO SCH (10:04)
[2022-04-03] MEDS: Metoprolol Tartrate 25 MG Tab PO SCH ×2 (10:04→20:53)
[2022-04-03] MEDS: Pantoprazole 20 MG Tab, Delayed Release PO SCH (10:05)
[2022-04-03] MEDS: Enoxaparin 30 MG/0.3 ML Syringe SUBCUT SCH (10:05)
[2022-04-03] MEDS: cefTRIAXone 1 GM Vial IVPUSH SCH (10:10)
[2022-04-03] MEDS: Azithromycin 500 MG in Sodium Chloride 0.9% 250 ML IV SCH (10:15)
[2022-04-03] MEDS: atorvaSTATin 40 MG Tab PO SCH (20:53)
[2022-04-03] MEDS: Pramipexole 0.25 MG Tab PO SCH (20:53)
[2022-04-03] MEDS: Gabapentin 300 MG Cap PO SCH (20:53)
[2022-04-03] MEDS: Sertraline 50 MG Tab PO SCH (20:53)
[2022-04-03] MEDS: traZODone 100 MG Tab PO SCH (20:56)
[2022-04-04 07:02] LABS: ESTIMATED GFR 17 mL/min (>60)
[2022-04-04] MEDS: Sodium Chloride 0.9% 10 ML Syringe FLUSH PRN ×3 (08:48→14:39)
[2022-04-04] MEDS: Furosemide 20 MG/2 ML VIAL IVPUSH SCH ×2 (08:48→14:39)
[2022-04-04] MEDS: Furosemide 40 MG/4 ML VIAL IVPUSH SCH (08:48)
[2022-04-04] MEDS: guaiFENesin 600 MG Tab.ER PO PRN (08:49)
[2022-04-04] MEDS: Pantoprazole 20 MG Tab, Delayed Release PO SCH (08:50)
[2022-04-04] MEDS: amLODIPine 10 MG Tab PO SCH (08:50)
[2022-04-04] MEDS: Enoxaparin 30 MG/0.3 ML Syringe SUBCUT SCH (08:50)
[2022-04-04] MEDS: Febuxostat 40 MG Tab PO SCH (08:50)
[2022-04-04] MEDS: Sodium Bicarbonate 650 MG Tab PO SCH ×3 (08:50→20:19)
[2022-04-04] MEDS: Clopidogrel 75 MG Tab PO SCH (08:50)
[2022-04-04] MEDS: Metoprolol Tartrate 25 MG Tab PO SCH ×2 (08:51→20:20)
[2022-04-04] MEDS ORDERED: Furosemide 20 MG/2 ML VIAL IVPUSH SCH (09:00)
[2022-04-04] MEDS: Potassium Chloride 20 MEQ Tab.ER PO SCH (09:01)
[2022-04-04] MEDS: cefTRIAXone 1 GM Vial IVPUSH SCH (10:05)
[2022-04-04] MEDS: Azithromycin 500 MG in Sodium Chloride 0.9% 250 ML IV SCH (10:14)
[2022-04-04] MEDS: Acetaminophen/HYDROcodone 325-7.5 MG Tab PO PRN (10:18)
[2022-04-04] MEDS: Pramipexole 0.25 MG Tab PO SCH (20:20)
[2022-04-04] MEDS: Gabapentin 300 MG Cap PO SCH (20:21)
[2022-04-04] MEDS: atorvaSTATin 40 MG Tab PO SCH (20:21)
[2022-04-04] MEDS: traZODone 100 MG Tab PO SCH (20:22)
[2022-04-04] MEDS: Sertraline 50 MG Tab PO SCH (20:22)
[2022-04-05] MEDS: Acetaminophen/HYDROcodone 325-7.5 MG Tab PO PRN ×2 (01:12→23:35)
[2022-04-05 06:25] LABS: ESTIMATED GFR 17 mL/min (>60)
[2022-04-05] MEDS: Potassium Chloride 20 MEQ Tab.ER PO SCH (08:20)
[2022-04-05] MEDS: Metoprolol Tartrate 25 MG Tab PO SCH ×2 (08:21→20:32)
[2022-04-05] MEDS: Enoxaparin 30 MG/0.3 ML Syringe SUBCUT SCH (08:24)
[2022-04-05] MEDS: Sodium Bicarbonate 650 MG Tab PO SCH ×3 (08:25→20:38)
[2022-04-05] MEDS: amLODIPine 10 MG Tab PO SCH (08:25)
[2022-04-05] MEDS: Febuxostat 40 MG Tab PO SCH (08:25)
[2022-04-05] MEDS: Clopidogrel 75 MG Tab PO SCH (08:26)
[2022-04-05] MEDS: Pantoprazole 20 MG Tab, Delayed Release PO SCH (08:26)
[2022-04-05] MEDS: Amoxicillin/Clavulanate K 500-125 MG Tab PO SCH ×2 (08:44→20:31)
[2022-04-05] MEDS ORDERED: Azithromycin 500 MG Tab PO SCH (09:00)
[2022-04-05] MEDS ORDERED: Ergocalciferol (Vitamin D2) 1.25 MG Cap PO SCH (09:00)
[2022-04-05] MEDS: atorvaSTATin 40 MG Tab PO SCH (20:32)
[2022-04-05] MEDS: guaiFENesin 600 MG Tab.ER PO PRN (20:37)
[2022-04-05] MEDS: Pramipexole 0.25 MG Tab PO SCH (20:37)
[2022-04-05] MEDS: Gabapentin 300 MG Cap PO SCH (20:37)
[2022-04-05] MEDS: traZODone 100 MG Tab PO SCH (20:38)
[2022-04-05] MEDS: Sertraline 50 MG Tab PO SCH (20:38)
[2022-04-06 04:25] VITALS: PULSE 55
[2022-04-06 07:11] LABS: ESTIMATED GFR 16 mL/min (>60)
[2022-04-06] MEDS: Amoxicillin/Clavulanate K 500-125 MG Tab PO SCH (08:14)
[2022-04-06] MEDS: amLODIPine 10 MG Tab PO SCH (08:14)
[2022-04-06] MEDS: Enoxaparin 30 MG/0.3 ML Syringe SUBCUT SCH (08:15)
[2022-04-06] MEDS: Clopidogrel 75 MG Tab PO SCH (08:15)
[2022-04-06] MEDS: Potassium Chloride 20 MEQ Tab.ER PO SCH (08:15)
[2022-04-06] MEDS: Metoprolol Tartrate 25 MG Tab PO SCH (08:15)
[2022-04-06] MEDS: Febuxostat 40 MG Tab PO SCH (08:16)
[2022-04-06] MEDS: Sodium Bicarbonate 650 MG Tab PO SCH (08:16)
[2022-04-06] MEDS: Pantoprazole 20 MG Tab, Delayed Release PO SCH (08:16)
[2022-04-06 08:18] VITALS: BP 108/48
== END 2022-04-06 10:57 | DRG 280 ==
LOC: FB.ED 04:12 → FB.MS 05:40 → OBSVTOIN 08:45
PROVIDERS: ADMIT Emergency Medicine; ATTEND Family Medicine
DX: I50.9 Heart failure, unspecified (principal); I13.2 Hypertensive heart and chronic kidney disease with heart failure and with stage 5 chronic kidney disease, or end stage renal disease; I21.A1 Myocardial infarction type 2; I50.41 Acute combined systolic (congestive) and diastolic (congestive) heart failure; J18.9 Pneumonia, unspecified organism; N18.4 Chronic kidney disease, stage 4 (severe); I13.0 Hypertensive heart and chronic kidney disease with heart failure and stage 1 through stage 4 chronic kidney disease, or unspecified chronic kidney disease; J44.9 Chronic obstructive pulmonary disease, unspecified; I25.2 Old myocardial infarction; E87.0 Hyperosmolality and hypernatremia; M19.90 Unspecified osteoarthritis, unspecified site; Z86.73 Personal history of transient ischemic attack (TIA), and cerebral infarction without residual deficits; F10.20 Alcohol dependence, uncomplicated; Z85.528 Personal history of other malignant neoplasm of kidney; Z79.02 Long term (current) use of antithrombotics/antiplatelets; N18.5 Chronic kidney disease, stage 5; J44.0 Chronic obstructive pulmonary disease with (acute) lower respiratory infection; I69.351 Hemiplegia and hemiparesis following cerebral infarction affecting right dominant side; F10.21 Alcohol dependence, in remission; G25.81 Restless legs syndrome; E87.6 Hypokalemia; Z20.822 Contact with and (suspected) exposure to COVID-19; I71.4 Abdominal aortic aneurysm, without rupture; E66.9 Obesity, unspecified; Z68.30 Body mass index [BMI] 30.0-30.9, adult; Z95.0 Presence of cardiac pacemaker; Z51.5 Encounter for palliative care; Z79.82 Long term (current) use of aspirin; Z79.899 Other long term (current) drug therapy; Z79.1 Long term (current) use of non-steroidal anti-inflammatories (NSAID); Z86.79 Personal history of other diseases of the circulatory system; Z98.42 Cataract extraction status, left eye; Z98.41 Cataract extraction status, right eye; Z87.19 Personal history of other diseases of the digestive system; Z91.81 History of falling; Z98.890 Other specified postprocedural states; Z90.49 Acquired absence of other specified parts of digestive tract; Z87.891 Personal history of nicotine dependence
CPT/HCPCS: 36415; 51702; 71045; 80048; 80053; 83880; 84484; 85025; 85610; 85730; 93005; 99285; A9270-GY; J0456; J0696; J1650; J1940; J3490; J7050; U0002

== ENCOUNTER 2022-04-22 21:51 | Emergency (ER) | payer MEDICARE ==
[2022-04-22] MEDS ORDERED: Furosemide 40 MG/4 ML VIAL IVPUSH ONE (22:28)
[2022-04-22 22:45] LABS: ESTIMATED GFR 13 mL/min (>60)
[2022-04-22] MEDS ORDERED: Sodium Chloride 0.9% 10 ML Syringe FLUSH PRN (22:45)
== END 2022-04-23 00:20 ==
LOC: FB.ED 21:51
DX: E87.70 Fluid overload, unspecified (principal); J44.9 Chronic obstructive pulmonary disease, unspecified; I10 Essential (primary) hypertension; I25.2 Old myocardial infarction; Z79.899 Other long term (current) drug therapy; Z79.82 Long term (current) use of aspirin; Z86.73 Personal history of transient ischemic attack (TIA), and cerebral infarction without residual deficits; Z90.49 Acquired absence of other specified parts of digestive tract; W19.XXXA Unspecified fall, initial encounter
CPT/HCPCS: 36415; 70450; 71045; 80053; 83880; 84484; 85025; 93005; 96374; 99285-25; J1940; J3490